=== PATIENT | male | born 1950 | race Caucasian/White ===

== ENCOUNTER 2019-07-28 13:31 | Outpatient (CLI) | payer MEDICARE, SELFPAY ==
--- NOTE | 2019-07-28 13:41 | ECHO_ITS ---
Patient Info Name: Damir Jimenez Age: 68 years : 1950 Gender: Male Ht: 69 in Wt: 180 lbs BSA: 2.01 m2 HR: 93 bpm BP: 135 / 79 mmHg Technical Quality: Good Exam Date: 07/28/2019 1:50 PM Exam Location: [facility] Patient Status: Outpatient Admit Date: 07/28/2019 Staff Ordering Physician: Dustin Castillo DO Automotive Service Director: Mathew Urias RDCS, RT Attending Provider: Dustin Castillo DO Referring Physician: Jonathan OBANDO; Exam Type: CA echo doppler color flow Study Info Indications R06.02 - Shortness of breath Complete two-dimensional, color flow and Doppler transthoracic echocardiogram is performed. Summary 1. Left ventricular chamber dimension is normal. 2. Left ventricular systolic function is normal, estimated at 60-65%. 3. There is mildly increased left ventricular wall thickness. 4. The left ventricular diastolic function is grade I diastolic dysfunction. 5. E/e' 9 is minimally elevated. 6. Global longitudinal strain is abnormal at -15.4%. 7. Dilated inferior vena cava with >50% collapse upon inspiration consistent with elevated right atrial pressure, 10 mmHg. Left Ventricle E/e' 9 is minimally elevated. Global longitudinal strain is abnormal at -15.4%. Left ventricular chamber dimension is normal. Left ventricular systolic function is normal, estimated at 60-65%. There is mildly increased left ventricular wall thickness. The left ventricular diastolic function is grade I diastolic dysfunction. Right Ventricle Right ventricular chamber dimension is not well visualized. Right ventricular systolic function is normal. Left Atria Left atrial chamber dimension is normal. Right Atria Right atrial chamber dimension is normal. Aortic Valve The aortic valve is trileaflet. There is no aortic valve stenosis. There is no aortic valve regurgitation. Pulmonic Valve There is no pulmonic regurgitation. Mitral Valve There is no mitral valve stenosis. There is no mitral valve regurgitation. Tricuspid Valve There is no tricuspid valve regurgitation. Pericardium/Pleural There is no pericardial effusion. Inferior Vena Cava Dilated inferior vena cava with >50% collapse upon inspiration consistent with elevated right atrial pressure, 10 mmHg. Aorta The aortic root size at the sinus of Valsalva is normal. Left Ventricular Outflow Tract Name Value Normal LVOT 2D LVOT Diameter 2.0 cm LVOT Doppler LVOT Peak Velocity 98 cm/s LVOT Peak Gradient 4 mmHg LVOT Mean Gradient 2 mmHg LVOT VTI 17 cm LVOT VTI/AV VTI Ratio 0.8 LVOT Stroke Volume 52 ml Pulmonic Valve Name Value Normal PV Doppler PV Peak Velocity 138 cm/s PV Peak Gradient
== END 2019-07-28 13:32 | disposition home or self-care (01) ==
LOC: CHSIMG 13:33
PROVIDERS: PCP Internal Medicine; Visit Provider Internal Medicine Cardiovascular Disease
DX: R06.09 Other forms of dyspnea (principal)
CPT/HCPCS: 93306

== ENCOUNTER 2019-07-31 10:10 | Outpatient (CLI) | payer MEDICARE, SELFPAY ==
[2019-07-31 11:11] LABS: Anion Gap 15.1 mmol/L (7-16); Blood Urea Nitrogen 31 mg/dL (7-18); Calcium 8.9 mg/dL (8.5-10.1); Carbon Dioxide 28 mmol/L (21-32); Chloride 104 mmol/L (98-108); Estimated Glomerular Filt Rate 33; Glucose 119 mg/dL (70-99); Magnesium 1.4 mg/dL (1.8-2.4); Osmolality Calculated 303 mOsm/kg (285-295); Potassium 4.1 mmol/L (3.5-5.1); Sodium 143 mmol/L (136-145)
== END 2019-07-31 10:11 | disposition home or self-care (01) ==
LOC: CHSLAB 10:13
PROVIDERS: PCP Internal Medicine; Visit Provider Internal Medicine Cardiovascular Disease
DX: R60.9 Edema, unspecified (principal)
CPT/HCPCS: 36415; 80048; 83735

== ENCOUNTER 2020-03-18 10:11 | Outpatient (CLI) | payer MEDICARE, SELFPAY ==
[2020-03-18 10:38] LABS: Basophils Absolute Auto 0.05 K/mm3 (0.00-0.10); Basophils Percent Auto 0.7 % (0.0-1.0); Eosinophils Absolute Auto 0.56 K/mm3 (0.02-0.50); Eosinophils Percent Auto 7.7 % (1.0-6.0); Hematocrit 34.1 % (37.0-46.0); Hemoglobin 11.2 g/dL (12.4-15.3); Immature Granulocyte Absolute 0.02 K/mm3 (0.00-0.00); Immature Granulocyte Percent A 0.3 % (0.0-0.0); Lymphocytes Absolute Auto 1.92 K/mm3 (1.10-4.50); Lymphocytes Percent Auto 26.5 % (18.0-42.0); Mean Corpuscular HGB Conc 32.8 g/dL (32.0-36.0); Mean Corpuscular Hemoglobin 32.2 pg (27.0-31.0); Mean Platelet Volume 11.3 fl (8.7-11.0); Monocytes Absolute Auto 0.69 K/mm3 (0.10-0.90); Monocytes Percent Auto 9.5 % (2.0-11.0); Neutrophils Percent Auto 55.3 % (50.0-70.0); Platelet Count Result 149 K/mm3 (150-420); Red Blood Count 3.48 M/mm3 (4.70-6.10); Red Cell Distribution Width 12.2 % (11.6-14.4); White Blood Count 7.3 K/mm3 (4.8-10.8)
[2020-03-18 11:21] LABS: Alanine Aminotransferase 23 U/L (16-63); Albumin Level 3.8 g/dL (3.4-5.0); Alkaline Phosphatase 59 U/L (46-116); Anion Gap 10 mmol/L (8-16); Aspartate Amino Transferase 18 U/L (15-37); Bilirubin,Total 0.4 mg/dL (0.00-1.00); Blood Urea Nitrogen 30 mg/dL (7-18); Calcium 8.7 mg/dL (8.5-10.1); Carbon Dioxide 24 mmol/L (21-32); Chloride 103 mmol/L (98-108); Estimated Glomerular Filt Rate 25; GGT 26 U/L (15-85); Glucose 110 mg/dL (70-99); Osmolality Calculated 291 mOsm/kg (285-295); Potassium 5.5 mmol/L (3.5-5.1); Sodium 137 mmol/L (136-145); Total Protein 6.6 g/dL (6.4-8.2)
[2020-03-22 07:16] LABS: Tacrolimus Prograf 4.4 mcg/L
== END 2020-03-18 10:12 | disposition home or self-care (01) ==
PROVIDERS: PCP Internal Medicine; Visit Provider Internal Medicine Gastroenterology
DX: Z94.4 Liver transplant status (principal); Z79.899 Other long term (current) drug therapy
CPT/HCPCS: 36415; 80053; 80197; 82977; 85025

== ENCOUNTER 2020-10-14 11:45 | Outpatient (CLI) | payer MEDICARE, SELFPAY ==
[2020-10-14 12:00] LABS: Basophils Absolute Auto 0.07 K/mm3 (0.00-0.10); Basophils Percent Auto 1.1 % (0.0-1.0); Eosinophils Absolute Auto 0.47 K/mm3 (0.02-0.50); Eosinophils Percent Auto 7.4 % (1.0-6.0); Hematocrit 34.4 % (37.0-46.0); Hemoglobin 11.1 g/dL (12.4-15.3); Immature Granulocyte Absolute 0.02 K/mm3 (0.00-0.00); Immature Granulocyte Percent A 0.3 % (0.0-0.0); Lymphocytes Absolute Auto 1.81 K/mm3 (1.10-4.50); Lymphocytes Percent Auto 28.3 % (18.0-42.0); Mean Corpuscular HGB Conc 32.3 g/dL (32.0-36.0); Mean Corpuscular Hemoglobin 31.1 pg (27.0-31.0); Mean Corpuscular Volume 96.4 fL (78.0-102.0); Mean Platelet Volume 10.9 fl (8.7-11.0); Monocytes Absolute Auto 0.72 K/mm3 (0.10-0.90); Monocytes Percent Auto 11.3 % (2.0-11.0); Neutrophils Absolute Auto 3.3 K/mm3 (1.7-7.2); Neutrophils Percent Auto 51.6 % (50.0-70.0); Platelet Count Result 192 K/mm3 (150-420); Red Blood Count 3.57 M/mm3 (4.70-6.10); Red Cell Distribution Width 12.1 % (11.6-14.4); White Blood Count 6.4 K/mm3 (4.8-10.8)
[2020-10-14 12:40] LABS: Alanine Aminotransferase 21 U/L (16-63); Albumin Level 3.8 g/dL (3.4-5.0); Alkaline Phosphatase 68 U/L (46-116); Anion Gap 8 mmol/L (8-16); Aspartate Amino Transferase 13 U/L (15-37); Bilirubin,Total 0.5 mg/dL (0.00-1.00); Blood Urea Nitrogen 38 mg/dL (7-18); Calcium 8.9 mg/dL (8.5-10.1); Carbon Dioxide 29 mmol/L (21-32); Chloride 102 mmol/L (98-108); Estimated Glomerular Filt Rate 24; GGT 28 U/L (15-85); Glucose 96 mg/dL (70-99); Osmolality Calculated 297 mOsm/kg (285-295); Potassium 4.9 mmol/L (3.5-5.1); Sodium 139 mmol/L (136-145)
[2020-10-17 08:14] LABS: Tacrolimus Prograf 3.8 mcg/L
== END 2020-10-14 11:46 | disposition home or self-care (01) ==
LOC: CHSLAB 11:48
PROVIDERS: PCP Internal Medicine; Visit Provider Internal Medicine Gastroenterology
DX: Z94.4 Liver transplant status (principal); Z79.899 Other long term (current) drug therapy
CPT/HCPCS: 36415; 80053; 80197; 82977; 85025

== ENCOUNTER 2021-08-23 10:16 | Outpatient (CLI) | payer MEDICARE, SELFPAY ==
[2021-08-23 11:09] LABS: Influenza A QL RT-PCR Positive (Negative); Influenza B QL RT-PCR Negative (Negative); SARS-CoV-2 RNA PCR Negative (Negative)
== END 2021-08-23 10:17 | disposition home or self-care (01) ==
LOC: CHSLAB 10:20
PROVIDERS: PCP Internal Medicine; Visit Provider Internal Medicine Pulmonary Disease
DX: Z20.822 Contact with and (suspected) exposure to COVID-19 (principal)
CPT/HCPCS: 87070; 87205; 87502; C9803; U0003; U0005

== ENCOUNTER 2022-01-30 10:32 | Outpatient (RCR) | payer MEDICARE, SELFPAY ==
[2022-01-30 11:27] LABS: Basophils Absolute Auto 0.05 K/mm3 (0.00-0.10); Basophils Percent Auto 0.7 % (0.0-1.0); Eosinophils Absolute Auto 0.34 K/mm3 (0.02-0.50); Hematocrit 33.6 % (37.0-46.0); Hemoglobin 10.8 g/dL (12.4-15.3); Immature Granulocyte Absolute 0.03 K/mm3 (0.00-0.00); Immature Granulocyte Percent A 0.4 % (0.0-0.0); Lymphocytes Absolute Auto 1.64 K/mm3 (1.10-4.50); Lymphocytes Percent Auto 24.3 % (18.0-42.0); Mean Corpuscular HGB Conc 32.1 g/dL (32.0-36.0); Mean Corpuscular Hemoglobin 31.8 pg (27.0-31.0); Mean Corpuscular Volume 98.8 fL (78.0-102.0); Mean Platelet Volume 11.1 fl (8.7-11.0); Monocytes Absolute Auto 0.61 K/mm3 (0.10-0.90); Monocytes Percent Auto 9.1 % (2.0-11.0); Neutrophils Absolute Auto 4.1 K/mm3 (1.7-7.2); Neutrophils Percent Auto 60.5 % (50.0-70.0); Platelet Count Result 164 K/mm3 (150-420); Red Cell Distribution Width 11.9 % (11.6-14.4); White Blood Count 6.7 K/mm3 (4.8-10.8)
[2022-01-30 11:43] LABS: Alanine Aminotransferase 18 U/L (16-63); Albumin Level 3.9 g/dL (3.4-5.0); Alkaline Phosphatase 71 U/L (46-116); Anion Gap 9 mmol/L (8-16); Aspartate Amino Transferase 16 U/L (15-37); Bilirubin,Total 0.3 mg/dL (0.00-1.00); Blood Urea Nitrogen 46 mg/dL (7-18); Calcium 9.3 mg/dL (8.5-10.1); Carbon Dioxide 25 mmol/L (21-32); Chloride 100 mmol/L (98-108); Estimated Glomerular Filt Rate 21; GGT 21 U/L (15-85); Glucose 91 mg/dL (70-99); Osmolality Calculated 289 mOsm/kg (285-295); Sodium 134 mmol/L (136-145); Total Protein 7.5 g/dL (6.4-8.2)
[2022-02-01 23:29] LABS: Tacrolimus Prograf 12.3 mcg/L
== END 2022-04-30 23:59 | disposition home or self-care (01) ==
LOC: CHSLAB 10:32
PROVIDERS: PCP Internal Medicine; Visit Provider Internal Medicine Gastroenterology
DX: Z94.4 Liver transplant status (principal); Z79.899 Other long term (current) drug therapy
CPT/HCPCS: 36415; 80053; 80197; 82977; 85025

== ENCOUNTER 2022-02-27 10:42 | Outpatient (CLI) | payer MEDICARE, SELFPAY ==
[2022-02-27 10:57] LABS: Basophils Absolute Auto 0.07 K/mm3 (0.00-0.10); Basophils Percent Auto 1.1 % (0.0-1.0); Eosinophils Absolute Auto 0.37 K/mm3 (0.02-0.50); Eosinophils Percent Auto 5.8 % (1.0-6.0); Hematocrit 31.4 % (37.0-46.0); Immature Granulocyte Absolute 0.03 K/mm3 (0.00-0.00); Immature Granulocyte Percent A 0.5 % (0.0-0.0); Lymphocytes Absolute Auto 1.56 K/mm3 (1.10-4.50); Lymphocytes Percent Auto 24.6 % (18.0-42.0); Mean Corpuscular HGB Conc 31.8 g/dL (32.0-36.0); Mean Corpuscular Hemoglobin 31.9 pg (27.0-31.0); Mean Corpuscular Volume 100.3 fL (78.0-102.0); Mean Platelet Volume 11.1 fl (8.7-11.0); Monocytes Percent Auto 9.5 % (2.0-11.0); Neutrophils Absolute Auto 3.7 K/mm3 (1.7-7.2); Neutrophils Percent Auto 58.5 % (50.0-70.0); Platelet Count Result 155 K/mm3 (150-420); Red Blood Count 3.13 M/mm3 (4.70-6.10); Red Cell Distribution Width 12.2 % (11.6-14.4); White Blood Count 6.3 K/mm3 (4.8-10.8)
[2022-02-27 11:02] LABS: Add Urine Microscopic? NO; Appearance Urine Clear (Clear); Bilirubin Urine Negative (Negative); Blood Urine Negative (Negative); Color Urine Light Yellow (Yellow); Glucose Urine UA Negative (Negative); Ketones Urine Negative (Negative); Leukocyte Esterase Ur Negative (Negative); Nitrate Urine Negative (Negative); Protein Urine Negative (Negative); Specific Grav Ur <= 1.005 (1.010-1.020); Urobilinogen Urine 0.2 mg/dL (0.2-1.0)
[2022-02-27 11:25] LABS: Alanine Aminotransferase 20 U/L (16-63); Alkaline Phosphatase 64 U/L (46-116); Anion Gap 8 mmol/L (8-16); Aspartate Amino Transferase 18 U/L (15-37); Bilirubin,Total 0.4 mg/dL (0.00-1.00); Blood Urea Nitrogen 52 mg/dL (7-18); Calcium 8.9 mg/dL (8.5-10.1); Carbon Dioxide 25 mmol/L (21-32); Chloride 101 mmol/L (98-108); Estimated Glomerular Filt Rate 22; GGT 27 U/L (15-85); Glucose 105 mg/dL (70-99); Osmolality Calculated 292 mOsm/kg (285-295); Potassium 5.4 mmol/L (3.5-5.1); Sodium 134 mmol/L (136-145); Total Protein 6.9 g/dL (6.4-8.2)
[2022-03-01 19:18] LABS: Tacrolimus Prograf 5.1 mcg/L
== END 2022-02-27 10:43 | disposition home or self-care (01) ==
LOC: CHSLAB 10:44
PROVIDERS: PCP Internal Medicine; Visit Provider Internal Medicine Gastroenterology
DX: Z94.4 Liver transplant status (principal); Z79.899 Other long term (current) drug therapy
CPT/HCPCS: 36415; 80053; 80197; 81003; 82977; 85025

== ENCOUNTER 2022-06-13 14:23 | Outpatient (CLI) | payer MEDICARE, SELFPAY ==
--- NOTE | ~2022-06-13 | US_ITS ---
EXAMINATION: US renal BI DATE: 06/13/2022 15:18 INDICATION: CKD TECHNIQUE: Multiple grayscale and Doppler ultrasound images of the kidneys were obtained. COMPARISON: 07/11/2018 FINDINGS: The right kidney measures 8.9 x 4.8 x 4.6 cm. The left kidney measures 9.6 x 4.0 x 4.5 cm. The kidney s demonstrate increased parenchymal echogenicity. Prominent sinus fat. Mild bilateral cortical thinni ng. 6 mm simple left renal cyst. There is no hydronephrosis. The bladder is normal. 32 mL post void r esidual. IMPRESSION: Medical renal disease. Mild renal atrophy. 32 mm post void residual. Reviewed, dictated and finalized at location K. ROL ROOM OPERATOR
[2022-06-13 14:53] LABS: Collection Time Urine 24 HOURS
[2022-06-13 14:58] LABS: Basophils Absolute Auto 0.05 K/mm3 (0.00-0.10); Basophils Percent Auto 0.7 % (0.0-1.0); Eosinophils Percent Auto 5.5 % (1.0-6.0); Hematocrit 31.1 % (37.0-46.0); Hemoglobin 10.1 g/dL (12.4-15.3); Immature Granulocyte Absolute 0.02 K/mm3 (0.00-0.00); Immature Granulocyte Percent A 0.3 % (0.0-0.0); Lymphocytes Absolute Auto 1.62 K/mm3 (1.10-4.50); Lymphocytes Percent Auto 22.3 % (18.0-42.0); Mean Corpuscular HGB Conc 32.5 g/dL (32.0-36.0); Mean Corpuscular Hemoglobin 32.2 pg (27.0-31.0); Mean Platelet Volume 11.2 fl (8.7-11.0); Monocytes Percent Auto 9.6 % (2.0-11.0); Neutrophils Absolute Auto 4.5 K/mm3 (1.7-7.2); Neutrophils Percent Auto 61.6 % (50.0-70.0); Platelet Count Result 181 K/mm3 (150-420); Red Blood Count 3.14 M/mm3 (4.70-6.10); White Blood Count 7.3 K/mm3 (4.8-10.8)
[2022-06-13 15:30] LABS: Alanine Aminotransferase 14 U/L (16-63); Albumin Level 3.9 g/dL (3.4-5.0); Alkaline Phosphatase 57 U/L (46-116); Anion Gap 6 mmol/L (8-16); Aspartate Amino Transferase 18 U/L (15-37); Bilirubin,Total 0.3 mg/dL (0.00-1.00); Blood Urea Nitrogen 49 mg/dL (7-18); Carbon Dioxide 27 mmol/L (21-32); Chloride 101 mmol/L (98-108); Glucose 139 mg/dL (70-99); Osmolality Calculated 293 mOsm/kg (285-295); Potassium 5.3 mmol/L (3.5-5.1); Sodium 134 mmol/L (136-145); Total Protein 7.5 g/dL (6.4-8.2)
[2022-06-13 15:35] LABS: Estimated Glomerular Filt Rate 19
[2022-06-13 15:36] LABS: Creatinine Urine 44.11 mg/dL (40-278)
[2022-06-13 15:40] LABS: Serum Creat 3.25; Total Volume 24 Hour Urine 2500 ml
[2022-06-13 17:29] LABS: Creatinine Clearance Urine 20.7 ml/min (97-137); Patient Weight 180 Lbs
[2022-06-16 16:03] LABS: Total Protein Urine 24 Hr 363 mg/24hr (0-149); Total Protein Urine Random 14.5 mg/dL (0.0-11.9)
== END 2022-06-13 14:24 | disposition home or self-care (01) ==
LOC: CHSIMG 14:29
PROVIDERS: PCP Internal Medicine; Visit Provider Urology
DX: N18.9 Chronic kidney disease, unspecified (principal)
CPT/HCPCS: 36415; 76775; 80053; 81050; 82575; 84156; 85025

== ENCOUNTER 2022-07-04 12:00 | Outpatient (CLI) | payer MEDICARE, SELFPAY ==
--- NOTE | ~2022-07-04 | XR_ITS ---
Supine and upright views of the abdomen Clinical history: Chronic kidney disease Findings: Bowel gas pattern is nonspecific. No evidence for obstruction or free air. Multiple bilater al renal stones are present, measuring up to 12 mm on the left, and 9 mm on the right.. Osseous struc tures are intact. Impression: Bilateral nephrolithiasis, as detailed above. Reviewed, dictated and finalized at location . OR VALIDATION ENGINEER Impression: Bilateral nephrolithiasis, as detailed above.
== END 2022-07-04 12:01 | disposition home or self-care (01) ==
LOC: CHSIMG 12:03
PROVIDERS: PCP Internal Medicine; Visit Provider Urology
DX: N18.9 Chronic kidney disease, unspecified (principal); N20.0 Calculus of kidney
CPT/HCPCS: 74018

== ENCOUNTER 2022-09-07 12:58 | Outpatient (CLI) | payer MEDICARE, SELFPAY ==
[2022-09-07 13:14] LABS: Basophils Absolute Auto 0.07 K/mm3 (0.00-0.10); Basophils Percent Auto 0.8 % (0.0-1.0); Eosinophils Absolute Auto 0.32 K/mm3 (0.02-0.50); Eosinophils Percent Auto 3.8 % (1.0-6.0); Hematocrit 32.6 % (37.0-46.0); Hemoglobin 10.4 g/dL (12.4-15.3); Immature Granulocyte Absolute 0.03 K/mm3 (0.00-0.00); Immature Granulocyte Percent A 0.4 % (0.0-0.0); Lymphocytes Absolute Auto 1.99 K/mm3 (1.10-4.50); Lymphocytes Percent Auto 23.4 % (18.0-42.0); Mean Corpuscular HGB Conc 31.9 g/dL (32.0-36.0); Mean Corpuscular Hemoglobin 31.2 pg (27.0-31.0); Mean Corpuscular Volume 97.9 fL (78.0-102.0); Mean Platelet Volume 11.5 fl (8.7-11.0); Monocytes Absolute Auto 0.71 K/mm3 (0.10-0.90); Monocytes Percent Auto 8.4 % (2.0-11.0); Neutrophils Absolute Auto 5.4 K/mm3 (1.7-7.2); Neutrophils Percent Auto 63.2 % (50.0-70.0); Platelet Count Result 169 K/mm3 (150-420); Red Blood Count 3.33 M/mm3 (4.70-6.10); White Blood Count 8.5 K/mm3 (4.8-10.8)
[2022-09-07 13:59] LABS: Alanine Aminotransferase 19 U/L (16-63); Alkaline Phosphatase 63 U/L (46-116); Anion Gap 12 mmol/L (8-16); Aspartate Amino Transferase 32 U/L (15-37); Bilirubin,Total 0.5 mg/dL (0.00-1.00); Blood Urea Nitrogen 47 mg/dL (7-18); Calcium 8.9 mg/dL (8.5-10.1); Carbon Dioxide 23 mmol/L (21-32); Chloride 101 mmol/L (98-108); Estimated Glomerular Filt Rate 23; Glucose 91 mg/dL (70-99); Osmolality Calculated 294 mOsm/kg (285-295); Sodium 136 mmol/L (136-145); Total Protein 7.4 g/dL (6.4-8.2)
[2022-09-07 14:03] LABS: Potassium 6.1 mmol/L (3.5-5.1)
[2022-09-10 15:16] LABS: Tacrolimus Prograf 7.4 mcg/L
== END 2022-09-07 12:59 | disposition home or self-care (01) ==
LOC: CHSLAB 13:00
PROVIDERS: PCP Internal Medicine; Visit Provider Internal Medicine Gastroenterology
DX: Z94.9 Transplanted organ and tissue status, unspecified (principal)
CPT/HCPCS: 36415; 80053; 80197; 85025

== ENCOUNTER 2022-09-25 11:28 | Outpatient (RCR) | payer MEDICARE, SELFPAY ==
[2022-09-25 12:05] LABS: Basophils Absolute Auto 0.07 K/mm3 (0.00-0.10); Basophils Percent Auto 0.9 % (0.0-1.0); Eosinophils Absolute Auto 0.32 K/mm3 (0.02-0.50); Eosinophils Percent Auto 3.9 % (1.0-6.0); Hematocrit 34.3 % (37.0-46.0); Hemoglobin 11.2 g/dL (12.4-15.3); Immature Granulocyte Absolute 0.02 K/mm3 (0.00-0.00); Immature Granulocyte Percent A 0.2 % (0.0-0.0); Lymphocytes Absolute Auto 1.43 K/mm3 (1.10-4.50); Lymphocytes Percent Auto 17.4 % (18.0-42.0); Mean Corpuscular HGB Conc 32.7 g/dL (32.0-36.0); Mean Corpuscular Hemoglobin 31.9 pg (27.0-31.0); Mean Corpuscular Volume 97.7 fL (78.0-102.0); Mean Platelet Volume 11.5 fl (8.7-11.0); Monocytes Absolute Auto 0.63 K/mm3 (0.10-0.90); Monocytes Percent Auto 7.7 % (2.0-11.0); Neutrophils Absolute Auto 5.7 K/mm3 (1.7-7.2); Neutrophils Percent Auto 69.9 % (50.0-70.0); Platelet Count Result 178 K/mm3 (150-420); Red Blood Count 3.51 M/mm3 (4.70-6.10); Red Cell Distribution Width 12.3 % (11.6-14.4); White Blood Count 8.2 K/mm3 (4.8-10.8)
[2022-09-25 12:52] LABS: Alanine Aminotransferase 18 U/L (16-63); Albumin Level 4.2 g/dL (3.4-5.0); Alkaline Phosphatase 63 U/L (46-116); Anion Gap 13 mmol/L (8-16); Aspartate Amino Transferase 17 U/L (15-37); Bilirubin,Total 0.4 mg/dL (0.00-1.00); Blood Urea Nitrogen 49 mg/dL (7-18); Calcium 9.3 mg/dL (8.5-10.1); Carbon Dioxide 25 mmol/L (21-32); Chloride 102 mmol/L (98-108); Estimated Glomerular Filt Rate 20; GGT 27 U/L (15-85); Glucose 100 mg/dL (70-99); Osmolality Calculated 303 mOsm/kg (285-295); Sodium 140 mmol/L (136-145); Total Protein 7.5 g/dL (6.4-8.2)
[2022-09-27 20:08] LABS: Vitamin D 25 Hydroxy 25 ng/mL (30-100)
[2022-09-28 08:28] LABS: Tacrolimus Prograf 3.3 mcg/L
== END 2022-12-24 23:59 | disposition home or self-care (01) ==
LOC: CHSLAB 11:28
PROVIDERS: PCP Internal Medicine; Visit Provider Internal Medicine Gastroenterology
DX: Z51.81 Encounter for therapeutic drug level monitoring (principal); Z94.4 Liver transplant status; Z79.899 Other long term (current) drug therapy
CPT/HCPCS: 36415; 80053; 80197; 82306; 82977; 85025

== ENCOUNTER 2023-04-21 21:31 | Emergency (ER) | payer MEDICARE, SELFPAY ==
[2023-04-21] VITALS (17 sets, daily range): BP systolic 142–218; BP diastolic 78–94; PULSE 100–142; RESP 13–39; TEMP 37.2; O2SAT 92–100
--- NOTE | ~2023-04-21 | XR_ITS ---
EXAMINATION: XR chest 1V portable Exam Date/Time: 04/21/2023 21:45 STEWARD/STEWARDESS BANQUET HISTORY: SHORTNESS OF BREATH. Comparison: 05/30/2019. RESULT: Lines, tubes, and devices: None. Lungs and pleura: Bilateral mid and lower lung scarring, worse on the right. Cardiomediastinal silhouette: Stable. Other: No acute osseous or upper abdominal finding. Old healed left posterolateral sixth and seventh rib fractures. IMPRESSION: No acute cardiopulmonary process. Reviewed, dictated and finalized at location K. ARD/STEWARDESS BANQUET
--- NOTE | 2023-04-21 21:34 | ECG_ITS ---
Measurements Intervals [place] Rate: 135 P: 60 MN: 148 QRS: -24 QRSD: 114 T: 100 QT: 308 QTc: 463 Interpretive Statements ATRIAL FLUTTER/TACHYCARDIA WITH RAPID VENTRICULAR RESPONSE INCOMPLETE LEFT BUNDLE BRANCH BLOCK BORDERLINE ST-T WAVE ABNORMALITY- HIGH LATERAL LEADS BASELINE ARTIFACT- I, II, III, AVR, AVL, AVF, V1-V6 ABNORMAL ECG NO PREVIOUS ECG AVAILABLE FOR COMPARISON Electronically Signed On 04-22-2023 6:31:40 SENIOR GEOLOGIST by Dustin Castillo D.O.
[2023-04-21] MEDS: IPRATROPIUM 0.5 MG/ALBUTEROL SULFATE 2.5 MG AMPUL.NEB 3 ML INHALATION (21:45)
[2023-04-21] MEDS: methylPREDNISolone SOD SUCC 125 MG VIAL IV PUSH (22:02)
[2023-04-21 22:03] LABS: Basophils Absolute Auto 0.02 K/mm3 (0.00-0.10); Basophils Percent Auto 0.2 % (0.0-1.0); Eosinophils Absolute Auto 0.01 K/mm3 (0.02-0.50); Eosinophils Percent Auto 0.1 % (1.0-6.0); Hematocrit 31.2 % (37.0-46.0); Hemoglobin 9.7 g/dL (12.4-15.3); Immature Granulocyte Absolute 0.06 K/mm3 (0.00-0.00); Immature Granulocyte Percent A 0.6 % (0.0-0.0); Lymphocytes Absolute Auto 2.03 K/mm3 (1.10-4.50); Lymphocytes Percent Auto 19.4 % (18.0-42.0); Mean Corpuscular HGB Conc 31.1 g/dL (32.0-36.0); Mean Corpuscular Hemoglobin 31.4 pg (27.0-31.0); Mean Platelet Volume 11.4 fl (8.7-11.0); Monocytes Absolute Auto 0.85 K/mm3 (0.10-0.90); Monocytes Percent Auto 8.1 % (2.0-11.0); Neutrophils Absolute Auto 7.5 K/mm3 (1.7-7.2); Neutrophils Percent Auto 71.6 % (50.0-70.0); Platelet Count Result 161 K/mm3 (150-420); Red Blood Count 3.09 M/mm3 (4.70-6.10); Red Cell Distribution Width 12.6 % (11.6-14.4); White Blood Count 10.5 K/mm3 (4.8-10.8)
[2023-04-21] MEDS: MAGNESIUM SULF 2 GM/WATER 50ML 2 GM/50 ML BAG IVPB (22:03)
[2023-04-21 22:08] LABS: Base Excess ABG -4.6 mmol/L (0-2); HCO3 ABG 21.5 mmol/L (23-29); Oxygen Content ABG 15.8 %vol (16.0-22.0); Oxygen Saturation ABG 98.8 % (95-97); PCO2 ABG 43.9 mmHg (35-45); PO2 ABG 299.6 mmHg (75-85); Site Drawn RIGHT RADIAL; Total Hemoglobin 10.9 g/dL (12.0-18.0); pH ABG 7.31 (7.35-7.45)
[2023-04-21 22:09] LABS: Device BIPAP; Expiratory Pressure 5 cmH2O; Inspiratory Pressure 10 cmH2O; Modified Allen's Test Pass
[2023-04-21 22:19] LABS: INR 0.9; Prothrombin Time 9.7 Seconds (9.50-12.10)
[2023-04-21 22:21] LABS: D Dimer 0.56 mg/L (0.19-0.50)
[2023-04-21 22:26] LABS: Alanine Aminotransferase 41 U/L (16-63); Albumin Level 3.2 g/dL (3.4-5.0); Alkaline Phosphatase 76 U/L (46-116); Anion Gap 9 mmol/L (8-16); Aspartate Amino Transferase 31 U/L (15-37); Bilirubin,Total 0.3 mg/dL (0.00-1.00); Blood Urea Nitrogen 64 mg/dL (7-18); Calcium 8.6 mg/dL (8.5-10.1); Carbon Dioxide 27 mmol/L (21-32); Chloride 105 mmol/L (98-108); Estimated Glomerular Filt Rate 16; Glucose 234 mg/dL (70-99); Magnesium 1.9 mg/dL (1.8-2.4); NT Pro B Type Natriuretic Pept 1070 pg/mL (0-125); Osmolality Calculated 318 mOsm/kg (285-295); Potassium 5.6 mmol/L (3.5-5.1); Sodium 141 mmol/L (136-145); Total Protein 6.9 g/dL (6.4-8.2)
[2023-04-21 22:45] LABS: Influenza A QL RT-PCR Negative (Negative); Influenza B QL RT-PCR Negative (Negative); SARS-CoV-2 RNA PCR Negative (Negative)
[2023-04-21 22:46] LABS: RSV RNA, RT-PCR Negative (Negative)
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
[2023-04-21] MEDS: IPRATROPIUM 0.5 MG/ALBUTEROL SULFATE 2.5 MG AMPUL.NEB 3 ML (22:47)
[2023-04-21] MEDS: CALCIUM GLUC 1,000 MG/NS 50 ML 1,000 MG/50 ML BAG 100 MG IVPB (23:25)
--- NOTE | 2023-04-21 23:43 | PC.NURSE ---
patient breathing much better, seems to be at baseline. Bipap currently on stand by, on 3L O2, which is baseline home dose for patient. Patient and are agreeable to transfer to [facility].
[2023-04-22] VITALS: PULSE 106; RESP 11; O2SAT 96
[2023-04-22 00:01] VITALS: BP 156/88; PULSE 105; RESP 13; O2SAT 97
[2023-04-22 00:15] VITALS: PULSE 109
[2023-04-22 00:50] VITALS: BP 156/88; PULSE 104; RESP 22; TEMP 37.1; O2SAT 100
[2023-04-22 01:01] LABS: Reflex Lactic Acid Yes or No Add Lactic
--- NOTE | 2023-04-28 12:13 | PC.NURSE ---
final blood culture noted, no growth after 5 days
== END 2023-04-22 00:50 | disposition short-term general hospital (02) ==
PROVIDERS: Emergency Provider Emergency Medicine; PCP Internal Medicine
DX: J44.1 Chronic obstructive pulmonary disease with (acute) exacerbation (principal); I12.9 Hypertensive chronic kidney disease with stage 1 through stage 4 chronic kidney disease, or unspecified chronic kidney disease; N18.4 Chronic kidney disease, stage 4 (severe); Z79.82 Long term (current) use of aspirin; Z79.899 Other long term (current) drug therapy; Z87.891 Personal history of nicotine dependence; Z20.822 Contact with and (suspected) exposure to COVID-19
CPT/HCPCS: 36415; 36600; 71045; 80053; 82805; 83605; 83735; 83880; 84484; 85025; 85380; 85610; 85730; 87040; 87637; 93005; 94640; 96365; 96367; 96375; 99285; J0612; J2930; J3475

== ENCOUNTER 2023-04-22 01:02 | Inpatient (IN) | payer MEDICARE, SELFPAY ==
[2023-04-22] VITALS (22 sets, daily range): BP systolic 111–162; BP diastolic 62–116; PULSE 75–124; RESP 18–30; TEMP 36.2–36.8; O2SAT 90–100; BMI 28.2
--- NOTE | 2023-04-22 01:22 | ECG_ITS ---
Measurements Intervals [place] Rate: 100 P: 69 MA: 159 QRS: -14 QRSD: 102 T: 88 QT: 351 QTc: 454 Interpretive Statements SINUS TACHYCARDIA ST ELEVATION IN ANTEROLATERAL LEADS- CONSIDER ACUTE INJURY, PERICARDITIS OR EARLY REPOLARIZATION ABNORMALITY BORDERLINE T WAVE ABNORMALITY- HIGH LATERAL LEADS ABNORMAL ECG COMPARED TO ECG 04/21/2023 21:41:02 [address] NOW PRESENT [address] ELEVATION NOW PRESENT Electronically Signed On 04-22-2023 12:04:32 OPERATIONS LEAD by Dustin Castillo D.O.
--- NOTE | 2023-04-22 02:01 | ADMGEN ---
This patient, Damir Jimenez, was admitted to IMU Room 213-01 at 0123. Patient/family oriented to hospital policies and general routines including ID bracelet, bed and alarms, visiting hours, pain management, procedures, bathroom and other care routines, personal items, smoking policy, room service/diet, and visiting hours. Information on how to activate the Rapid Response Team has been discussed. Patient/Family are encouraged to report perceived risks to care and to ask questions if they do not understand what they are told or what they should do.
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
[2023-04-22] MEDS: SODIUM CHLORIDE 0.9% IV 1,000 ML 100 ML IV CONT ×3 (03:09→23:11)
[2023-04-22] MEDS: IPRATROPIUM BR 0.02% INH SOLN 0.5 MG/2.5 ML VIAL INHALATION ×4 (03:23→20:16)
[2023-04-22] MEDS: ALBUTEROL SULFATE NEB 2.5 MG/3 ML INH 5 MG INHALATION (03:23)
[2023-04-22 04:30] LABS: Basophils Percent Auto 0.1 % (0.2-1.2); Hematocrit 26.5 % (42.0-52.0); Hemoglobin 7.9 g/dL (14.0-18.0); Immature Granulocyte Absolute 0.13 K/mm3 (0.00-0.031); Immature Granulocyte Percent A 0.9 % (0-0.5); Immature Platelet Fraction Pct 8.3 % (0.9-11.2); Lymphocytes Absolute Auto 0.47 K/mm3 (0.9-3.2); Lymphocytes Percent Auto 3.3 % (18.3-44.2); Mean Corpuscular HGB Conc 29.8 g/dl (32-36); Mean Corpuscular Hemoglobin 31.3 pg (26-34); Mean Corpuscular Volume 105.2 fl (80-100); Mean Platelet Volume 11.8 fl (7.4-10.4); Monocytes Absolute Auto 0.5 K/mm3 (0.1-0.6); Monocytes Percent Auto 3.4 % (2.6-8.5); Neutrophils Percent Auto 92.3 % (45.5-73.1); Platelet Count Result 112 k/mm3 (150-375); Red Blood Count 2.52 M/mm3 (4.6-6.20); Red Cell Distribution Width 12.7 % (11.5-14.5); White Blood Count 14.1 K/mm3 (4.5-10.0)
[2023-04-22 04:43] LABS: Hemoglobin A1C 5.4 % (<5.7)
[2023-04-22 04:54] LABS: Anisocytosis 1+ (NORMAL); Burr Cells 1+ (NORMAL); Large Platelets Present; Microcytosis 1+ (NORMAL); Platelet Clumps Present; Platelet Estimate Decreased (Adequate); Schistocytes None Seen (NORMAL)
[2023-04-22] MEDS: methylPREDNISolone SOD SUCC 125 MG VIAL 60 MG IV PUSH (06:15)
--- NOTE | 2023-04-22 06:47 | PC.NURSE ---
BMP, Mg+, and Troponin have not resulted. I called the lab and was told the speciman hemolyzed. The patient is extremely upset and does not want to be drawn again. I educated him on the importance of the labs to guide further care. He is agreeable for one more lab draw. Dr. Koenig and lab notified.
[2023-04-22] MEDS: LEVALBUTEROL NEB 1.25 MG/3 ML (08:13)
--- NOTE | 2023-04-22 08:33 | PM.IMPN ---
Progress Note: A&P Assessment and Plan (1) Acute exacerbation of chronic obstructive pulmonary disease: Code(s): J44.1 - Chronic obstructive pulmonary disease with (acute) exacerbation Status: Acute Assessment and Plan: Pulmonary consult, case discussed in detail. Will continue with steroids and nebulizer treatment and oxygen. Monitor closely. (2) Hypertension: Code(s): I10 - Essential (primary) hypertension Status: Acute Assessment and Plan: Stable current medications, will continue current tube. (3) Elevated d-dimer: Code(s): R79.89 - Other specified abnormal findings of blood chemistry Status: Acute Assessment and Plan: Pulmonary consult, workup in progress, continue current. (4) Acute kidney injury superimposed on chronic kidney disease: Code(s): N17.9 - Acute kidney failure, unspecified; N18.9 - Chronic kidney disease, unspecified Status: Acute Assessment and Plan: Monitor closely. Encourage p.o. fluid intake. (5) Abnormal EKG: Code(s): R94.31 - Abnormal electrocardiogram [ECG] [EKG] Status: Acute Assessment and Plan: Possible cardiac enzymes of note to be secondary to failure. In light of abnormal EKG will get Cardiology evaluation. (6) Anemia: Code(s): D64.9 - Anemia, unspecified Status: Acute Assessment and Plan: On Protonix. Monitor closely. No acute bleeding. Subjective Date/time seen: 04/22/23 08:33 Interval history: Patient was seen during the morning rounds today. Patient has mild shortness of breath. No chest pain. Complained for weakness. No abdominal pain, nausea, no vomiting. Mood stable. Review of Systems Review of Systems: All systems reviewed & are unremarkable except as noted in HPI and below (the history and physical exam) Exam Narrative: Weight 86.8 kg BMI 28.3 Narrative:?? Weight 86.8 kg BM I 28.3 ? Const:?? Other: No acute d istress, well-deve loped well-nourish ed, appears stated age ? HENMT:?? Other: Head is no rmocephalic atraum atic, mucous membr anes are tacky, cr owded posterior or opharynx, fair den tition ? Eyes:?? Other: Pupils are equal and reactiv e, evidence of jhoana or right cataract extraction with ar tificial lens in p lace, no scleral i cterus ? Neck:?? Other: No JVD, whaley pple ? Resp:?? Other: Expiratory wheezing bilatera l greater in poste rior garrett, no in creased work of br eathing ? Cardio:?? Other: Sinus tach ycardia, 2+ bilate ral radial pulses, 2+ left posterior tibial pulse ? GI:?? Other: Distended, soft, nontender, normoactive bowel sounds ? Back/Spine/Pelvis: ?? Other: Mild thora cic kyphosis ? Skin:?? Other: Normal tem perature is touch, mild pallor, non jaundice ? Neuro:?? Other: Alert orie nted, speech is cl ear, no facial asy mmetry, my old hea ring loss, no loca lizing neurologic deficits noted dur ing the course of conversa
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
[2023-04-22 08:55] LABS: Anion Gap 17 mmol/L (8-16); Blood Urea Nitrogen 56 mg/dL (9-20); Calcium 9.2 mg/dL (8.4-10.2); Carbon Dioxide 17 mmol/L (22-30); Chloride 103 mmol/L (98-107); Estimated CRCL calculation 22 ml/min; Estimated Glomerular Filt Rate 22; Glucose 184 mg/dL (65-110); Magnesium 2.2 mg/dL (1.6-2.3); Potassium 5.2 mmol/L (3.4-5.0); Sodium 137 mmol/L (137-145)
[2023-04-22] MEDS: PANTOPRAZOLE SODIUM IV 40 MG VIAL IV PUSH (08:55)
[2023-04-22] MEDS: TACROLIMUS 0.5 MG CAPSULE 1 MG PO ×2 (08:55→16:25)
[2023-04-22] MEDS: LOSARTAN POTASSIUM 50 MG TABLET BY MOUTH (08:55)
[2023-04-22] MEDS: hydroCHLOROthiazide 25 MG TABLET PO (08:55)
[2023-04-22] MEDS: MAGNESIUM OXIDE 400 MG TABLET BY MOUTH ×2 (08:55→16:25)
[2023-04-22] MEDS: ENOXAPARIN 30 MG/0.3 ML SYRINGE SUB-Q (08:56)
[2023-04-22] MEDS: hydrALAZINE HCL 25 MG TABLET BY MOUTH ×2 (08:56→16:25)
[2023-04-22] MEDS: calcitrioL 0.25 MCG CAPSULE PO (08:56)
[2023-04-22] MEDS: POLYSACCHARIDE IRON COMPLEX 150 MG CAPSULE PO (08:56)
[2023-04-22] MEDS: ASPIRIN 81 MG ENTERIC TABLET PO (08:56)
--- NOTE | 2023-04-22 09:10 | ECG_ITS ---
Measurements Intervals [place] Rate: 99 P: 66 OR: 156 QRS: 0 QRSD: 93 T: 98 QT: 330 QTc: 423 Interpretive Statements SINUS RHYTHM ST ELEVATION IN ANTEROSEPTAL LEADS- CONSIDER ACUTE INJURY, PERICARDITIS OR EARLY REPOLARIZATION ABNORMALITY BORDERLINE ST-T WAVE ABNORMALITY- HIGH LATERAL LEADS ABNORMAL ECG COMPARED TO ECG 04/22/2023 02:31:06 SINUS RHYTHM NOW PRESENT Electronically Signed On 04-22-2023 12:12:33 BENCH SHEAR OPERATOR by Dustin Castillo D.O.
[2023-04-22] MEDS: predniSONE 20 MG TABLET 40 MG PO (10:44)
--- NOTE | 2023-04-22 11:02 | PHAR ---
The patient has his home Methadone 150mg bottles here. Med is a liquid so unable to verify med. Each med bottle labeled as 150mg methadone in a locked box from home.
--- NOTE | 2023-04-22 11:03 | PHAR ---
Methadone dispensed by [place]:[facility], [address] [facility], [facility] [phone].
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
[2023-04-22] MEDS: LEVALBUTEROL NEB 1.25 MG/3 ML INHALATION ×2 (14:38→20:16)
--- NOTE | 2023-04-22 14:57 | PC.NURSE ---
Using patient's home medicine supply of methadone. Pharmacy verified. medication placed in the pyxis in Miscellaneous Narcotic drawer. patient is to take empty container and place them into his lock box in the room to take back to clinic. rn telephone triage and advanced manager aware.
[2023-04-23] VITALS (22 sets, daily range): BP systolic 115–166; BP diastolic 64–83; PULSE 58–110; RESP 18–24; TEMP 36.2–36.8; O2SAT 94–100
--- NOTE | 2023-04-23 | ECHO_ITS ---
Patient Info Name: Damir Jimenez Age: 72 years : 1950 Gender: Male Ht: 69 in Wt: 191 lbs BSA: 2.07 m2 HR: 96 bpm BP: 134 / 83 mmHg Heart Rhythm: Sinus Rhythm Technical Quality: Poor Exam Date: 04/23/2023 7:55 AM Exam Location: Echo Lab Patient Status: Outpatient Admit Date: 04/22/2023 Staff Ordering Physician: Kamari Castro MD Canned Food Reconditioning Inspector: Charlene Patel RDCS Attending Provider: Sherrell Koenig DO Referring Physician: Matthew ALDANA; Exam Type: CA echo dop color flow w con Study Info Indications - Elevated Troponin Complete two-dimensional, color flow and Doppler transthoracic echocardiogram is performed with contrast to opacify the left ventricle and to improve the deliniation of the left ventricle endocardial borders. Contrast/Agitated Saline Contrast/Ag. Saline: Definity Amount: 2.00 ml Administered By: Charlene Patel RDCS Existing IV Access: Yes IV Access Condition: patent with no signs of infiltration Summary 1. Left ventricular chamber dimension is moderately enlarged. 2. Definity contrast administered improved wall motion interpretation. 3. Left ventricular systolic function is moderately reduced, estimated at 35-40%. 4. The left ventricular diastolic function is grade I diastolic dysfunction. 5. Entire apex is akinetic. Mid to apical segments circumferentially are hypokinetic. Basal segments have normal contractility. This can also be seen in Takotsubo cardiomyopathy. 6. E/e' 10 is mildly elevated. 7. There is mild aortic valve sclerosis. 8. There is trace mitral valve regurgitation. 9. No pulmonary hypertension, estimated pulmonary arterial systolic pressure is 24 mmHg. Left Ventricle E/e' 10 is mildly elevated. Definity contrast administered improved wall motion interpretation. Entire apex is akinetic. Mid to apical segments circumferentially are hypokinetic. Basal segments have normal contractility. This can also be seen in Takotsubo cardiomyopathy. Left ventricular chamber dimension is moderately enlarged. Left ventricular systolic function is moderately reduced, estimated at 35-40%. The left ventricular diastolic function is grade I diastolic dysfunction. Right Ventricle Right ventricular systolic function is normal and with normal TAPSE 2.0 cm. Right ventricular chamber dimension is normal. Left Atria Left atrial chamber dimension is normal. Right Atria Right atrial chamber dimension is normal. Aortic Valve The aortic valve is probable trileaflet. There is mild aortic valve sclerosis. There is no aortic valve stenosis. There is no aortic valve regurgitation. Pulmonic Valve There is no pulmonic regurgitation. Mitral Valve There is no mitral valve stenosis. There is trace mitral valve regurgitation. Tricuspid Valve There is no tricuspid valve regurgitation. No pulmonary hypertension, estimated pulmonary arterial systolic pressure is 24 mmHg. Pericardium/Pleural There is no pericardial effusion. Inferior Vena Cava Normal inferior vena cava with >50% collapse upon inspiration consistent with normal right atrial pressure, 5 mmHg. Aorta The aortic root size at the sinus of Valsalva is normal. Left Ventricular Outflow Tract Name Value Normal LVOT 2D LVOT Diameter 1.96 cm
[2023-04-23] MEDS: IPRATROPIUM BR 0.02% INH SOLN 0.5 MG/2.5 ML VIAL INHALATION ×4 (03:15→20:18)
[2023-04-23] MEDS: LEVALBUTEROL NEB 1.25 MG/3 ML INHALATION ×4 (03:15→20:18)
[2023-04-23 05:26] LABS: Basophils Percent Auto 0.1 % (0.2-1.2); Eosinophils Percent Auto 0.1 % (0-4.4); Hematocrit 32.7 % (42.0-52.0); Hemoglobin 9.9 g/dL (14.0-18.0); Immature Granulocyte Absolute 0.16 K/mm3 (0.00-0.031); Immature Platelet Fraction Pct 11.4 % (0.9-11.2); Lymphocytes Absolute Auto 1.54 K/mm3 (0.9-3.2); Lymphocytes Percent Auto 9.6 % (18.3-44.2); Mean Corpuscular HGB Conc 30.3 g/dl (32-36); Mean Corpuscular Hemoglobin 31.8 pg (26-34); Mean Corpuscular Volume 105.1 fl (80-100); Mean Platelet Volume 12.2 fl (7.4-10.4); Monocytes Percent Auto 12.3 % (2.6-8.5); Neutrophils Absolute Auto 12.4 K/mm3 (1.3-6.7); Neutrophils Percent Auto 76.9 % (45.5-73.1); Platelet Count Result 129 k/mm3 (150-375); Red Blood Count 3.11 M/mm3 (4.6-6.20); White Blood Count 16.1 K/mm3 (4.5-10.0)
[2023-04-23 05:43] LABS: Alanine Aminotransferase 43 U/L (6-50); Albumin Level 4.1 g/dL (3.5-5.1); Alkaline Phosphatase 48 U/L (38-126); Anion Gap 13 mmol/L (8-16); Aspartate Amino Transferase 57 U/L (17-59); Bilirubin,Total 0.7 mg/dL (0.2-1.3); Blood Urea Nitrogen 55 mg/dL (9-20); Calcium 8.5 mg/dL (8.4-10.2); Carbon Dioxide 19 mmol/L (22-30); Chloride 106 mmol/L (98-107); Estimated CRCL calculation 22 ml/min; Estimated Glomerular Filt Rate 22; Glucose 82 mg/dL (65-110); Potassium 4.6 mmol/L (3.4-5.0); Sodium 138 mmol/L (137-145)
[2023-04-23 05:57] LABS: Platelet Estimate Decreased (Adequate)
[2023-04-23 06:00] LABS: Anisocytosis 1+ (NORMAL); Large Platelets Present; Schistocytes None Seen (NORMAL)
--- NOTE | 2023-04-23 06:14 | ECG_ITS ---
Measurements Intervals [place] Rate: 98 P: 27 FL: 110 QRS: -62 QRSD: 88 T: 122 QT: 365 QTc: 466 Interpretive Statements SINUS RHYTHM VENTRICULAR BIGEMINY LOW QRS VOLTAGE IN PRECORDIAL LEADS CANNOT RULE OUT SEPTAL INFARCT, AGE INDETERMINATE ST ELEVATION IN ANTEROLATERAL LEADS- CONSIDER ACUTE INJURY, PERICARDITIS OR EARLY REPOLARIZATION ABNORMALITY ST-T WAVE ABNORMALITY IN HIGH LATERAL LEADS- CONSIDER ISCHEMIA BASELINE ARTIFACT- I, II, AVR, V4-V6 ABNORMAL ECG COMPARED TO ECG 04/22/2023 09:19:24 VENTRICULAR BIGEMINY NOW PRESENT Electronically Signed On 04-23-2023 11:41:01 GAS DISTRIBUTION PLANT OPERATOR by Dustin Castillo D.O.
[2023-04-23 07:03] LABS: Cholesterol 207 mg/dL (0-200); HDL Direct 57 mg/dL; Triglycerides 117 mg/dL (<150)
[2023-04-23 07:13] LABS: LDL Cholesterol Direct 91 mg/dL
--- NOTE | 2023-04-23 07:20 | PM.PNCARD ---
Progress Note: A&P Assessment and Plan (1) COPD exacerbation: Code(s): J44.1 - Chronic obstructive pulmonary disease with (acute) exacerbation Status: Acute Assessment and Plan: Possibly contributed by aspiration. Seen by pulmonology. (2) Anemia: Code(s): D64.9 - Anemia, unspecified Status: Acute Assessment and Plan: Stable. Fluctuates. (3) Acute kidney injury superimposed on chronic kidney disease: Code(s): N17.9 - Acute kidney failure, unspecified; N18.9 - Chronic kidney disease, unspecified Status: Acute Assessment and Plan: Stable now back to baseline. (4) Elevated troponin: Code(s): R79.89 - Other specified abnormal findings of blood chemistry Status: Acute Assessment and Plan: Trending up 3.2 now. Could be demand ischemia related to hypoxia, anemia, CKD, vs CAD. Continue to follow to peak. Obtain Lipid panel. Echo ordered and will be done today. Discuss with patient if has wall motion abnormalities which were not there previously, then consider [facility] tomorrow. (5) Hypertension: Code(s): I10 - Essential (primary) hypertension Status: Acute Assessment and Plan: Stable. Subjective Date/time seen: 04/23/23 07:20 Interval history: States still unable to take good deep breath. No chest pains. Exam Const: General: cooperative, healthy appearing and comfortable Orientation/consciousness: oriented to person, oriented to place and oriented to time Resp: Auscultation: clear to auscultation bilaterally, no crackles, no rales, no rhonchi and no wheezes Cardio: Rate: tachycardic Rhythm: regular rhythm Heart sounds: no murmurs Peripheral pulses: dorsalis pedis present Neuro: General: oriented to person, oriented to place and oriented to time Extrem: Left lower extremity: edema (trace edema) Other: right leg prosthesis Objective Data Vital Signs Vital Signs: Vital Signs - 24 hr 04/22/23 07:50 04/22/23 08:16 04/22/23 12:00 Temperature 97.4 F L 97.1 F L Pulse Rate 124 H 106 H 93 Respiratory Rate 30 H 20 22 H Blood Pressure 160/116 H 126/73 Pulse Oximetry 98 98 Oxygen Delivery Oxygen Flow Rate 04/22/23 08:00 04/22/23 10:00 04/22/23 12:00 Temperature Pulse Rate 115 H 98 94 Respiratory Rate Blood Pressure Pulse Oximetry Oxygen Delivery Oxygen Flow Rate 04/22/23 08:00 04/22/23 12:00 04/22/23 14:00 Temperature Pulse Rate 86 Respiratory Rate Blood Pressure Pulse Oximetry 90 97 Oxygen Delivery Nasal Cannula Nasal Cannula Oxygen Flow Rate 5 3 04/22/23 14:35 04/22/23 14:47 04/22/23 14:47 Temperature Pulse Rate 94 97 Respiratory Rate 20 20 Blood Pressure Pulse Oximetry 96 Oxygen Delivery Nasal Cannula Oxygen Flow Rate 3 04/22/23 16:00 04/22/23 16:00 04/22/23 16:00 Temperature 97.7 F Pulse Rate 87 75 Respiratory Rate 24 H Blood Pressure 111/62 Pulse Oximetry 98 98 Oxygen Delivery Nasal Cannula Oxygen Flow Rate 3 04/22/23 19:34 04/22/23 20:18 04/22/23 20:19 Temperature 97.8 F Pulse Rate 99 95 Respiratory Rate 18 20 Blood Pressure 135/81 Pulse Oximetry 99 96 Oxygen Delivery Nasal Cannula Oxygen Flow Rate 3 04/22/23 23:44 04/22/23 20:00 04/22/23 22:00 Temperature 98.2 F Pulse Rate 84 85 95 Respiratory Rate 20 Blood Pressure 129/75 Pulse Oximetry 100 Oxygen Delivery Oxygen Flow Rate 04/23/23 00:00 04/22/23 20:00 04/23/23 00:00 Temperature Pulse Rate 76 Respiratory Rate Blood Pressure Pulse Oximetry 99 100 Oxygen Delivery Nasal Cannula Nasal Cannula Oxygen Flow Rate 3 3 04/23/23 02:00 04/23/23 03:15 04/22/23 21:05 Temperature Pulse Rate 78 98 97 Respiratory Rate 22 H 22 H Blood Pressure Pulse Oximetry Oxygen Delivery Oxygen Flow Rate 04/23/23 04:00 04/23/23 04:00 04/23/23 04:00 Temperature 97.6 F Pulse Rate 100 96
[2023-04-23] MEDS: PERFLUTREN LIPID MICROSPHERES 1.5 ML VIAL DILUTED TO 10 ML TOTAL VOLUME IV PUSH (08:20)
--- NOTE | 2023-04-23 09:17 | PM.PNPUL ---
Progress Note: A&P Assessment and Plan (1) COPD exacerbation: Code(s): J44.1 - Chronic obstructive pulmonary disease with (acute) exacerbation Status: Acute Assessment and Plan: Patient carries a history of COPD with hypoxic remit respiratory failure on 3 L at rest, 4-5 with activity and 3 L with sleep. He is followed by a heat and frost insulator helper at [facility] (per patient Dr. Vega). I have no PFTs. Patient tells me 3 weeks ago he started with an exacerbation and took prednisone and doxycycline for approximately 10 days and improved. Patient tells me that he was in his usual state of health yesterday morning when he ate a big meal and then laid down and woke up with cough, congestion, expectoration of clear phlegm from his mouth and nose. It sounds like the patient may have aspirated. He has GERD and he sleeps in a semi upright position and he concurs that he may have aspirated. Other reports are that he was in the yd raking leaves when all of this started. His D-dimer was positive. 04/22/23: He has been treated with for COPD exacerbation with Solu-Medrol, bronchodilators and has improved and is 80% back to his baseline. Plan: I suspect the patient had an episode of aspiration which precipitated his shortness of breath. He has no fever, chills, rigors and his chest x-ray was clear. He has improved without antibiotics and at this time I do not see a need for antibiotics. I discussed with the patient his D-dimer and I recommended additional studies and he declined further workup at this time. I have decreased the patient's oxygen to 3 L nasal cannula and he is stable on this which appears to be is home dose of oxygen. I will change the patient to prednisone 40 mg p.o. q.day. I will place the patient on ipratropium 0.5 mg nebulizers Q 6 hours and levalbuterol 1.25 mg nebs q.6 hours (tachycardic this morning). 04/23 the patient states he is a little bit better than yesterday. He states he is 85% back to his normal. He still has dyspnea on exertion. At rest he is breathing normally. He denies wheezing, cough or phlegm production. White blood cell count is 16.1, creatinine is 2.8, he is afebrile. When I entered the room he was on 4 L nasal cannula saturation 96%. I decreased him to 3 L nasal cannula and his saturations were 95%. Last night he was placed on CPAP 7 and he said that this did help him take deeper breaths. The patient tells me he has obstructive sleep apnea and was prescribed CPAP in the past but was intolerant to the mask. Plan: Patient states he continues to improve. I will continue prednisone 40 mg p.o. q.day, day 2 of steroids. Will continue levalbuterol and ipratropium nebulizers Q 6 hours. I have decreased his oxygen to his baseline of 3 L at rest. Patient with positive troponins and being followed by Cardiology and to have echocardiogram today. I will perform home O2 assessment. The patient states that he is doing better and may be able to be discharged later this afternoon. From a pulmonary perspective patient can be discharged on these pulmonary medications: Prednisone 40 mg p.o. q.day x3 days Anoro Ellipta 62.5-25 at 1 puff q.day. Rescue albuterol inhaler and nebulizer q.4 hours p.r.n. shortness of breath or wheezing Oxygen per formal home O2 assessment which I have ordered. Oxygen 3 L at night, if he remains in the hospital tonight will perform overnight oximetry on 3 L nasal cannula. Follow-up with his heat and frost insulator helper Dr. Vega, and the patient tells me he has an appointment on 05/22/[address] Nam, will follow with you. Subjective Date/time seen: 04/23/23 09:17 Interval history: 04/22/2023: This is a new pulmonary consult for COPD exacerbation.? 72-year-old with a history of COPD with chronic hypoxemic respiratory failure requiring 3 L at rest, 4-5 with activity and 3 L with sleep, hepatitis-C status post liver transplant approximately 10 years ago, chronic theresa
[2023-04-23] MEDS: hydrALAZINE HCL 25 MG TABLET BY MOUTH ×2 (09:41→18:16)
[2023-04-23] MEDS: POLYSACCHARIDE IRON COMPLEX 150 MG CAPSULE PO (09:41)
[2023-04-23] MEDS: hydroCHLOROthiazide 25 MG TABLET PO (09:42)
[2023-04-23] MEDS: ENOXAPARIN 30 MG/0.3 ML SYRINGE SUB-Q (09:42)
[2023-04-23] MEDS: PANTOPRAZOLE SODIUM IV 40 MG VIAL IV PUSH (09:42)
[2023-04-23] MEDS: TACROLIMUS 0.5 MG CAPSULE 1 MG PO ×2 (09:42→18:17)
[2023-04-23] MEDS: ASPIRIN 81 MG ENTERIC TABLET PO (09:42)
[2023-04-23] MEDS: predniSONE 20 MG TABLET 40 MG PO (09:42)
[2023-04-23] MEDS: calcitrioL 0.25 MCG CAPSULE PO (09:42)
[2023-04-23] MEDS: LOSARTAN POTASSIUM 50 MG TABLET BY MOUTH (09:42)
[2023-04-23] MEDS: MAGNESIUM OXIDE 400 MG TABLET BY MOUTH ×2 (09:42→18:16)
--- NOTE | 2023-04-23 09:50 | PM.IMPN ---
Progress Note: A&P Assessment and Plan (1) Elevated troponin: Code(s): R79.89 - Other specified abnormal findings of blood chemistry Status: Acute (2) COPD exacerbation: Code(s): J44.1 - Chronic obstructive pulmonary disease with (acute) exacerbation Status: Acute (3) Anemia: Code(s): D64.9 - Anemia, unspecified Status: Acute (4) Abnormal EKG: Code(s): R94.31 - Abnormal electrocardiogram [ECG] [EKG] Status: Acute (5) Acute kidney injury superimposed on chronic kidney disease: Code(s): N17.9 - Acute kidney failure, unspecified; N18.9 - Chronic kidney disease, unspecified Status: Acute (6) Hyperkalemia: Code(s): E87.5 - Hyperkalemia Status: Acute (7) Elevated d-dimer: Code(s): R79.89 - Other specified abnormal findings of blood chemistry Status: Acute (8) Hyperglycemia: Code(s): R73.9 - Hyperglycemia, unspecified Status: Acute (9) Chronic hypoxic respiratory failure, on home oxygen therapy: Code(s): J96.11 - Chronic respiratory failure with hypoxia; Z99.81 - Dependence on supplemental oxygen Status: Acute (10) Edema of left lower extremity: Code(s): R60.0 - Localized edema Status: Acute (11) Hypertension: Code(s): I10 - Essential (primary) hypertension Status: Acute (12) LYNN (dyspnea on exertion): Code(s): R06.09 - Other forms of dyspnea Status: Acute Plan 1. COPD exacerbation. Appreciate pulmonology consultation ct prednisone 40 mg/day, duoneb, on o2 3L right now which is his baseline see pulmonology note for home copd med recommendations Start IS q2 hr for atelectasis vs air trapping guaifenesin started by pulmonology for thinning secretions 2. 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 Elevated troponin demand ischemia most likely from copd exacerbation f/u echo only on aspirin, trop keeps rising, now 3.2 recommend anticoagulation but he is being followed by cardiology. defer to them. 4. JAMES on CKD cr is 2.8 which is his new baseline stop NS at 100 ml/hr 5. Elevated WBC likely from steroids monitor did not have an infiltrate on admitting CXR 6. HTN ct home meds stop IVF stop hctz, can contribute to JAMES 7. Hx of liver transplant on tacrolimus-ct 8. Chronic opioid user ct methadone, says this was not recently increased 9. Aspiration event triggered, denies issues swallowing no infiltrate on CXR monitor, will not consult ST Time Spent With Patient Time: 35 min Subjective Date/time seen: 04/23/23 09:50 Interval history: still complaining of chest tightness. also complaining of dyspnea. denies chest pain. Exam Narrative: Const:?? General: cooperati ve, healthy appear ing and comfortabl e? Orientation/con sciousness: orient ed to person, orie nted to place and oriented to time HENMT:?? Head: normal to in spection? Ears: he aring grossly norm al bilaterally Eyes:?? General: appearanc e normal, both eye s and all related structures Neck:?? Neck: normal visua l inspection Chest:?? Chest palpation & inspection: normal inspection of the chest Resp:?? Effort & Inspectio n: normal respirat ory effort and abl e to speak in comp lete sentences? Au scultation: no aircraft skin burnisher ckles, no rales, n o rhonchi, no whee zes and diminished
[2023-04-23 11:58] LABS: INR 0.9; Prothrombin Time 12.8 Seconds (11.1-14.7)
[2023-04-23 11:59] LABS: Partial Thromboplastin Time 24.1 SECONDS (22.3-36.8)
[2023-04-23] MEDS: guaiFENesin 12 HR 600 MG TABCR 1200 MG PO ×2 (13:34→20:05)
[2023-04-23] MEDS: HEPARIN SOD/D5W 100 UNITS/ML 25,000 UNITS/250 ML BAG 9 UNITS IV CONT (13:35)
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
[2023-04-23] MEDS: METOPROLOL TARTRATE 25 MG TABLET PO (20:06)
--- NOTE | 2023-04-23 22:33 | PC.NURSE ---
Dr. Castillo contacted at the patient's request regarding heparin gtt. Two different phlebotomists attempted unsuccessfully to draw blood and patient was wondering if the gtt could be stopped so we could discontinue PTT monitoring. Dr. Castillo ordered 1mg/kg lovenox to start in the a.m. and to discontinue the heparin order. Patient educated about the the need for anticoagulation due to ACS.
[2023-04-24] VITALS (26 sets, daily range): BP systolic 102–141; BP diastolic 50–76; PULSE 57–110; RESP 12–21; TEMP 36.2–36.9; O2SAT 94–100
--- NOTE | 2023-04-24 02:43 | PCRCNOTE ---
pt was not given his 0200 respiratory tx due to him participating in an overnight sleep study. RTs do not wake patient because of this
[2023-04-24 03:22] LABS: Tacrolimus Prograf <1.0 mcg/L
--- NOTE | 2023-04-24 03:22 | PC.NURSE ---
The patient's home med was administered from the bottle labeled for 04/26, as this one was grabbed by mistake. This RN witnessed him locking the empty in his private lockbox.
[2023-04-24 05:41] LABS: Basophils Percent Auto 0.1 % (0.2-1.2); Eosinophils Absolute Auto 0.1 K/mm3 (0-0.3); Eosinophils Percent Auto 0.5 % (0-4.4); Hematocrit 30.4 % (42.0-52.0); Hemoglobin 9.3 g/dL (14.0-18.0); Immature Granulocyte Absolute 0.08 K/mm3 (0.00-0.031); Immature Granulocyte Percent A 0.6 % (0-0.5); Lymphocytes Absolute Auto 2.14 K/mm3 (0.9-3.2); Lymphocytes Percent Auto 16.1 % (18.3-44.2); Mean Corpuscular HGB Conc 30.6 g/dl (32-36); Mean Corpuscular Hemoglobin 31.5 pg (26-34); Mean Corpuscular Volume 103.1 fl (80-100); Mean Platelet Volume 12.2 fl (7.4-10.4); Monocytes Absolute Auto 1.5 K/mm3 (0.1-0.6); Monocytes Percent Auto 11.5 % (2.6-8.5); Neutrophils Absolute Auto 9.5 K/mm3 (1.3-6.7); Neutrophils Percent Auto 71.2 % (45.5-73.1); Platelet Count Result 152 k/mm3 (150-375); Red Blood Count 2.95 M/mm3 (4.6-6.20); White Blood Count 13.3 K/mm3 (4.5-10.0)
[2023-04-24 05:52] LABS: INR 0.9; Partial Thromboplastin Time 23.3 SECONDS (22.3-36.8); Prothrombin Time 12.8 Seconds (11.1-14.7)
--- NOTE | 2023-04-24 06:15 | ECG_ITS ---
Measurements Intervals [place] Rate: 75 P: 75 [place]: 163 QRS: -9 QRSD: 118 T: 124 QT: 375 QTc: 420 Interpretive Statements SINUS RHYTHM VENTRICULAR PREMATURE COMPLEXES INCOMPLETE LEFT BUNDLE BRANCH BLOCK POOR R WAVE PROGRESSION, CONSIDER RECENT ANTERIOR INFARCT ST-T WAVE ABNORMALITY IN HIGH LATERAL LEADS- CONSIDER ISCHEMIA BASELINE ARTIFACT- I, II, III, AVR, AVL, AVF, V4-V6 ABNORMAL ECG COMPARED TO ECG 04/23/2023 11:23:17 NO SIGNIFICANT CHANGES Electronically Signed On 04-24-2023 9:41:26 BEAM MACHINE OPERATOR by Dustin Castillo D.O.
--- NOTE | 2023-04-24 07:47 | PM.PNCARD ---
Progress Note: A&P Assessment and Plan (1) COPD exacerbation: Code(s): J44.1 - Chronic obstructive pulmonary disease with (acute) exacerbation Status: Acute Assessment and Plan: Possibly contributed by aspiration. Seen by pulmonology. (2) Anemia: Code(s): D64.9 - Anemia, unspecified Status: Acute Assessment and Plan: Stable. Fluctuates. (3) Acute kidney injury superimposed on chronic kidney disease: Code(s): N17.9 - Acute kidney failure, unspecified; N18.9 - Chronic kidney disease, unspecified Status: Acute Assessment and Plan: Stable now back to baseline. (4) Elevated troponin: Code(s): R79.89 - Other specified abnormal findings of blood chemistry Status: Acute Assessment and Plan: Troponin peaked at 3.2 Could be demand ischemia related to hypoxia, anemia, CKD, vs CAD. 04/23/23 Echo: EF 35-40%, entire apex is akinetic, mid to apical segments are hypokinetic, basal segments with normal contractility. This can be seen in Takotsubo cardiomyopathy. Grade I diastolic dysfunction (E/e' 10), trace MR. Consulted [facility] and was seen by Dr. Burks, and appreciate his evaluation. It was decided by patient and Dr. Burks to go with medical therapy given high risk of contrast nephropathy. Stop Heparin drip as troponin peaked. On aspirin, losartan, started Metoprolol Tartate 25 mg BID. Will start Lasix as needed for volume overload. (5) Hypertension: Code(s): I10 - Essential (primary) hypertension Status: Acute Assessment and Plan: Stable. Subjective Date/time seen: 04/24/23 07:47 Interval history: States still unable to take good deep breath. No chest pains. He feels bloated . Exam Const: General: cooperative, healthy appearing and comfortable Orientation/consciousness: oriented to person, oriented to place and oriented to time Resp: Auscultation: no crackles, no rales, no rhonchi, no wheezes and diminished lung sounds Cardio: Rate: tachycardic Rhythm: regular rhythm Heart sounds: no murmurs Peripheral pulses: dorsalis pedis present Neuro: General: oriented to person, oriented to place and oriented to time Extrem: Left lower extremity: edema (trace edema) Other: right leg prosthesis Objective Data Vital Signs Vital Signs: Vital Signs - 24 hr 04/23/23 07:48 04/23/23 07:57 04/23/23 11:42 Temperature 97.2 F L 97.3 F L Pulse Rate 95 96 95 Respiratory Rate 18 20 20 Blood Pressure 152/82 H 139/79 Pulse Oximetry 98 95 Oxygen Delivery Oxygen Flow Rate 04/23/23 14:22 04/23/23 14:37 04/23/23 16:00 Temperature 97.8 F Pulse Rate 107 H 97 103 H Respiratory Rate 24 H 24 H 20 Blood Pressure 142/73 H Pulse Oximetry 95 Oxygen Delivery Oxygen Flow Rate 04/23/23 08:00 04/23/23 12:00 04/23/23 20:00 Temperature 97.7 F Pulse Rate 108 H Respiratory Rate 18 Blood Pressure 166/83 H Pulse Oximetry 98 95 97 Oxygen Delivery Nasal Cannula Nasal Cannula Oxygen Flow Rate 3 3 04/23/23 20:20 04/23/23 20:20 04/23/23 08:00 Temperature Pulse Rate 110 H 101 H Respiratory Rate 20 Blood Pressure Pulse Oximetry 94 Oxygen Delivery Nasal Cannula Oxygen Flow Rate 3 04/23/23 10:00 04/23/23 12:00 04/23/23 14:00 Temperature Pulse Rate 96 102 H 102 H Respiratory Rate Blood Pressure Pulse Oximetry Oxygen Delivery Oxygen Flow Rate 04/23/23 16:00 04/23/23 18:00 04/23/23 16:00 Temperature Pulse Rate 91 89 Respiratory Rate Blood Pressure Pulse Oximetry 95 Oxygen Delivery Nasal Cannula Oxygen Flow Rate 3 04/23/23 20:00 04/23/23 22:00 04/23/23 23:57 Temperature 98.3 F Pulse Rate 92 58 L 70 Respiratory Rate 18 Blood Pressure 115/64 Pulse Oximetry 98 Oxygen Delivery Oxygen Flow Rate 04/24/23 00:00 04/24/23 02:00 04/24/23 04:00 Temperature 98.2 F Pulse Rate 67 57 L 82 Respiratory Rate 18 Blood Pre
[2023-04-24] MEDS: LEVALBUTEROL NEB 1.25 MG/3 ML INHALATION ×3 (09:04→20:07)
[2023-04-24] MEDS: IPRATROPIUM BR 0.02% INH SOLN 0.5 MG/2.5 ML VIAL INHALATION ×3 (09:04→20:07)
[2023-04-24] MEDS: guaiFENesin 12 HR 600 MG TABCR 1200 MG PO ×2 (09:09→20:28)
[2023-04-24] MEDS: hydrALAZINE HCL 25 MG TABLET BY MOUTH ×2 (09:09→17:12)
[2023-04-24] MEDS: calcitrioL 0.25 MCG CAPSULE PO (09:09)
[2023-04-24] MEDS: predniSONE 20 MG TABLET 40 MG PO (09:09)
[2023-04-24] MEDS: ASPIRIN 81 MG ENTERIC TABLET PO (09:09)
[2023-04-24] MEDS: POLYSACCHARIDE IRON COMPLEX 150 MG CAPSULE PO (09:09)
[2023-04-24] MEDS: TACROLIMUS 0.5 MG CAPSULE 1 MG PO ×2 (09:09→17:12)
[2023-04-24] MEDS: LOSARTAN POTASSIUM 50 MG TABLET BY MOUTH (09:09)
[2023-04-24] MEDS: METOPROLOL TARTRATE 25 MG TABLET PO ×2 (09:10→20:28)
[2023-04-24] MEDS: ENOXAPARIN 30 MG/0.3 ML SYRINGE SUB-Q (09:10)
[2023-04-24] MEDS: PANTOPRAZOLE SODIUM IV 40 MG VIAL IV PUSH (09:10)
[2023-04-24] MEDS: MAGNESIUM OXIDE 400 MG TABLET BY MOUTH ×2 (09:10→17:12)
--- NOTE | 2023-04-24 10:52 | PM.PNPUL ---
Progress Note: A&P Assessment and Plan (1) COPD exacerbation: Code(s): J44.1 - Chronic obstructive pulmonary disease with (acute) exacerbation Status: Acute Assessment and Plan: Patient carries a history of COPD with hypoxic remit respiratory failure on 3 L at rest, 4-5 with activity and 3 L with sleep. He is followed by a air hose coupler at [facility] [place] (per patient Dr. Vega). I have no PFTs. Patient tells me 3 weeks ago he started with an exacerbation and took prednisone and doxycycline for approximately 10 days and improved. Patient tells me that he was in his usual state of health yesterday morning when he ate a big meal and then laid down and woke up with cough, congestion, expectoration of clear phlegm from his mouth and nose. It sounds like the patient may have aspirated. He has GERD and he sleeps in a semi upright position and he concurs that he may have aspirated. Other reports are that he was in the yd raking leaves when all of this started. His D-dimer was positive. 04/22/23: He has been treated with for COPD exacerbation with Solu-Medrol, bronchodilators and has improved and is 80% back to his baseline. Plan: I suspect the patient had an episode of aspiration which precipitated his shortness of breath. He has no fever, chills, rigors and his chest x-ray was clear. He has improved without antibiotics and at this time I do not see a need for antibiotics. I discussed with the patient his D-dimer and I recommended additional studies and he declined further workup at this time. I have decreased the patient's oxygen to 3 L nasal cannula and he is stable on this which appears to be is home dose of oxygen. I will change the patient to prednisone 40 mg p.o. q.day. I will place the patient on ipratropium 0.5 mg nebulizers Q 6 hours and levalbuterol 1.25 mg nebs q.6 hours (tachycardic this morning). 04/23 the patient states he is a little bit better than yesterday. He states he is 85% back to his normal. He still has dyspnea on exertion. At rest he is breathing normally. He denies wheezing, cough or phlegm production. White blood cell count is 16.1, creatinine is 2.8, he is afebrile. When I entered the room he was on 4 L nasal cannula saturation 96%. I decreased him to 3 L nasal cannula and his saturations were 95%. Last night he was placed on CPAP 7 and he said that this did help him take deeper breaths. The patient tells me he has obstructive sleep apnea and was prescribed CPAP in the past but was intolerant to the mask. Plan: Patient states he continues to improve. I will continue prednisone 40 mg p.o. q.day, day 2 of steroids. Will continue levalbuterol and ipratropium nebulizers Q 6 hours. I have decreased his oxygen to his baseline of 3 L at rest. Patient with positive troponins and being followed by Cardiology and to have echocardiogram today. I will perform home O2 assessment. The patient states that he is doing better and may be able to be discharged later this afternoon. Echocardiogram later in the day demonstrated an LVEF of 35-40 with a taco supra O's cardiomyopathy appearance, grade 1 diastolic dysfunction, normal RV size and function, normal right atrial size with a PASP of 24. Cardiac catheterization was deferred as patient has chronic renal insufficiency. 04/24: Patient slept a little bit last night and continues to slowly improve. He still has dyspnea on exertion but no shortness of breath at rest. He says he has no cough. Currently saturations on 3 L nasal cannula 100%. Patient had an overnight oximetry on 3 L nasal cannula with recording duration of 4 hours and 8 minutes. Average saturation 97%, low saturation 88%. Time with saturation less than or equal to 88% was 0 minutes, oxygen desaturation index was 2.5. From a pulmonary perspective patient can be discharged on these pulmonary medications: Prednisone 40 mg p.o. q.day x2 days Anoro Ellipta 62.5-25 at 1 puff q.day. Rescu
[2023-04-24] MEDS: SALINE 0.65% NAS SOLN 44 ML BTL 1 SPRAY NASAL (11:31)
--- NOTE | 2023-04-24 11:53 | IVDEFINITY ---
Prior to administration of IV Definity the patient was educated on the risks and benefits of the imaging enhancing agent including potential adverse side effects. The patient verbalized understanding. Allergies were verified. No exclusion criteria were identified and at least one of the following inclusion criteria were met: 1) physician request, 2) patient technically difficult to image (per the [place] [employer] guidelines of two or more segments not discernable within the apical view), or 3) questionable left ventricular function. ?
--- NOTE | 2023-04-24 12:04 | HOMEO2EVAL ---
Evaluation was performed at [facility] Home Oxygen Evaluation RC: Home Oxygen (O2) Evaluation Start: 04/23/23 09:16 Freq: ONCE Status: Active Protocol: RPE Activity Type Activity Date Activity User E-sign Co-sign Detail Recorded Client Recorded Date Recorded By Document 04/24/23 11:45 IDALIA [id number] 04/24/23 12:04 IDALIA Document 04/24/23 11:48 IDALIA [email or web address] 04/24/23 12:04 IDALIA Document 04/24/23 11:55 IDALIA [email or web address] 04/24/23 12:04 IDALIA 04/24/23 04/24/23 04/24/23 11:45 11:48 11:55 Home O2 Evaluation [Oxygen] -Test Phase Resting Exercise Resting -Oxygen Delivery Nasal Cannula Nasal Cannula Nasal Cannula -Oxygen Flow Rate (L/min) 3 3 3 [Pulse Oximetry] -Pulse Oximetry (90-100 %) 95 94 96 [Pulse Rate] -Pulse Rate (60-100 beats/min) 98 109 H 88 [Comments] -Home Oxygen Evaluation Comments UP TO SIDE OF BED, STAND, ARM EXERCISES. PT DIDNT WANT TO WALK [Charges] -Treatment Charges O2 Evaluation - Inpatient
--- NOTE | 2023-04-24 12:05 | PCRCNOTE ---
HOME O2 EVAL ATTEMPTED. PT DIDNT WANT TO WALK, EXERTION INCLUDED UP TO SIDE OF BED, STAND, ARM MOVEMENT. NO CHANGES FROM CURRENT HOME O2 SETTING OF 3 L REST AND 4 L ACTIVITY. CHARGE NURSE NOTIFIED. PT HAD IV RESP CARE AND ALL REQUIRED HOME O2 EQUIPMENT.
--- NOTE | 2023-04-24 16:16 | PM.IMPN ---
Progress Note: A&P Assessment and Plan (1) Elevated troponin: Code(s): R79.89 - Other specified abnormal findings of blood chemistry Status: Acute (2) COPD exacerbation: Code(s): J44.1 - Chronic obstructive pulmonary disease with (acute) exacerbation Status: Acute Plan trend wbc cont w/ pulmonology recs pt will decide final decision for home or cath tomorrow, likely home tomorrow. trops have downtrended. started atorvastatin in addition to aspirin and beta andrew Subjective Date/time seen: 04/24/23 16:16 Interval history: NAOE. pt complains of anxiety. he feels his breathing is better although Review of Systems Review of Systems: All systems reviewed & are unremarkable except as noted in HPI and below Exam Const: General: comfortable and no acute distress Eyes: Pupils: Equal, round and reactive pupils present Resp: Effort & Inspection: normal respiratory effort Auscultation: diminished lung sounds Cardio: Rate: regular rate Rhythm: regular rhythm Heart sounds: no gallops, no murmurs and no rubs GI: GI Palp: Yes Soft to palpation Extrem: General: no edema Objective Data Vital Signs Vital Signs: Vital Signs - 24 hr 04/23/23 20:00 04/23/23 20:20 04/23/23 20:20 Temperature 97.7 F Pulse Rate 108 H 110 H Respiratory Rate 18 20 Blood Pressure 166/83 H Pulse Oximetry 97 94 Oxygen Delivery Nasal Cannula Oxygen Flow Rate 3 04/23/23 18:00 04/23/23 20:00 04/23/23 22:00 Temperature Pulse Rate 89 92 58 L Respiratory Rate Blood Pressure Pulse Oximetry Oxygen Delivery Oxygen Flow Rate 04/23/23 23:57 04/24/23 00:00 04/24/23 02:00 Temperature 98.3 F Pulse Rate 70 67 57 L Respiratory Rate 18 Blood Pressure 115/64 Pulse Oximetry 98 Oxygen Delivery Oxygen Flow Rate 04/24/23 04:00 04/24/23 04:00 04/24/23 06:00 Temperature 98.2 F Pulse Rate 82 75 68 Respiratory Rate 18 Blood Pressure 103/75 Pulse Oximetry 96 Oxygen Delivery Oxygen Flow Rate 04/24/23 08:00 04/24/23 09:06 04/24/23 09:00 Temperature 97.4 F L Pulse Rate 76 109 H Respiratory Rate 16 20 Blood Pressure 102/50 L Pulse Oximetry 97 95 Oxygen Delivery Nasal Cannula Oxygen Flow Rate 3 04/24/23 09:14 04/24/23 09:10 04/24/23 08:00 Temperature Pulse Rate 110 H 88 Respiratory Rate 20 Blood Pressure Pulse Oximetry 95 Oxygen Delivery Nasal Cannula Oxygen Flow Rate 4 04/24/23 11:45 04/24/23 11:48 04/24/23 11:55 Temperature Pulse Rate 98 109 H 88 Respiratory Rate Blood Pressure Pulse Oximetry 95 94 96 Oxygen Delivery Nasal Cannula Nasal Cannula Nasal Cannula Oxygen Flow Rate 3 3 3 04/24/23 12:00 04/24/23 14:45 04/24/23 14:56 Temperature 97.4 F L Pulse Rate 76 88 90 Respiratory Rate 20 20 20 Blood Pressure 121/60 Pulse Oximetry 96 Oxygen Delivery Oxygen Flow Rate 04/24/23 15:58 Temperature 98.0 F Pulse Rate 65 Respiratory Rate 12 Blood Pressure 105/55 L Pulse Oximetry 100 Oxygen Delivery Oxygen Flow Rate Intake/Output Intake/Output: Intake & Output 04/21/23 04/22/23 04/23/23 04/24/23 23:59 23:59 23:59 23:59 Intake Total 3700 2970 Output Total 1550 1550 600 Balance 2150 1420 -600 Meds/Results Medications: Active Medications Generic Name Dose Route Start Last Admin Trade Name Luis PRN Reason Stop Dose Admin Acetaminophen 650 mg 04/22/23 01:02 Acetaminophen 325 Mg Tablet PO Q4H PRN Mild Pain (1-3) or Fever Al Hydrox/Mg Hydrox/Simethicone 30 ml 04/22/23 01:02 Mag Hydrox/Al Hydrox/Simeth 30 Ml Udc PO QID PRN Dyspepsia Aspirin 81 mg 04/22/23 09:00 04/24/23 09:09 Aspirin 81 Mg Enteric Tablet PO 81 mg DAILY JESSICA Administration Atorvastatin Calcium 40 mg 04/25/23 09:00 Atorvastatin 40 Mg Tablet PO DAILY JESSICA Calcitriol 0.25 mcg 04/22/23 09:00 04/24/23 09:09 Calcitriol 0.25 Mcg Capsule P
[2023-04-25] VITALS (12 sets, daily range): BP systolic 100–146; BP diastolic 74–87; PULSE 55–77; RESP 22–99; TEMP 36–36.6; O2SAT 96–99
[2023-04-25] MEDS: LEVALBUTEROL NEB 1.25 MG/3 ML INHALATION ×2 (02:28→08:55)
[2023-04-25] MEDS: IPRATROPIUM BR 0.02% INH SOLN 0.5 MG/2.5 ML VIAL INHALATION ×2 (02:29→08:54)
[2023-04-25 05:33] LABS: Basophils Percent Auto 0.1 % (0.2-1.2); Eosinophils Absolute Auto 0.2 K/mm3 (0-0.3); Eosinophils Percent Auto 1.3 % (0-4.4); Hematocrit 30.2 % (42.0-52.0); Hemoglobin 9.1 g/dL (14.0-18.0); Immature Granulocyte Absolute 0.06 K/mm3 (0.00-0.031); Immature Granulocyte Percent A 0.5 % (0-0.5); Lymphocytes Absolute Auto 2.08 K/mm3 (0.9-3.2); Lymphocytes Percent Auto 17.3 % (18.3-44.2); Mean Corpuscular HGB Conc 30.1 g/dl (32-36); Mean Corpuscular Hemoglobin 31.4 pg (26-34); Mean Corpuscular Volume 104.1 fl (80-100); Mean Platelet Volume 12.2 fl (7.4-10.4); Monocytes Absolute Auto 1.3 K/mm3 (0.1-0.6); Monocytes Percent Auto 10.6 % (2.6-8.5); Neutrophils Absolute Auto 8.4 K/mm3 (1.3-6.7); Neutrophils Percent Auto 70.2 % (45.5-73.1); Platelet Count Result 136 k/mm3 (150-375); Red Cell Distribution Width 12.9 % (11.5-14.5)
[2023-04-25 05:45] LABS: Anion Gap 10 mmol/L (8-16); Blood Urea Nitrogen 71 mg/dL (9-20); Calcium 8.5 mg/dL (8.4-10.2); Carbon Dioxide 23 mmol/L (22-30); Chloride 106 mmol/L (98-107); Estimated CRCL calculation 19 ml/min; Estimated Glomerular Filt Rate 19; Glucose 92 mg/dL (65-110); Magnesium 2.6 mg/dL (1.6-2.3); Potassium 4.7 mmol/L (3.4-5.0); Sodium 139 mmol/L (137-145)
[2023-04-25 06:09] LABS: Procalcitonin 0.2 ng/mL
--- NOTE | 2023-04-25 07:38 | PM.PNCARD ---
Progress Note: A&P Assessment and Plan (1) COPD exacerbation: Code(s): J44.1 - Chronic obstructive pulmonary disease with (acute) exacerbation Status: Acute Assessment and Plan: Possibly contributed by aspiration. Seen by pulmonology. (2) Anemia: Code(s): D64.9 - Anemia, unspecified Status: Acute Assessment and Plan: Stable. Fluctuates. (3) Acute kidney injury superimposed on chronic kidney disease: Code(s): N17.9 - Acute kidney failure, unspecified; N18.9 - Chronic kidney disease, unspecified Status: Acute Assessment and Plan: Stable but fluctuates. (4) Elevated troponin: Code(s): R79.89 - Other specified abnormal findings of blood chemistry Status: Acute Assessment and Plan: Troponin peaked at 3.2 Could be demand ischemia related to hypoxia, anemia, CKD, vs CAD. 04/23/23 Echo: EF 35-40%, entire apex is akinetic, mid to apical segments are hypokinetic, basal segments with normal contractility. This can be seen in Takotsubo cardiomyopathy. Grade I diastolic dysfunction (E/e' 10), trace MR. Consulted [facility] and was seen by Dr. Burks, and appreciate his evaluation. It was decided by patient and Dr. Burks to go with medical therapy given high risk of contrast nephropathy. Stopped Heparin drip as troponin peaked. On aspirin, losartan, Metoprolol Tartate 25 mg BID, Atorvastatin. Start Clopidogrel 75 mg daily. Will start Lasix as needed for volume overload. (5) Hypertension: Code(s): I10 - Essential (primary) hypertension Status: Acute Assessment and Plan: Stable. Subjective Date/time seen: 04/25/23 07:38 Interval history: States still unable to take good deep breath. No chest pains. Exam Const: General: cooperative, healthy appearing and comfortable Orientation/consciousness: oriented to person, oriented to place and oriented to time Resp: Auscultation: no crackles, no rales, no rhonchi, no wheezes and diminished lung sounds Cardio: Rate: tachycardic Rhythm: regular rhythm Heart sounds: no murmurs Peripheral pulses: dorsalis pedis present Neuro: General: oriented to person, oriented to place and oriented to time Extrem: Left lower extremity: edema (trace edema) Other: right leg prosthesis Objective Data Vital Signs Vital Signs: Vital Signs - 24 hr 04/24/23 08:00 04/24/23 09:06 04/24/23 09:00 Temperature 97.4 F L Pulse Rate 76 109 H Respiratory Rate 16 20 Blood Pressure 102/50 L Pulse Oximetry 97 95 Oxygen Delivery Nasal Cannula Oxygen Flow Rate 3 Fraction of Inspired Oxygen 04/24/23 09:14 04/24/23 09:10 04/24/23 08:00 Temperature Pulse Rate 110 H 88 Respiratory Rate 20 Blood Pressure Pulse Oximetry 95 Oxygen Delivery Nasal Cannula Oxygen Flow Rate 4 Fraction of Inspired Oxygen 04/24/23 11:45 04/24/23 11:48 04/24/23 11:55 Temperature Pulse Rate 98 109 H 88 Respiratory Rate Blood Pressure Pulse Oximetry 95 94 96 Oxygen Delivery Nasal Cannula Nasal Cannula Nasal Cannula Oxygen Flow Rate 3 3 3 Fraction of Inspired Oxygen 04/24/23 12:00 04/24/23 14:45 04/24/23 14:56 Temperature 97.4 F L Pulse Rate 76 88 90 Respiratory Rate 20 20 20 Blood Pressure 121/60 Pulse Oximetry 96 Oxygen Delivery Oxygen Flow Rate Fraction of Inspired Oxygen 04/24/23 15:58 04/24/23 12:00 04/24/23 16:00 Temperature 98.0 F Pulse Rate 65 Respiratory Rate 12 Blood Pressure 105/55 L Pulse Oximetry 100 96 100 Oxygen Delivery Nasal Cannula Nasal Cannula Oxygen Flow Rate 4 4 Fraction of Inspired Oxygen 04/24/23 08:00 04/24/23 10:00 04/24/23 12:00 Temperature Pulse Rate 75 67 82 Respiratory Rate Blood Pressure Pulse Oximetry Oxygen Delivery Oxygen Flow Rate Fraction of Inspired Oxygen 04/24/23 14:00 04/24/23 16:00 04/24/23 18:00 Temperature Pulse Rate 69 84 85 Respiratory Rate Blo
--- NOTE | 2023-04-25 08:25 | PM.DS ---
DS: Admitting Diagnosis Discharge Date 04/25/23 Admitting Diagnosis respiratory distress DS: Discharge Diagnosis Discharge Diagnosis (1) Elevated troponin: Code(s): R79.89 - Other specified abnormal findings of blood chemistry Status: Acute (2) COPD exacerbation: Code(s): J44.1 - Chronic obstructive pulmonary disease with (acute) exacerbation Status: Acute (3) CKD (chronic kidney disease) stage 4, GFR 15-29 ml/min: Code(s): N18.4 - Chronic kidney disease, stage 4 (severe) Status: Acute (4) Acute and chronic respiratory failure with hypoxia: Code(s): J96.21 - Acute and chronic respiratory failure with hypoxia Status: Acute DS: Summary Hospital Course Hospital Course: 72-year-old male with a past medical history of COPD with chronic hypoxic respiratory failure, chronic kidney disease stage 4, hepatitis C and cirrhosis status post liver transplant and essential hypertension who presented to the ER at [place] via EMS with respiratory distress.??Pt then transferred to [place] for acute hypoxic and hypercarbic respiratory failure. He had some environmental dust exposure after mulching, and also ate a large meal and then laid down, precipitating some acid reflux and he also complained of chest and nasal congestion. It is possible he aspirated, however throughout his stay he was not treated with abx and his condition improved. pulmonology was consulted, he was given supportive treatment along with duonebs and prednisone. he returned to his baseline of 3L NC CKD was stable he had an elevated troponin, cardiology and interventional cardiology were consulted, trops downtrended, no acute changes on EKG. after discussions pt elected to forgo PCI in order to save his kidney from further decline. an echo revealed EF 35-40%, entire apex is akinetic, mid to apical segments are hypokinetic, basal segments with normal contractility. This can be seen in Takotsubo cardiomyopathy. Grade I diastolic dysfunction (E/e' 10), trace MR. he did not otherwise exhibit clinical signs of heart failure although this should be monitored. He is being discharged in stable condition as he is back to his baseline. He is to follow up closely with PCP for multiple comorbidities and the acute hospital stay. He understands all of this and all questions were answered. he is discharged with prednisone for 2 more days, and any ongoing use afterwards should be managed by PCP/transplant team. cont tacrolimus. new medications include metoprolol, plavix, atorvastatin, guaifinesin, fluticasone nasal spray, protonix. he will continue aspirin as well. More than 30 minutes spent on discharge planning and documentation. Time Spent with Patient Time attestation: Total time spent providing and/or coordinating discharge services: Exam Const: General: comfortable and no acute distress Eyes: Pupils: Equal, round and reactive pupils present Neck: Neck: supple Resp: Effort & Inspection: normal respiratory effort Auscultation: no crackles and diminished lung sounds Cardio: Rate: regular rate Rhythm: regular rhythm Heart sounds: no gallops, no murmurs and no rubs GI: GI Palp: Yes Soft to palpation Extrem: General: no edema DS: Data Data Completed and Pending Labs on day of discharge: Labs from last 24 hours 04/25/23 05:06 WBC 12.0 H RBC 2.90 L Hgb 9.1 L Hct 30.2 L MCV 104.1 H MCH 31.4 MCHC 30.1 L RDW 12.9 Plt Count 136 L MPV 12.2 H Immature Gran % (Auto) 0.5 Neut % (Auto) 70.2 Lymph % (Auto) 17.3 L Lamb % (Auto) 10.6 H Eos % (Auto) 1.3 Baso % (Auto) 0.1 L Lymph # (Auto) 2.08 Lamb # (Auto) 1.3 H Eos # (Auto) 0.2 Baso # (Auto) 0.0 Abs Immat Gran (auto) 0.06 H Absolute Neuts (auto) 8.4 H Absolute Nucleated RBC 0.0 Nucleated RBC % 0.0 Sodium 139 Potassium 4.7 Chloride 106 Carbon Dioxide 23 Anion Gap 10 BUN 71 H D Creatinine 3.30 H Estim Creat Clear Calc 19 Estimated G
[2023-04-25] MEDS: predniSONE 20 MG TABLET 40 MG PO (08:32)
[2023-04-25] MEDS: ENOXAPARIN 30 MG/0.3 ML SYRINGE SUB-Q (08:32)
[2023-04-25] MEDS: ASPIRIN 81 MG ENTERIC TABLET PO (08:32)
[2023-04-25] MEDS: calcitrioL 0.25 MCG CAPSULE PO (08:32)
[2023-04-25] MEDS: POLYSACCHARIDE IRON COMPLEX 150 MG CAPSULE PO (08:32)
[2023-04-25] MEDS: CLOPIDOGREL BISULFATE 75 MG TABLET PO (08:32)
[2023-04-25] MEDS: METOPROLOL TARTRATE 25 MG TABLET PO (08:32)
[2023-04-25] MEDS: guaiFENesin 12 HR 600 MG TABCR 1200 MG PO (08:32)
[2023-04-25] MEDS: hydrALAZINE HCL 25 MG TABLET BY MOUTH (08:32)
[2023-04-25] MEDS: ATORVASTATIN 40 MG TABLET PO (08:32)
[2023-04-25] MEDS: MAGNESIUM OXIDE 400 MG TABLET BY MOUTH (08:32)
[2023-04-25] MEDS: TACROLIMUS 0.5 MG CAPSULE 1 MG PO (08:32)
[2023-04-25] MEDS: LOSARTAN POTASSIUM 50 MG TABLET BY MOUTH (08:33)
[2023-04-25] MEDS: PANTOPRAZOLE SODIUM IV 40 MG VIAL IV PUSH (08:33)
== END 2023-04-25 11:53 | disposition home health service (06) | DRG 190 ==
PROVIDERS: Internal Medicine; Internal Medicine Cardiovascular Disease; Admitting Provider Internal Medicine; PCP Internal Medicine; Visit Provider General Practice
DX: J44.1 Chronic obstructive pulmonary disease with (acute) exacerbation (principal); J96.02 Acute respiratory failure with hypercapnia; J96.21 Acute and chronic respiratory failure with hypoxia; N17.9 Acute kidney failure, unspecified; N18.4 Chronic kidney disease, stage 4 (severe); Z94.4 Liver transplant status; D63.1 Anemia in chronic kidney disease; E78.5 Hyperlipidemia, unspecified; E55.9 Vitamin D deficiency, unspecified; E87.5 Hyperkalemia; G47.33 Obstructive sleep apnea (adult) (pediatric); I12.9 Hypertensive chronic kidney disease with stage 1 through stage 4 chronic kidney disease, or unspecified chronic kidney disease; K21.9 Gastro-esophageal reflux disease without esophagitis; M19.90 Unspecified osteoarthritis, unspecified site; R73.9 Hyperglycemia, unspecified; Z99.81 Dependence on supplemental oxygen; Z77.090 Contact with and (suspected) exposure to asbestos; Z86.19 Personal history of other infectious and parasitic diseases; Z98.41 Cataract extraction status, right eye; Z98.42 Cataract extraction status, left eye; Z96.1 Presence of intraocular lens; Z89.611 Acquired absence of right leg above knee; Z87.891 Personal history of nicotine dependence; Z99.89 Dependence on other enabling machines and devices; Z91.199 Patient's noncompliance with other medical treatment and regimen due to unspecified reason
CPT/HCPCS: 36415; 80048; 80053; 80061; 80197; 83036; 83735; 84145; 84484; 85025; 85055; 85610; 85730; 93005; 94002; 94003; 94618; 94640; 94660; 94762; 96365; 96366; 96375; 96376; A9270; C8929; C9113; G0378; J1644; J1650; J2930; J7030; J7512; Q9957

== ENCOUNTER 2023-05-16 14:01 | Outpatient (NON) | payer MEDICARE, SELFPAY ==
[2023-05-16 14:24] LABS: Anion Gap 5 mmol/L (8-16); Blood Urea Nitrogen 41 mg/dL (7-18); Calcium 9.2 mg/dL (8.5-10.1); Carbon Dioxide 29 mmol/L (21-32); Chloride 96 mmol/L (98-108); Estimated Glomerular Filt Rate 16; Glucose 84 mg/dL (70-99); Magnesium 1.9 mg/dL (1.8-2.4); Osmolality Calculated 279 mOsm/kg (285-295); Sodium 130 mmol/L (136-145)
== END 2023-05-16 14:02 | disposition home or self-care (01) ==
LOC: CHSHH 14:03
PROVIDERS: Internal Medicine Cardiovascular Disease; Visit Provider Internal Medicine
DX: R60.0 Localized edema (principal); J44.1 Chronic obstructive pulmonary disease with (acute) exacerbation; J96.11 Chronic respiratory failure with hypoxia; I12.9 Hypertensive chronic kidney disease with stage 1 through stage 4 chronic kidney disease, or unspecified chronic kidney disease; N18.4 Chronic kidney disease, stage 4 (severe)
CPT/HCPCS: 80048; 83735

== ENCOUNTER 2023-05-26 09:41 | Emergency (ER) | payer MEDICARE, SELFPAY ==
[2023-05-26] VITALS (38 sets, daily range): BP systolic 114–154; BP diastolic 59–140; PULSE 92–129; RESP 12–36; TEMP 36.2–36.8; O2SAT 81–100
--- NOTE | ~2023-05-26 | XR_ITS ---
XR chest 1V portable 05/26/2023 10:12 Indication: Shortness of breath Procedure: AP portable chest Comparison: 04/21/2023 Findings: Moderate right pneumothorax with underlying compressive atelectasis of the right lung. No m ediastinal shift. Left lung clear. No significant effusion. No acute osseous abnormality. Impression: 1: Moderate right pneumothorax with compressive atelectasis of the right lung. Reviewed, dictated and finalized at location A. L ADVISER Impression: 1: Moderate right pneumothorax with compressive atelectasis of the right lung.
--- NOTE | ~2023-05-26 | XR_ITS ---
XR chest-chest tube insert/pos 05/26/2023 12:08 Indication: Chest tube placement. Right pneumothorax. Procedure: AP portable chest Comparison: 05/26/2023 Findings: There has been resolution of the right pneumothorax post chest tube placement. There is res idual compressive atelectasis of the right midlung. Right chest tube projects over the upper thorax. Central line tip in the SVC. No mediastinal shift. Left lung clear. Impression: 1: Interval resolution of right pneumothorax post chest tube placement. 2: Consolidation right mid thorax, likely atelectasis. Reviewed, dictated and finalized at location A. RER PETROLEUM REFINERY Impression: 1: Interval resolution of right pneumothorax post chest tube placement. 2: Consolidation right mid thorax, likely atelectasis.
--- NOTE | 2023-05-26 09:43 | ECG_ITS ---
Measurements Intervals [place] Rate: 115 P: 93 [place]: 156 QRS: 74 QRSD: 92 T: 115 QT: 330 QTc: 458 Interpretive Statements BASELINE ARTIFACT RESULTING IN POOR QUALITY ECG SINUS TACHYCARDIA POOR R-WAVE PROGRESSION, CONSIDER PREVIOUS ANTERIOR ND NONSPECIFIC ST ABNORMALITY COMPARED TO ECG 04/24/2023 06:38:21 INCOMPLETE LEFT BUNDLE BRANCH BLOCK IS NOT SEEN Electronically Signed On 05-27-2023 9:11:50 DRY WALL FINISHER by Wallace Burks M.D.
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
[2023-05-26] MEDS: methylPREDNISolone SOD SUCC 125 MG VIAL IM (09:50)
[2023-05-26 09:59] LABS: Hematocrit 30.9 % (37.0-46.0); Hemoglobin 9.5 g/dL (12.4-15.3); Mean Corpuscular HGB Conc 30.7 g/dL (32.0-36.0); Mean Corpuscular Hemoglobin 30.6 pg (27.0-31.0); Mean Corpuscular Volume 99.7 fL (78.0-102.0); Mean Platelet Volume 10.2 fl (8.7-11.0); Platelet Count Result 411 K/mm3 (150-420); Red Cell Distribution Width 13.2 % (11.6-14.4)
[2023-05-26 09:59] LABS: HCO3 ABG 23.3 mmol/L (23-29); Oxygen Content ABG 13.1 %vol (16.0-22.0); Oxygen Saturation ABG 87.8 % (95-97); Oxyhemoglobin 87.7 % (94-100); PCO2 ABG 52.9 mmHg (35-45); PO2 ABG 63.6 mmHg (75-85); Total Hemoglobin 10.6 g/dL (12.0-18.0); pH ABG 7.26 (7.35-7.45)
[2023-05-26 10:02] LABS: Device NASAL CANNULA; Modified Allen's Test Pass; Site Drawn RIGHT RADIAL
[2023-05-26 10:11] LABS: Partial Thromboplastin Time 24.7 SEC (23.90-30.70); Prothrombin Time 11.3 Seconds (9.50-12.10)
[2023-05-26] MEDS: FUROSEMIDE INJ 20 MG/2 ML VIAL 40 MG IM (10:13)
[2023-05-26 10:16] LABS: Band Neutrophils Percent 0 % (0-6); Basophils Absolute Manual 0.18 K/mm3 (0-0.1); Basophils Percent Manual 1 % (0-1); Eosinophils Absolute Manual 0.54 K/mm3 (0.02-0.5); Eosinophils Percent Manual 3 % (1-6); Lymphocytes Absolute Manual 5.76 K/mm3 (1.1-4.5); Lymphocytes Percent Manual 32 % (18-44); Monocytes Absolute Manual 0.36 K/mm3 (0.1-0.90); Monocytes Percent Manual 2 % (3-9); Neutrophils Absolute Manual 10.98 K/mm3 (1.3-6.7); Neutrophils Percent Manual 61 % (46-73); Total Cells Counted 100
[2023-05-26 10:17] LABS: Metamyelocytes Percent 1 %; Platelet Estimate Adequate (Adequate)
[2023-05-26 10:19] LABS: Alanine Aminotransferase 25 U/L (16-63); Albumin Level 3.3 g/dL (3.4-5.0); Alkaline Phosphatase 70 U/L (46-116); Anion Gap 6 mmol/L (8-16); Aspartate Amino Transferase 22 U/L (15-37); Bilirubin,Total 0.3 mg/dL (0.00-1.00); Blood Urea Nitrogen 51 mg/dL (7-18); Calcium 9.9 mg/dL (8.5-10.1); Carbon Dioxide 30 mmol/L (21-32); Chloride 99 mmol/L (98-108); Estimated CRCL calculation 14 ml/min; Estimated Glomerular Filt Rate 13; Glucose 221 mg/dL (70-99); Lipase 28 U/L (16-77); NT Pro B Type Natriuretic Pept 4380 pg/mL (0-125); Osmolality Calculated 300 mOsm/kg (285-295); Potassium 4.7 mmol/L (3.5-5.1); Sodium 135 mmol/L (136-145); Total Protein 8.5 g/dL (6.4-8.2); Troponin I 45.5 ng/L (0.00-60.4)
[2023-05-26 10:35] LABS: Influenza A QL RT-PCR Negative (Negative); Influenza B QL RT-PCR Negative (Negative); RSV RNA, RT-PCR Negative (Negative); SARS-CoV-2 RNA PCR Negative (Negative)
[2023-05-26] MEDS: HYDROmorphone HCL INJ (*CRX) 2 MG/ML VIAL 0.5 MG IM (11:13)
[2023-05-26] MEDS: ONDANSETRON HCL ODT 4 MG TABLET PO (11:14)
[2023-05-26] MEDS: LIDOCAINE HCL 1% LOCAL INJ 10 ML VIAL (11:39)
--- NOTE | 2023-05-26 12:24 | PC.NURSE ---
Assisted Dr. garzon/ central line & chest tube entry
[2023-05-26] MEDS: HYDROmorphone HCL INJ (*CRX) 2 MG/ML VIAL 0.5 MG IV PUSH (12:29)
[2023-05-26] MEDS: MORPHINE SULFATE (*CRX) 2 MG/ML INJ IV PUSH ×2 (13:46→15:13)
[2023-05-26] MEDS: METOPROLOL TARTRATE 25 MG TABLET PO (15:13)
== END 2023-05-26 15:18 | disposition short-term general hospital (02) ==
PROVIDERS: Emergency Provider Internal Medicine Critical Care Medicine; PCP Internal Medicine
DX: J96.02 Acute respiratory failure with hypercapnia (principal); J93.12 Secondary spontaneous pneumothorax; I13.0 Hypertensive heart and chronic kidney disease with heart failure and stage 1 through stage 4 chronic kidney disease, or unspecified chronic kidney disease; N18.4 Chronic kidney disease, stage 4 (severe); I50.9 Heart failure, unspecified; Z99.81 Dependence on supplemental oxygen; Z79.82 Long term (current) use of aspirin; Z79.899 Other long term (current) drug therapy; Z87.891 Personal history of nicotine dependence; Z20.822 Contact with and (suspected) exposure to COVID-19
CPT/HCPCS: 32551; 36415; 36600; 71045; 80053; 82805; 83605; 83690; 83880; 84484; 85025; 85610; 85730; 87637; 93005; 96372; 96374; 96375; 96376; 99284; A9270; C1751; J1170; J1940; J2270; J2930

== ENCOUNTER 2023-06-25 13:48 | Outpatient (CLI) | payer MEDICARE, SELFPAY ==
--- NOTE | 2023-06-25 13:53 | ECHO_ITS ---
Patient Info Name: Damir Jimenez Age: 72 years : 1950 Gender: Male Ht: 69 in Wt: 173 lbs BSA: 1.96 m2 HR: 75 bpm BP: 204 / 101 mmHg Heart Rhythm: Sinus Rhythm Technical Quality: Good Exam Date: 06/25/2023 2:49 PM Exam Location: Echo Lab Patient Status: Outpatient Admit Date: 06/25/2023 Staff Ordering Physician: Dustin Castillo DO Sandblasting Supervisor: Berenice Marinelli RDCS Attending Provider: Dustin Castillo DO Referring Physician: Jonathan OBANDO; Exam Type: CA echo doppler color flow Study Info Indications - heart disease unspcified Complete two-dimensional, color flow and Doppler transthoracic echocardiogram is performed. Summary 1. Complete two-dimensional, color flow and Doppler transthoracic echocardiogram is performed. 2. Left ventricular chamber dimension is normal. 3. Basal to apical posterior wall is akinetic. Basal inferior wall is akinetic. 4. Left ventricular systolic function is normal, estimated at 60-65%. 5. There is mild concentric increased left ventricular wall thickness. 6. The left ventricular diastolic function is grade I diastolic dysfunction. 7. E/e' 11 is mildly elevated. 8. There is trace tricuspid valve regurgitation. 9. No pulmonary hypertension, estimated pulmonary arterial systolic pressure is 13 mmHg. Left Ventricle Basal to apical posterior wall is akinetic. Basal inferior wall is akinetic. E/e' 11 is mildly elevated. Left ventricular chamber dimension is normal. Left ventricular systolic function is normal, estimated at 60-65%. There is mild concentric increased left ventricular wall thickness. The left ventricular diastolic function is grade I diastolic dysfunction. Right Ventricle Right ventricular systolic function is normal and with normal TAPSE 2.2 cm. Right ventricular chamber dimension is normal. Left Atria Left atrial chamber dimension is normal. Right Atria Right atrial chamber dimension is normal. Aortic Valve The aortic valve is trileaflet. There is no aortic valve stenosis. There is no aortic valve regurgitation. Pulmonic Valve There is no pulmonic regurgitation. Mitral Valve There is no mitral valve stenosis. There is no mitral valve regurgitation. Tricuspid Valve There is trace tricuspid valve regurgitation. No pulmonary hypertension, estimated pulmonary arterial systolic pressure is 13 mmHg. Pericardium/Pleural There is no pericardial effusion. Inferior Vena Cava Normal inferior vena cava with >50% collapse upon inspiration consistent with normal right atrial pressure, 5 mmHg. Aorta The aortic root size at the sinus of Valsalva is normal. Left Ventricular Outflow Tract Name Value Normal LVOT 2D LVOT Diameter 1.9 cm LVOT Doppler LVOT Peak Velocity 107 cm/s LVOT Peak Gradient 3 mmHg LVOT Mean Gradient 1 mmHg LVOT VTI 22 cm LVOT VTI/AV VTI Ratio 1.0 LVOT Stroke Volume 63 ml Pulmonic Valve Name Value Normal
[2023-06-25 15:17] LABS: Albumin Level 4.1 g/dL (3.4-5.0); Anion Gap 10 mmol/L (8-16); Blood Urea Nitrogen 40 mg/dL (7-18); Calcium 11.4 mg/dL (8.5-10.1); Carbon Dioxide 32 mmol/L (21-32); Chloride 95 mmol/L (98-108); Estimated Glomerular Filt Rate 15; Glucose 105 mg/dL (70-99); Osmolality Calculated 293 mOsm/kg (285-295); Phosphorus 3.2 mg/dL (2.6-4.7); Potassium 3.5 mmol/L (3.5-5.1); Sodium 137 mmol/L (136-145)
[2023-06-25 16:04] LABS: Basophils Absolute Auto 0.05 K/mm3 (0.00-0.10); Basophils Percent Auto 0.8 % (0.0-1.0); Eosinophils Absolute Auto 0.24 K/mm3 (0.02-0.50); Hematocrit 32.4 % (37.0-46.0); Hemoglobin 10.3 g/dL (12.4-15.3); Immature Granulocyte Absolute 0.03 K/mm3 (0.00-0.00); Immature Granulocyte Percent A 0.5 % (0.0-0.0); Lymphocytes Absolute Auto 1.81 K/mm3 (1.10-4.50); Mean Corpuscular HGB Conc 31.8 g/dL (32.0-36.0); Mean Corpuscular Hemoglobin 30.3 pg (27.0-31.0); Mean Corpuscular Volume 95.3 fL (78.0-102.0); Mean Platelet Volume 12.2 fl (8.7-11.0); Monocytes Absolute Auto 0.53 K/mm3 (0.10-0.90); Monocytes Percent Auto 8.8 % (2.0-11.0); Neutrophils Absolute Auto 3.4 K/mm3 (1.7-7.2); Neutrophils Percent Auto 55.9 % (50.0-70.0); Platelet Count Result 170 K/mm3 (150-420); Red Cell Distribution Width 13.6 % (11.6-14.4)
== END 2023-06-25 13:49 | disposition home or self-care (01) ==
LOC: CHSIMG 13:50
PROVIDERS: Internal Medicine Nephrology; PCP Internal Medicine; Visit Provider Internal Medicine Cardiovascular Disease
DX: N18.4 Chronic kidney disease, stage 4 (severe) (principal); E87.5 Hyperkalemia; I51.9 Heart disease, unspecified; R93.1 Abnormal findings on diagnostic imaging of heart and coronary circulation
CPT/HCPCS: 36415; 80069; 85025; 93306

== ENCOUNTER 2023-07-26 11:40 | Outpatient (CLI) | payer MEDICARE, SELFPAY ==
[2023-07-26 12:20] LABS: Creatinine Urine 23.39 mg/dL (40-278); Total Protein Urine Random 17.3 mg/dL (0.0-11.9); Ur Ttl Prot Creatinine Ratio 0.74 mg/mg (0-0.20)
[2023-07-26 12:37] LABS: Albumin Level 3.7 g/dL (3.4-5.0); Anion Gap 12 mmol/L (8-16); Blood Urea Nitrogen 50 mg/dL (7-18); Calcium 9.9 mg/dL (8.5-10.1); Carbon Dioxide 26 mmol/L (21-32); Chloride 96 mmol/L (98-108); Estimated Glomerular Filt Rate 15; Glucose 98 mg/dL (70-99); Osmolality Calculated 291 mOsm/kg (285-295); Phosphorus 6.3 mg/dL (2.6-4.7); Potassium 4.9 mmol/L (3.5-5.1); Sodium 134 mmol/L (136-145)
[2023-07-29 22:32] LABS: Parathyroid Intact 7 pg/mL (14-64)
[2023-07-31 12:12] LABS: Vitamin D 25 Hydroxy 67 ng/mL (30-100)
== END 2023-07-26 11:41 | disposition home or self-care (01) ==
LOC: CHSLAB 11:43
PROVIDERS: PCP Internal Medicine; Visit Provider Internal Medicine Nephrology
DX: E55.9 Vitamin D deficiency, unspecified (principal); E87.5 Hyperkalemia; N25.81 Secondary hyperparathyroidism of renal origin; N18.4 Chronic kidney disease, stage 4 (severe)
CPT/HCPCS: 36415; 80069; 82306; 82570; 83970; 84156

== ENCOUNTER 2023-08-20 13:13 | Outpatient (CLI) | payer MEDICARE, SELFPAY ==
[2023-08-20 14:33] LABS: Albumin Level 3.8 g/dL (3.4-5.0); Anion Gap 11 mmol/L (8-16); Blood Urea Nitrogen 55 mg/dL (7-18); Calcium 9.2 mg/dL (8.5-10.1); Carbon Dioxide 28 mmol/L (21-32); Chloride 101 mmol/L (98-108); Estimated Glomerular Filt Rate 14; Glucose 72 mg/dL (70-99); Osmolality Calculated 304 mOsm/kg (285-295); Phosphorus 6.2 mg/dL (2.6-4.7); Potassium 4.7 mmol/L (3.5-5.1); Sodium 140 mmol/L (136-145)
== END 2023-08-20 13:14 | disposition home or self-care (01) ==
LOC: CHSLAB 13:14
PROVIDERS: PCP Internal Medicine; Visit Provider Internal Medicine Nephrology
DX: N18.4 Chronic kidney disease, stage 4 (severe) (principal)
CPT/HCPCS: 36415; 80069

== ENCOUNTER 2023-11-13 10:54 | Outpatient (CLI) | payer MEDICARE, SELFPAY ==
[2023-11-13 11:35] LABS: Albumin Level 3.9 g/dL (3.4-5.0); Anion Gap 9 mmol/L (4-12); Blood Urea Nitrogen 57 mg/dL (7-18); Calcium 8.9 mg/dL (8.5-10.1); Carbon Dioxide 31 mmol/L (21-32); Chloride 101 mmol/L (98-108); Estimated Glomerular Filt Rate 15; Glucose 84 mg/dL (70-99); Osmolality Calculated 306 mOsm/kg (285-295); Phosphorus 5.2 mg/dL (2.6-4.7); Potassium 4.7 mmol/L (3.5-5.1); Sodium 141 mmol/L (136-145)
[2023-11-13 11:48] LABS: Basophils Absolute Auto 0.04 K/mm3 (0.00-0.10); Basophils Percent Auto 0.6 % (0.0-1.0); Eosinophils Absolute Auto 0.39 K/mm3 (0.02-0.50); Eosinophils Percent Auto 6.1 % (1.0-6.0); Hematocrit 26.9 % (37.0-46.0); Hemoglobin 8.5 g/dL (12.4-15.3); Immature Granulocyte Absolute 0.03 K/mm3 (0.00-0.00); Immature Granulocyte Percent A 0.5 % (0.0-0.0); Lymphocytes Absolute Auto 1.69 K/mm3 (1.10-4.50); Lymphocytes Percent Auto 26.2 % (18.0-42.0); Mean Corpuscular HGB Conc 31.6 g/dL (32-36); Mean Corpuscular Hemoglobin 31.7 pg (27.0-31.0); Mean Corpuscular Volume 100.4 fL (78.0-102.0); Mean Platelet Volume 11.2 fl (8.7-11.0); Monocytes Percent Auto 10.9 % (2.0-11.0); Neutrophils Absolute Auto 3.59 K/mm3 (1.70-7.20); Neutrophils Percent Auto 55.7 % (50.0-70.0); Platelet Count Result 176 K/mm3 (150-420); Red Blood Count 2.68 M/mm3 (4.70-6.10); Red Cell Distribution Width 12.3 % (11.6-14.4); White Blood Count 6.4 K/mm3 (4.8-10.8)
[2023-11-13 11:56] LABS: Alanine Aminotransferase 24 U/L (16-63); Alkaline Phosphatase 53 U/L (46-116); Aspartate Amino Transferase 20 U/L (15-37); Bilirubin,Total 0.5 mg/dL (0.00-1.00); GGT 24 U/L (15-85)
== END 2023-11-13 10:55 | disposition home or self-care (01) ==
PROVIDERS: PCP Internal Medicine; Visit Provider Internal Medicine Nephrology
DX: Z79.899 Other long term (current) drug therapy (principal); Z94.4 Liver transplant status
CPT/HCPCS: 36415; 80053; 80197; 82977; 84100; 85025

== ENCOUNTER 2023-12-24 10:05 | Outpatient (CLI) | payer MEDICARE, SELFPAY ==
[2023-12-24 10:30] LABS: Basophils Absolute Auto 0.07 K/mm3 (0.00-0.10); Eosinophils Absolute Auto 0.67 K/mm3 (0.02-0.50); Eosinophils Percent Auto 9.4 % (1.0-6.0); Hematocrit 28.1 % (37.0-46.0); Hemoglobin 9.1 g/dL (12.4-15.3); Immature Granulocyte Absolute 0.02 K/mm3 (0.00-0.00); Immature Granulocyte Percent A 0.3 % (0.0-0.0); Lymphocytes Absolute Auto 2.15 K/mm3 (1.10-4.50); Lymphocytes Percent Auto 30.2 % (18.0-42.0); Mean Corpuscular HGB Conc 32.4 g/dL (32-36); Mean Corpuscular Hemoglobin 32.4 pg (27.0-31.0); Mean Platelet Volume 10.9 fl (8.7-11.0); Monocytes Absolute Auto 0.72 K/mm3 (0.10-0.90); Monocytes Percent Auto 10.1 % (2.0-11.0); Neutrophils Absolute Auto 3.48 K/mm3 (1.70-7.20); Platelet Count Result 162 K/mm3 (150-420); Red Blood Count 2.81 M/mm3 (4.70-6.10); Red Cell Distribution Width 11.9 % (11.6-14.4); White Blood Count 7.1 K/mm3 (4.8-10.8)
[2023-12-24 11:16] LABS: Alanine Aminotransferase 20 U/L (16-63); Albumin Level 3.8 g/dL (3.4-5.0); Alkaline Phosphatase 61 U/L (46-116); Anion Gap 12 mmol/L (4-12); Aspartate Amino Transferase 16 U/L (15-37); Bilirubin,Total 0.4 mg/dL (0.00-1.00); Blood Urea Nitrogen 58 mg/dL (7-18); Calcium 8.4 mg/dL (8.5-10.1); Carbon Dioxide 25 mmol/L (21-32); Chloride 100 mmol/L (98-108); Estimated Glomerular Filt Rate 15; GGT 23 U/L (15-85); Glucose 92 mg/dL (70-99); Osmolality Calculated 300 mOsm/kg (285-295); Potassium 4.3 mmol/L (3.5-5.1); Sodium 137 mmol/L (136-145); Total Protein 6.8 g/dL (6.4-8.2)
[2023-12-26 10:09] LABS: Tacrolimus Prograf 1.2 mcg/L
== END 2023-12-24 10:06 | disposition home or self-care (01) ==
LOC: CHSLAB 10:07
PROVIDERS: PCP Internal Medicine; Visit Provider Internal Medicine Gastroenterology
DX: Z94.4 Liver transplant status (principal); Z79.899 Other long term (current) drug therapy
CPT/HCPCS: 36415; 80053; 80197; 82977; 85025

== ENCOUNTER 2024-02-07 11:56 | Outpatient (CLI) | payer MEDICARE, SELFPAY ==
[2024-02-07 12:20] LABS: Basophils Absolute Auto 0.02 K/mm3 (0.00-0.10); Basophils Percent Auto 0.2 % (0.0-1.0); Eosinophils Absolute Auto 0.05 K/mm3 (0.02-0.50); Eosinophils Percent Auto 0.6 % (1.0-6.0); Hematocrit 27.3 % (37.0-46.0); Hemoglobin 8.7 g/dL (12.4-15.3); Immature Granulocyte Absolute 0.05 K/mm3 (0.00-0.00); Immature Granulocyte Percent A 0.6 % (0.0-0.0); Lymphocytes Absolute Auto 0.87 K/mm3 (1.10-4.50); Lymphocytes Percent Auto 9.9 % (18.0-42.0); Mean Corpuscular HGB Conc 31.9 g/dL (32-36); Mean Corpuscular Hemoglobin 32.2 pg (27.0-31.0); Mean Corpuscular Volume 101.1 fL (78.0-102.0); Mean Platelet Volume 11.2 fl (8.7-11.0); Monocytes Absolute Auto 0.48 K/mm3 (0.10-0.90); Monocytes Percent Auto 5.4 % (2.0-11.0); Neutrophils Absolute Auto 7.35 K/mm3 (1.70-7.20); Neutrophils Percent Auto 83.3 % (50.0-70.0); Platelet Count Result 186 K/mm3 (150-420); White Blood Count 8.8 K/mm3 (4.8-10.8)
[2024-02-07 12:53] LABS: Creatinine Urine 67.03 mg/dL (40-278); Total Protein Urine Random 39.8 mg/dL (0.0-11.9); Ur Ttl Prot Creatinine Ratio 0.59 mg/mg (0-0.20)
[2024-02-07 13:14] LABS: Alanine Aminotransferase 18 U/L (16-63); Albumin Level 4.1 g/dL (3.4-5.0); Alkaline Phosphatase 68 U/L (46-116); Anion Gap 15 mmol/L (4-12); Aspartate Amino Transferase 26 U/L (15-37); Bilirubin,Total 0.6 mg/dL (0.00-1.00); Blood Urea Nitrogen 68 mg/dL (7-18); Calcium 8.9 mg/dL (8.5-10.1); Carbon Dioxide 26 mmol/L (21-32); Chloride 99 mmol/L (98-108); Estimated Glomerular Filt Rate 13; GGT 21 U/L (15-85); Glucose 80 mg/dL (70-99); Osmolality Calculated 308 mOsm/kg (285-295); Phosphorus 6.6 mg/dL (2.6-4.7); Potassium 4.4 mmol/L (3.5-5.1); Sodium 140 mmol/L (136-145)
[2024-02-08 17:53] LABS: Parathyroid Intact 95 pg/mL (16-77)
[2024-02-09 11:22] LABS: Vitamin D 25 Hydroxy 54 ng/mL (30-100)
[2024-02-12 15:24] LABS: Tacrolimus Prograf 1.3 mcg/L
== END 2024-02-07 11:57 | disposition home or self-care (01) ==
LOC: CHSLAB 11:58
PROVIDERS: PCP Internal Medicine; Visit Provider Internal Medicine Nephrology
DX: N18.5 Chronic kidney disease, stage 5 (principal); Z94.4 Liver transplant status; Z79.899 Other long term (current) drug therapy
CPT/HCPCS: 36415; 80053; 80197; 82306; 82570; 82977; 83970; 84100; 84156; 85025

== ENCOUNTER 2024-03-08 12:54 | Emergency (ER) | payer MEDICARE, SELFPAY ==
--- NOTE | ~2024-03-08 | XR_ITS ---
EXAMINATION: XR chest 2V 03/08/2024 13:34 INDICATION: Shortness of breath. PROCEDURE: 2 view chest COMPARISON: Comparison to multiple prior studies sequentially, with oldest reviewed study dated 05/11. FINDINGS: There is right basilar atelectasis/scarring. No pneumothorax identified. Heart size normal. No pleural effusion. No acute osseous abnormality. There are multiple healed left rib fractures. The cardiomediastinal silhouette is within normal limits. There are no pleural effusions. There is no pneumothorax suspected. IMPRESSION: 1: Chronic right basilar atelectasis/scarring. Reviewed, dictated and finalized at location B.
--- NOTE | 2024-03-08 12:56 | ECG_ITS ---
Test Date: 2024-03-08 13:02:14 Measurements Intervals [place] Rate: 70 P: 73 RI: 172 QRS: 39 QRSD: 91 T: 84 QT: 349 QTc: 378 Interpretive Statements SINUS RHYTHM NONSPECIFIC ST-T WAVE ABNORMALITY- HIGH LATERAL LEADS BASELINE ARTIFACT- I, II, III, AVR, AVL, AVF, V1-V6 BORDERLINE ECG No previous ECG available for comparison Electronically Signed On 03-08-2024 17:07:24 CDT by Dustin Castillo D.O.
[2024-03-08 13:08] VITALS: BP 156/78; PULSE 72; RESP 20; TEMP 36.8; O2SAT 96
[2024-03-08] MEDS: ONDANSETRON HCL ODT 4 MG TABLET PO (13:35)
[2024-03-08 13:39] VITALS: O2SAT 95
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
[2024-03-08 14:07] VITALS: BP 131/87; PULSE 68; RESP 20; TEMP 36.6; O2SAT 98
== END 2024-03-08 14:00 | disposition home or self-care (01) ==
PROVIDERS: Emergency Provider Emergency Medicine; PCP Internal Medicine
DX: S20.212A Contusion of left front wall of thorax, initial encounter (principal); J44.9 Chronic obstructive pulmonary disease, unspecified; I12.9 Hypertensive chronic kidney disease with stage 1 through stage 4 chronic kidney disease, or unspecified chronic kidney disease; N18.4 Chronic kidney disease, stage 4 (severe); J96.11 Chronic respiratory failure with hypoxia; Z79.82 Long term (current) use of aspirin; Z87.891 Personal history of nicotine dependence; Z79.899 Other long term (current) drug therapy; Z99.81 Dependence on supplemental oxygen; X58.XXXA Exposure to other specified factors, initial encounter
CPT/HCPCS: 71046; 93005; 99283; A9270

== ENCOUNTER 2024-03-26 11:38 | Inpatient (IN) | payer MEDICARE, SELFPAY ==
[2024-03-26] VITALS (36 sets, daily range): BP systolic 110–160; BP diastolic 55–102; PULSE 60–88; RESP 16–20; TEMP 36.4–37.1; O2SAT 82–100; BMI 22.0
--- NOTE | ~2024-03-26 | XR_ITS ---
Portable chest x-ray Comparison: 03/29/2024 Clinical History: Chest pain, shortness of breath Findings: Probable COPD and stable right basilar scarring. No definite acute reality. Cardiomediast inal silhouette is stable. Stable fracture deformities of the left sixth and seventh rib. Impression: No definite acute abnormality. COPD and probable right basilar scarring. Stable fracture deformities of the left sixth and seventh ribs. Reviewed, dictated and finalized at [facility]. Impression: No definite acute abnormality. COPD and probable right basilar scarring. Stable fracture deformities of the left sixth and seventh ribs.
--- NOTE | ~2024-03-26 | US_ITS ---
EXAMINATION: US renal BI DATE: 03/28/2024 10:20 INDICATION: Acute on chronic kidney disease TECHNIQUE: Multiple ultrasound grayscale images of the kidneys were obtained. COMPARISON: 06/13/[address] dated 03/26/2024 FINDINGS: The right kidney measures 10.4 x 5.4 x 5.0 cm. The left kidney measures 9.5 x 4.7 x 4.3 cm. The kidne ys demonstrate normal echogenicity. There are echogenic and shadowing stones at the lower poles of francisco th kidneys corresponding to the staghorn calculi described on prior CT. There is no hydronephrosis in either kidney. The bladder is decompressed around a Casiano catheter which limits evaluation. IMPRESSION: 1. Bilateral nonobstructing nephrolithiasis. No hydronephrosis Reviewed, dictated and finalized at location A.
--- NOTE | ~2024-03-26 | XR_ITS ---
EXAMINATION: XR chest 1V portable 03/28/2024 13:55 INDICATION: Shortness of breath PROCEDURE: AP portable chest COMPARISON: Comparison to multiple prior studies sequentially, with oldest reviewed study dated 04/11. FINDINGS: There is chronic right basilar atelectasis/scarring. No acute focal pneumonia, edema, pleur al effusion or pneumothorax. The cardiomediastinal silhouette is within normal limits. There are no pleural effusions. There is no pneumothorax suspected. IMPRESSION: 1: Chronic right basilar atelectasis/scarring.. Reviewed, dictated and finalized at location B.
--- NOTE | ~2024-03-26 | CT_ITS ---
EXAMINATION: CT chst ab pel thor lum wo DATE: 03/26/2024 13:15 INDICATION: Left flank pain TECHNIQUE: Computed tomography (CT) of the chest, abdomen, pelvis as well as of the thoracic and lumb ar spine was performed without intravenous contrast. Automated exposure control and iterative reconst ruction technique were employed. The dose-length product was 570.44 mGy-cm. COMPARISON: CT abdomen pelvis dated 07/11/2018 FINDINGS: CHEST CT: Severe emphysema. Linear and bandlike discoid atelectasis most prominent in the right middle and lowe r lobes and to lesser degree in the lingula and left lower lobe. Calcified left lower lobe nodule con sistent with old granulomatous disease. No pneumonia, pulmonary edema or pleural effusion. Heart size is normal. Atherosclerotic coronary artery calcifications. No pericardial effusion. Thoracic aorta i s normal in caliber with no dissection. No pathologically enlarged thoracic lymphadenopathy. ABDOMEN/PELVIS CT: Gallbladder is not visualized and likely surgically absent. There are multiple surgical clips at the periphery of the inferior vena cava centered at the level of the liver. Liver, pancreas and left adre nal gland are normal. Unchanged small dystrophic calcification at the right adrenal gland which could represent sequela prior infection or infarction. Splenic calcification consistent with old granuloma tous disease. Bilateral nephrolithiasis with 4 mm stone at the left renal pelvis and additional small er stones clustered in the lower pole calyces of both kidneys measuring up to 6 mm on the right and 5 mm on the left. No ureteral stones or hydronephrosis. Bladder is normal. Prostatic calcifications. S mall right and moderate-sized left fat-containing inguinal hernias. Bowels including the appendix are normal. No free intraperitoneal gas or fluid. No pathologically enlarged abdominal or pelvic lymphad enopathy. . THORACIC SPINE CT: Chronic T7 compression fracture with one third anterior vertebral body height loss. No acute osseous abnormality. Minimal thoracic spondylosis. No central canal stenosis. There is multilevel bilateral m ild thoracic facet osteoarthritis contributing to minimal to mild neural foraminal stenosis at multip le levels. LUMBAR SPINE CT: Alignment is normal. Mild superior endplate compression fracture with superimposed small Schmorl's no de at the superior endplate of L2. Minimal likely physiologic anterior wedging at L1. Moderate to sev ere disc height loss with vacuum phenomena at L5-S1. Mild disc height loss at L1-L2, L3-L4 and L4-L5. Disc bulges resulting in mild central canal stenosis at L4-L5 and L5-S1. Moderate facet osteoarthrit is on the left at L5-S1 and on the right at L4-L5 with otherwise mild multilevel lumbar facet osteoar thritis. There is moderate neural foraminal stenosis bilaterally at L4-L5 and L5-S1 and mild neural f rom stenosis in the more cephalad lumbar levels on the left and right. IMPRESSION: 1. Bilateral nonobstructing nephrolithiasis. No acute intra-abdominal/pelvic process. 2. Severe emphysema there are scattered discoid atelectasis/scarring in the lower lungs. 3. Small right and moderate-sized left fat-containing bilateral inguinal hernias. 4. Chronic T7 compression fracture with one third anterior vertebral body height loss and chronic mil d superior endplate compression fracture at L2. No acute osseous abnormality. 5. Moderate to severe spondylosis at the lumbosacral junction with mild spondylosis and more cephalad lumbar and lower thoracic spine. Reviewed, dictated and finalized at location A. IMPRESSION: 1. Bilateral nonobstructing nephrolithiasis. No acute intra-abdominal/pelvic pr ocess. 2. Severe emphysema there are scattered discoid atelectasis/scarring in the low er lungs. 3. Small right an
--- NOTE | ~2024-03-26 | XR_ITS ---
3 VIEWS THORACIC SPINE Ordering provider: Zachary Thakur MD History: . fall . Comparison: May 30, 2019 FINDINGS: VERTEBRAL BODIES: Altered compression fracture of T7 unchanged from previous examination. Otherwise, Normal height and alignment. No visible fracture or subluxation. DISK SPACES: Narrowing of the disc spaces in the lower thoracic area. SOFT TISSUES: Normal. IMPRESSION: No acute osseous abnormality of the thoracic spine. Old compression fracture of T7. Reviewed, dictated and finalized at location A.
--- NOTE | ~2024-03-26 | XR_ITS ---
XR chest 1V portable Ordering provider: Theresa Rhodes APRN History: 73 years Male with . chest pain sob . Comparison: March 28, 2024 FINDINGS: MEDIASTINUM: The cardiac silhouette is slightly enlarged. LUNGS: No effusions or pneumothorax. Bilateral interstitial changes more on the left side opacificati on the right lung base is noted. OTHER: No free air under the diaphragm. Fracture of the left sixth and seventh ribs is noted. IMPRESSION: Bilateral interstitial changes which may indicate pneumonitis. Underlying pulmonary edema is not excl uded. Fracture left sixth and seventh rib. Reviewed, dictated and finalized at location A. IMPRESSION: Bilateral interstitial changes which may indicate pneumonitis. Underlying pulmo nary edema is not excluded. Fracture left sixth and seventh rib.
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
[2024-03-26] MEDS: IPRATROPIUM 0.5 MG/ALBUTEROL SULFATE 2.5 MG AMPUL.NEB 3 ML INHALATION ×4 (13:37→21:30)
[2024-03-26 14:29] LABS: Basophils Absolute Auto 0.1 K/mm3 (0.0-0.1); Basophils Percent Auto 0.7 % (0.2-1.2); Eosinophils Absolute Auto 0.4 K/mm3 (0-0.3); Hemoglobin 7.1 g/dL (14.0-18.0); Immature Granulocyte Absolute 0.04 K/mm3 (0.00-0.031); Immature Granulocyte Percent A 0.5 % (0-0.5); Lymphocytes Absolute Auto 1.42 K/mm3 (0.9-3.2); Lymphocytes Percent Auto 17.7 % (18.3-44.2); Mean Corpuscular HGB Conc 30.9 g/dl (32-36); Mean Corpuscular Hemoglobin 31.4 pg (26-34); Mean Corpuscular Volume 101.8 fl (80-100); Mean Platelet Volume 11.3 fl (7.4-10.4); Monocytes Absolute Auto 0.8 K/mm3 (0.1-0.6); Neutrophils Absolute Auto 5.3 K/mm3 (1.3-6.7); Neutrophils Percent Auto 66.1 % (45.5-73.1); Platelet Count Result 171 k/mm3 (150-375); Red Blood Count 2.26 M/mm3 (4.6-6.20); Red Cell Distribution Width 12.2 % (11.5-14.5)
[2024-03-26 14:35] LABS: Add Urine Microscopic? YES; Appearance Urine Clear (Clear); Bacteria Urine None Seen /hpf; Bilirubin Urine Negative (Negative); Blood Urine Negative (Negative); Color Urine Yellow (Yellow); Glucose Urine UA Negative (Negative); Ketones Urine Negative (Negative); Leukocyte Esterase Ur Negative LEU/UL (Negative); Nitrate Urine Negative (Negative); Non Pathogenic Casts 0-2; Protein Urine 1+ mg/dL (Negative); RBC Urine 0-2 /hpf (0-2); Squamous Epithelial Cell Urine None Seen /hpf (Few); Urobilinogen Urine 0.2 mg/dL (<2.0); WBC Urine 0-5 /hpf (0-3)
[2024-03-26] MEDS: SODIUM CHLORIDE 0.9% IV 1,000 ML 999 ML IV CONT ×2 (14:38→16:05)
[2024-03-26 14:40] LABS: Partial Thromboplastin Time 24.9 Seconds (22.3-36.8); Prothrombin Time 13.5 Seconds (11.1-14.7)
[2024-03-26 14:49] LABS: Alanine Aminotransferase 13 U/L (6-50); Albumin Level 4.6 g/dL (3.5-5.1); Alkaline Phosphatase 58 U/L (38-126); Anion Gap 19 mmol/L (4-12); Aspartate Amino Transferase 28 U/L (17-59); Bilirubin,Total 0.6 mg/dL (0.2-1.3); Blood Urea Nitrogen 95 mg/dL (9-20); Calcium 8.2 mg/dL (8.4-10.2); Carbon Dioxide 22 mmol/L (22-30); Chloride 100 mmol/L (98-107); Estimated CRCL calculation 7 ml/min; Estimated Glomerular Filt Rate 7; Glucose 83 mg/dL (65-110); Lipase 76 U/L (23-300); Potassium 4.1 mmol/L (3.4-5.0); Sodium 141 mmol/L (137-145)
[2024-03-26 16:12] LABS: Immature Reticulocyte Fraction 8.5 % (3.0-15.9); Reticulocyte Hemoglobin Conten 35.1 pg (28.2-36.6); Reticulocyte Percent 1.17 % (0.7-4.3); Reticulocytes Absolute 0.02 10^6/uL (0.02-0.10)
[2024-03-26 16:29] LABS: Transferrin 159 mg/dL (206-381)
--- NOTE | 2024-03-26 17:00 | PC.NURSE ---
This patient, Damir Jimenez, was admitted to [facility] Surg Room 315-02. Patient/family oriented to hospital policies and general routines including ID bracelet, bed and alarms, visiting hours, pain management, procedures, bathroom and other care routines, personal items, smoking policy, room service/diet, and visiting hours. Information on how to activate the Rapid Response Team has been discussed. Patient/Family are encouraged to report perceived risks to care and to ask questions if they do not understand what they are told or what they should do.
[2024-03-26 17:29] LABS: Folic Acid 10.4 ng/mL (2.76->20)
[2024-03-26] MEDS: oxyCODONE HCL (*CRX) 20 MG TAB SR 12HR 40 MG PO (19:54)
[2024-03-26 21:06] LABS: Iron 63 ug/dL (49-181)
[2024-03-26 21:18] LABS: Percent Iron Saturation 28 % (20-50)
[2024-03-26 21:39] LABS: Thyroid Stimulating Hormone Reflex 0.953 uIU/mL (0.465-4.68)
[2024-03-27] VITALS (18 sets, daily range): BP systolic 133–182; BP diastolic 40–71; PULSE 65–86; RESP 12–20; TEMP 35.9–37.1; O2SAT 96–100; BMI 21.9
--- NOTE | 2024-03-27 00:20 | PM.IMHP ---
H&P: HPI History of Present Illness Date/Time: 03/26/24 23:30 Chief Complaint: Left flank pain Narrative: 73-year-old male with past medical history COPD with chronic hypoxic respiratory failure, chronic kidney disease stage 4, hepatitis C and cirrhosis status post liver transplant 2027, essential hypertension, distant history of opiate addiction on methadone, diastolic heart failure and obstructive sleep apnea who presented to the ER via EMS due to severe left flank pain. Patient reported that he tripped and fell 1 weeks ago landing on his left anterior chest. He reports that he fell because he has been getting weaker. His weakness was followed onset of difficulty passing urine in dribbling urine. Since that time he has been having flank pain and left sided rib pain with position changes and deep breath. Pain is improved with rest. He reports the pain is so severe that he has been unable to sleep. He also reports that for the last 2 weeks that he has been feeling bloated. He has only been able to dribble urine in is been feeling constipated over the last week. He had feeling that he was constipated cee kept going back to the bathroom but was unable to bear down to have a bowel movement due to the pain in his flank. He denies any med keys ER or melena. Does have a history of chronic anemia. He has noticed that he has been paler than usual. He is on Prograf as an anti rejection medication. He stated that 3 months ago they decreased his Prograf dose to 1 mg twice daily. He has where that his kidney function has been declining and he has been with Dr. Hilliard with what sounds like plans in the near future for or placement of a vein graft/fistula. He reports that his breathing for feet at baseline. He has not been having any significant cough or congestion. He denies any fevers or chills. He does have severe nausea each morning for which he usually takes Zofran. Then he is able to tolerate his liquid methadone. He reports that for the last month or so his nausea has become more persistent. He states that over the last year he has lost about 50 lb. It is confirmed with review of his weight from prior hospital stays the patient has dropped about 28 lb since June. He reports that since he prosthesis does not fit right he does have a small ulcer on his lateral knee from slippage of his prostatic. He reports that he feels humiliated in useless since he has become so deconditioned he reports that his last bowel movement was 2 days ago and was normally formed. Again he has been having difficulty urinating. Labs demonstrated severe increase in patient's baseline creatinine with marked uremia, hemoglobin decrease mildly below baseline with Hemoccult-negative stool. CT of the chest abdomen pelvis demonstrated bilateral nonobstructing nephrolithiasis, no acute intra-abdominal pelvic process. Severe emphysema with scattered discoid atelectasis and scarring in lower lungs, small right in moderate-size left fact a bilateral inguinal hernias, chronic T7 compression fracture with 1/3 anterior vertebral body height loss in chronic mild superior endplate compression fracture L2 L acute osseous abnormalities moderate to severe spondylosis of the lumbosacral junction mild spondylosis and more cephalad lumbar and lower thoracic spine. The patient was admitted for treatment and evaluation of symptomatic anemia and acute on chronic kidney disease with intractable left flank pain. On arrival to the medical floor patient was unable to urinate. Bladder scan demonstrated greater than 400 mL. Casiano catheter was placed after Casiano catheter was placed patient had sudden urge to have a bowel movement which was diarrheal in nature. Is in the process of transitioning from the bed to the bedside commode without assistance when he caused a skin tear to his posterior right lower extremity stump. Hemostasis of obtained with 4 x 4. Prior to my evaluation the patient was calling and r
[2024-03-27] MEDS: LIDOCAINE 5% PATCH 1 PATCH TRANSDERM ×2 (00:51→08:23)
[2024-03-27 01:37] LABS: IFOB Positive Control Positive; Immunochemical Fecal Occult Bl Negative (N)
[2024-03-27] MEDS: SODIUM CHLORIDE 0.9% IV 1,000 ML 125 ML IV CONT ×3 (01:48→23:06)
--- NOTE | 2024-03-27 03:01 | PHAR ---
Methadone 10mg/mL oral solution TAKE 130MG BY MOUTH ONCE DAILY individually bottled complete (130mg) doses. #4 of them verified upstairs on 3med/surg and returned to the patient narcotic matrix grocery clerk stocking the [facility]. The patient will need to be switched to Hospital supply 10mg tablets on Sunday (03/31) marietta cherry last home supplied dose will run out after the dose on 03/30.
[2024-03-27] MEDS: IPRATROPIUM 0.5 MG/ALBUTEROL SULFATE 2.5 MG AMPUL.NEB 3 ML INHALATION ×3 (03:10→19:44)
[2024-03-27] MEDS: hydrALAZINE HCL 25 MG TABLET PO ×3 (05:56→16:19)
[2024-03-27 06:47] LABS: Basophils Absolute Auto 0.1 K/mm3 (0.0-0.1); Basophils Percent Auto 0.9 % (0.2-1.2); Eosinophils Absolute Auto 0.3 K/mm3 (0-0.3); Eosinophils Percent Auto 4.5 % (0-4.4); Hematocrit 24.7 % (42.0-52.0); Hemoglobin 7.7 g/dL (14.0-18.0); Immature Granulocyte Absolute 0.03 K/mm3 (0.00-0.031); Immature Granulocyte Percent A 0.5 % (0-0.5); Lymphocytes Absolute Auto 1.25 K/mm3 (0.9-3.2); Lymphocytes Percent Auto 19.3 % (18.3-44.2); Mean Corpuscular HGB Conc 31.2 g/dl (32-36); Mean Corpuscular Hemoglobin 30.9 pg (26-34); Mean Corpuscular Volume 99.2 fl (80-100); Mean Platelet Volume 11.4 fl (7.4-10.4); Monocytes Absolute Auto 0.7 K/mm3 (0.1-0.6); Monocytes Percent Auto 10.5 % (2.6-8.5); Neutrophils Absolute Auto 4.2 K/mm3 (1.3-6.7); Neutrophils Percent Auto 64.3 % (45.5-73.1); Platelet Count Result 143 k/mm3 (150-375); Red Blood Count 2.49 M/mm3 (4.6-6.20); Red Cell Distribution Width 13.6 % (11.5-14.5); White Blood Count 6.5 K/mm3 (4.5-10.0)
[2024-03-27 06:52] LABS: Creatine Kinase 200 U/L (55-170)
[2024-03-27 06:55] LABS: Albumin Level 4.1 g/dL (3.5-5.1); Anion Gap 15 mmol/L (4-12); Blood Urea Nitrogen 84 mg/dL (9-20); Carbon Dioxide 20 mmol/L (22-30); Chloride 109 mmol/L (98-107); Estimated CRCL calculation 7 ml/min; Estimated Glomerular Filt Rate 7; Glucose 94 mg/dL (65-110); Phosphorus 7.8 mg/dL (2.5-4.5); Sodium 144 mmol/L (137-145)
--- NOTE | 2024-03-27 07:54 | PM.IMPN ---
Progress Note: A&P Assessment and Plan (1) Acute kidney injury superimposed on stage 5 chronic kidney disease, not on chronic dialysis: Code(s): N17.9 - Acute kidney failure, unspecified; N18.5 - Chronic kidney disease, stage 5 Status: Acute Assessment and Plan: Patient has acute kidney injury on chronic kidney disease. Patient's worsening renal function could be in part due to urinary retention but also sounds as if patient has had significant decrease in oral intake recently with intractable nausea for the last month so there is likely some prerenal factors as well. His creatinine seems to run around 3.8 - 4.5mg/dl in the last several months (taken from nephrology note). Will hold home hydrochlorothiazide. Casiano catheter has been placed. Strict I&O, daily weights. renal dialysis diet received 2 L of NS in the ED. Currently on NS 125 ml per hour. Close monitoring of fluid status Sodium Bicarb 650 mg BID Urine studies pending Continue Zofran for nausea Nephrology consulted, recs are appreciated (2) Acute on chronic anemia: Code(s): D64.9 - Anemia, unspecified Status: Acute Assessment and Plan: Patient does have acute on chronic anemia likely due to worsening renal function. Patient's Hemoccult stool was negative. Hgb 7.1 g/dl on admission. Received 1 unit pRBC Repeat Hgb is 7.7 g/dl Occult stool negative. Last colonoscopy is greater than [address] chest/abdomen/pelvis shows bilateral inguinal hernias but otherwise bowels are normal. Iron 63, TIBC 222, Saturation 20%, folate 10.4, vitamin B12 274 May need Epogen given his CKD. Will let nephrology decide this. (3) Rib pain on left side: Code(s): R07.81 - Pleurodynia Status: Acute Assessment and Plan: Patient is having intractable left posterior rib pain due to recent fall. He does have some overlying bruising in the area. He states that someone told him that there multiple fractures. There are no rib fractures mentioned on CT chest/abdomen/pelvis/spine. There is a chronic T7 compression fracture and compression fracture at L2. Will provide lidocaine pain patch Home methadone has also been resumed Will provide scheduled Tylenol and incentive spirometer Can trial Flexeril and aqua K pad to see if this helps (4) Status post liver transplant: Onset Date: 2007 Code(s): Z94.4 - Liver transplant status Status: Acute Assessment and Plan: Current dosing of tacrolimus is 1 mg BID. Given changes to renal function a tacro trough has been ordered. (5) Chronic hypoxic respiratory failure, on home oxygen therapy: Code(s): J96.11 - Chronic respiratory failure with hypoxia; Z99.81 - Dependence on supplemental oxygen Status: Acute Assessment and Plan: Patient has chronic hypoxic respiratory failure on 1 L oxygen at baseline. He is stable from a respiratory perspective at this time (6) Diarrhea: Code(s): R19.7 - Diarrhea, unspecified Status: Acute Assessment and Plan: Patient reports intermittently having diarrhea this last week. No recent antibiotics but he is immunosuppressed. C-diff pending Subjective Date/time seen: 03/27/24 07:54 Interval history: Patient is seen at bedside and appears uncomfortable. He complains of left flank pain after a fall recently. He is also complaining of sinus congestion. He reports a weight loss of approximately 20-30 lbs over the last few months. He attributes this to his poor intake from chronic nausea. He eats and immediately vomits. He denies any obvious blood in his emesis or stool. His last colonoscopy was over 10 years ago but he is not interested in repeating a colonoscopy now. His respiratory status is at his baseline and he is not having increased swelling. Review of Systems Review of Systems: All systems reviewed & are unremarkable except as noted in HPI and below Exam Narrative: General
[2024-03-27] MEDS: METHADONE 10 MG/ML BY MOUTH (08:22)
[2024-03-27] MEDS: [UNRECOGNIZED DRUG - OTHER] BY MOUTH (08:22)
[2024-03-27] MEDS: PANTOPRAZOLE 40 MG TABLET PO (08:23)
[2024-03-27] MEDS: ASPIRIN 81 MG ENTERIC TABLET PO (08:23)
[2024-03-27] MEDS: METOPROLOL TARTRATE 12.5 MG TABLET PO ×2 (08:23→20:58)
[2024-03-27] MEDS: CLOPIDOGREL BISULFATE 75 MG TABLET PO (08:23)
[2024-03-27] MEDS: TACROLIMUS 0.5 MG CAPSULE 1 MG BY MOUTH ×2 (08:24→16:18)
--- NOTE | 2024-03-27 13:07 | PM.CNNEP ---
Assessment and Plan Assessment and plan (1) JAMES (acute kidney injury): Code(s): N17.9 - Acute kidney failure, unspecified Status: Acute Assessment and Plan: noted by outpatient and admission labs creatinine 7.5mg/dl on 03/20 labs by PCP up to 8.1mg/dl on admission suspect multifactorial etiology: prerenal factors (decreased oral intake + nausea) urinary retention worsening anemia CKD progression (?) better UOP noted following anna catheter placement check urine studies and renal ultrasound trial of IVF hydration follow trend of repeat labs and UOP (2) Chronic kidney disease (CKD), stage V: Code(s): N18.5 - Chronic kidney disease, stage 5 Status: Chronic Assessment and Plan: baseline creatinine runs ~ 3.8 - 4.5mg/dl in the last year or so due to a combination of 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), hypertension, vascular disease, ALEXSANDRA, nephrolithiasis, and age-related change (3) Acute urinary retention: Code(s): R33.8 - Other retention of urine Status: Acute Assessment and Plan: as noted by bladder scan on admission s/p anna catheter placement follow trend of repeat labs consider Urology consultation (4) Acute on chronic anemia: Code(s): D64.9 - Anemia, unspecified Status: Acute Assessment and Plan: partly related to his James and known advanced CKD improvement in H/H s/p PRBC transfusion hemoccult negative in the ER start Retacrit while hospitalized follow trend of H/H (5) Rib pain on left side: Code(s): R07.81 - Pleurodynia Status: Acute Assessment and Plan: due to recent fall(?) pain control as tolerated consider further imaging (6) Chronic hypoxic respiratory failure, on home oxygen therapy: Code(s): J96.11 - Chronic respiratory failure with hypoxia; Z99.81 - Dependence on supplemental oxygen Status: Chronic Assessment and Plan: presumably due to his known hx of COPD continue supplemental oxygen Long extensive discussion (greater than 20 minutes) with the patient as well as at bedside regarding his advanced chronic kidney disease and the concern that he may require renal replacement therapy/dialysis sooner than later if his renal function fails to improve with conservative therapy that has already been instituted. The patient is well aware of this fact as I have discussed this with him on his last outpatient office visit with the tentative plan for referral to vascular surgery for placement of an AV access as he is not a candidate for peritoneal dialysis given his extensive history of abdominal surgeries. I will continue to follow the patient with you while he remains hospitalized and make further recommendations as deemed necessary. Thank you for allowing me to participate in the care of this patient. History of Present Illness Reason for Consult Consult date: 03/27/24 Reason for consult: acute renal failure (on chronic kidney disease versus progression of CKD) Chief Complaint Chief complaint: Anemia, JAMES History of Present Illness Narrative: The patient is a 73-year-old male with extensive past medical history as outlined below who presented to [facility] Emergency Room for further evaluation of severe left flank pain. The patient states that he had a recent fall about a week ago renal landed on his left anterior chest. Since that fall, he reports getting weaker and weaker in association with significant left flank pain as well. The flank pain seems to be somewhat positional as it is improved with rest but any time he times to move around including during when he sleeping he has significant discomfort. Interestingly, around the same time he has noticed difficulty urinating as well. Around the same time his is noted that he seems to be somewhat ?paler? than usual. He also reports some on and off na
--- NOTE | 2024-03-27 13:07 | P.CONNP_ITS ---
Assessment and Plan Assessment and plan (1) JAMES (acute kidney injury): Code(s): N17.9 - Acute kidney failure, unspecified Status: Acute Assessment and Plan: * noted by outpatient and admission labs * creatinine 7.5mg/dl on 03/20 labs by PCP * up to 8.1mg/dl on admission * suspect multifactorial etiology: * prerenal factors (decreased oral intake + nausea) * urinary retention * worsening anemia * CKD progression (?) * better UOP noted following anna catheter placement * check urine studies and renal ultrasound * trial of IVF hydration * follow trend of repeat labs and UOP (2) Chronic kidney disease (CKD), stage V: Code(s): N18.5 - Chronic kidney disease, stage 5 Status: Chronic Assessment and Plan: * baseline creatinine runs ~ 3.8 - 4.5mg/dl in the last year or so * due to a combination of 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), hypertension, vascular disease, ALEXSANDRA, nephrolithiasis, and age-related change (3) Acute urinary retention: Code(s): R33.8 - Other retention of urine Status: Acute Assessment and Plan: * as noted by bladder scan on admission * s/p anna catheter placement * follow trend of repeat labs * consider Urology consultation (4) Acute on chronic anemia: Code(s): D64.9 - Anemia, unspecified Status: Acute Assessment and Plan: * partly related to his James and known advanced CKD * improvement in H/H s/p PRBC transfusion * hemoccult negative in the ER * start Retacrit while hospitalized * follow trend of H/H (5) Rib pain on left side: Code(s): R07.81 - Pleurodynia Status: Acute Assessment and Plan: * due to recent fall(?) * pain control as tolerated * consider further imaging (6) Chronic hypoxic respiratory failure, on home oxygen therapy: Code(s): J96.11 - Chronic respiratory failure with hypoxia; Z99.81 - Dependence on supplemental oxygen Status: Chronic Assessment and Plan: * presumably due to his known hx of COPD * continue supplemental oxygen Long extensive discussion (greater than 20 minutes) with the patient as well as at bedside regarding his advanced chronic kidney disease and the concern that he may require renal replacement therapy/dialysis sooner than later if his renal function fails to improve with conservative therapy that has already been instituted. The patient is well aware of this fact as I have discussed this with him on his last outpatient office visit with the tentative plan for referral to vascular surgery for placement of an AV access as he is not a candidate for peritoneal dialysis given his extensive history of abdominal surgeries. I will continue to follow the patient with you while he remains hospitalized and make further recommendations as deemed necessary. Thank you for allowing me to participate in the care of this patient. History of Present Illness Reason for Consult Consult date: 03/27/24 Reason for consult: acute renal failure (on chronic kidney disease versus progression of CKD) Chief Complaint Chief complaint: Anemia, JAMES History of Present Illness Narrative: The patient is a 73-year-old male with extensive past medical history as outlined below who presented to [facility] Emergency Room for further evaluation of severe left flank pain. The patient states that he had a recent fall about a week ago renal landed on his left anterior chest. Since that fall, he reports getting weaker and weaker in ass
[2024-03-27] MEDS: SODIUM BICARBONATE TAB 650 MG TABLET PO (16:19)
[2024-03-27] MEDS: FLUTICASONE PROPIONATE 0.05% NA SPR 16 GM BTL (*BKC) 1 SPRAY NASAL (20:58)
[2024-03-27] MEDS: guaiFENesin 12 HR 600 MG TABCR PO (20:58)
[2024-03-28] VITALS (17 sets, daily range): BP systolic 132–149; BP diastolic 48–81; PULSE 68–105; RESP 18–22; TEMP 36.7–37.1; O2SAT 92–100
[2024-03-28] MEDS: IPRATROPIUM 0.5 MG/ALBUTEROL SULFATE 2.5 MG AMPUL.NEB 3 ML INHALATION ×4 (01:25→19:53)
[2024-03-28] MEDS: METHADONE 10 MG/ML BY MOUTH (03:40)
[2024-03-28] MEDS: [UNRECOGNIZED DRUG - OTHER] BY MOUTH (03:40)
[2024-03-28 04:10] LABS: Creatinine Urine 47.4 mg/dL; Total Protein Urine Random 62 mg/dL; Urea Random Urine 361 MG/DL
[2024-03-28 04:12] LABS: Sodium Urine Random 119 meq/L
[2024-03-28 04:15] LABS: Eosinophil Urine None Seen % (None Seen); Total Protein Urine Random 60 mg/dL; Ur Ttl Prot Creatinine Ratio 1.28 mg/mg (0-0.20); Urine Eos QC 2nd Tech Confirmed
[2024-03-28 05:56] LABS: Basophils Absolute Auto 0.1 K/mm3 (0.0-0.1); Basophils Percent Auto 0.7 % (0.2-1.2); Eosinophils Absolute Auto 0.4 K/mm3 (0-0.3); Eosinophils Percent Auto 4.9 % (0-4.4); Hematocrit 24.9 % (42.0-52.0); Hemoglobin 7.9 g/dL (14.0-18.0); Immature Granulocyte Absolute 0.07 K/mm3 (0.00-0.031); Immature Granulocyte Percent A 0.8 % (0-0.5); Lymphocytes Absolute Auto 0.87 K/mm3 (0.9-3.2); Lymphocytes Percent Auto 9.6 % (18.3-44.2); Mean Corpuscular HGB Conc 31.7 g/dl (32-36); Mean Corpuscular Hemoglobin 31.7 pg (26-34); Mean Platelet Volume 11.9 fl (7.4-10.4); Monocytes Absolute Auto 0.9 K/mm3 (0.1-0.6); Monocytes Percent Auto 9.8 % (2.6-8.5); Neutrophils Absolute Auto 6.7 K/mm3 (1.3-6.7); Neutrophils Percent Auto 74.2 % (45.5-73.1); Platelet Count Result 143 k/mm3 (150-375); Red Blood Count 2.49 M/mm3 (4.6-6.20); Red Cell Distribution Width 13.8 % (11.5-14.5); White Blood Count 9.1 K/mm3 (4.5-10.0)
[2024-03-28 06:09] LABS: Alanine Aminotransferase 14 U/L (6-50); Albumin Level 4.3 g/dL (3.5-5.1); Alkaline Phosphatase 54 U/L (38-126); Anion Gap 15 mmol/L (4-12); Aspartate Amino Transferase 25 U/L (17-59); Bilirubin,Total 0.7 mg/dL (0.2-1.3); Blood Urea Nitrogen 70 mg/dL (9-20); Carbon Dioxide 19 mmol/L (22-30); Chloride 109 mmol/L (98-107); Estimated CRCL calculation 9 ml/min; Estimated Glomerular Filt Rate 8; Glucose 94 mg/dL (65-110); Magnesium 1.1 mg/dL (1.6-2.3); Phosphorus 5.2 mg/dL (2.5-4.5); Potassium 3.9 mmol/L (3.4-5.0); Sodium 143 mmol/L (137-145)
[2024-03-28] MEDS: SODIUM CHLORIDE 0.9% IV 1,000 ML 125 ML IV CONT (09:13)
[2024-03-28] MEDS: MAGNESIUM SULF 1 GM/D5W 100 ML 1 GM/100 ML BAG IVPB (09:14)
[2024-03-28] MEDS: FLUTICASONE PROPIONATE 0.05% NA SPR 16 GM BTL (*BKC) 1 SPRAY NASAL ×2 (09:14→20:38)
[2024-03-28] MEDS: ASPIRIN 81 MG ENTERIC TABLET PO (09:14)
[2024-03-28] MEDS: EPOETIN ALFA-EPBX 20,000 UNITS/ML VIAL 20000 UNITS SUB-Q (09:14)
[2024-03-28] MEDS: CLOPIDOGREL BISULFATE 75 MG TABLET PO (09:14)
[2024-03-28] MEDS: guaiFENesin 12 HR 600 MG TABCR PO ×2 (09:15→20:38)
[2024-03-28] MEDS: SODIUM BICARBONATE TAB 650 MG TABLET PO ×2 (09:15→16:26)
[2024-03-28] MEDS: hydrALAZINE HCL 25 MG TABLET PO ×3 (09:15→16:26)
[2024-03-28] MEDS: PANTOPRAZOLE 40 MG TABLET PO (09:15)
[2024-03-28] MEDS: METOPROLOL TARTRATE 12.5 MG TABLET PO ×2 (09:15→20:38)
[2024-03-28] MEDS: TACROLIMUS 0.5 MG CAPSULE 1 MG BY MOUTH ×2 (09:15→16:26)
[2024-03-28] MEDS: LIDOCAINE 5% PATCH 1 PATCH TRANSDERM (09:16)
[2024-03-28 10:09] LABS: Creatine Kinase 220 U/L (55-170)
--- NOTE | 2024-03-28 11:11 | PM.PNNEP ---
Progress Note: A&P Assessment and Plan (1) JAMES (acute kidney injury): Code(s): N17.9 - Acute kidney failure, unspecified Status: Acute Assessment and Plan: improvement noted since admission was noted by outpatient and admission labs creatinine 7.5mg/dl on 03/20 labs by PCP up to 8.1mg/dl on admission suspect multifactorial etiology: prerenal factors (decreased oral intake + nausea) urinary retention worsening anemia CKD progression (?) better UOP noted following anna catheter placement evaluation to date noted: renal ultrasound without obstruction urine eosinophils negative moderate proteinuria CPK mildy elevate but no enough to affect kidney function urine electrolytes non-prerenal on trial of IVF hydration follow trend of repeat labs and UOP (2) Chronic kidney disease (CKD), stage V: Code(s): N18.5 - Chronic kidney disease, stage 5 Status: Chronic Assessment and Plan: baseline creatinine runs ~ 3.8 - 4.5mg/dl in the last year or so due to a combination of 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), hypertension, vascular disease, ALEXSANDRA, nephrolithiasis, and age-related change (3) Acute urinary retention: Code(s): R33.8 - Other retention of urine Status: Acute Assessment and Plan: as noted by bladder scan on admission s/p anna catheter placement follow trend of repeat labs Urology consultation (4) Acute on chronic anemia: Code(s): D64.9 - Anemia, unspecified Status: Acute Assessment and Plan: partly related to his James and known advanced CKD improvement in H/H s/p PRBC transfusion hemoccult negative in the ER on Retacrit while hospitalized follow trend of H/H (5) Rib pain on left side: Code(s): R07.81 - Pleurodynia Status: Acute Assessment and Plan: due to recent fall(?) pain control as tolerated consider further imaging (6) Chronic hypoxic respiratory failure, on home oxygen therapy: Code(s): J96.11 - Chronic respiratory failure with hypoxia; Z99.81 - Dependence on supplemental oxygen Status: Chronic Assessment and Plan: presumably due to his known hx of COPD continue supplemental oxygen Will continue to follow. Subjective Date/time seen: 03/28/24 11:11 Interval history: Follow-up for acute kidney injury/acute renal failure on chronic kidney disease. No apparent distress voiced at the time of my visit; improvement in renal function/creatinine noted by AM labs in association with excellent urine output; H/H relatively stable following PRBC transfusion; still has issues with pain but appear tolerable. Exam Narrative: General: chronically ill-appearing male in NAD Heart: normal S1 and S2; no rub Lungs: coarse breath sounds Abdomen: soft, nontender, nondistended, positive bowel sounds Extremities: no cyanosis or clubbing; trace edema; s/ right BKA Skin: warm and dry Objective Data Vital Signs Vital Signs: Vital Signs Temp Pulse Resp BP Pulse Ox O2 Del Method O2 Flow Rate 03/28/24 09:15 97 Nasal Cannula 2 03/28/24 09:15 84 03/28/24 08:49 92 20 03/28/24 08:39 84 20 03/28/24 08:39 96 Nasal Cannula 2 03/28/24 01:40 74 18 03/27/24 19:56 85 18 03/28/24 01:30 71 18 03/28/24 05:20 98.5 F 74 18 141/81 H 96 03/27/24 20:55 70 20 98 Nasal Cannula 2 03/27/24 20:58 70 03/27/24 20:35 97.9 F 84 20 153/71 H 98 03/27/24 19:46 83 20 03/27/24 19:46 98 Nasal Cannula 2 03/27/24 14:00 96.6 F L 69 12 133/54 L 98 Intake/Output Intake/Output: Intake & Output 03/25/24 03/26/24 03/27/24 03/28/24 23:59 23:59 23:59 23:59 Intake Total 1000 2794 2530.4 Output Total 2100 850 Balance 9261 216 8213.4 Meds/Results Medications: Active Medications Generic Name Dose Route St
--- NOTE | 2024-03-28 11:11 | P.PNNP_ITS ---
Progress Note: A&P Assessment and Plan (1) JAMES (acute kidney injury): Code(s): N17.9 - Acute kidney failure, unspecified Status: Acute Assessment and Plan: * improvement noted since admission * was noted by outpatient and admission labs * creatinine 7.5mg/dl on 03/20 labs by PCP * up to 8.1mg/dl on admission * suspect multifactorial etiology: * prerenal factors (decreased oral intake + nausea) * urinary retention * worsening anemia * CKD progression (?) * better UOP noted following anna catheter placement * evaluation to date noted: * renal ultrasound without obstruction * urine eosinophils negative * moderate proteinuria * CPK mildy elevate but no enough to affect kidney function * urine electrolytes non-prerenal * on trial of IVF hydration * follow trend of repeat labs and UOP (2) Chronic kidney disease (CKD), stage V: Code(s): N18.5 - Chronic kidney disease, stage 5 Status: Chronic Assessment and Plan: * baseline creatinine runs ~ 3.8 - 4.5mg/dl in the last year or so * due to a combination of 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), hypertension, vascular disease, ALEXSANDRA, nephrolithiasis, and age-related change (3) Acute urinary retention: Code(s): R33.8 - Other retention of urine Status: Acute Assessment and Plan: * as noted by bladder scan on admission * s/p anna catheter placement * follow trend of repeat labs * Urology consultation (4) Acute on chronic anemia: Code(s): D64.9 - Anemia, unspecified Status: Acute Assessment and Plan: * partly related to his James and known advanced CKD * improvement in H/H s/p PRBC transfusion * hemoccult negative in the ER * on Retacrit while hospitalized * follow trend of H/H (5) Rib pain on left side: Code(s): R07.81 - Pleurodynia Status: Acute Assessment and Plan: * due to recent fall(?) * pain control as tolerated * consider further imaging (6) Chronic hypoxic respiratory failure, on home oxygen therapy: Code(s): J96.11 - Chronic respiratory failure with hypoxia; Z99.81 - Dependence on supplemental oxygen Status: Chronic Assessment and Plan: * presumably due to his known hx of COPD * continue supplemental oxygen Will continue to follow. Subjective Date/time seen: 03/28/24 11:11 Interval history: Follow-up for acute kidney injury/acute renal failure on chronic kidney disease. No apparent distress voiced at the time of my visit; improvement in renal function/creatinine noted by AM labs in association with excellent urine output; H/H relatively stable following PRBC transfusion; still has issues with pain but appear tolerable. Exam Narrative: General: chronically ill-appearing male in NAD Heart: normal S1 and S2; no rub Lungs: coarse breath sounds Abdomen: soft, nontender, nondistended, positive bowel sounds Extremities: no cyanosis or clubbing; trace edema; s/ right BKA Skin: warm and dry Objective Data Vital Signs Vital Signs: Vital Signs Temp Pulse Resp BP Pulse Ox O2 Del Method O2 Flow Rate 03/28/24 09:15 97 Nasal Cannula 2 03/28/24 09:15 84 03/28/24 08:49 92 20 03/28/24 08:39 84 20 03/28/24 08:39 96 Nasal Cannula 2 03/28/24 01
--- NOTE | 2024-03-28 13:27 | ECG_ITS ---
Test Date: 2024-03-28 13:36:07 Measurements Intervals [place] Rate: 98 P: 78 IN: 164 QRS: 32 QRSD: 86 T: 82 QT: 300 QTc: 383 Interpretive Statements SINUS RHYTHM WITH SINUS ARRHYTHMIA NONSPECIFIC ST & T-WAVE ABNORMALITY Compared to ECG 03/08/2024 13:02:14 NO SIGNIFICANT CHANGES Electronically Signed On 03-28-2024 13:46:45 CDT by Fer yRan M.D.
--- NOTE | 2024-03-28 13:52 | PC.NURSE ---
At approximately 1300 pt called out for help, upon entering room he was in distress and stated he could not breath and had bloody nose. Set of vitals obtained: HR & BP elevated,O2 sats low, oxygen titrated up to 5L and rapid response called. Respiratory gave breathing treatment. Hospitalist, Larisa Ramírez APRN, ordered stat EKG, chest Xray, magnesium infusion, labs, hold fluids and notify Dr. Hilliard. Dr. Hilliard notified of situation and said he would look for chest Xray results.
[2024-03-28] MEDS: MAGNESIUM SULFATE 3GM/D5W100ML 3 GM/100 ML BAG IVPB (14:06)
--- NOTE | 2024-03-28 16:21 | P.PNIM_ITS ---
Progress Note: A&P Assessment and Plan (1) Acute kidney injury superimposed on stage 5 chronic kidney disease, not on chronic dialysis: Code(s): N17.9 - Acute kidney failure, unspecified; N18.5 - Chronic kidney disease, stage 5 Status: Acute Assessment and Plan: Patient has acute kidney injury on chronic kidney disease. Patient's worsening renal function could be in part due to urinary retention but also sounds as if patient has had significant decrease in oral intake recently with intractable nausea for the last month so there is likely some prerenal factors as well. His creatinine seems to run around 3.8 - 4.5mg/dl in the last several months (taken from nephrology note). * Will hold home hydrochlorothiazide. * Casiano catheter has been placed. Strict I&O, daily weights. * renal dialysis diet * received 2 L of NS in the ED. Currently on NS 125 ml per hour. Close monitoring of fluid status * Sodium Bicarb 650 mg BID * Urine studies pending * Continue Zofran for nausea * Nephrology consulted, recs are appreciated 03/28/24: * Continue Casiano catheter * Continue to hold hydrochlorothiazide * Nephrology following * Creatinine 6.70 today * Continue sodium bicarb * Ultrasound of kidneys showed bilateral nonobstructing nephrolithiasis, no hydronephrosis (2) Acute on chronic anemia: Code(s): D64.9 - Anemia, unspecified Status: Acute Assessment and Plan: Patient does have acute on chronic anemia likely due to worsening renal function. Patient's Hemoccult stool was negative. * Hgb 7.1 g/dl on admission. Received 1 unit pRBC * Repeat Hgb is 7.7 g/dl * Occult stool negative. Last colonoscopy is greater than [address] chest/abdomen/pelvis shows bilateral inguinal hernias but otherwise bowels are normal. * Iron 63, TIBC 222, Saturation 20%, folate 10.4, vitamin B12 274 * May need Epogen given his CKD. Will let nephrology decide this. 03/28/24: * likely anemia due to chronic disease/ chronic renal failure * Nephrology following (3) Rib pain on left side: Code(s): R07.81 - Pleurodynia Status: Acute Assessment and Plan: Patient is having intractable left posterior rib pain due to recent fall. He does have some overlying bruising in the area. He states that someone told him that there multiple fractures. There are no rib fractures mentioned on CT chest/abdomen/pelvis/spine. There is a chronic T7 compression fracture and compression fracture at L2. * Will provide lidocaine pain patch * Home methadone has also been resumed * Will provide scheduled Tylenol and incentive spirometer * Can trial Flexeril and aqua K pad to see if this helps 03/28/24: * No change to current treatment plan (4) Status post liver transplant: Onset Date: 2007 Code(s): Z94.4 - Liver transplant status Status: Acute Assessment and Plan: Current dosing of tacrolimus is 1 mg BID. Given changes to renal function a tacro trough has been ordered. 03/28/24: * No change (5) Chronic hypoxic respiratory failure, on home oxygen therapy: Code(s): J96.11 - Chronic respiratory failure with hypoxia; Z99.81 - Dependence on supplemental oxygen Status: Acute Assessment and Plan: Patient has chronic hypoxic respiratory failure on 1 L oxygen at baseline. * He is stable from a respiratory perspective at this time 03/28/24: * Duonebs q6hr (6) Diarrhea: Code(s): R19.7 - Diarrhea, unspecified Status: Acute Assessment and Plan: Patient reports intermittently having diarrhea thi
--- NOTE | 2024-03-28 16:21 | PM.IMPN ---
Progress Note: A&P Assessment and Plan (1) Acute kidney injury superimposed on stage 5 chronic kidney disease, not on chronic dialysis: Code(s): N17.9 - Acute kidney failure, unspecified; N18.5 - Chronic kidney disease, stage 5 Status: Acute Assessment and Plan: Patient has acute kidney injury on chronic kidney disease. Patient's worsening renal function could be in part due to urinary retention but also sounds as if patient has had significant decrease in oral intake recently with intractable nausea for the last month so there is likely some prerenal factors as well. His creatinine seems to run around 3.8 - 4.5mg/dl in the last several months (taken from nephrology note). Will hold home hydrochlorothiazide. Casiano catheter has been placed. Strict I&O, daily weights. renal dialysis diet received 2 L of NS in the ED. Currently on NS 125 ml per hour. Close monitoring of fluid status Sodium Bicarb 650 mg BID Urine studies pending Continue Zofran for nausea Nephrology consulted, recs are appreciated 03/28/24: Continue Casiano catheter Continue to hold hydrochlorothiazide Nephrology following Creatinine 6.70 today Continue sodium bicarb Ultrasound of kidneys showed bilateral nonobstructing nephrolithiasis, no hydronephrosis (2) Acute on chronic anemia: Code(s): D64.9 - Anemia, unspecified Status: Acute Assessment and Plan: Patient does have acute on chronic anemia likely due to worsening renal function. Patient's Hemoccult stool was negative. Hgb 7.1 g/dl on admission. Received 1 unit pRBC Repeat Hgb is 7.7 g/dl Occult stool negative. Last colonoscopy is greater than [address] chest/abdomen/pelvis shows bilateral inguinal hernias but otherwise bowels are normal. Iron 63, TIBC 222, Saturation 20%, folate 10.4, vitamin B12 274 May need Epogen given his CKD. Will let nephrology decide this. 03/28/24: likely anemia due to chronic disease/ chronic renal failure Nephrology following (3) Rib pain on left side: Code(s): R07.81 - Pleurodynia Status: Acute Assessment and Plan: Patient is having intractable left posterior rib pain due to recent fall. He does have some overlying bruising in the area. He states that someone told him that there multiple fractures. There are no rib fractures mentioned on CT chest/abdomen/pelvis/spine. There is a chronic T7 compression fracture and compression fracture at L2. Will provide lidocaine pain patch Home methadone has also been resumed Will provide scheduled Tylenol and incentive spirometer Can trial Flexeril and aqua K pad to see if this helps 03/28/24: No change to current treatment plan (4) Status post liver transplant: Onset Date: 2007 Code(s): Z94.4 - Liver transplant status Status: Acute Assessment and Plan: Current dosing of tacrolimus is 1 mg BID. Given changes to renal function a tacro trough has been ordered. 03/28/24: No change (5) Chronic hypoxic respiratory failure, on home oxygen therapy: Code(s): J96.11 - Chronic respiratory failure with hypoxia; Z99.81 - Dependence on supplemental oxygen Status: Acute Assessment and Plan: Patient has chronic hypoxic respiratory failure on 1 L oxygen at baseline. He is stable from a respiratory perspective at this time 03/28/24: Duonebs q6hr (6) Diarrhea: Code(s): R19.7 - Diarrhea, unspecified Status: Acute Assessment and Plan: Patient reports intermittently having diarrhea this last week. No recent antibiotics but he is immunosuppressed. C-diff pending 03/28/24: C diff is still pending Time Spent With Patient Time with patient: Greater than 35 minutes Subjective Date/time seen: 03/28/24 16:21 Interval history: Patient denies any fever, chills, nausea, vomiting, abdominal pain, chest pain. He did have an episode of shortness of breath where a rapid response was
[2024-03-28 16:29] LABS: Tacrolimus Prograf 1.1 mcg/L
[2024-03-28] MEDS: SODIUM CHLORIDE 0.9% IV 1,000 ML 75 ML IV CONT (16:32)
[2024-03-28] MEDS: ONDANSETRON INJ 4 MG/2 ML VIAL IV PUSH (17:24)
[2024-03-28 20:04] LABS: Basophils Percent Auto 0.3 % (0.2-1.2); Eosinophils Percent Auto 0.3 % (0-4.4); Hematocrit 22.9 % (42.0-52.0); Hemoglobin 7.2 g/dL (14.0-18.0); Immature Granulocyte Absolute 0.09 K/mm3 (0.00-0.031); Immature Granulocyte Percent A 1.1 % (0-0.5); Immature Platelet Fraction Pct 5.5 % (0.9-11.2); Lymphocytes Absolute Auto 0.55 K/mm3 (0.9-3.2); Mean Corpuscular HGB Conc 31.4 g/dl (32-36); Mean Corpuscular Volume 101.8 fl (80-100); Mean Platelet Volume 11.7 fl (7.4-10.4); Neutrophils Absolute Auto 6.1 K/mm3 (1.3-6.7); Neutrophils Percent Auto 78.3 % (45.5-73.1); Platelet Count Result 106 k/mm3 (150-375); Red Blood Count 2.25 M/mm3 (4.6-6.20); Red Cell Distribution Width 13.7 % (11.5-14.5); White Blood Count 7.8 K/mm3 (4.5-10.0)
[2024-03-28 20:15] LABS: Alanine Aminotransferase 12 U/L (6-50); Albumin Level 3.9 g/dL (3.5-5.1); Alkaline Phosphatase 47 U/L (38-126); Anion Gap 14 mmol/L (4-12); Aspartate Amino Transferase 24 U/L (17-59); Bilirubin,Total 0.6 mg/dL (0.2-1.3); Blood Urea Nitrogen 70 mg/dL (9-20); Carbon Dioxide 16 mmol/L (22-30); Chloride 109 mmol/L (98-107); Estimated CRCL calculation 10 ml/min; Estimated Glomerular Filt Rate 10; Glucose 91 mg/dL (65-110); Sodium 139 mmol/L (137-145)
[2024-03-29] VITALS (27 sets, daily range): BP systolic 131–165; BP diastolic 54–91; PULSE 74–145; RESP 16–26; TEMP 36.6–38; O2SAT 96–99
[2024-03-29] MEDS: IPRATROPIUM 0.5 MG/ALBUTEROL SULFATE 2.5 MG AMPUL.NEB 3 ML INHALATION ×3 (01:58→13:14)
[2024-03-29] MEDS: [UNRECOGNIZED DRUG - OTHER] BY MOUTH (03:10)
[2024-03-29] MEDS: METHADONE 10 MG/ML BY MOUTH (03:10)
[2024-03-29] MEDS: ONDANSETRON HCL ODT 4 MG TABLET PO (03:57)
[2024-03-29 06:46] LABS: Basophils Percent Auto 0.4 % (0.2-1.2); Eosinophils Absolute Auto 0.2 K/mm3 (0-0.3); Eosinophils Percent Auto 1.8 % (0-4.4); Hematocrit 21.9 % (42.0-52.0); Immature Granulocyte Absolute 0.08 K/mm3 (0.00-0.031); Immature Granulocyte Percent A 0.8 % (0-0.5); Immature Platelet Fraction Pct 7.5 % (0.9-11.2); Lymphocytes Absolute Auto 0.97 K/mm3 (0.9-3.2); Lymphocytes Percent Auto 9.4 % (18.3-44.2); Mean Corpuscular HGB Conc 31.1 g/dl (32-36); Mean Corpuscular Hemoglobin 31.3 pg (26-34); Mean Corpuscular Volume 100.9 fl (80-100); Mean Platelet Volume 12.2 fl (7.4-10.4); Monocytes Absolute Auto 1.5 K/mm3 (0.1-0.6); Monocytes Percent Auto 14.1 % (2.6-8.5); Neutrophils Absolute Auto 7.6 K/mm3 (1.3-6.7); Neutrophils Percent Auto 73.5 % (45.5-73.1); Platelet Count Result 103 k/mm3 (150-375); Red Blood Count 2.17 M/mm3 (4.6-6.20); Red Cell Distribution Width 13.5 % (11.5-14.5); White Blood Count 10.3 K/mm3 (4.5-10.0)
[2024-03-29 06:55] LABS: Hemoglobin 6.8 g/dL (14.0-18.0)
--- NOTE | 2024-03-29 07:07 | PM.IMPN ---
Progress Note: A&P Assessment and Plan (1) Acute kidney injury superimposed on stage 5 chronic kidney disease, not on chronic dialysis: Code(s): N17.9 - Acute kidney failure, unspecified; N18.5 - Chronic kidney disease, stage 5 Status: Acute Assessment and Plan: Patient has acute kidney injury on chronic kidney disease. Patient's worsening renal function could be in part due to urinary retention but also sounds as if patient has had significant decrease in oral intake recently with intractable nausea for the last month so there is likely some prerenal factors as well. His creatinine seems to run around 3.8 - 4.5mg/dl in the last several months (taken from nephrology note). Will hold home hydrochlorothiazide. Casiano catheter has been placed. Strict I&O, daily weights. renal dialysis diet received 2 L of NS in the ED. was receiving as at 75 mL an hour. He is going to receive 2 units of PRBCs today. Stopping fluids for now. Sodium Bicarb increased to 1300 mg b.i.d. by Nephrology Urine studies Continue Zofran for nausea Nephrology consulted, recs are appreciated (2) Acute on chronic anemia: Code(s): D64.9 - Anemia, unspecified Status: Acute Assessment and Plan: Patient does have acute on chronic anemia likely due to worsening renal function. Patient's Hemoccult stool was negative. Hgb 7.1 g/dl on admission. Received 1 unit pRBC Repeat Hgb is 7.7 g/dl Occult stool negative. Last colonoscopy is greater than [address] chest/abdomen/pelvis shows bilateral inguinal hernias but otherwise bowels are normal. Iron 63, TIBC 222, Saturation 20%, folate 10.4, vitamin B12 274 Received Epogen 20,000 units x 1 and started epogen 10,000 TuThSat Hgb 6.8 g/dl today. Will transfuse 2 units of pRBC (3) Rib pain on left side: Code(s): R07.81 - Pleurodynia Status: Acute Assessment and Plan: Patient is having intractable left posterior rib pain due to recent fall. He does have some overlying bruising in the area. He states that someone told him that there multiple fractures. There are no rib fractures mentioned on CT chest/abdomen/pelvis/spine. There is a chronic T7 compression fracture and compression fracture at L2. Will provide lidocaine pain patch Home methadone has also been resumed Will provide scheduled Tylenol and incentive spirometer Can trial Flexeril and aqua K pad to see if this helps (4) Status post liver transplant: Onset Date: 2007 Code(s): Z94.4 - Liver transplant status Status: Acute Assessment and Plan: Current dosing of tacrolimus is 1 mg BID. Trough was 1.1 (low) (5) Chronic hypoxic respiratory failure, on home oxygen therapy: Code(s): J96.11 - Chronic respiratory failure with hypoxia; Z99.81 - Dependence on supplemental oxygen Status: Acute Assessment and Plan: Patient has chronic hypoxic respiratory failure on 1 L oxygen at baseline. He was stable from a respiratory perspective. He complained of sinus congestion. Mucinex, Flonase, and Claritin added. Yesterday a rapid response was called for shortness of breath. Chest x-ray without pulmonary edema. Patient has anxiety and has episodes like this. Slight increase to WBC of 10.3, afebrile. VSS. Add quad viral screen. (6) Diarrhea: Code(s): R19.7 - Diarrhea, unspecified Status: Acute Assessment and Plan: Patient reports intermittently having diarrhea this last week. No recent antibiotics but he is immunosuppressed. C-diff was cancelled for unknown reason Quad viral screen was added to rule out covid enteritis Subjective Date/time seen: 03/29/24 07:07 Interval history: No acute events overnight. His is at the bedside. He reports that yesterday he was having increased congestion and could not breathe through his nose. He was having increased shortness of breath. After using nasal saline he was able to clear his nasal
[2024-03-29 07:09] LABS: Alanine Aminotransferase 12 U/L (6-50); Albumin Level 3.7 g/dL (3.5-5.1); Alkaline Phosphatase 55 U/L (38-126); Anion Gap 14 mmol/L (4-12); Aspartate Amino Transferase 27 U/L (17-59); Bilirubin,Total 0.6 mg/dL (0.2-1.3); Blood Urea Nitrogen 64 mg/dL (9-20); Calcium 7.9 mg/dL (8.4-10.2); Carbon Dioxide 17 mmol/L (22-30); Chloride 106 mmol/L (98-107); Estimated CRCL calculation 11 ml/min; Estimated Glomerular Filt Rate 10; Glucose 90 mg/dL (65-110); Phosphorus 4.3 mg/dL (2.5-4.5); Potassium 3.7 mmol/L (3.4-5.0); Sodium 137 mmol/L (137-145)
--- NOTE | 2024-03-29 08:22 | PCPTNOTE ---
Chart review shows pt Hgb at 6.8. Will hold physical therapy until pt more appropriate to get OOB.
[2024-03-29] MEDS: ASPIRIN 81 MG ENTERIC TABLET PO (08:44)
[2024-03-29] MEDS: CLOPIDOGREL BISULFATE 75 MG TABLET PO (08:44)
[2024-03-29] MEDS: SODIUM CHLORIDE 0.9% IV 250 ML 30 ML IV CONT (08:45)
[2024-03-29] MEDS: FLUTICASONE PROPIONATE 0.05% NA SPR 16 GM BTL (*BKC) 1 SPRAY NASAL ×2 (08:45→19:50)
[2024-03-29] MEDS: guaiFENesin 12 HR 600 MG TABCR PO ×2 (08:46→20:03)
[2024-03-29] MEDS: METOPROLOL TARTRATE 12.5 MG TABLET PO ×2 (08:46→20:03)
[2024-03-29] MEDS: EPOETIN ALFA-EPBX 10,000 UNITS/ML VIAL 10000 UNITS SUB-Q (08:46)
[2024-03-29] MEDS: hydrALAZINE HCL 25 MG TABLET PO ×3 (08:46→17:41)
[2024-03-29] MEDS: LIDOCAINE 5% PATCH 1 PATCH TRANSDERM (08:46)
[2024-03-29] MEDS: SODIUM BICARBONATE TAB 650 MG TABLET PO (08:47)
[2024-03-29] MEDS: PANTOPRAZOLE 40 MG TABLET PO (08:47)
[2024-03-29] MEDS: TACROLIMUS 0.5 MG CAPSULE 1 MG BY MOUTH ×2 (08:47→17:41)
--- NOTE | 2024-03-29 09:37 | PCOTNOTE ---
attempted to see pt. for occupational therapy evaluation. Pt. currently receiving blood, will see when safe top mobilize
[2024-03-29] MEDS: ONDANSETRON INJ 4 MG/2 ML VIAL IV PUSH (12:11)
--- NOTE | 2024-03-29 13:24 | PM.PNNEP ---
Progress Note: A&P Assessment and Plan (1) JAMES (acute kidney injury): Code(s): N17.9 - Acute kidney failure, unspecified Status: Acute Assessment and Plan: improvement noted since admission was noted by outpatient and admission labs creatinine 7.5mg/dl on 03/20 labs by PCP up to 8.1mg/dl on admission suspect multifactorial etiology: prerenal factors (decreased oral intake + nausea) urinary retention worsening anemia CKD progression (?) better UOP noted following anna catheter placement evaluation to date noted: renal ultrasound without obstruction urine eosinophils negative moderate proteinuria CPK mildy elevate but no enough to affect kidney function urine electrolytes non-prerenal on trial of IVF hydration follow trend of repeat labs and UOP (2) Chronic kidney disease (CKD), stage V: Code(s): N18.5 - Chronic kidney disease, stage 5 Status: Chronic Assessment and Plan: baseline creatinine runs ~ 3.8 - 4.5mg/dl in the last year or so due to a combination of 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), hypertension, vascular disease, ALEXSANDRA, nephrolithiasis, and age-related change (3) Acute urinary retention: Code(s): R33.8 - Other retention of urine Status: Acute Assessment and Plan: as noted by bladder scan on admission s/p anna catheter placement follow trend of repeat labs Urology consultation (4) Acute on chronic anemia: Code(s): D64.9 - Anemia, unspecified Status: Acute Assessment and Plan: partly related to his James and known advanced CKD improvement in H/H s/p PRBC transfusion hemoccult negative in the ER on Retacrit while hospitalized follow trend of H/H (5) Rib pain on left side: Code(s): R07.81 - Pleurodynia Status: Acute Assessment and Plan: due to recent fall(?) pain control as tolerated consider further imaging if needed (6) Chronic hypoxic respiratory failure, on home oxygen therapy: Code(s): J96.11 - Chronic respiratory failure with hypoxia; Z99.81 - Dependence on supplemental oxygen Status: Chronic Assessment and Plan: presumably due to his known hx of COPD continue supplemental oxygen Will continue to follow. Subjective Date/time seen: 03/29/24 13:24 Interval history: Follow-up for acute kidney injury/acute renal failure on chronic kidney disease. Renal function/creatinine doing a bit better with good urine output noted; rapid response yesterday afternoon due to shortness of breath although recoververed with supportive therapy and CXR was without pulmonary edema; low H/H noted by AM labs so getting PRBC transfusion today; no other acute issues/events overnight or earlier this morning. Exam Narrative: General: chronically ill-appearing male in NAD Heart: normal S1 and S2; no rub Lungs: coarse breath sounds Abdomen: soft, nontender, nondistended, positive bowel sounds Extremities: no cyanosis or clubbing; trace edema; s/ right BKA Skin: warm and intact Objective Data Vital Signs Vital Signs: Vital Signs Temp Pulse Resp BP Pulse Ox O2 Del Method O2 Flow Rate 03/29/24 13:17 98.6 F 94 20 161/79 H 98 03/29/24 12:17 98.9 F 74 18 165/57 H 98 03/29/24 12:02 98.2 F 82 18 158/54 H 97 03/29/24 11:29 98.4 F 85 18 149/55 H 99 03/29/24 10:29 98.4 F 82 20 158/57 H 96 03/29/24 09:29 98.8 F 92 16 152/63 H 99 03/29/24 10:29 98.4 F 82 20 158/57 H 96 03/29/24 09:14 98.7 F 92 16 146/71 H 96 03/29/24 08:46 101 H 03/29/24 07:19 74 20 03/29/24 07:10 95 20 03/29/24 07:10 98 Nasal Cannula 2 03/29/24 06:00 97.8 F 81 20 158/68 H 98 03/29/24 04:00 82 03/29/24 00:00 79 03/28/24 20:00 101 H 03/29/24 02:09 96 18 03/29/24 01:59 90 18 03/28/24 20:00
--- NOTE | 2024-03-29 13:24 | P.PNNP_ITS ---
Progress Note: A&P Assessment and Plan (1) JAMES (acute kidney injury): Code(s): N17.9 - Acute kidney failure, unspecified Status: Acute Assessment and Plan: * improvement noted since admission * was noted by outpatient and admission labs * creatinine 7.5mg/dl on 03/20 labs by PCP * up to 8.1mg/dl on admission * suspect multifactorial etiology: * prerenal factors (decreased oral intake + nausea) * urinary retention * worsening anemia * CKD progression (?) * better UOP noted following anna catheter placement * evaluation to date noted: * renal ultrasound without obstruction * urine eosinophils negative * moderate proteinuria * CPK mildy elevate but no enough to affect kidney function * urine electrolytes non-prerenal * on trial of IVF hydration * follow trend of repeat labs and UOP (2) Chronic kidney disease (CKD), stage V: Code(s): N18.5 - Chronic kidney disease, stage 5 Status: Chronic Assessment and Plan: * baseline creatinine runs ~ 3.8 - 4.5mg/dl in the last year or so * due to a combination of 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), hypertension, vascular disease, ALEXSANDRA, nephrolithiasis, and age-related change (3) Acute urinary retention: Code(s): R33.8 - Other retention of urine Status: Acute Assessment and Plan: * as noted by bladder scan on admission * s/p anna catheter placement * follow trend of repeat labs * Urology consultation (4) Acute on chronic anemia: Code(s): D64.9 - Anemia, unspecified Status: Acute Assessment and Plan: * partly related to his James and known advanced CKD * improvement in H/H s/p PRBC transfusion * hemoccult negative in the ER * on Retacrit while hospitalized * follow trend of H/H (5) Rib pain on left side: Code(s): R07.81 - Pleurodynia Status: Acute Assessment and Plan: * due to recent fall(?) * pain control as tolerated * consider further imaging if needed (6) Chronic hypoxic respiratory failure, on home oxygen therapy: Code(s): J96.11 - Chronic respiratory failure with hypoxia; Z99.81 - Dependence on supplemental oxygen Status: Chronic Assessment and Plan: * presumably due to his known hx of COPD * continue supplemental oxygen Will continue to follow. Subjective Date/time seen: 03/29/24 13:24 Interval history: Follow-up for acute kidney injury/acute renal failure on chronic kidney disease. Renal function/creatinine doing a bit better with good urine output noted; rapid response yesterday afternoon due to shortness of breath although recoververed with supportive therapy and CXR was without pulmonary edema; low H/H noted by AM labs so getting PRBC transfusion today; no other acute issues/events overnight or earlier this morning. Exam Narrative: General: chronically ill-appearing male in NAD Heart: normal S1 and S2; no rub Lungs: coarse breath sounds Abdomen: soft, nontender, nondistended, positive bowel sounds Extremities: no cyanosis or clubbing; trace edema; s/ right BKA Skin: warm and intact Objective Data Vital Signs Vital Signs: Vital Signs Temp Pulse Resp BP Pulse Ox O2 Del Method O2 Flow Rate 03/29/24 13:17 98.6 F 94 20 161/79 H 98 03/29/24 12:17 98.9 F 74 18 165/57 H 98 03/29/24 12:
--- NOTE | 2024-03-29 13:46 | PCPTNOTE ---
Pt receiving second unit of PRBCs. Will follow and evaluate as able.
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
[2024-03-29] MEDS: SODIUM BICARBONATE TAB 650 MG TABLET 1300 MG PO (17:41)
[2024-03-29 18:28] LABS: Influenza A QL RT-PCR Negative (Negative); Influenza B QL RT-PCR Negative (Negative); RSV RNA, RT-PCR Negative (Negative); SARS-CoV-2 RNA PCR Negative (Negative)
--- NOTE | 2024-03-29 20:44 | ECG_ITS ---
Test Date: 2024-03-29 20:57:05 Measurements Intervals [place] Rate: 107 P: 0 DC: 0 QRS: -20 QRSD: 124 T: 90 QT: 358 QTc: 480 Interpretive Statements SINUS TACHYCARDIA WITH PACS INCOMPLETE LEFT BUNDLE BRANCH BLOCK ABNORMAL ECG Compared to ECG 03/28/2024 13:36:07 PATIENT IS MORE TACHYCARDIC AND APPEARS TO HAVE A RATE RELATED INCOMPLETE LEFT BUNDLE BRANCH BLOCK Electronically Signed On 03-30-2024 08:59:54 CDT by Wallace Burks M.D.
--- NOTE | 2024-03-29 21:46 | PM.EVENT ---
Event Note Event Note Event Note: I was called to patient's room after patient complained of chest pain. Upon arrival to patient's room his sitting by the edge of the bed he denies any discomfort attributed to anxiety. EKG showed atrial flutter. Subjective: On feeling much better it is just my anxiety objective: Patient is sitting by the edge of the bed in no acute distress looks comfortable general: Chronically ill looking sitting by the edge of the bed HEENT: Atraumatic normocephalic PERRLA EOM intact supple no JVD no lymphadenopathies respiratory: Clear to auscultation bilaterally no wheezes rhonchi or crackles cardiovascular: Tachycardic abdomen: Soft nontender nondistended hepatosplenomegaly extremities: Left BKA, 1+ edema skin: Intact central nervous system: Awake alert oriented cranial nerves ii-xii grossly intact moves all extremities assessment and plan: 1. A flutter/AFib / chest pain: Transferred to IMU troponins x3, EKG reviewed, morphine oxygen nitro as needed
[2024-03-29] MEDS: MORPHINE SULFATE (*CRX) 2 MG/ML INJ 1 MG IV PUSH (22:19)
--- NOTE | 2024-03-29 23:19 | PC.NURSE ---
Addendum entered by Tash Loredo RN 03/29/24 23:20: Report received per EDUIN Johnson. Original Note: This patient, Damir Jimenez, was received from room 315-02 on 03/29/24 at 2310. Patient/family oriented to unit policies and routines.
[2024-03-29 23:38] LABS: Troponin I 0.197 ng/mL (0.000-0.034)
[2024-03-30] VITALS (26 sets, daily range): BP systolic 116–147; BP diastolic 51–77; PULSE 77–110; RESP 16–24; TEMP 36.4–37.3; O2SAT 95–100
[2024-03-30] MEDS: IPRATROPIUM 0.5 MG/ALBUTEROL SULFATE 2.5 MG AMPUL.NEB 3 ML INHALATION ×4 (01:03→19:59)
[2024-03-30] MEDS: METHADONE 10 MG/ML BY MOUTH (01:04)
[2024-03-30] MEDS: [UNRECOGNIZED DRUG - OTHER] BY MOUTH (01:04)
[2024-03-30] MEDS: MORPHINE SULFATE (*CRX) 2 MG/ML INJ IV PUSH (01:08)
[2024-03-30 02:46] LABS: Troponin I 0.524 ng/mL (0.000-0.034)
[2024-03-30 05:04] LABS: Basophils Percent Auto 0.2 % (0.2-1.2); Eosinophils Percent Auto 0.4 % (0-4.4); Hematocrit 26.1 % (42.0-52.0); Hemoglobin 8.6 g/dL (14.0-18.0); Immature Granulocyte Absolute 0.03 K/mm3 (0.00-0.031); Immature Granulocyte Percent A 0.5 % (0-0.5); Immature Platelet Fraction Pct 7.8 % (0.9-11.2); Lymphocytes Absolute Auto 0.38 K/mm3 (0.9-3.2); Lymphocytes Percent Auto 6.8 % (18.3-44.2); Mean Corpuscular Hemoglobin 30.9 pg (26-34); Mean Corpuscular Volume 93.9 fl (80-100); Mean Platelet Volume 11.8 fl (7.4-10.4); Monocytes Absolute Auto 0.7 K/mm3 (0.1-0.6); Neutrophils Absolute Auto 4.4 K/mm3 (1.3-6.7); Neutrophils Percent Auto 79.1 % (45.5-73.1); Platelet Count Result 90 k/mm3 (150-375); Red Blood Count 2.78 M/mm3 (4.6-6.20); Red Cell Distribution Width 15.7 % (11.5-14.5); White Blood Count 5.6 K/mm3 (4.5-10.0)
[2024-03-30 05:14] LABS: Alanine Aminotransferase 18 U/L (6-50); Albumin Level 3.2 g/dL (3.5-5.1); Alkaline Phosphatase 51 U/L (38-126); Anion Gap 13 mmol/L (4-12); Aspartate Amino Transferase 39 U/L (17-59); Bilirubin,Total 0.4 mg/dL (0.2-1.3); Blood Urea Nitrogen 68 mg/dL (9-20); Calcium 7.9 mg/dL (8.4-10.2); Carbon Dioxide 19 mmol/L (22-30); Chloride 104 mmol/L (98-107); Estimated CRCL calculation 13 ml/min; Estimated Glomerular Filt Rate 12; Glucose 103 mg/dL (65-110); Magnesium 1.9 mg/dL (1.6-2.3); Phosphorus 4.5 mg/dL (2.5-4.5); Potassium 3.7 mmol/L (3.4-5.0); Sodium 136 mmol/L (137-145)
--- NOTE | 2024-03-30 07:18 | PC.NURSE ---
Last night patient complained needing to go to the bathroom, helped patient go to the commode. Patient stated during that he was short of breath and had issues breathing on the commode. Checked patient's vitals and blood pressure and they were elevated. Instructed patient to take deep breath and called charge nurse Kristine Sanchez. Soon gave his scheduled breathing treatment of Mucinex and metoprolol. Patient stated afterwards that was having chest pain. Called the N.P. boom conveyor operator and she ordered an EKG, troponins, and orthostatic blood pressures (patient could not tolerate them). After seeing results of EKG called n.p. and gave morphine she then came to see the patient and was transfered to the IMU.
--- NOTE | 2024-03-30 08:40 | PM.IMPN ---
Progress Note: A&P Assessment and Plan (1) Acute kidney injury superimposed on stage 5 chronic kidney disease, not on chronic dialysis: Code(s): N17.9 - Acute kidney failure, unspecified; N18.5 - Chronic kidney disease, stage 5 Status: Acute Assessment and Plan: Patient has acute kidney injury on chronic kidney disease. Patient's worsening renal function could be in part due to urinary retention but also sounds as if patient has had significant decrease in oral intake recently with intractable nausea for the last month so there is likely some prerenal factors as well. His creatinine seems to run around 3.8 - 4.5mg/dl in the last several months (taken from nephrology note). Will hold home hydrochlorothiazide. Casiano catheter has been placed. Strict I&O, daily weights. Casiano to remain in place for 1 week with urology follow up for void trial. renal dialysis diet received 2 L of NS in the ED. was receiving as at 75 mL an hour. He is going to receive 2 units of PRBCs today. Stopping fluids for now. Sodium Bicarb increased to 1300 mg b.i.d. by Nephrology Urine studies Continue Zofran for nausea. Nausea has resolved nearly. Nephrology consulted, recs are appreciated (2) Acute on chronic anemia: Code(s): D64.9 - Anemia, unspecified Status: Acute Assessment and Plan: Patient does have acute on chronic anemia likely due to worsening renal function. Patient's Hemoccult stool was negative. Hgb 7.1 g/dl on admission. Received 1 unit pRBC on admission Occult stool negative. Last colonoscopy is greater than [address] chest/abdomen/pelvis shows bilateral inguinal hernias but otherwise bowels are normal. Iron 63, TIBC 222, Saturation 20%, folate 10.4, vitamin B12 274 Received Epogen 20,000 units x 1 and started epogen 10,000 TuThSat Hgb 8.6 g/dl today after 2 units of pRBC on 03/29 (3) Rib pain on left side: Code(s): R07.81 - Pleurodynia Status: Acute Assessment and Plan: Patient is having intractable left posterior rib pain due to recent fall. He does have some overlying bruising in the area. He states that someone told him that there multiple fractures. There are no rib fractures mentioned on CT chest/abdomen/pelvis/spine. There is a chronic T7 compression fracture and compression fracture at L2. Will provide lidocaine pain patch Home methadone has also been resumed Will provide scheduled Tylenol and incentive spirometer Can trial Flexeril and aqua K pad to see if this helps Chest x-ray from 03/30 shows left 6th and 7th rib fractures. (4) Status post liver transplant: Onset Date: 2007 Code(s): Z94.4 - Liver transplant status Status: Acute Assessment and Plan: Current dosing of tacrolimus is 1 mg BID. Trough was 1.1 (low) (5) Chronic hypoxic respiratory failure, on home oxygen therapy: Code(s): J96.11 - Chronic respiratory failure with hypoxia; Z99.81 - Dependence on supplemental oxygen Status: Acute Assessment and Plan: Patient has chronic hypoxic respiratory failure on 1 L oxygen at baseline. He was stable from a respiratory perspective. He complained of sinus congestion. Mucinex, Flonase, and Claritin added. Yesterday a rapid response was called for shortness of breath. Chest x-ray without pulmonary edema. Patient has anxiety and has episodes like this. (6) Diarrhea: Code(s): R19.7 - Diarrhea, unspecified Status: Acute Assessment and Plan: Patient reports intermittently having diarrhea this last week. No recent antibiotics but he is immunosuppressed. C-diff was cancelled for unknown reason Quad viral screen was negative Plan Planning for discharge tomorrow Subjective Date/time seen: 03/30/24 08:40 Interval history: Patient was transferred to the IMU early this morning for what he says was unnecessary. He says he was straining to have a bowel movement and his heart rate was e
[2024-03-30] MEDS: ASPIRIN 81 MG ENTERIC TABLET PO (08:55)
[2024-03-30] MEDS: METOPROLOL TARTRATE 12.5 MG TABLET PO ×2 (08:55→21:37)
[2024-03-30] MEDS: hydrALAZINE HCL 25 MG TABLET PO ×3 (08:55→16:04)
[2024-03-30] MEDS: CLOPIDOGREL BISULFATE 75 MG TABLET PO (08:55)
[2024-03-30] MEDS: guaiFENesin 12 HR 600 MG TABCR PO ×2 (08:55→21:36)
[2024-03-30] MEDS: PANTOPRAZOLE 40 MG TABLET PO (08:55)
[2024-03-30] MEDS: LIDOCAINE 5% PATCH 1 PATCH TRANSDERM (08:56)
[2024-03-30] MEDS: TACROLIMUS 0.5 MG CAPSULE 1 MG BY MOUTH ×2 (08:56→16:04)
[2024-03-30] MEDS: SODIUM BICARBONATE TAB 650 MG TABLET 1300 MG PO ×2 (08:56→16:04)
--- NOTE | 2024-03-30 10:02 | WPDUROPN2 ---
Progress Note: A&P Assessment and Plan (1) BPH associated with nocturia: Code(s): N40.1 - Benign prostatic hyperplasia with lower urinary tract symptoms; R35.1 - Nocturia Status: Acute Assessment and Plan: has anna -bladder est, maintain anna x 1 week. void trial as outpt. continue flomax (2) Acute urinary retention: Code(s): R33.8 - Other retention of urine Status: Acute Subjective Subjective Date/Time Seen: 03/30/24 10:02 Interval history: transferred to IMU for CP. denies GH, or catheter related issues. Review of Systems Constitutional: Constitutional: Reports no additional constitutional complaints Eyes: Eyes: Reports no additional eye complaints Respiratory: Respiratory: Reports no additional respiratory complaints Gastrointestinal: Gastrointestinal: Reports no additional gastrointestinal complaints Psychiatric: Psychiatric: Reports no additional psychiatric complaints Exam Const: General: cooperative and awake HENMT: Head: normal to inspection Eyes: General: appearance normal, both eyes and all related structures Resp: Effort & Inspection: normal respiratory effort and able to speak in complete sentences GI: Inspection: normal to inspection Urinary Catheter: Urinary Catheter: patent and draining and urine clear Extrem: General: normal to inspection Psych: Appearance: grossly normal Objective Data Vital Signs Vital Signs: Vital Signs - 24 hr 03/29/24 10:29 03/29/24 10:29 03/29/24 11:29 Temperature 36.9 C 36.9 C 36.9 C Pulse Rate 82 82 85 Respiratory Rate 20 20 18 Blood Pressure 158/57 H 158/57 H 149/55 H Pulse Oximetry 96 96 99 Oxygen Delivery Oxygen Flow Rate 03/29/24 12:02 03/29/24 12:17 03/29/24 13:18 Temperature 36.8 C 37.2 C Pulse Rate 82 74 77 Respiratory Rate 18 18 20 Blood Pressure 158/54 H 165/57 H Pulse Oximetry 97 98 Oxygen Delivery Oxygen Flow Rate 03/29/24 13:17 03/29/24 13:30 03/29/24 14:02 Temperature 37.0 C 36.9 C Pulse Rate 94 87 93 Respiratory Rate 20 20 16 Blood Pressure 161/79 H 144/55 H Pulse Oximetry 98 97 Oxygen Delivery Oxygen Flow Rate 03/29/24 17:09 03/29/24 14:02 03/29/24 13:17 Temperature 36.9 C 36.9 C 37.0 C Pulse Rate 93 93 94 Respiratory Rate 16 16 20 Blood Pressure 144/55 H 144/55 H 161/79 H Pulse Oximetry 97 97 98 Oxygen Delivery Oxygen Flow Rate 03/29/24 19:45 03/29/24 20:00 03/29/24 20:03 Temperature Pulse Rate 121 H 112 H 122 H Respiratory Rate 26 H 24 H Blood Pressure Pulse Oximetry Oxygen Delivery Oxygen Flow Rate 03/29/24 20:39 03/29/24 20:40 03/29/24 20:00 Temperature 38.0 C H 37.5 C Pulse Rate 95 116 H Respiratory Rate 20 26 H Blood Pressure 165/80 H 145/91 H Pulse Oximetry 98 96 96 Oxygen Delivery Nasal Cannula Oxygen Flow Rate 3 03/29/24 20:00 03/29/24 23:47 03/30/24 01:03 Temperature 37.2 C Pulse Rate 145 H 95 108 H Respiratory Rate 20 24 H Blood Pressure 131/73 Pulse Oximetry 98 Oxygen Delivery Oxygen Flow Rate 03/30/24 01:16 03/29/24 23:20 03/29/24 23:12 Temperature Pulse Rate 110 H 95 100 Respiratory Rate 24 H 20 Blood Pressure Pulse Oximetry 98 Oxygen Delivery Nasal Cannula Oxygen Flow Rate 3 03/30/24 00:00 03/30/24 02:00 03/30/24 04:00 Temperature 37.3 C Pulse Rate 98 95 96 Respiratory Rate 20 Blood Pressure 138/76 Pulse Oximetry 98 Oxygen Delivery Oxygen Flow Rate 03/30/24 04:00 03/30/24 04:00 03/30/24 06:00 Temperature Pulse Rate 96 88 84 Respiratory Rate 20 Blood Pressure Pulse Oximetry 98 Oxygen Delivery Nasal Cannula Oxygen Flow Rate 3 03/30/24 06:55 03/30/24 06:55 03/30/24 07:03 Temperature Pulse Rate 95 95 90 Respiratory Rate 20 20 20 Blood Pressure Pulse Oximetry 98 Oxygen Delivery Nasal Cannula Oxygen Flow Rate 3 03/30/24 07:39 03/30/24 08:55 Temperature 36.5 C Pulse Rat
--- NOTE | 2024-03-30 10:06 | PM.PNNEP ---
Progress Note: A&P Assessment and Plan (1) JAMES (acute kidney injury): Code(s): N17.9 - Acute kidney failure, unspecified Status: Acute Assessment and Plan: improvement noted since admission was noted by outpatient and admission labs creatinine 7.5mg/dl on 03/20 labs by PCP up to 8.1mg/dl on admission suspect multifactorial etiology: prerenal factors (decreased oral intake + nausea) urinary retention worsening anemia CKD progression (?) better UOP noted following anna catheter placement evaluation to date noted: renal ultrasound without obstruction urine eosinophils negative moderate proteinuria CPK mildy elevate but no enough to affect kidney function urine electrolytes non-prerenal on trial of IVF hydration follow trend of repeat labs and UOP (2) Chronic kidney disease (CKD), stage V: Code(s): N18.5 - Chronic kidney disease, stage 5 Status: Chronic Assessment and Plan: baseline creatinine runs ~ 3.8 - 4.5mg/dl in the last year or so due to a combination of 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), hypertension, vascular disease, ALEXSANDRA, nephrolithiasis, and age-related change (3) Acute urinary retention: Code(s): R33.8 - Other retention of urine Status: Acute Assessment and Plan: as noted by bladder scan on admission s/p anna catheter placement follow trend of repeat labs Urology recommendations noted (4) Acute on chronic anemia: Code(s): D64.9 - Anemia, unspecified Status: Acute Assessment and Plan: partly related to his James and known advanced CKD improvement in H/H s/p PRBC transfusion hemoccult negative in the ER on Retacrit while hospitalized follow trend of H/H (5) Rib pain on left side: Code(s): R07.81 - Pleurodynia Status: Acute Assessment and Plan: due to recent fall(?) pain control as tolerated recent CXR with left 7th and 8th rib fracture (likely etiology of pain) (6) Chronic hypoxic respiratory failure, on home oxygen therapy: Code(s): J96.11 - Chronic respiratory failure with hypoxia; Z99.81 - Dependence on supplemental oxygen Status: Chronic Assessment and Plan: presumably due to his known hx of COPD continue supplemental oxygen Will continue to follow. Subjective Date/time seen: 03/30/24 10:06 Interval history: Follow-up for acute kidney injury/acute renal failure on chronic kidney disease. Transferred to IMU due to complaints of chest pain and mildly elevated troponins although patient seems to think it more of his anxiety acting up; no further chest discomfort noted at this time; renal function/creatinine continues to slowly improve with current therapy/interventions; still having ongoing issues with back and flank pain as well. Exam Narrative: General: chronically ill-appearing male in NAD Heart: normal S1 and S2; no rub Lungs: coarse breath sounds Abdomen: soft, nontender, nondistended, positive bowel sounds Extremities: no cyanosis or clubbing; trace edema; s/ right BKA Skin: no rash Objective Data Vital Signs Vital Signs: Vital Signs Temp Pulse Resp BP Pulse Ox O2 Del Method O2 Flow Rate 03/30/24 09:02 Nasal Cannula 4 03/30/24 08:55 88 03/30/24 07:39 97.7 F 91 18 116/51 L 100 03/30/24 07:03 90 20 03/30/24 06:55 95 20 03/30/24 06:55 95 20 98 Nasal Cannula 3 03/30/24 06:00 84 03/30/24 04:00 88 03/30/24 04:00 96 20 98 Nasal Cannula 3 03/30/24 04:00 99.2 F 96 20 138/76 98 03/30/24 02:00 95 03/30/24 00:00 98 03/29/24 23:12 100 03/29/24 23:20 95 20 98 Nasal Cannula 3 03/30/24 01:16 110 H 24 H 03/30/24 01:03 108 H 24 H 03/29/24 23:47 99 F 95 20 131/73 98 03/29/24 20:00 145 H 03/29/24 20:00 96 Nasal Cannula 3 10
--- NOTE | 2024-03-30 10:06 | P.PNNP_ITS ---
Progress Note: A&P Assessment and Plan (1) JAMES (acute kidney injury): Code(s): N17.9 - Acute kidney failure, unspecified Status: Acute Assessment and Plan: * improvement noted since admission * was noted by outpatient and admission labs * creatinine 7.5mg/dl on 03/20 labs by PCP * up to 8.1mg/dl on admission * suspect multifactorial etiology: * prerenal factors (decreased oral intake + nausea) * urinary retention * worsening anemia * CKD progression (?) * better UOP noted following anna catheter placement * evaluation to date noted: * renal ultrasound without obstruction * urine eosinophils negative * moderate proteinuria * CPK mildy elevate but no enough to affect kidney function * urine electrolytes non-prerenal * on trial of IVF hydration * follow trend of repeat labs and UOP (2) Chronic kidney disease (CKD), stage V: Code(s): N18.5 - Chronic kidney disease, stage 5 Status: Chronic Assessment and Plan: * baseline creatinine runs ~ 3.8 - 4.5mg/dl in the last year or so * due to a combination of 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), hypertension, vascular disease, ALEXSANDRA, nephrolithiasis, and age-related change (3) Acute urinary retention: Code(s): R33.8 - Other retention of urine Status: Acute Assessment and Plan: * as noted by bladder scan on admission * s/p anna catheter placement * follow trend of repeat labs * Urology recommendations noted (4) Acute on chronic anemia: Code(s): D64.9 - Anemia, unspecified Status: Acute Assessment and Plan: * partly related to his James and known advanced CKD * improvement in H/H s/p PRBC transfusion * hemoccult negative in the ER * on Retacrit while hospitalized * follow trend of H/H (5) Rib pain on left side: Code(s): R07.81 - Pleurodynia Status: Acute Assessment and Plan: * due to recent fall(?) * pain control as tolerated * recent CXR with left 7th and 8th rib fracture (likely etiology of pain) (6) Chronic hypoxic respiratory failure, on home oxygen therapy: Code(s): J96.11 - Chronic respiratory failure with hypoxia; Z99.81 - Dependence on supplemental oxygen Status: Chronic Assessment and Plan: * presumably due to his known hx of COPD * continue supplemental oxygen Will continue to follow. Subjective Date/time seen: 03/30/24 10:06 Interval history: Follow-up for acute kidney injury/acute renal failure on chronic kidney disease. Transferred to IMU due to complaints of chest pain and mildly elevated troponins although patient seems to think it more of his anxiety acting up; no further chest discomfort noted at this time; renal function/creatinine continues to slowly improve with current therapy/interventions; still having ongoing issues with back and flank pain as well. Exam Narrative: General: chronically ill-appearing male in NAD Heart: normal S1 and S2; no rub Lungs: coarse breath sounds Abdomen: soft, nontender, nondistended, positive bowel sounds Extremities: no cyanosis or clubbing; trace edema; s/ right BKA Skin: no rash Objective Data Vital Signs Vital Signs: Vital Signs Temp Pulse Resp BP Pulse Ox O2 Del Method O2 Flow Rate 03/30/24 09:02 Nasal Cannula 4 03/30/24 08:55 88 1
[2024-03-30] MEDS: SALINE 0.65% NAS SOLN 44 ML BTL 1 SPRAY NASAL (11:27)
[2024-03-30] MEDS: polyethylene glycoL 3350 17 GM POWD.PACK PO (15:25)
[2024-03-31] VITALS (19 sets, daily range): BP systolic 117–164; BP diastolic 58–85; PULSE 81–118; RESP 16–22; TEMP 36.5–37.2; O2SAT 95–99
[2024-03-31] MEDS: FLUTICASONE PROPIONATE 0.05% NA SPR 16 GM BTL (*BKC) 1 SPRAY NASAL ×2 (00:22→09:35)
[2024-03-31] MEDS: METHADONE 10 MG/ML BY MOUTH (02:17)
[2024-03-31] MEDS: [UNRECOGNIZED DRUG - OTHER] BY MOUTH (02:17)
--- NOTE | 2024-03-31 02:22 | PC.NURSE ---
03/31/24 at 0155-Pt called out to desk asking for assistance to get off of the chair and onto the bedside commode. 0156-Tamar CCT. went to the Pt's room and called out to the supervisor bottle house cleaners, Beatriz, who was at the [facility] nurses station asking for her assistance in the room per patient's request. This RN, supervisor bottle house cleaners, Beatriz, and marine fire fighterSherrell Rodríguez went to Pt's bedside. JABARI Boyle. states, the patient is not very happy and wants to talk to the supervisor carton and can supply. CCT reports that the patient is irate, being belligerent to her, and throwing things. Pt noted to be very angry at staff, cursing at staff, and severely anxious. Pt stating that this RN, won't give me what I want and no one has any common sense around here. Patient offered to have another RN take over his care if he wishes. Pt states, I'm just irritated because I'm hurting so bad and no one will listen to me. 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 Patient reminded that he was previously informed that he had the oxycodone IR available if he wanted it and that he was told that he would be given his home RX'd methadone 130mg a little early around 214, which is in another 15-20 minutes. Pt states, It's always 15 minutes around here with you people. Pt educated that we are only allowed to give him what the MD orders and give the medications how they ordered. Pt instructed that we are not able to prescribe medications to patients which would be out of our scope of practice. Pt states, I don't know why not. I used to be able to when I was a clinical staff rn. I gave all kinds of medications to people. 021-Pt given his RX's home dose of methadone. See MAR. filter press operatorSherrell DENNY offered to call Dr. Abreu to try to get him an order for vistaril to help him relax, decrease his anxiety, and update her on his continued pain. Pt agreeable. 0230-filter press operatorSherrell DENNY called Dr. Abreu for the patient update and the order requests. MD updated on the Pt's behavior, increased anxiety, and patient's C/O continued pain. Per Dr. Abreu, no order received at this time for vistaril due to the patient's home methadone orders. Provider ordered a x1 dose for morphine 4mg IVP. 0245-Pt educated on the MD orders. Pt states I am feeling calmer already. I think I will wait until the methadone fully kicks in to see if I still need it. It usually helps me. Pt instructed to call us in one hour if his pain has not improved and he feels like he still needs the morphine dose. Pt verbalized understanding. This RN and supervisor bottle house cleaners assisted the patient from the chair back to the bed. RT called and notified that the patient is requesting a breathing treatment. 0305-Pt appears to be much calmer and more relaxed at this time. Pt assisted to lay back in the bed with the HOB raised as elevated as allowed. Pt is very apologetic to all the staff for his behavior and for taking his frustrations out on staff. Pt states, sometime I just need to let out some steam. Bed alarm activated and the patient instructed that the alarm is set and he needs to call us if he needs to get up for his safety. Pt is agreeable.
--- NOTE | 2024-03-31 02:34 | PC.NURSE ---
Dr Abreu called about patient anxiety and complaints about pain management due to fractured ribs. Aware patient refused roxycodone PO earlier and that morphine was discontinued due to fpc methadone use. Patient can not take tylenol due to liver transplant and also refuses xanax. Vistaril requested for anxiety, Dr Abreu orders 4mg morphine x1 IVP. She states he had a similar episode last night and it worked well for him.
[2024-03-31] MEDS: IPRATROPIUM 0.5 MG/ALBUTEROL SULFATE 2.5 MG AMPUL.NEB 3 ML INHALATION ×3 (02:52→13:31)
[2024-03-31 04:42] LABS: Basophils Percent Auto 0.4 % (0.2-1.2); Eosinophils Absolute Auto 0.4 K/mm3 (0-0.3); Eosinophils Percent Auto 4.3 % (0-4.4); Hematocrit 28.6 % (42.0-52.0); Hemoglobin 9.2 g/dL (14.0-18.0); Immature Granulocyte Absolute 0.04 K/mm3 (0.00-0.031); Immature Granulocyte Percent A 0.5 % (0-0.5); Lymphocytes Absolute Auto 0.89 K/mm3 (0.9-3.2); Lymphocytes Percent Auto 10.9 % (18.3-44.2); Mean Corpuscular HGB Conc 32.2 g/dl (32-36); Mean Corpuscular Hemoglobin 30.6 pg (26-34); Mean Platelet Volume 12.3 fl (7.4-10.4); Monocytes Absolute Auto 1.2 K/mm3 (0.1-0.6); Monocytes Percent Auto 14.8 % (2.6-8.5); Neutrophils Absolute Auto 5.7 K/mm3 (1.3-6.7); Neutrophils Percent Auto 69.1 % (45.5-73.1); Platelet Count Result 108 k/mm3 (150-375); Red Blood Count 3.01 M/mm3 (4.6-6.20); Red Cell Distribution Width 15.3 % (11.5-14.5); White Blood Count 8.2 K/mm3 (4.5-10.0)
[2024-03-31 05:03] LABS: Alanine Aminotransferase 21 U/L (6-50); Albumin Level 3.4 g/dL (3.5-5.1); Alkaline Phosphatase 59 U/L (38-126); Anion Gap 13 mmol/L (4-12); Aspartate Amino Transferase 40 U/L (17-59); Bilirubin,Total 0.6 mg/dL (0.2-1.3); Blood Urea Nitrogen 72 mg/dL (9-20); Calcium 8.3 mg/dL (8.4-10.2); Carbon Dioxide 18 mmol/L (22-30); Chloride 105 mmol/L (98-107); Estimated CRCL calculation 12 ml/min; Estimated Glomerular Filt Rate 11; Glucose 95 mg/dL (65-110); Magnesium 1.8 mg/dL (1.6-2.3); Phosphorus 4.9 mg/dL (2.5-4.5); Sodium 136 mmol/L (137-145)
--- NOTE | 2024-03-31 05:10 | PC.NURSE ---
03/30/24-Pt's day RN, Joann and this RN educated patient of the order changes from the day provider and of the new orders available to him for pain management. Per the day provider orders-Morphine IV DC'd on 03/30/24 due to the patient taking RX's methadone 130mg PO daily. The day provider changed the orders to oxycodone IR 5mg PO Q 6 HR for pain scale of 7-10 and reordered tylenol 650mg PO Q 6 HR prn pain scale of 1-3 or fevers. The patient states, I can't take the tylenol due to the h/o a liver transplant in 2007. Pt informed that this RN is aware of that and that the previously scheduled tylenol order had previously been DC'd per Dr. Abreu on 03/31/24 early AM per this RN's request due to that reason. 2129-Pt did complain of left flank, lower back, right flank, and generalized discomfort, rating the pain anywhere from a 8 out of 10 with movement and activity to a 3-4 out of 10 at rest at the beginning of the shift. Pt aware of RX'd oxycodone IR 5mg available and offered this medication as RX'd. Pt agreeable. 2136-After the oxycodone medication package was opened, the patient decided that he no longer wanted the oxycodone IR stating, this medication doesn't do shit for me. I told them that before. The only thing that works for me is the oxycontin 30-40's. Pt noted to have increased agitation and an increase in anxiety after this interaction. This RN offered to call the MD for additional orders. Pt states, I'm always in pain. I'll just wait for my AM dose of methadone then. hiv counselor, Sherrell Ramírez updated with Pt's C/O pain and refusal of the oxycodone IR.
[2024-03-31] MEDS: PANTOPRAZOLE 40 MG TABLET PO (09:32)
[2024-03-31] MEDS: hydrALAZINE HCL 25 MG TABLET PO ×2 (09:32→14:46)
[2024-03-31] MEDS: METOPROLOL TARTRATE 12.5 MG TABLET PO (09:33)
[2024-03-31] MEDS: SODIUM BICARBONATE TAB 650 MG TABLET 1300 MG PO (09:33)
[2024-03-31] MEDS: CLOPIDOGREL BISULFATE 75 MG TABLET PO (09:34)
[2024-03-31] MEDS: TACROLIMUS 0.5 MG CAPSULE 1 MG BY MOUTH (09:34)
[2024-03-31] MEDS: guaiFENesin 12 HR 600 MG TABCR PO (09:34)
[2024-03-31] MEDS: ASPIRIN 81 MG ENTERIC TABLET PO (09:35)
[2024-03-31] MEDS: polyethylene glycoL 3350 17 GM POWD.PACK PO (09:35)
[2024-03-31] MEDS: LIDOCAINE 5% PATCH 1 PATCH TRANSDERM (09:36)
--- NOTE | 2024-03-31 09:40 | WPDUROPN2 ---
Progress Note: A&P Assessment and Plan (1) Acute urinary retention: Code(s): R33.8 - Other retention of urine Status: Acute Assessment and Plan: 1600 cc urinary retention. Continue Casiano catheter. Will maintain Casiano for 1 week for bladder rest. Will arrange outpatient void trial. Started on tamsulosin (2) BPH associated with nocturia: Code(s): N40.1 - Benign prostatic hyperplasia with lower urinary tract symptoms; R35.1 - Nocturia Status: Acute Assessment and Plan: Continue tamsulosin. Continue Casiano as above Subjective Subjective Date/Time Seen: 03/31/24 09:40 Interval history: Doing well today. Reports no concerns. No issues with Casiano catheter. Review of Systems Review of Systems: All systems reviewed & are unremarkable except as noted in HPI and below Exam Narrative: General: Awake, alert, comfortable, no acute distress HEENT: Normocephalic, atraumatic, sclerae anicteric Respiratory: Normal respiratory effort, no accessory muscle use Abdomen: Nondistended, soft, nontender : Casiano catheter draining clear yellow urine Skin: Normal coloration, warm and dry Neurologic: No focal neuro deficits noted Psychiatric: Appropriate mood and affect, judgment and insight intact Objective Data Vital Signs Vital Signs: Vital Signs - 24 hr 03/30/24 10:00 03/30/24 10:58 03/30/24 11:45 Temperature 97.7 F Pulse Rate 80 78 Respiratory Rate 20 Blood Pressure 134/75 Pulse Oximetry 99 Oxygen Delivery Nasal Cannula Oxygen Flow Rate 4 Fraction of Inspired Oxygen 03/30/24 12:00 03/30/24 12:00 03/30/24 12:50 Temperature Pulse Rate 77 86 Respiratory Rate 20 Blood Pressure Pulse Oximetry 99 Oxygen Delivery Nasal Cannula Oxygen Flow Rate 4 Fraction of Inspired Oxygen 03/30/24 12:58 03/30/24 16:00 03/30/24 14:00 Temperature 97.9 F Pulse Rate 89 85 79 Respiratory Rate 20 16 Blood Pressure 143/73 H Pulse Oximetry 99 Oxygen Delivery Oxygen Flow Rate Fraction of Inspired Oxygen 03/30/24 16:00 03/30/24 16:00 03/30/24 18:00 Temperature Pulse Rate 82 92 Respiratory Rate Blood Pressure Pulse Oximetry 99 Oxygen Delivery Nasal Cannula Oxygen Flow Rate 4 Fraction of Inspired Oxygen 03/30/24 19:10 03/30/24 20:00 03/30/24 20:00 Temperature 97.6 F Pulse Rate 93 94 94 Respiratory Rate 20 20 Blood Pressure 147/77 H Pulse Oximetry 95 98 Oxygen Delivery Nasal Cannula Oxygen Flow Rate 4 Fraction of Inspired Oxygen 03/30/24 20:07 03/30/24 21:37 03/30/24 21:10 Temperature Pulse Rate 92 95 93 Respiratory Rate 20 20 Blood Pressure Pulse Oximetry 95 Oxygen Delivery Nasal Cannula Oxygen Flow Rate 2 Fraction of Inspired Oxygen 03/30/24 20:00 03/30/24 22:00 03/30/24 23:40 Temperature 98.3 F Pulse Rate 95 90 81 Respiratory Rate 20 Blood Pressure 126/65 Pulse Oximetry 98 Oxygen Delivery Oxygen Flow Rate Fraction of Inspired Oxygen 03/31/24 00:00 03/31/24 00:00 03/31/24 00:00 Temperature 97.8 F Pulse Rate 81 81 85 Respiratory Rate 20 20 Blood Pressure 149/72 H Pulse Oximetry 96 96 Oxygen Delivery Nasal Cannula Oxygen Flow Rate 2 Fraction of Inspired Oxygen 03/31/24 01:43 03/31/24 02:53 03/31/24 03:06 Temperature Pulse Rate 84 118 H 115 H Respiratory Rate 20 20 Blood Pressure Pulse Oximetry Oxygen Delivery Oxygen Flow Rate Fraction of Inspired Oxygen 03/31/24 03:47 03/31/24 04:00 03/31/24 03:00 Temperature 97.7 F Pulse Rate 101 H 99 101 H Respiratory Rate 18 18 Blood Pressure 164/85 H Pulse Oximetry 95 95 Oxygen Delivery Nasal Cannula Oxygen Flow Rate 4 Fraction of Inspired Oxygen 03/31/24 04:00 03/31/24 06:00 03/31/24 08:00 Temperature 98.8 F Pulse Rate 99 100 100 Respiratory Rate 16 22 H Blood Pressure 132/69 Pulse Oximetry 98 98 Oxygen Delive
[2024-03-31] MEDS: TAMSULOSIN HCL 0.4 MG CAPSULE PO (09:54)
--- NOTE | 2024-03-31 10:24 | PM.PNNEP ---
Progress Note: A&P Assessment and Plan (1) JAMES (acute kidney injury): Code(s): N17.9 - Acute kidney failure, unspecified Status: Acute Assessment and Plan: improvement noted since admission was noted by outpatient and admission labs creatinine 7.5mg/dl on 03/20 labs by PCP up to 8.1mg/dl on admission suspect multifactorial etiology: prerenal factors (decreased oral intake + nausea) urinary retention worsening anemia CKD progression (?) better UOP noted following anna catheter placement evaluation to date noted: renal ultrasound without obstruction urine eosinophils negative moderate proteinuria CPK mildy elevate but no enough to affect kidney function urine electrolytes non-prerenal on trial of IVF hydration follow trend of repeat labs and UOP (2) Chronic kidney disease (CKD), stage V: Code(s): N18.5 - Chronic kidney disease, stage 5 Status: Chronic Assessment and Plan: baseline creatinine runs ~ 3.8 - 4.5mg/dl in the last year or so due to a combination of 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), hypertension, vascular disease, ALEXSANDRA, nephrolithiasis, and age-related change (3) Acute urinary retention: Code(s): R33.8 - Other retention of urine Status: Acute Assessment and Plan: as noted by bladder scan on admission s/p anna catheter placement follow trend of repeat labs Urology recommendations noted (4) Acute on chronic anemia: Code(s): D64.9 - Anemia, unspecified Status: Acute Assessment and Plan: partly related to his James and known advanced CKD improvement in H/H s/p PRBC transfusion hemoccult negative in the ER on Retacrit while hospitalized - will likely need to arrange as an outpatient (i.e. Hem/Onc referral) follow trend of H/H (5) Rib pain on left side: Code(s): R07.81 - Pleurodynia Status: Acute Assessment and Plan: due to recent fall(?) pain control as tolerated recent CXR with left 7th and 8th rib fracture (likely etiology of pain) (6) Chronic hypoxic respiratory failure, on home oxygen therapy: Code(s): J96.11 - Chronic respiratory failure with hypoxia; Z99.81 - Dependence on supplemental oxygen Status: Chronic Assessment and Plan: presumably due to his known hx of COPD continue supplemental oxygen Will continue to follow. Subjective Date/time seen: 03/31/24 10:24 Interval history: Follow-up for acute kidney injury/acute renal failure on chronic kidney disease. No apparent distress voiced at the time of my visit; renal function/creatinine fluctuating as noted by trend of AM labs but no critical electrolytes and continues to make good urine output since placement of anna catheter; major complaint is pain related to extensive arthritis/rib fractures as noted by recent imaging; no issues/events overnight or earlier this morning. Exam Narrative: General: chronically ill-appearing male in NAD Heart: normal S1 and S2; no rub Lungs: coarse breath sounds Abdomen: soft, nontender, nondistended, positive bowel sounds Extremities: no cyanosis or clubbing; trace edema; s/ right BKA Skin: no nodules Objective Data Vital Signs Vital Signs: Vital Signs Temp Pulse Resp BP Pulse Ox O2 Del Method O2 Flow Rate 03/31/24 08:45 92 03/31/24 09:33 101 H 03/31/24 08:39 94 20 03/31/24 08:32 99 20 03/31/24 08:32 98 Nasal Cannula 2 03/31/24 08:00 98.8 F 100 22 H 132/69 98 03/31/24 06:00 100 03/31/24 04:00 99 16 98 Nasal Cannula 2 03/31/24 03:00 101 H 18 95 Nasal Cannula 4 03/31/24 04:00 99 03/31/24 03:47 97.7 F 101 H 18 164/85 H 95 03/31/24 03:06 115 H 20 03/31/24 02:53 118 H 20 03/31/24 01:43 84 03/31/24 00:00 85 03/31/24 00:00 81 20 96 Nasal Cannula 2 03/31/24 00
--- NOTE | 2024-03-31 10:24 | P.PNNP_ITS ---
Progress Note: A&P Assessment and Plan (1) JAMES (acute kidney injury): Code(s): N17.9 - Acute kidney failure, unspecified Status: Acute Assessment and Plan: * improvement noted since admission * was noted by outpatient and admission labs * creatinine 7.5mg/dl on 03/20 labs by PCP * up to 8.1mg/dl on admission * suspect multifactorial etiology: * prerenal factors (decreased oral intake + nausea) * urinary retention * worsening anemia * CKD progression (?) * better UOP noted following anna catheter placement * evaluation to date noted: * renal ultrasound without obstruction * urine eosinophils negative * moderate proteinuria * CPK mildy elevate but no enough to affect kidney function * urine electrolytes non-prerenal * on trial of IVF hydration * follow trend of repeat labs and UOP (2) Chronic kidney disease (CKD), stage V: Code(s): N18.5 - Chronic kidney disease, stage 5 Status: Chronic Assessment and Plan: * baseline creatinine runs ~ 3.8 - 4.5mg/dl in the last year or so * due to a combination of 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), hypertension, vascular disease, ALEXSANDRA, nephrolithiasis, and age-related change (3) Acute urinary retention: Code(s): R33.8 - Other retention of urine Status: Acute Assessment and Plan: * as noted by bladder scan on admission * s/p anna catheter placement * follow trend of repeat labs * Urology recommendations noted (4) Acute on chronic anemia: Code(s): D64.9 - Anemia, unspecified Status: Acute Assessment and Plan: * partly related to his James and known advanced CKD * improvement in H/H s/p PRBC transfusion * hemoccult negative in the ER * on Retacrit while hospitalized - will likely need to arrange as an outpatient (i.e. Hem/Onc referral) * follow trend of H/H (5) Rib pain on left side: Code(s): R07.81 - Pleurodynia Status: Acute Assessment and Plan: * due to recent fall(?) * pain control as tolerated * recent CXR with left 7th and 8th rib fracture (likely etiology of pain) (6) Chronic hypoxic respiratory failure, on home oxygen therapy: Code(s): J96.11 - Chronic respiratory failure with hypoxia; Z99.81 - Dependence on supplemental oxygen Status: Chronic Assessment and Plan: * presumably due to his known hx of COPD * continue supplemental oxygen Will continue to follow. Subjective Date/time seen: 03/31/24 10:24 Interval history: Follow-up for acute kidney injury/acute renal failure on chronic kidney disease. No apparent distress voiced at the time of my visit; renal function/creatinine fluctuating as noted by trend of AM labs but no critical electrolytes and continues to make good urine output since placement of anna catheter; major complaint is pain related to extensive arthritis/rib fractures as noted by recent imaging; no issues/events overnight or earlier this morning. Exam Narrative: General: chronically ill-appearing male in NAD Heart: normal S1 and S2; no rub Lungs: coarse breath sounds Abdomen: soft, nontender, nondistended, positive bowel sounds Extremities: no cyanosis or clubbing; trace edema; s/ right BKA Skin: no nodules Objective Data Vital Signs Vital Signs: Vital Signs Temp Pulse Resp BP Pulse Ox O2 Del Method O2 Flow Ra
--- NOTE | 2024-03-31 13:45 | PCPTNOTE ---
Patient declined PT stating he will be discharged home today and has no PT needs at this time. Patient states he is more concerned with his kidney function at this time. Patient states his prosthesis is on today and he hopes to gets his new prosthesis soon.
--- NOTE | 2024-03-31 16:04 | PC.NURSE ---
home medication methadone returned to - pt to be discharge today
--- NOTE | 2024-03-31 16:30 | PM.DS ---
DS: Admitting Diagnosis Discharge Date 03/31/24 Admitting Diagnosis Left-sided flank pain DS: Discharge Diagnosis Discharge Diagnosis (1) Acute kidney injury superimposed on stage 5 chronic kidney disease, not on chronic dialysis: Code(s): N17.9 - Acute kidney failure, unspecified; N18.5 - Chronic kidney disease, stage 5 Status: Acute Assessment and Plan: Patient has acute kidney injury on chronic kidney disease. Patient's worsening renal function could be in part due to urinary retention but also sounds as if patient has had significant decrease in oral intake recently with intractable nausea for the last month so there is likely some prerenal factors as well. His creatinine seems to run around 3.8 - 4.5mg/dl in the last several months (taken from nephrology note). Will hold home hydrochlorothiazide. Casiano catheter has been placed. Strict I&O, daily weights. Casiano to remain in place for 1 week with urology follow up for void trial. renal dialysis diet received 2 L of NS in the ED. was receiving as at 75 mL an hour. He is going to receive 2 units of PRBCs today. Stopping fluids for now. Sodium Bicarb increased to 1300 mg b.i.d. by Nephrology Urine studies Continue Zofran for nausea. Nausea has resolved nearly. Nephrology consulted, recs are appreciated (2) Acute on chronic anemia: Code(s): D64.9 - Anemia, unspecified Status: Acute Assessment and Plan: Patient does have acute on chronic anemia likely due to worsening renal function. Patient's Hemoccult stool was negative. Hgb 7.1 g/dl on admission. Received 1 unit pRBC on admission Occult stool negative. Last colonoscopy is greater than [address] chest/abdomen/pelvis shows bilateral inguinal hernias but otherwise bowels are normal. Iron 63, TIBC 222, Saturation 20%, folate 10.4, vitamin B12 274 Received Epogen 20,000 units x 1 and started epogen 10,000 TuThSat Hgb 8.6 g/dl today after 2 units of pRBC on 03/29 (3) Rib pain on left side: Code(s): R07.81 - Pleurodynia Status: Acute Assessment and Plan: Patient is having intractable left posterior rib pain due to recent fall. He does have some overlying bruising in the area. He states that someone told him that there multiple fractures. There are no rib fractures mentioned on CT chest/abdomen/pelvis/spine. There is a chronic T7 compression fracture and compression fracture at L2. Will provide lidocaine pain patch Home methadone has also been resumed Will provide scheduled Tylenol and incentive spirometer Can trial Flexeril and aqua K pad to see if this helps Chest x-ray from 03/30 shows left 6th and 7th rib fractures. (4) Status post liver transplant: Onset Date: 2007 Code(s): Z94.4 - Liver transplant status Status: Acute Assessment and Plan: Current dosing of tacrolimus is 1 mg BID. Trough was 1.1 (low) (5) Chronic hypoxic respiratory failure, on home oxygen therapy: Code(s): J96.11 - Chronic respiratory failure with hypoxia; Z99.81 - Dependence on supplemental oxygen Status: Chronic Assessment and Plan: Patient has chronic hypoxic respiratory failure on 1 L oxygen at baseline. He was stable from a respiratory perspective. He complained of sinus congestion. Mucinex, Flonase, and Claritin added. Yesterday a rapid response was called for shortness of breath. Chest x-ray without pulmonary edema. Patient has anxiety and has episodes like this. (6) Diarrhea: Code(s): R19.7 - Diarrhea, unspecified Status: Acute Assessment and Plan: Patient reports intermittently having diarrhea this last week. No recent antibiotics but he is immunosuppressed. C-diff was cancelled for unknown reason Quad viral screen was negative Plan Planning for discharge tomorrow DS: Summary Hospital Course Reason for hospitalization: JAMES on CKD, anemia, urinary retention Hospital Course: 73-year-o
--- NOTE | 2024-03-31 16:46 | PC.NURSE ---
discharged home- prograf home medication given to pt/; instructions discussed - reviewed medication new meds and changes in home medication- pt and voiced understanding
== END 2024-03-31 16:45 | disposition home health service (06) | DRG 682 ==
LOC: ANHED 15:21 → ANH3MEDSUR 16:55 → ANHIMU 03-29 23:19
PROVIDERS: Internal Medicine; Internal Medicine Nephrology; Nurse Practitioner; Nurse Practitioner Acute Care; Physician Assistant; Admitting Provider Family Medicine; Emergency Provider Emergency Medicine; PCP Internal Medicine; Visit Provider Nurse Practitioner Acute Care
DX: N17.9 Acute kidney failure, unspecified (principal); E43 Unspecified severe protein-calorie malnutrition; J96.11 Chronic respiratory failure with hypoxia; Z94.4 Liver transplant status; I13.2 Hypertensive heart and chronic kidney disease with heart failure and with stage 5 chronic kidney disease, or end stage renal disease; I50.32 Chronic diastolic (congestive) heart failure; G47.33 Obstructive sleep apnea (adult) (pediatric); D63.1 Anemia in chronic kidney disease; J43.9 Emphysema, unspecified; N18.5 Chronic kidney disease, stage 5; N20.0 Calculus of kidney; S30.1XXA Contusion of abdominal wall, initial encounter; W19.XXXA Unspecified fall, initial encounter; W22.8XXA Striking against or struck by other objects, initial encounter; S81.011A Laceration without foreign body, right knee, initial encounter; E55.9 Vitamin D deficiency, unspecified; I25.10 Atherosclerotic heart disease of native coronary artery without angina pectoris; M47.817 Spondylosis without myelopathy or radiculopathy, lumbosacral region; N40.1 Benign prostatic hyperplasia with lower urinary tract symptoms; R19.7 Diarrhea, unspecified; R35.1 Nocturia; R00.0 Tachycardia, unspecified; R33.8 Other retention of urine; Z99.81 Dependence on supplemental oxygen; Z79.82 Long term (current) use of aspirin; Z20.822 Contact with and (suspected) exposure to COVID-19; Z98.41 Cataract extraction status, right eye; Z96.1 Presence of intraocular lens; Z87.891 Personal history of nicotine dependence; Z68.22 Body mass index [BMI] 22.0-22.9, adult; Z89.511 Acquired absence of right leg below knee
CPT/HCPCS: 36415; 36430; 71045; 71250; 72072; 72128; 72131; 74176; 76775; 80053; 80069; 80197; 81001; 81050; 82274; 82550; 82570; 82607; 82728; 82746; 83540; 83550; 83690; 83735; 84100; 84156; 84300; 84443; 84466; 84484; 84540; 85025; 85046; 85055; 85610; 85730; 85999; 86850; 86900; 86901; 86923; 87040; 87637; 93005; 94640; 96361; 97161; 97166; 97530; 97535; 99285; A9270; G0378; J2270; J2405; J3475; J7030; J7050; P9016; Q5105

== ENCOUNTER 2024-04-04 13:03 | Outpatient (CLI) | payer MEDICARE, SELFPAY ==
[2024-04-04 14:11] LABS: Creatinine Urine 28.33 mg/dL (40-278); Total Protein Urine Random 66.7 mg/dL (0.0-11.9); Ur Ttl Prot Creatinine Ratio 2.35 mg/mg (0-0.20)
[2024-04-04 14:29] LABS: Alanine Aminotransferase 24 U/L (16-63); Albumin Level 3.1 g/dL (3.4-5.0); Alkaline Phosphatase 60 U/L (46-116); Anion Gap 14 mmol/L (4-12); Aspartate Amino Transferase 19 U/L (15-37); Bilirubin,Total 0.4 mg/dL (0.00-1.00); Blood Urea Nitrogen 53 mg/dL (7-18); Calcium 8.1 mg/dL (8.5-10.1); Carbon Dioxide 23 mmol/L (21-32); Chloride 107 mmol/L (98-108); Estimated Glomerular Filt Rate 12; Glucose 122 mg/dL (70-99); Magnesium 1.8 mg/dL (1.8-2.4); Osmolality Calculated 313 mOsm/kg (285-295); Phosphorus 4.6 mg/dL (2.6-4.7); Potassium 4.1 mmol/L (3.5-5.1); Sodium 144 mmol/L (136-145); Total Protein 6.1 g/dL (6.4-8.2)
== END 2024-04-04 13:04 | disposition home or self-care (01) ==
LOC: CHSLAB 13:04
PROVIDERS: Nurse Practitioner Acute Care; PCP Internal Medicine; Visit Provider Internal Medicine Nephrology
DX: N18.5 Chronic kidney disease, stage 5 (principal); Z94.4 Liver transplant status
CPT/HCPCS: 36415; 80053; 80069; 82570; 83735; 84100; 84156

== ENCOUNTER 2024-05-26 15:38 | Outpatient (CLI) | payer MEDICARE, SELFPAY ==
[2024-05-26 16:17] LABS: Basophils Absolute Auto 0.1 K/mm3 (0.0-0.1); Basophils Percent Auto 0.7 % (0.2-1.2); Eosinophils Absolute Auto 0.5 K/mm3 (0-0.3); Eosinophils Percent Auto 7.4 % (0-4.4); Hematocrit 25.8 % (42.0-52.0); Immature Granulocyte Absolute 0.05 K/mm3 (0.00-0.031); Immature Granulocyte Percent A 0.7 % (0-0.5); Lymphocytes Absolute Auto 1.02 K/mm3 (0.9-3.2); Mean Corpuscular Hemoglobin 31.9 pg (26-34); Mean Corpuscular Volume 102.8 fl (80-100); Monocytes Absolute Auto 0.6 K/mm3 (0.1-0.6); Monocytes Percent Auto 8.5 % (2.6-8.5); Neutrophils Absolute Auto 4.6 K/mm3 (1.3-6.7); Neutrophils Percent Auto 67.7 % (45.5-73.1); Platelet Count Result 147 k/mm3 (150-375); Red Blood Count 2.51 M/mm3 (4.6-6.20); Red Cell Distribution Width 13.1 % (11.5-14.5); White Blood Count 6.8 K/mm3 (4.5-10.0)
[2024-05-26 17:06] LABS: Iron 78 ug/dL (49-181)
[2024-05-26 17:10] LABS: Alanine Aminotransferase 14 U/L (6-50); Albumin Level 4.2 g/dL (3.5-5.1); Alkaline Phosphatase 59 U/L (38-126); Anion Gap 10 mmol/L (4-12); Aspartate Amino Transferase 98 U/L (17-59); Bilirubin,Total 0.7 mg/dL (0.2-1.3); Blood Urea Nitrogen 59 mg/dL (9-20); Calcium 8.3 mg/dL (8.4-10.2); Carbon Dioxide 30 mmol/L (22-30); Chloride 100 mmol/L (98-107); Estimated Glomerular Filt Rate 10; Glucose 161 mg/dL (65-110); Lactate Dehydrogenase 195 U/L (120-246); Potassium 4.7 mmol/L (3.4-5.0); Sodium 140 mmol/L (137-145)
[2024-05-26 17:16] LABS: Percent Iron Saturation 33 % (20-50)
[2024-05-26 18:11] LABS: Folic Acid 10.5 ng/mL (2.76->20)
[2024-05-27 07:53] LABS: Protein, Total 6.2 g/dL (6.1-8.1)
[2024-05-29 12:33] LABS: Erythropoietin (EPO) 7.6 mIU/mL (2.6-18.5)
[2024-05-30 17:14] LABS: Methylmalonic Acid 1392 nmol/L (69-390)
== END 2024-05-26 15:39 | disposition home or self-care (01) ==
PROVIDERS: PCP Internal Medicine; Visit Provider Internal Medicine Hematology & Oncology
DX: D64.9 Anemia, unspecified (principal)
CPT/HCPCS: 36415; 80053; 82607; 82668; 82728; 82746; 83540; 83550; 83615; 83921; 84155; 84165; 84238; 85025

== ENCOUNTER 2024-07-02 13:21 | Outpatient (CLI) | payer MEDICARE, SELFPAY ==
[2024-07-02 13:53] LABS: Basophils Absolute Auto 0.04 K/mm3 (0.00-0.10); Basophils Percent Auto 0.7 % (0.0-1.0); Eosinophils Absolute Auto 0.38 K/mm3 (0.02-0.50); Eosinophils Percent Auto 6.9 % (1.0-6.0); Hematocrit 21.3 % (37.0-46.0); Immature Granulocyte Absolute 0.02 K/mm3 (0.00-0.00); Immature Granulocyte Percent A 0.4 % (0.0-0.0); Lymphocytes Percent Auto 21.9 % (18.0-42.0); Mean Corpuscular HGB Conc 31.5 g/dL (32-36); Mean Corpuscular Hemoglobin 31.9 pg (27.0-31.0); Mean Corpuscular Volume 101.4 fL (78.0-102.0); Mean Platelet Volume 11.3 fl (8.7-11.0); Monocytes Absolute Auto 0.54 K/mm3 (0.10-0.90); Monocytes Percent Auto 9.8 % (2.0-11.0); Neutrophils Absolute Auto 3.31 K/mm3 (1.70-7.20); Neutrophils Percent Auto 60.3 % (50.0-70.0); Platelet Count Result 159 K/mm3 (150-420); Red Cell Distribution Width 12.9 % (11.6-14.4); White Blood Count 5.5 K/mm3 (4.8-10.8)
[2024-07-02 13:59] LABS: Hemoglobin 6.7 g/dL (12.4-15.3)
[2024-07-02 14:10] LABS: Alanine Aminotransferase 17 U/L (16-63); Albumin Level 3.6 g/dL (3.4-5.0); Alkaline Phosphatase 57 U/L (46-116); Anion Gap 12 mmol/L (4-12); Aspartate Amino Transferase 11 U/L (15-37); Bilirubin,Total 0.4 mg/dL (0.00-1.00); Blood Urea Nitrogen 63 mg/dL (7-18); Calcium 8.4 mg/dL (8.5-10.1); Carbon Dioxide 29 mmol/L (21-32); Chloride 103 mmol/L (98-108); Estimated Glomerular Filt Rate 9; GGT < 17 U/L (15-85); Glucose 96 mg/dL (70-99); Osmolality Calculated 316 mOsm/kg (285-295); Phosphorus 6.6 mg/dL (2.6-4.7); Sodium 144 mmol/L (136-145); Total Protein 6.7 g/dL (6.4-8.2)
[2024-07-02 16:17] LABS: Creatinine Urine 75.82 mg/dL (40-278); Ur Ttl Prot Creatinine Ratio 1.04 mg/mg (0-0.20)
[2024-07-03 08:54] LABS: Vitamin D 25 Hydroxy 47 ng/mL (30-100)
[2024-07-03 14:34] LABS: Parathyroid Intact 111 pg/mL (16-77)
[2024-07-04 15:53] LABS: Tacrolimus Prograf <1.0 mcg/L
== END 2024-07-02 13:22 | disposition home or self-care (01) ==
PROVIDERS: PCP Internal Medicine; Visit Provider Internal Medicine Nephrology
DX: Z94.4 Liver transplant status (principal); D64.9 Anemia, unspecified; N18.5 Chronic kidney disease, stage 5; N25.81 Secondary hyperparathyroidism of renal origin; E55.9 Vitamin D deficiency, unspecified; Z79.899 Other long term (current) drug therapy
CPT/HCPCS: 36415; 80053; 80069; 80197; 82306; 82570; 82977; 83970; 84156; 85025

== ENCOUNTER 2024-07-02 15:06 | Outpatient (CLI) | payer MEDICARE, SELFPAY | END 2024-07-02 15:07 | disposition home or self-care (01) | LOC: ANHLAB 15:07 | PROVIDERS: PCP Internal Medicine; Visit Provider Internal Medicine Hematology & Oncology | DX: N18.9 Chronic kidney disease, unspecified (principal); D63.1 Anemia in chronic kidney disease | CPT/HCPCS: 36415 ==

== ENCOUNTER 2024-07-03 07:20 | Outpatient (RCR) | payer MEDICARE, SELFPAY ==
[2024-07-03] VITALS (7 sets, daily range): BP systolic 121–133; BP diastolic 47–66; PULSE 56–64; RESP 16–18; TEMP 36.4–37.1; O2SAT 99–100
[2024-07-03] MEDS: SODIUM CHLORIDE 0.9% IV 250 ML 30 ML IV CONT (08:12)
[2024-07-03] MEDS: ACETAMINOPHEN 325 MG TABLET 650 MG PO (08:13)
[2024-07-03] MEDS: diphenhydrAMINE HCl CAP 25 MG CAPSULE PO (08:13)
[2024-07-03] MEDS: FUROSEMIDE INJ 40 MG/4 ML VIAL 20 MG IV PUSH (11:06)
== END 2024-10-01 23:59 | disposition home or self-care (01) ==
LOC: ANHCPCTRAN 07:20
PROVIDERS: PCP Internal Medicine; Visit Provider Internal Medicine Hematology & Oncology
DX: D64.9 Anemia, unspecified (principal)
CPT/HCPCS: 36415; 36430; 86850; 86900; 86901; 86923; A9270; J1940; J7050; P9016

== ENCOUNTER 2024-07-18 13:30 | Outpatient (RCR) | payer MEDICARE, SELFPAY ==
[2024-07-18 13:51] LABS: Hematocrit 30.7 % (37.0-46.0); Hemoglobin 9.7 g/dL (12.4-15.3); Immature Platelet Fraction Pct 5.5 % (1.0-7.0); Mean Corpuscular HGB Conc 31.6 g/dL (32-36); Mean Corpuscular Volume 98.1 fL (78.0-102.0); Mean Platelet Volume 11.3 fl (8.7-11.0); Platelet Count Result 139 K/mm3 (150-420); Red Blood Count 3.13 M/mm3 (4.70-6.10); Red Cell Distribution Width 13.4 % (11.6-14.4); White Blood Count 5.9 K/mm3 (4.8-10.8)
[2024-07-18 15:19] LABS: Alanine Aminotransferase 21 U/L (16-63); Albumin Level 3.8 g/dL (3.4-5.0); Alkaline Phosphatase 65 U/L (46-116); Anion Gap 12 mmol/L (4-12); Aspartate Amino Transferase 14 U/L (15-37); Bilirubin,Total 0.6 mg/dL (0.00-1.00); Blood Urea Nitrogen 76 mg/dL (7-18); Calcium 8.7 mg/dL (8.5-10.1); Carbon Dioxide 30 mmol/L (21-32); Chloride 100 mmol/L (98-108); Estimated Glomerular Filt Rate 8; GGT 21 U/L (15-85); Glucose 100 mg/dL (70-99); Osmolality Calculated 316 mOsm/kg (285-295); Potassium 5.3 mmol/L (3.5-5.1); Sodium 142 mmol/L (136-145); Total Protein 6.6 g/dL (6.4-8.2)
[2024-07-21 15:08] LABS: Tacrolimus Prograf 3.8 mcg/L
== END 2024-10-16 23:59 | disposition home or self-care (01) ==
LOC: CHSLAB 13:30
PROVIDERS: PCP Internal Medicine
DX: Z94.4 Liver transplant status (principal); Z79.899 Other long term (current) drug therapy
CPT/HCPCS: 36415; 80053; 80197; 82977; 85027; 85055

== ENCOUNTER 2024-08-26 15:07 | Outpatient (CLI) | payer MEDICARE, SELFPAY ==
[2024-08-26 15:32] LABS: Hematocrit 30.9 % (37.0-46.0); Hemoglobin 9.5 g/dL (12.4-15.3); Mean Corpuscular HGB Conc 30.7 g/dL (32-36); Mean Corpuscular Hemoglobin 31.9 pg (27.0-31.0); Mean Corpuscular Volume 103.7 fL (78.0-102.0); Mean Platelet Volume 10.1 fl (8.7-11.0); Platelet Count Result 147 K/mm3 (150-420); Red Blood Count 2.98 M/mm3 (4.70-6.10); Red Cell Distribution Width 14.6 % (11.6-14.4); White Blood Count 6.2 K/mm3 (4.8-10.8)
[2024-08-26 16:49] LABS: Anion Gap 11 mmol/L (4-12); Blood Urea Nitrogen 74 mg/dL (7-18); Calcium 8.2 mg/dL (8.5-10.1); Carbon Dioxide 31 mmol/L (21-32); Chloride 103 mmol/L (98-108); Estimated Glomerular Filt Rate 8; Glucose 132 mg/dL (70-99); Osmolality Calculated 323 mOsm/kg (285-295); Potassium 4.9 mmol/L (3.5-5.1); Sodium 145 mmol/L (136-145); Vitamin B12 1054 pg/mL (193-986)
--- OUTSIDE RECORDS SUMMARY | 2024-08-26 17:05 | XMS_ITS | Encounter Summary ---
Author Organization [facility] Address [address] [place] [address] Care Team Providers Care Hospitality Director Name Role Phone Unavailable Primary Care Provider Unavailabl e Encounter Details Date Type Department Care Team (Late st Contact Info) Description 03/21/2023 Lab Requisition [facility] - DermPath Lab [address] [place] [address] Lanette Torres MD [address] [facility] [address] [place] [address] Social History Tobacco Use Types Packs/Day Years Used Date Smoking Tobacco: Never Assessed Sex and Gender Information Value Date Recorded Sex Assigned at Not on file Gender Identity Not on file Sexual Orientation Not on file documented as of this encounter Plan of Treatment Not on file documented as of this encounter Procedures Procedure Name Priority Date/Time Associated Diagnosis Comments DERMATOPATHOLOGY Routine 03/21/2023 2:43 PM CDT documented in this encounter Results * DERMATOPATHOLOGY (03/21/2023 2:43 PM CDT) Case Report Dermatopathology Report Case: [id number] Authorizing Provider: Lanette Torres MD Collected: 03/21/2023 02:43 PM Ordering Location: [facility] D[facility] Lab Received: 03/22/2023 01:56 PM Pathologist: Margo Blake MD Specimen: Skin, left arm 12:48 PM CDT DERMATOPATHOLOGY LABORATORY Final Diagnosis Specimen A. SKIN, left arm: HYPERPLASTIC (HYPERTROPHIC) ACTINIC KERATOSIS (L57.0) 12:48 PM CDT DERMATOPATHOLOGY LABORATORY Clinical History PSO vs. SCC 10/16/202 3 12:48 PM CDT DERMATOPATHOLOGY LABORATORY Gross Description Specimen A: Received is one formalin filled container labeled with the patient's name and designated left arm. The specimen consists of a shave biopsy measuring 73m38l8 mm. Jar 0. 12:48 PM T DERMATOPATHOLOGY LABORATORY Microscopic Description Specimen A. SKIN, left arm: There is hyperkeratosis alternating with parakeratosis. There is epidermal hyperplasia with disorderly maturation of keratinocytes with nuclear pleomorphism confined to the lower half of the epidermis. 12:48 PM T DERMATOPATHOLOGY LABORATORY Disclaimer An external and internal positive and negative controls are appropriate for the histochemical, immunohistochemical and immunofluorescence stain(s) in this case (if any), except where stated explicitly. The performance characteristics of the stain(s) cited in this report were developed and its performance characteristic determined by the Dermatopathology Laboratory at [facility], directed by Dr. Ligia Delaney. These tests need not be, and therefore are not, approved by the [place] Food and Drug Administration. The tests are used for clinical purposes. Billing Codes Specimen Charges Stain Charges 56962 1 3 12:48 PM CDT DERMATOPATHOLOGY LABORATORY Embedded Images 12:48 PM CDT DERMATOPATHOLOGY LABORATORY Pathology/Cytolo gy TISSUE SPECIMEN FROM SKIN / Unknown 03/21/2023 2:43 PM CDT 03/22/2023 1:56 PM CDT Lanette Torres MD LAB - PATHOLOGY/CYTO LOGY ORDERABLES DERMATOPATHOLOGY LABORATORY [facility] - Department of Dermatology [address] [phone] documented in this encounter Visit Diagnoses Not on filedocumented in this encounter
--- OUTSIDE RECORDS SUMMARY | 2024-08-26 17:05 | XMS_ITS ---
Author Organization [facility] Address [address] [place] [address] Care Team Providers Care Rolling Mill Operator Name Role Phone Sherry Crane RN Unavailable [phone] Bijan Willard MD Primary Care Provider [phone] Transplant Episode Liver Recipient [facility] ([place], [place]) - [facility] Organ Received: Liver Transplanted on 08/23/2007 Marked as Active Follow-up on 08/23/2007 Liver CoordinatorSherry Crane RN Fax: N/A Email: N/A Algaaciq Organ Diagnosis Organ Primary Contributory Liver Cirrhosis: Type C Retransplant Diagnosis Organ Primary Contributory Liver Cirrhosis: Type C Infection History Noted Survival Infection Treatment Organism Resolved 05/27/2023 15 years 9 months Community acquired pneumonia Donor Information Organ ABO Source Meets Risk Criteria HLA Match Mismatches Cross Match Liver Transplanted O DCD No A: B: DR: Liver Donor Serology Results Anti-CMV CMV IgG: Positive EBV IgG EBV VCA IgG: Positive Anti-HBcAb HBC Total: Negative HBsAg HBsAg: Negative HBV DNA No results on file Anti-HCV HCV: Negative Anti-HIV I/II No results on file Anti-HTLV I/II HTLV: Negative RPR/VDRL RPR: Negative EBV IgM EBV VCA IgM: Negative HBsAb No results on file EBNA No results on file Toxoplasma No results on file SARS CoV-2 No results on file Care Team Name Role Phone Fax Email Sherry Crane RN Liver Coordinator [phone] N/A N/A eMg Ardon RN Secondary Coordinator Secondary Liver Coordinator [phone] N/A N/A Sherry Crane RN Medical Coding Auditor [phone] N/A N/A Graciela Keys Reeler Operator [phone] N/A N/A Events Post-Transplant Pre-Transplant Admitted: 08/23/2007 Referred: 04/05/2007 Transplanted: 08/23/2007 Evaluation began: 7 Discharged: 08/29/2007 Center waitlisted: 7
--- OUTSIDE RECORDS SUMMARY | 2024-08-26 17:05 | XMS_ITS | Continuity of Care Document ---
Author Organization [facility] Address [address] [place] [address] Phone Care Team Providers Care Aircraft Technician Name Role Phone Travis Jolly MD Unavailable [...] Diagnoses Date Provider Providers Copied on Encounter [facility], [address], [place], [place], [address] [place] [address] , tel: [phone] [facility] No Information 7 Rik Robles. [address] [place] [address], [facility] [address] , [place], [place], [address] [place] [address] , . tel: [phone] [facility], [address], [place], [place], [address] , tel: [phone] [facility] No Information 6 Rik Robles. [address] [place] [address], [facility] [address] , [place], [address] [place] [address] , . tel: [phone] [facility], [address], [place], [place], [address] , tel: [phone] [facility] No Information 6 Rik Robles. [address] [place] [address], [address], [place], [place], [address] , . tel: [phone] [facility], [address], [place], [place], [address] , tel: [phone] [facility] Pulmonary emphysema, unspecified emphysema typeChronic midline low back pain without sciaticaLiver transplantedS/P unilateral BKA (below knee amputation), right 6 Rik Robles. [address] [place] [address], [address] , [place], [address] [place] [address] , . tel: [phone] Referring Provider: Travis Jolly, [address] [place] [address] [address], [place], [address] . tel:[phone] [facility], [address], [place], [place], [address] , tel: [phone] [facility] Pain of amputation stump of right lower extremityGait disturbanceSkin callus 6 Ismael Briana. [address] [place] [address], [address], [place], [place], [address] . tel: [phone] Referring Provider: Travis Jolly, [address] [place] [address] [address], [place], [address] . tel:[phone] [facility], [address], [place], [place], [address] , tel: [phone] [facility] Chronic bilateral low back pain without sciaticaEssential hypertensionPulmonary emphysema, unspecified emphysema typeScreening for prostate cancer 6 Rik Robles. [address] [place] [address], [address], [place], [place], [address] , . tel: [phone] Referring Provider: Travis Jolly, [address] [place] [address] [address], [place], [address] . tel:[phone] [facility], [address], [place], [place], [address] , tel: [phone] [facility] No Information 6 Rik Robles. [address] [place] [address], [address], [place], [place], [address] , . tel: [phone] [facility], [address], [place], [place], [address] , tel: [phone] [facility] Essential hypertensionChronic low back painUncomplicated opioid dependencePulmonary emphysema, unspecified emphysema typeS/P unilateral below knee amputation, rightLiver transplanted 6 Rik Robles. [address] [place] [address], [address], [place], [place], [address] , . tel: [phone] Referring Provider: Travis Jolly, [address] [place] [address] [address], [place], [address] . tel:[phone] [facility], [address], [place], [place], [address] , tel: [phone] [facility] Chronic low back painEssential hypertensionLiver transplanted 5 Rik Robles. [address] [place] [address], [address], [place], [address] [place] [address] , . tel: [phone] Referring Provider: Travis Jolly, [address] [place] [address] [address], [place], [address] [place] [address] . tel:[phone] [facility], [address], [place], [address] [place] [address] , tel: [phone] [facility] No Information 5 Rik Robles. [address] [place] [address], [address], [place], [address] [place] [address] , . tel: [phone] [facility], [address], [place], [address] [place] [address] , tel: [phone] [facility] No Information 5 Lashon Prescott. [address] [place] [address], [address] , [place], [address] [place] [address] , . tel: [phone] [facility], [address], [place], [address] [place] [address] , tel: [phone] [facility] ROUTINE MEDICAL EXAMChronic airway obstruction, not elsewhere classifiedEsophageal refluxComplications of transplanted liverUnspecified essential hypertensionOsteoarth rosis, unspecified whether generalized or localized, involving unspecified siteOsteoporosis, unspecifiedCalculus of kidneyStatus post amputation below knee 5 Lashon Prescott. [address] [place] [address], [address] , [place], [address] [place] [address] , . tel: [phone] Referring Provider: Travis Jolly, [address] [place] [address] [address] , [place], [address] [place] [address] . tel:[phone] Family History Family Member Type Diagnosis Age [...] 82 Payers Payer name Insurance type Covered constitution party ID Authoriza tion(s) [employer] INACTIVE OUT OF STATE BL [id number] MEDIC[id number] Social History Type Description Quantity Date Captured [...]
--- OUTSIDE RECORDS SUMMARY | 2024-08-26 17:05 | XMS_ITS | Continuity of Care Document ---
Author Organization [facility] Address [address] [place] [address] Phone Care Team Providers Care Experienced Truck Driver Name Role Phone Yuval Jerome MD Unavailable [...] Diagnoses Date Provider Providers Copied on Encounter [facility], [address], [place], [address], [place] tel:[phone] [facility] No Information 5 Queenie Barakat. [address] [place], [place], [id number] . tel: [phone] OFFICE/OUTPA TIENT VISIT EST [facility], [address] [place] [address], [address], [place] tel:[phone] [facility] Pain medication follow up (chief complaint) Other chronic painLumbago Sep-2 1-201 5 Queenie Yuval. [address] [place], [place], [id number] . tel: [phone] [facility], [address] [place] [address], [address], [place] tel:[phone] [facility] Pain medication follow up (chief complaint) Chronic pain Charlie-2 2-201 5 Queenielila Barakat. [address] [place] [address], [id number] . tel: [phone] [facility], [address] [place] [address], [address], [place] tel:[phone] [facility] Pain medication follow up (chief complaint) Chronic painLumbago Mar-2 3-201 5 Queenielila Barakat. [address] [place] [address], [id number] . tel: [phone] [facility], [address] [place] [address], [address], [place] tel:[phone] [facility] Pain medication follow up (chief complaint) Chronic pain Dec-2 2-201 4 Queenielila Barakat. [address] [place], [place], [id number] . tel: [phone] OFFICE/OUTPA TIENT VISIT EST [facility], [address] [place] [address], [address], [place] tel:[phone] [facility] Pain medication follow up (chief complaint) Chronic painLumbago Sep-2 2-201 4 Queenielila Barakat. [address] [place], [place], [id number] . tel: [phone] OFFICE/OUTPA TIENT VISIT [facility], [address], [address], [place] tel:[phone] [facility] Pain medication follow up (chief complaint) Chronic painLumbago 4 Queenie Yuval. [address] [place], [place], [id number] . tel: [phone] Referring Provider: Matheus Christine, [address] [place] [address], [place], [address]. tel:[phone] OFFICE/OUTPA TIENT VISIT [facility], [address] [place] [address], [address], [place] [phone] [facility] pain medication follow up (chief complaint) Chronic painLumbago Aug- 4 Queenie Yuval. [address] [place] [address], [id number] . tel: [phone] Referring Provider: Matheus Christine, [address] [place] [address], [place], [address]. tel:[phone] OFFICE/OUTPA TIENT VISIT [facility], [address] [place] [address], [address], [place] tel:[phone] [facility] pain medication follow up (chief complaint) LumbagoChronic pain 3 Queenie Yuval. [address] [place] [address], [id number] . tel: [phone] Referring Provider: Matheus Christine, [address] [place] [address], [place], [address]. tel:[phone] OFFICE/OUTPA TIENT VISIT [facility], [address] [place] [address], [address], [place] tel:[phone] [facility] pain medication follow up (chief complaint) Chronic painLumbago 3 Queenie Yuval. [address] [place] [address], [id number] . tel: [phone] [facility], [address] [address], [place], [address], [place] tel:[phone] [facility] chronic back pain (chief complaint) Pain, Low BackCHRONIC PAIN NEC 3 Queenie Barakat. [address] [place], [place], [id number] . tel: [phone] [facility], [address], [place], [address], tel:[phone] [facility] No Information 3 Queenie Barakat. [address] [place], [place], [id number] . tel: [phone] Family History Family Member Type Diagnosis Age At Onset No Information Payers Payer name Insurance type Covered republican ID Authoriza tion(s) [employer] Open Acces s Plus [id number] [id number] Social History Type Description Quantity Date Captured [...] Information Instructions Date Instruction Additional Infor vlad Avoid prolonged bed rest. Relate d to Chronic pain Take medication as prescribed. R elated to Chronic pain Activity as tolerated. Related t o Chronic pain Activity as tolerated. Related t o Chronic pain Avoid prolonged bed rest. Relate d to Chronic pain Take medication as prescribed. R elated to Chronic pain Activity as tolerated. Related t o Chronic pain Avoid prolonged bed rest. Relate d to Chronic pain Take medication as prescribed. R elated to Chronic pain Continue medication as prescribe d Activity as tolerated Continue medication as prescribe d Activity as tolerated Activity as tolerated Elevated BP discusse d with the patient today and recommended for patient to follow up with their PCP Assessments Type Assessment Date No Information Patient Care Teams Name Effective Dates (start - stop) Status Members No Information
--- OUTSIDE RECORDS SUMMARY | 2024-08-26 17:05 | XMS_ITS | Encounter Summary ---
Author Organization [facility] Address [address] [place] [address] Care Team Providers Care Electrician Wiring Name Role Phone Unavailable Primary Care Provider Unavailabl e Encounter Details Date Type Department Care Team (Late st Contact Info) Description 11/08/[address] [facility] [address] [facility] [place] [address] Gerardo House Jr., MD [address] [address] [place] [address] Social History Tobacco Use Types Packs/Day Years Used Date Smoking Tobacco: Never Assessed Sex and Gender Information Value Date Recorded Sex Assigned at Not on file Gender Identity Not on file Sexual Orientation Not on file documented as of this encounter Plan of Treatment Not on file documented as of this encounter Procedures Procedure Name Priority Date/Time Associated Diagnosis Comments DERMATOPATHOLOGY Routine 11/04/2021 12:0 0 AM CDT documented in this encounter Results * DERMATOPATHOLOGY (11/04/2021 12:00 AM CDT) Case Report Dermatopathology Report Case: [id number] Authorizing Provider: Gerardo House Jr., MD Collected: 11/04/2021 12:00 AM Ordering Location: [facility] Received: 11/08/2021 09:57 AM Pathologist: Sherri Enamorado MD Specimen: Skin, left posterior shoulder 2 3:50 PM CDT DERMATOPATHOLOGY LABORATORY Final Diagnosis Specimen A. 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 . 2 3:50 PM CDT DERMATOPATHOLOGY LABORATORY Gross Description Specimen A: Received is one formalin filled container labeled with the patient's name and designated left posterior shoulder. The specimen consists of a shave biopsy measuring [id number], bisected. Jar 0. 2 3:50 PM CDT DERMATOPATHOLOGY LABORATORY Microscopic Description Specimen A. SKIN, left posterior shoulder: The epidermis shows parakeratosis, full thickness disorderly maturation of keratinocytes, mitoses at different levels, and dyskeratotic cells. 2 3:50 PM CDT DERMATOPATHOLOGY LABORATORY Disclaimer An external and internal positive and negative controls are appropriate for the histochemical, immunohistochemical and immunofluorescence stain(s) in this case (if any), except where stated explicitly. The performance characteristics of the stain(s) cited in this report were developed and its performance characteristic determined by the Dermatopathology Laboratory at [facility], directed by Dr. Ligia Delaney. These tests need not be, and therefore are not, approved by the [place] Food and Drug Administration. The tests are used for clinical purposes. Billing Codes Specimen Charges Stain Charges 48389 1 2 3:50 PM CDT DERMATOPATHOLOGY LABORATORY Embedded Images 2 3:50 PM CDT DERMATOPATHOLOGY LABORATORY Pathology/Cytolog y TISSUE SPECIMEN FROM SKIN / Unknown 11/04/2021 11/08/2021 9:57 AM CDT Gerardo House Jr., MD LAB - PATHOLOGY /CYTOLOGY ORDERABLES DERMATOPATHOLOGY LABORATORY [facility] - Department of Dermatology [address], [address] [phone] documented in this encounter Visit Diagnoses Not on filedocumented in this encounter
--- OUTSIDE RECORDS SUMMARY | 2024-08-26 17:05 | XMS_ITS | Encounter Summary ---
Author Organization [facility] Address [facility] [place] [address] Care Team Providers Care Data Storage Specialist Name Role Phone Bijan Willard MD Primary Care Provider [phone] August Bedoya MD Unavailable [phone] Encounter Details Date Type Department Care Team (Late st Contact Info) Description 11/16/2018 Abstract [facility] CONVERSION [address] [place] [address] , Generic ConversionMD Social History Tobacco Use Types Packs/Day Years Used Date Smoking Tobacco: Never Assessed Sex and Gender Information Value Date Recorded Sex Assigned at Not on file 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
--- OUTSIDE RECORDS SUMMARY | 2024-08-26 17:05 | XMS_ITS | Clinical Summary ---
Author Organization [facility] Address [address] [place] [address] Care Team Providers Care Turner Off Name Role Phone Bijan Willard MD Primary Care Provider [phone] Medications VENTOLIN HFA 108 (90 Base) MCG/ACT inhaler Inhale 2 puffs into the lungs every 4 (four) hours as needed. 3 Active aspirin 81 MG chewable tablet Chew 1 tablet (81 mg total) by mouth daily. Active betamethasone dipropionate 0.05 % cream Apply 1 Application topically as needed. 3 Active hydrALAZINE (APRESOLINE) 25 MG tablet Take 1 tablet (25 mg total) by mouth 2 (two) times daily. Active hydroCHLOROthiaz remedios (HYDRODIURIL) 25 MG tablet Take 1 tablet (25 mg total) by mouth daily. Active losartan (COZAAR) 50 MG tablet Take 1 tablet (50 mg total) by mouth daily. 3 Active magnesium oxide (MAG-OX) 400 (240 Mg) MG tablet Take 1 tablet (400 mg total) by mouth 2 (two) times daily. 3 Active tacrolimus (PROGRAF) 1 MG capsule Take 1 capsule (1 mg total) by mouth 2 (two) times daily. Active silver sulfADIAZINE (SILVADENE) 1 % cream Apply 1 Application topically 2 (two) times daily. 3 Active ANORO ELLIPTA 62.5-25 MCG/ACT inhaler Inhale 1 puff into the lungs daily. 3 Active Active Problems Problem Noted Date Diagnosed Date History of below-knee amputa tion of right lower extremity (CMS/HCC HHS/HCC) 10/26/2022 Delayed wound healing 10/26/2022 Pressure ulcer of other site, stage 4 10/04/2022 Family History Medical History Relation Comments Emphysema Father Asthma Mother COPD Mother COPD Sister Relation Status Comments Brother Father Mother Sister Social History Tobacco Use Types Packs/Day Years Used Date Smoking Tobacco: Former Cigarettes Q uit: 1979 Smokeless Tobacco: Never Tobacco Cessation:Counseling Given: Not Answered Alcohol Use Standard Drinks/Week Comments Never 0 (1 standard drink = 0.6 oz pur e alcohol) Sex and Gender Information Value Date Recorded Sex Assigned at Not on file 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 Gender Identity Not on file Sexual Orientation Not on file Last Filed Vital Signs Vital Sign Reading Time Taken Comments Blood Pressure - - Pulse - - Temperature - - Respiratory Rate - - Oxygen Saturation - - Inhaled Oxygen Concentration - - Weight 80.7 kg (178 lb) 10/26/2022 1:13 PM CDT Height 175.3 cm (5' 9 ) 10/26/2022 1:13 PM CDT Body Mass Index 26.29 10/26/2022 1:13 PM CDT Plan of Treatment Health Maintenance Due Date Last Done Comments Colorectal Cancer Screening Colonoscopy (10 Years) 1950 Hepatitis C 1968 Zoster Vaccines (1 of 2) 1969 RSV Immunization or 60+ Years (1 - Risk 60-74 years 1-dose series) 2010 DTaP, Tdap and Td Vaccines ( 1 - Tdap) 07/18/2013 07/17/2013 Annual Medicare Wellness Visit 09/17/2015 COVID-19 Vaccine ( - 2023-2 5 season) 2024 06/21/2021, 08/04/2020, 07/14/2020 Influenza Adult (#1) 2024 05/22/2019, 05/17/2018, 07/17/2013 Pneumococcal Vaccine: 65+ Years Completed 05/22/2019, 06/18/2017 Meningococcal B Vaccine Aged Out No l onger eligible based on patient's age to complete this topic Meningococcal Vaccine Aged Out No madan alea eligible based on patient's age to complete this topic RSV Immunizations Under 20 Months Aged Out No longer eligible b ased on patient's age to complete this topic Insurance [facility] MEDICARE Care Teams Turner Off Relationship Specialty Start Date End Date Bijan Willard MD [address] [place] [address] PCP - General INTERNAL MEDICINE 09/26/22
--- OUTSIDE RECORDS SUMMARY | 2024-08-26 17:05 | XMS_ITS | Encounter Summary ---
Author Organization [facility] ROXANA Christine [facility] Address [address] [place] [address] Care Team Providers Care Hose Seamer Name Role Phone Bijan Willard MD Primary Care Provider Encounter Details Date Type Department Care Team ([facility] Contact Info) Description 08/25/2024 Orders Only [facility] - [place] [address] [place] [address] Srinath Tovar MD [address] [facility] [address] [place] [address] Chronic anemia Social History Tobacco Use Types Packs/Day Years Used Date Smoking Tobacco: Never Smokeless Tobacco: Never Alcohol Use Standard Drinks/Week Comments Never 0 (1 standard drink = 0.6 oz pur e alcohol) Sex and Gender Information Value Date Recorded Sex Assigned at Not on file Legal Sex Male 12:50 PM CDT Gender Identity Not on file Sexual Orientation Not on file documented as of this encounter Plan of Treatment Upcoming Encounters Date Type Department Care Team ([facility] Contact Info) Description 08/27/2024 2:30 PM CDT Office Visit [facility] - [place] [address] [place] [address] Srinath Tovar MD [address] [facility] [address] [place] [address] documented as of this encounter Visit Diagnoses Diagnosis Chronic anemia Anemia, unspecified documented in this encounter Care Teams Hose Seamer Relationship Specialty Start Date End Date Bijan Wlilard MD [address] [place] [id number] PCP - General Internal Medicine 06/20/24 documented as of this encounter
--- OUTSIDE RECORDS SUMMARY | 2024-08-26 17:06 | XMS_ITS | Clinical Summary ---
Author Organization [facility] Tiana Marino Address [address] [place] [address] Care Team Providers Care Rolling Attendant Name Role Phone Bijan Willard MD Primary Care Provider [phone] Allergies Active Allergy Reactions Criticality Noted Date Comments Yellow Dye Hives High 05/26/2024 Medications ondansetron (ZOFRAN ODT) 4 mg Tablet, Rapid Dissolve Take 4 mg by mouth every 8 hours as needed for Nausea. 03/08/20 24 Active aspirin (HENOK CHEWABLE) 81 mg Tablet, Chewable Take 81 mg by mouth daily. Active tacrolimus (PROGRAF) 1 mg capsule Take 1 mg by mouth 2 times daily. 12/10/19 24 Active albuterol sulfate HFA 90 mcg/actuation aerosol inhaler 2 Puffs by See Admin Instructions route see administration instructions. Active methadone (DOLOPHINE) 10 mg Tablet Take 5 mg by mouth daily. 05/29/20 23 Active hydroCHLOROthiaz remedios 25 mg tablet Take 25 mg by mouth daily. Active hydrALAZINE (APRESOLINE) 25 mg tablet Take 25 mg by mouth 3 times daily. Active furosemide (LASIX) 20 mg tablet Take 20 mg by mouth daily. 05/29/20 23 Active fluticasone propionate (FLONASE) 50 mcg/spray [place], Suspension nasal inhaler Administer 2 Sprays in each nostril daily. 04/01/20 24 Active clopidogreL (PLAVIX) 75 mg Tablet Take 75 mg by mouth daily. 04/22/20 24 Active cholecalciferol, Vitamin D3, 50 mcg (2,000 unit) Tablet Take 2,000 Units by mouth daily. 09/30/19 23 Active calcitRIOL (ROCALTROL) 0.25 mcg capsule Take 0.25 mcg by mouth daily. Active betamethasone dipropionate (DIPROSONE) 0.05 % Cream by See Admin Instructions route see administration instructions. Active atorvastatin (LIPITOR) 40 mg tablet Take 40 mg by mouth daily. Active metoprolol tartrate (LOPRESSOR) 25 mg tablet Take 12.5 mg by mouth daily. 05/29/20 Active ondansetron (ZOFRAN ODT) 8 mg Tablet, Rapid Dissolve Take 4 mg by mouth every 6 hours as needed for Nausea. 03/19/20 24 Active losartan (COZAAR) 50 mg tablet Take 50 mg by mouth daily. 08/17/19 Active sodium bicarbonate 650 mg tablet Take 1,300 mg by mouth 2 times daily. Active Active Problems No known active problems Encounters Date Type Department Care Team Description 08/25/2024 Orders Only [facility]ology - [place] [address] [place] [address] Srinath Tovar MD Chronic anemia 08/18/2024 External Device Data STL ABSTRACTION Provider, Abstract 08/14/2024 Orders Only [facility] - [place] [address] [place] [address] Srinath Tovar MD 08/12/2024 Orders Only [facility] - [place] [address] [place] [address] Srinath Tovar MD Chronic anemia (Primary Dx) 08/05/2024 External Device Data STL ABSTRACTION Provider, Abstract 07/08/2024 External Device Data STL ABSTRACTION Provider, Abstract 07/07/2024 Orders Only [facility] - [place] [address] [place] [address] Srinath Tovar MD 07/04/2024 Orders Only [facility] - [place] [address] [facility] [place] [address] Srinath Tovar MD 07/03/2024 Orders Only [facility] - [place] [address] [place] [address] Srinath Tovar MD 07/03/2024 Abstract [facility] - [place] [address] [place] [address] Srinath Tovar MD 07/02/2024 2:30 PM BOOKSTORE CLERK Office Visit [facility] - [place] [address] [place] [address] Srinath Tovar MD Chronic anemia (Primary Dx) 07/02/2024 External Device Data STL ABSTRACTION Provider, Abstract 07/02/2024 External Device Data STL ABSTRACTION Provider, Abstract 06/06/2024 Orders Only [facility] - [place] [address] [place] [address] Srinath Tovar MD from Last 3 Months Family History Medical History Relation Name Comments No Known Problems Brother No Known Problems Child Heart Disease Father Lung Cancer Father Emphysema Mother Emphysema Sister 1 No Known Problems Sister 2 No Known Problems Sister 3 Relation Name Status Comments Brother Child Alive Father Mother Sister 1 Sister 2 Alive Sister 3 Alive Social History Tobacco Use Types Packs/Day Years Used Date Smoking Tobacco: Never Smokeless Tobacco: Never Tobacco Cessation:Counseling Given: Not [...] Sign Reading Time Taken Comments Blood Pressure 126/71 07/02/2024 2:19 PM BOOKSTORE CLERK Pulse 70 07/02/2024 2:19 PM BOOKSTORE CLERK Temperature 37 C (98.6 F) 07/02/2024 2:19 PM BOOKSTORE CLERK Respiratory Rate 14 07/02/2024 2:19 PM BOOKSTORE CLERK Oxygen Saturation 96% 07/02/2024 2:19 PM BOOKSTORE CLERK Inhaled Oxygen Concentration - - Weight 64.9 kg (143 lb) 07/02/2024 2:19 PM BOOKSTORE CLERK Height 175.3 cm (5' 9 ) 05/26/2024 3:02 PM BOOKSTORE CLERK Body Mass Index 21.12 05/26/2024 3:02 PM BOOKSTORE CLERK Plan of Treatment Upcoming Encounters Date Type Department Care Team (Late st Contact Info) Description 08/27/2024 2:30 PM CDT Office Visit [facility] - [place] [address] [place] [address] Srinath Tovar MD [address] [facility] [address] [place] [address] Health Maintenance Due Date Last Done Comments PNEUMOCOCCAL VACCINE 50+ YEARS (1 of 2 - PCV) 09/16/18 70 Traditional Medicare (ACO) Annual Wellness Visit 09/16 ZOSTER VACCINE (1 of 2) 1969 COLORECTAL SCREENING 09/17/1995 Colorectal Cancer Screening 09/17/1995 FIT-DNA Q 3 years 09/17/1995 FIT/FOBT Q 1 year 09/17/1995 Flex Sig/CT Colonography Q 5 years 09/17/1995 RSV VACCINE (60+ or ) (1 - Risk 60-74 years 1-dose series) 2010 DTAP/TDAP/TD VACCINES (1 - Tdap) 07/18/2013 07/17/19 14 INFLUENZA VACCINE (#1) 2024 Procedures Procedure Name Priority Date/Time Associated Diagnosis Comments CBC WITH AUTODIFFERENTIAL Routine 2024 1:47 PM BOOKSTORE CLERK TYPE AND SCREEN Routine 07/02/2024 4:10 PM BOOKSTORE CLERK TYPE AND SCREEN Routine 07/02/2024 1:48 PM BOOKSTORE CLERK TYPE AND SCREEN Routine 07/02/2024 10:59 AM BOOKSTORE CLERK from Last 3 Months Results * CBC WITH AUTODIFFERENTIAL (08/13/2024 1:47 PM BOOKSTORE CLERK) Blood us Srinath Tovar MD HEMATOLOGY ORDERABLES Final Res ult * TYPE AND SCREEN (07/02/2024 4:10 PM BOOKSTORE CLERK) Only the most recent of3 resultswithin the time period is included. Blood us Srinath Tovar MD BLOOD BANK ORDERABLES Final Res ult from Last 3 Months Insurance MEDICARE PART A AND B [facility] Care Teams Rolling Attendant Relationship Specialty Start Date End Date Bijan Willard MD [address] [place] [address] PCP - General Internal Medicine 06/20/24
--- OUTSIDE RECORDS SUMMARY | 2024-08-26 17:06 | XMS_ITS | Clinical Summary ---
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 Insurance MEDICARE [facility] MEDICARE SUPPLEMENT MEDICARE [facility] Member Subscriber Plan / Payer (Ef fective for All Dates) Name:Damir Jimenez Relation to Subscriber:Self Name:Damir Jimenez Payer ID:[id number] (NAIC) Group ID:Not on file Type:[facility] Address: [address] Advance Directives For more information, please contact: [phone] * Full Code (Latest Code Status on File) Date Activated Date Inactivated Comments 05/26/2023 5:16 PM 05/28/2023 7:43 PM Care Teams Retail Team Member Relationship Specialty Start Date End Date Bijan Willard MD [address] [facility] [address] [place] [address] PCP - General Internal Medicine 09/06/22 Sherry Crane, RN [address] [facility] [address] [place] [address] Belting And Webbing Inspector 11/06/17
--- OUTSIDE RECORDS SUMMARY | 2024-08-26 17:06 | XMS_ITS | Referral Summary ---
Author Organization [facility] Address [address] [place] [address] Care Team Providers Care Comb Fixer Name Role Phone Sherry Crane RN Unavailable [phone] Bijan Willard MD Primary Care Provider [phone] Encounters Date Type Department Care Team Description 07/22/2024 Telephone [facility] Transplant Liver [address] [place] [address] [place] [id number] Sherry Crane RN Lab Results 07/07/2024 Orders Only [facility] Transplant Liver [address] [place] [address] [place] [phone] Fidelina Keller History of liver transplant (HCC) (Primary Dx); Encounter for long-term (current) use of high-risk medication 07/03/2024 Telephone [facility] Transplant Liver [address] [place] [address] [place] [address] Sherry Crane RN 07/02/2024 Telephone [facility] Transplant Liver [address] [place] [address] [place] [address] Sherry Crane, cap and hat production supervisor Results from Last 3 Months Allergies Active Allergy Reactions Criticality Noted Date [...] Units total) by mouth daily 30 tablet 09/30/19 23 Active sodium zirconium cyclosilicate (LOKELMA) 10 gram packetIndications :hyperkalemia Take 1 packet (10 g total) by mouth daily 30 packet 05/29/20 23 Active furosemide (LASIX) 20 mg tablet Take 1 tablet (20 mg total) by mouth daily 30 tablet 05/29/20 23 Active methadone (DOLOPHINE) 10 mg tabletIndications :severe chronic pain requiring long-term opioid treatment,called out pt clinic ) and confirmed this dose. Take 15 tablets by mouth industrial arts teacher before breakfast Indications: severe chronic pain requiring long-term opioid treatment, called out pt clinic ) and confirmed this dose. 05/29/20 23 Active Additional Information Patient not taking.Reported on 05/07/2024 metoprolol tartrate (LOPRESSOR) 25 mg immediate release tablet Take 0.5 tablets (12.5 mg total) by mouth daily 15 tablet 05/29/20 23 Active tamsulosin (FLOMAX) 0.4 mg extended release [...] be different from the original. Labs at [facility] in [facility] ph [phone]. Meds: Jarod [place] ph [phone] Lab Name:[facility] Timeframe orders are good for: 1 year Last orders sent to lab on: 07/07/24 Test ordered for the standing order and frequency every 2 weeks Problem Noted Date Diagnosed Date Anemia 05/28/2023 Assessment & Plan (05/28/2023 8:29 AM FOAM CUTTING SUPERVISOR): - R/T chronic disease - monitor Chronic pain 05/27/2023 Assessment & Plan (05/28/2023 2:06 PM FOAM CUTTING SUPERVISOR): Per patient he is on methadone 150 mg daily and is following with the clinic - Confirmed dose on 05/28, continue home dose. Assessment & Plan (05/28/2023 8:29 AM FOAM CUTTING SUPERVISOR): Patient has a h/o drug abuse, has been on methadone for ~8-9 years. - continue methadone 50mg daily - Acute pain management with PRN Tylenol, oxycodone, and dilaudid - called methadone clinic x2 this AM and had to leave messages Community acquired pneumonia 05/27/2023 Assessment & Plan (05/28/2023 8:24 AM FOAM CUTTING SUPERVISOR): CXR from 05/26 with evidence of R lung opacities - WBC elevated on admission. - start Levaquin for CAP Pneumothorax 05/26/2023 Assessment & Plan (05/28/2023 2:04 PM FOAM CUTTING SUPERVISOR): In the setting of COPD and HF -COPD on 2L O2 at home presented with 1st time spontaneous Was found to have spontaneous pneumothorax, s/p chest tube S/p tube removed 05/27/23 - Stable, back to baseline and home oxygen use. -D/w Thorax Surgery on 05/28, Assessment & Plan (05/28/2023 8:24 AM FOAM CUTTING SUPERVISOR): Transferred from OSH for PTX. R CT placed on 05/26. - CXR from 05/27 reveals resolution of PTX. - CT removed on 05/27 - post pull CXR stable Assessment & Plan (05/26/2023 8:53 PM FOAM CUTTING SUPERVISOR): - 05/26: R chest tube placed at OSH, chest tube to -20 - O2 therapy Shortness of breath 05/26/2023 Overview (05/26/2023): Pt endorsed he cannot lay flat at home during sleep and he has been seeing a mortgage underwriter though underlying reason unclear. Also, he has been on diuretic and beta-andrew and plavix and eliquis for unknown reason. Assessment & Plan (05/26/2023 6:49 PM FOAM CUTTING SUPERVISOR): - COPD vs cardiogenic - On diuretics and beta-andrew at home - diuretic resumed, follow up BNP Hyperkalemia 05/26/2023 Assessment & Plan (05/28/2023 2:05 PM FOAM CUTTING SUPERVISOR): Likely due to JAMES on CKD4 S/p lokelma 10mg q8h, lasix 40 IV x1 Nephro txp team consulted and following. K stable on 05/28, renal wants to dc/ pt home with diuretics and daily Loklema use with f/u labs locally. Assessment & Plan (05/28/2023 8:24 AM FOAM CUTTING SUPERVISOR): - K elevated on admission - hyperkalemia protocol initiated as per nephro recs. 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 Also Lokelma 10 mg po daily at d/c. - Renal ultrasound, 1. Bilateral renal parenchymal thinning in keeping with chronic kidney disease, with atrophic left kidney. No hydronephrosis. 2. Nonobstructive right mid kidney stone. 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 Other contributing factors include hypertension. Based on Tacrolimus trough level to be drawn soon, I will then make additional adjustments to try and preserve renal function. Low back pain 10/25/2013 Overview (09/15/2016): LUMBAGO History of liver transplant (CMS/HCC) 10/25/2013 Overview (09/15/2016): TRANSPLANT STATUS NOS Assessment [...] glucose) Assessment & Plan (05/27/2023 6:18 AM FOAM CUTTING SUPERVISOR): Advanced to carb consistent diet Assessment & Plan (05/26/2023 6:44 PM FOAM CUTTING SUPERVISOR): - Trend bG and A1C Degeneration of intervertebral disc of lumbar re gion 07/09/2012 Overview (09/13/2016): DDD (degenerative disc disease), lumbar Chronic obstructive pulmonary disease 07/09/2012 Overview (09/15/2016): COPD (chronic obstructive pulmonary disease) Assessment & Plan (05/28/2023 2:07 PM FOAM CUTTING SUPERVISOR): Complicated with spont. Pneumothorax, see above Continue inhalers and home oxygen dependent -Chronic resp failure, due to COPD and home oxygen use Assessment & Plan (05/27/2023 9:39 AM FOAM CUTTING SUPERVISOR): On 2L NC at home, currently at baseline Assessment & Plan (05/26/2023 6:43 PM FOAM CUTTING SUPERVISOR): - on home O2 and nebulizer - duo nebulizer q4h + O2 therapy History of liver transplant 10/08/2010 Assessment & Plan (05/28/2023 2:05 PM FOAM CUTTING SUPERVISOR): Resume tacrolimus and out pt f/u with Liver TXP clinic. Assessment & Plan (05/26/2023 6:41 PM FOAM CUTTING SUPERVISOR): - On prograf 2mg bid - tarco trough Immunizations Immunization Administration Dates Next Due Influenza, Split 07/17/2013 Free Flow Power (J&J) SARS-CoV-2 Vaccination 05/18/2023 TD Preservative Free 07/17/2013 Social History Tobacco Use Types Packs/Day Years [...] on file Legal Sex Male 1:02 AM FOAM CUTTING SUPERVISOR Gender Identity Not on file Sexual Orientation Not on file Last Filed Vital Signs Vital Sign Reading Time Taken Comments Blood Pressure 126/57 05/07/2024 8:51 AM FOAM CUTTING SUPERVISOR Pulse 66 05/07/2024 8:51 AM FOAM CUTTING SUPERVISOR Temperature 37.1 C (98.7 F) 11/21/2023 9:08 AM CDT Respiratory Rate 18 05/28/2023 2:41 PM FOAM CUTTING SUPERVISOR Oxygen Saturation 97% 05/07/2024 8:51 AM FOAM CUTTING SUPERVISOR Inhaled Oxygen Concentration - - Weight 65.3 kg (144 lb) 05/07/2024 8:51 AM FOAM CUTTING SUPERVISOR Height 175.3 cm (5' 9 ) 05/07/2024 8:51 AM FOAM CUTTING SUPERVISOR Body Mass Index 21.27 05/07/2024 8:51 AM FOAM CUTTING SUPERVISOR Plan of Treatment Not on file Procedures Procedure Name Priority Date/Time Associated Diagnosis [...] 20.0 TXP NO LAB FOUND Blood 07/18/2024 us Historical Provider LAB BLOOD ORDERABLES Edit ed Result - Final TXP NO LAB FOUND * (ABNORMAL) CBC without differential (07/18/2024) SCRIBED WBC 5.9 4.8 - 10.8 k/cumm TXP NO LAB FOUND SCRIBED Hemoglobin 9.7(A) 12.4 - 15.3 g/dL TXP NO LAB FOUND SCRIBED Hematocrit 30.7(A) 37 - 46 % TXP NO LAB FOUND SCRIBED Platelets 139(A) 150 - 420 k/cumm TXP NO LAB FOUND Blood 07/18/2024 Historical Provider MD LAB BLOOD ORDERABLES Edit ed Result - Final Performing Organization Address [facility] Co de Phone Number TXP NO LAB FOUND * Gamma GT (07/18/2024) Pathologist [facility] SCRIBED GGT 21 15 - 85 TXP NO L AB FOUND Blood 07/18/2024 Historical Provider MD LAB BLOOD ORDERABLES Edit ed Result - Final Performing Organization Address [facility] Co de Phone Number TXP NO LAB FOUND * (ABNORMAL) Comprehensive metabolic panel (07/18/2024) Pathologist [facility] SCRIBED Sodium 142 136 - 145 mmol/L [...] NO LAB FOUND Blood 07/18/2024 Historical Provider MD LAB BLOOD ORDERABLES Angeline l Result TXP NO LAB FOUND * Tacrolimus level trough (07/02/2024) SCRIBED Tacrolimus, trough <1.0 5.0 - 20.0 TXP NO LAB FOUND Blood 07/02/2024 Historical Provider LAB BLOOD ORDERABLES Edit ed Result - Final TXP NO LAB FOUND * (ABNORMAL) CBC [...] TXP NO LAB FOUND Blood 07/02/2024 Result [facility] Provider LAB BLOOD ORDERABLES Edit ed Result - Final Performing Organization Address [facility] de Phone Number TXP NO LAB FOUND * (ABNORMAL) Protein / creatinine ratio, urine, random (07/02/2024) SCRIBED Protein, Urine 79(A) 0.0 - 11.9 TXP NO LAB FOUND SCRIBED Creatinine, Urine 75.82 40 - 278 TXP NO LAB FOUND SCRIBED Protein/Creat Ratio 1.4(A) 0.0 - 0.2 TXP NO LAB FOUND Urine 07/02/2024 Result [facility] LAB URINE ORDERABLES Edit ed Result - Final Performing Organization Address [facility] Phone Number TXP NO LAB FOUND * Vitamin D 25 hydroxy (07/02/2024) SCRIBED 25-OH Vitamin D 47 30 - 100 ng/mL TXP NO LAB FOUND Blood 07/02/2024 Result [facility] Provider LAB BLOOD ORDERABLES Edit ed Result - Final Performing Organization Address [facility] de Phone Number TXP NO LAB FOUND * (ABNORMAL) Phosphorus (07/02/2024) SCRIBED Phosphorus 6.6(A) 2.5 - 4.7 mg/dl TXP NO LAB FOUND Blood 07/02/2024 Result [facility] Provider LAB BLOOD ORDERABLES Angeline l Result Performing Organization Address [facility] de Phone Number TXP NO LAB FOUND * (ABNORMAL) PTH (07/02/2024) SCRIBED iPTH 111(A) 16 - 77 pg/mL TXP NO LAB FOUND Blood 07/02/2024 Historical Provider MD LAB BLOOD ORDERABLES Edit ed Result - Final Performing Organization Address City/[facility]/ZIP Co de Phone Number TXP NO LAB FOUND * Gamma GT (07/02/2024) SCRIBED GGT <17 15 - 85 TXP NO L AB FOUND Blood 07/02/2024 Historical Provider LAB BLOOD ORDERABLES Edit ed Result - Final Performing Organization Address [email or web address] de Phone Number TXP NO LAB FOUND [...] OF EXAM: Nov 08 2015 9:00PM Acc#: [id number] ECT 0073 - CT Abd/Pel WO DIAGNOSIS: [...] THE ABDOMEN AND PELVIS IS OTHERWISE UNREMARKABLE. NOVELTY TWISTER TENDER: DH9 TRANSCRIBE DATE/TIME: Nov 09 2015 7:53A RADIOLOGIST: ARIELLE CARMEN M.D. READ ON: Nov 08 2015 9:16P ORDERING DR: BRENNA ROMERO M.D. THIS DOCUMENT HAS BEEN ELECTRONICALLY SIGNED BY: ARIELLE CARMEN M.D. ON: Nov 09 2015 4:19P Attending: NICOLE ORTIZ Requesting: BRENNA ROMERO Requesting Attending Attending ID: [id number] Requesting ID: [id number] Report To 1 ID: [id number] Report To 1 Name: NICOLE ORTIZ Report To 1 FAX: [phone] Report To 2 ID: Report To 2 Name: , Report To 2 FAX: -- NextGen Order #: Procedure Note Provider, MD Beatriz - 09/29/2016 DATE OF EXAM: Nov 08 2015 9:00PM Acc#: [id number] ECT 0073 - CT Abd/Pel WO DIAGNOSIS: [...] THE ABDOMEN AND PELVIS IS OTHERWISE UNREMARKABLE. NOVELTY TWISTER TENDER: DH9 TRANSCRIBE DATE/TIME: Nov 09 2015 7:53A RADIOLOGIST: ARIELLE CARMEN M.D. READ ON: Nov 08 2015 9:16P ORDERING DR: BRENNA ROMERO M.D. THIS DOCUMENT HAS BEEN ELECTRONICALLY SIGNED BY: ARIELLE CARMEN M.D. ON: Nov 09 2015 4:19P Attending: NICOLE ROTIZ Requesting: BRENNA ROMERO Requesting Attending Attending ID: [id number] Requesting ID: [id number] Report To 1 ID: [id number] Report To 1 Name: NICOLE ORTIZ Report To 1 FAX: [phone] Report To 2 ID: Report To 2 Name: , Report To 2 FAX: -- NextGen Order #: Historical Provider MD HONG CT PROCEDURES Final R esult from Last 3 Months or Most Recently Relevant to Health Maintenance Insurance MEDICARE [facility] MEDICARE SUPPLEMENT MEDICARE [facility] Advance Directives For more information, please contact: [phone] * Full Code (Latest Code Status on File) Date Activated Date Inactivated Comments 05/26/2023 5:16 PM 05/28/2023 7:43 PM Care Teams Comb Fixer Relationship Specialty Start Date End Date Bijan Willard MD [address] [address] PCP - General Internal Medicine 09/06/22 Sherry Crane RN [address] [address] Cradle Placer 11/06/17
--- OUTSIDE RECORDS SUMMARY | 2024-08-26 17:06 | XMS_ITS | Clinical Summary ---
Author Organization [facility] Address [address] [place] [address] Care Team Providers Care Food And Beverage Order Clerk Name Role Phone Unavailable Primary Care Provider Unavailabl e Source Comments [facility] [employer],non-owned Affiliates and Associated Physician Practices is amultiple site organization consisting of ambulatory clinics and hospital sitesin [place], [place], [place] and [place]. This disclosure is being madepursuant to the Care Everywhere program and may not contain all information available regarding this patient. Last updated 18.[facility] [employer] Social History Tobacco Use Types Packs/Day Years Used Date Smoking Tobacco: Never Assessed Sex and Gender Information Value Date Recorded Sex Assigned at Not on file Gender Identity Not on file Sexual Orientation Not on file Plan of Treatment Health Maintenance Due Date Last Done Comments COLOGUARD (AGES 45-75) - COL ON CA SCREENING 1950 COLON MONITORING 1950 COLONOSCOPY - COLON CA SCREENING 1950 CT COLONOGRAPHY - COLON CA SCREENING 1950 Colorectal Cancer Screening 1950 FIT - COLON CA SCREENING 1950 FLEX SIG - COLON CA SCREENING 1950 LIPID TESTING 1950 MEDICARE AWV 12 MONTHS 1950 HEPATITIS C SCREENING 09/11/1968 DTAP/TDAP/TD VACCINES (1 - Tdap) 1969 PNEUMOCOCCAL VACCINE 50+ (1 of 1 - PCV) 2000 ZOSTER VACCINE (1 of 2) 2000 COVID-19 VACCINE (2 - 2023-2 5 season) 2024 05/18/2023 INFLUENZA VACCINE (#1) 2024 07/17/2013 DEPRESSION SCREENING 06/11/2024 Respiratory Syncytial Virus (RSV) Vaccine Pt: or over 60 yrs (1 - 1-dose 75+ series) 2025 HEPATITIS B VACCINE Aged Out No longe r eligible based on patient's age to complete this topic HIB VACCINE Aged Out No longer eligi ble based on patient's age to complete this topic HPV VACCINE Aged Out No longer eligi ble based on patient's age to complete this topic MENINGOCOCCAL (Group B) VACC INE SHARED DECISION-MAKING Aged Out No longer eligibl e based on patient's age to complete this topic MENINGOCOCCAL GROUPS A/C/Y/W VACCINE Aged Out No longer eligible b ased on patient's age to complete this topic
== END 2024-08-26 15:08 | disposition home or self-care (01) ==
PROVIDERS: PCP Internal Medicine; Visit Provider Internal Medicine Hematology & Oncology
DX: D64.9 Anemia, unspecified (principal)
CPT/HCPCS: 36415; 80048; 82607; 85027

== ENCOUNTER 2024-09-29 11:29 | Outpatient (CLI) | payer MEDICARE, SELFPAY ==
[2024-09-29 12:47] LABS: Creatinine Urine 89.92 mg/dL (40-278); Total Protein Urine Random 68.3 mg/dL (0.0-11.9); Ur Ttl Prot Creatinine Ratio 0.76 mg/mg (0-0.20)
[2024-09-29 12:50] LABS: Albumin Level 3.6 g/dL (3.4-5.0); Anion Gap 11 mmol/L (4-12); Blood Urea Nitrogen 82 mg/dL (7-18); Calcium 8.8 mg/dL (8.5-10.1); Carbon Dioxide 29 mmol/L (21-32); Chloride 101 mmol/L (98-108); Estimated Glomerular Filt Rate 8; Glucose 90 mg/dL (70-99); Osmolality Calculated 316 mOsm/kg (285-295); Potassium 4.9 mmol/L (3.5-5.1); Sodium 141 mmol/L (136-145)
--- OUTSIDE RECORDS SUMMARY | 2024-09-29 13:16 | XMS_ITS | Clinical Summary ---
Author Organization [facility] Address [address] [place] [address] Care Team Providers Care Packaging Sales Consultant Name Role Phone Sherry Crane RN Unavailable [phone] Bijan Willard MD Primary Care Provider [phone] Allergies Active Allergy Reactions Criticality Noted Date [...] requiring long-term opioid treatment,called out pt clinic ( [phone] ) and confirmed this dose. 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 Labs at [facility] in [facility] ph [phone]. Meds: Jarod Cervantes ph [phone] Lab Name:[facility] Timeframe orders are good for: 1 year Last orders sent to lab on: 07/07/24 Test ordered for the standing order and frequency every 2 weeks Problem Noted Date Diagnosed Date Anemia 05/28/2023 Assessment & Plan (05/28/2023 8:29 AM MAGNESIUM MILL OPERATOR): - R/T chronic disease - monitor Chronic pain 05/27/2023 Assessment & Plan (05/28/2023 2:06 PM MAGNESIUM MILL OPERATOR): Per patient he is on methadone 150 mg daily and is following with the clinic - Confirmed dose on 05/28, continue home dose. Assessment & Plan (05/28/2023 8:29 AM MAGNESIUM MILL OPERATOR): Patient has a h/o drug abuse, has been on methadone for ~8-9 years. - continue methadone 50mg daily - Acute pain management with PRN Tylenol, oxycodone, and dilaudid - called methadone clinic x2 this AM and had to leave messages Community acquired pneumonia 05/27/2023 Assessment & Plan (05/28/2023 8:24 AM MAGNESIUM MILL OPERATOR): CXR from 05/26 with evidence of R lung opacities - WBC elevated on admission. - start Levaquin for CAP Pneumothorax 05/26/2023 Assessment & Plan (05/28/2023 2:04 PM MAGNESIUM MILL OPERATOR): In the setting of COPD and HF -COPD on 2L O2 at home presented with 1st time spontaneous Was found to have spontaneous pneumothorax, s/p chest tube S/p tube removed 05/27/23 - Stable, back to baseline and home oxygen use. -D/w Thorax Surgery on 05/28, Assessment & Plan (05/28/2023 8:24 AM MAGNESIUM MILL OPERATOR): Transferred from OSH for PTX. R CT placed on 05/26. - CXR from 05/27 reveals resolution of PTX. - CT removed on 05/27 - post pull CXR stable Assessment & Plan (05/26/2023 8:53 PM MAGNESIUM MILL OPERATOR): - 05/26: R chest tube placed at OSH, chest tube to -20 - O2 therapy Shortness of breath 05/26/2023 Overview (05/26/2023): Pt endorsed he cannot lay flat at home during sleep and he has been seeing a customer experience retail clerk though underlying reason unclear. Also, he has been on diuretic and beta-andrew and plavix and eliquis for unknown reason. Assessment & Plan (05/26/2023 6:49 PM MAGNESIUM MILL OPERATOR): - COPD vs cardiogenic - On diuretics and beta-andrew at home - diuretic resumed, follow up BNP Hyperkalemia 05/26/2023 Assessment & Plan (05/28/2023 2:05 PM MAGNESIUM MILL OPERATOR): Likely due to JAMES on CKD4 S/p lokelma 10mg q8h, lasix 40 IV x1 Nephro txp team consulted and following. K stable on 05/28, renal wants to dc/ pt home with diuretics and daily Loklema use with f/u labs locally. Assessment & Plan (05/28/2023 8:24 AM MAGNESIUM MILL OPERATOR): - K elevated on admission - hyperkalemia protocol initiated as per nephro recs. 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 Also Lokelma 10 mg po daily at d/c. - Renal ultrasound, 1. Bilateral renal parenchymal thinning in keeping with chronic kidney disease, with atrophic left kidney. No hydronephrosis. 2. Nonobstructive right mid kidney stone. 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 Other contributing factors include hypertension. Based on Tacrolimus trough level to be drawn soon, I will then make additional adjustments to try and preserve renal function. Low back pain 10/25/2013 Overview (09/15/2016): LUMBAGO History of liver transplant ([facility]) 10/25/2013 Overview (09/15/2016): TRANSPLANT STATUS NOS Assessment [...] glucose) Assessment & Plan (05/27/2023 6:18 AM MAGNESIUM MILL OPERATOR): Advanced to carb consistent diet Assessment & Plan (05/26/2023 6:44 PM MAGNESIUM MILL OPERATOR): - Trend bG and A1C Degeneration of intervertebral disc of lumbar re gion 07/09/2012 Overview (09/13/2016): DDD (degenerative disc disease), lumbar Chronic obstructive pulmonary disease 07/09/2012 Overview (09/15/2016): COPD (chronic obstructive pulmonary disease) Assessment & Plan (05/28/2023 2:07 PM MAGNESIUM MILL OPERATOR): Complicated with spont. Pneumothorax, see above Continue inhalers and home oxygen dependent -Chronic resp failure, due to COPD and home oxygen use Assessment & Plan (05/27/2023 9:39 AM MAGNESIUM MILL OPERATOR): On 2L NC at home, currently at baseline Assessment & Plan (05/26/2023 6:43 PM MAGNESIUM MILL OPERATOR): - on home O2 and nebulizer - duo nebulizer q4h + O2 therapy History of liver transplant 10/08/2010 Assessment & Plan (05/28/2023 2:05 PM MAGNESIUM MILL OPERATOR): Resume tacrolimus and out pt f/u with Liver TXP clinic. Assessment & Plan (05/26/2023 6:41 PM MAGNESIUM MILL OPERATOR): - On prograf 2mg bid - tarco trough Encounters Date Type Department Care Team Description 07/22/2024 Telephone [facility] Transplant Liver [address] [phone] [place] [address] Sherry Crane snow ranger Results 07/07/2024 Orders Only [facility] Transplant Liver [address] [phone] [place] [address] Fidelina Keller History of liver transplant (HCC) (Primary Dx); Encounter for long-term (current) use of high-risk medication 07/03/2024 Telephone [facility] Transplant Liver [address] [phone] [place] [address] Sherry Crane RN 07/02/2024 Telephone [facility] Transplant Liver [address] [place] [address] [address] [phone] [place] [address] Sherry Crane RN Lab Results from Last 3 Months Immunizations Immunization Administration Dates Next Due Influenza, Split 07/17/2013 [employer]Influence (J&J) SARS-CoV-2 Vaccination 05/18/2023 TD Preservative Free 07/17/2013 Surgical History Surgery Date Site/Laterality Comments OTHER SURGICAL HISTORY Herniated L4 & L5 Disks OTHER SURGICAL HISTORY Multiple lithotripsies w/ hx of calcium oxalate stone OTHER SURGICAL HISTORY 2007 Hepatitis C: orthotopic liver txp OTHER SURGICAL HISTORY punctured lung from liver biopsy: chest tube - Santizo MA LVR ALTRNSPLJ ORTHOTOPIC PRTL/WHL DON ANY AGE [...] Dr Ernie weinberg Hx Other Medical 02 Restaurant Supervisor /Surgeon: Dr Kaiser Hx Other Medical 03 [...] on file Legal Sex Male 1:02 AM MAGNESIUM MILL OPERATOR Gender Identity Not on file Sexual Orientation Not on file Obstetrics History Last Filed Vital Signs Vital Sign Reading Time Taken Comments Blood Pressure 126/57 05/07/2024 8:51 AM MAGNESIUM MILL OPERATOR Pulse 66 05/07/2024 8:51 AM MAGNESIUM MILL OPERATOR Temperature 37.1 C (98.7 F) 11/21/2023 9:08 AM CDT Respiratory Rate 18 05/28/2023 2:41 PM MAGNESIUM MILL OPERATOR Oxygen Saturation 97% 05/07/2024 8:51 AM MAGNESIUM MILL OPERATOR Inhaled Oxygen Concentration - - Weight 65.3 kg (144 lb) 05/07/2024 8:51 AM MAGNESIUM MILL OPERATOR Height 175.3 cm (5' 9 ) 05/07/2024 8:51 AM MAGNESIUM MILL OPERATOR Body Mass Index 21.27 05/07/2024 8:51 AM MAGNESIUM MILL OPERATOR Plan of Treatment Health Maintenance Due Date Last Done Comments Colon Cancer Screening-Colonoscopy 1950 Depression Screening 1950 Hepatitis B Screening 1968 Zoster Vaccine (1 of 2) 1969 DTaP/Tdap/Td Vaccine (1 - Tdap) 07/18/2013 4 Well Visit 65+ 09/17/2015 Covid-19 Vaccine (2023-2 5 season) 2024 05/18/2023, 06/21/2021, 08/04/2020, Additional history exists Fall Risk Assessment 05/28/2024 05/28/2023 Influenza Vaccine (Season Ended) 2025 05/22/2019, 05/17/2018, 07/17/2013 Abdominal Aortic Aneurysm (A AA) Screen Completed [...] 20.0 TXP NO LAB FOUND Blood 07/18/2024 [facility] Provider MD LAB BLOOD ORDERABLES Edit ed Result - Final Performing Organization Address [facility] Phone Number TXP NO LAB FOUND * (ABNORMAL) CBC without differential (07/18/2024) SCRIBED WBC 5.9 4.8 - 10.8 k/cumm TXP NO LAB FOUND SCRIBED Hemoglobin 9.7(A) 12.4 - 15.3 g/dL TXP NO LAB FOUND SCRIBED Hematocrit 30.7(A) 37 - 46 % TXP NO LAB FOUND SCRIBED Platelets 139(A) 150 - 420 k/cumm TXP NO LAB FOUND Blood 07/18/2024 [facility] Provider LAB BLOOD ORDERABLES Edit ed Result - Final Performing Organization Address [facility] Phone Number TXP NO LAB FOUND * Gamma GT (07/18/2024) SCRIBED GGT 21 15 - 85 TXP NO L AB FOUND Blood 07/18/2024 Result [facility] Provider LAB BLOOD ORDERABLES Edit ed Result - Final Performing Organization Address [facility] de Phone Number TXP NO [...] ORDERABLES Angeline l Result Performing Organization Address [facility] de Phone Number TXP NO LAB FOUND * Tacrolimus level trough (07/02/2024) SCRIBED Tacrolimus, trough <1.0 5.0 - 20.0 TXP NO LAB FOUND Blood 07/02/2024 Historical Provider LAB BLOOD ORDERABLES Edit ed Result - Final Performing Organization Address [facility] de Phone Number TXP NO LAB FOUND [...] TXP NO LAB FOUND Blood 07/02/2024 Result [facility] Provider LAB BLOOD ORDERABLES Edit ed Result - Final Performing Organization Address [facility] de Phone Number TXP NO LAB FOUND * (ABNORMAL) Protein / creatinine ratio, urine, random (07/02/2024) SCRIBED Protein, Urine 79(A) 0.0 - 11.9 TXP NO LAB FOUND SCRIBED Creatinine, Urine 75.82 40 - 278 TXP NO LAB FOUND SCRIBED Protein/Creat Ratio 1.4(A) 0.0 - 0.2 TXP NO LAB FOUND Urine 07/02/2024 Result [facility] LAB URINE ORDERABLES Edit ed Result - Final Performing Organization Address [facility] de Phone Number TXP NO LAB FOUND * Vitamin D 25 hydroxy (07/02/2024) SCRIBED 25-OH Vitamin D 47 30 - 100 ng/mL TXP NO LAB FOUND Blood 07/02/2024 Result [facility] Provider LAB BLOOD ORDERABLES Edit ed Result - Final Performing Organization Address [facility] de Phone Number TXP NO LAB FOUND * (ABNORMAL) Phosphorus (07/02/2024) SCRIBED Phosphorus 6.6(A) 2.5 - 4.7 mg/dl TXP NO LAB FOUND Blood 07/02/2024 Historical Provider MD LAB BLOOD ORDERABLES Angeline l Result Performing Organization Address [facility] de Phone Number TXP NO LAB FOUND * (ABNORMAL) PTH (07/02/2024) SCRIBED iPTH 111(A) 16 - 77 pg/mL TXP NO LAB FOUND Blood 07/02/2024 [facility] Provider MD LAB BLOOD ORDERABLES Edit ed Result - Final Performing Organization Address [facility] Phone Number TXP NO LAB FOUND * Gamma GT (07/02/2024) SCRIBED GGT <17 15 - 85 TXP NO L AB FOUND Blood 07/02/2024 Result [facility] Provider MD LAB BLOOD ORDERABLES Edit ed Result - Final Performing Organization Address [facility] Phone Number TXP NO LAB FOUND * [...] OF EXAM: Nov 08 2015 9:00PM Acc#: [id number] ECT 0073 - CT Abd/Pel WO DIAGNOSIS: [...] THE ABDOMEN AND PELVIS IS OTHERWISE UNREMARKABLE. REIMBURSEMENT CONSULTANT: LETICIA TRANSCRIBE DATE/TIME: Nov 09 2015 7:53A RADIOLOGIST: ARIELLE CARMEN M.D. READ ON: Nov 08 2015 9:16P ORDERING DR: BRENNA ROMERO M.D. THIS DOCUMENT HAS BEEN ELECTRONICALLY SIGNED BY: ARIELLE CARMEN M.D. ON: Nov 09 2015 4:19P Attending: NICOLE ORTIZ Requesting: BRENNA ROMERO Requesting Attending Attending ID: [id number] Requesting ID: [id number] Report To 1 ID: [id number] Report To 1 Name: NICOLE ORTIZ Report To 1 FAX: [phone] Report To 2 ID: Report To 2 Name: , Report To 2 FAX: -- NextGen Order #: Procedure Note Provider, MD Beatriz - 09/29/2016 DATE OF EXAM: Nov 08 2015 9:00PM Acc#: [id number] ECT 0073 - CT Abd/Pel WO DIAGNOSIS: [...] THE ABDOMEN AND PELVIS IS OTHERWISE UNREMARKABLE. REIMBURSEMENT CONSULTANT: LETICIA TRANSCRIBE DATE/TIME: Nov 09 2015 7:53A RADIOLOGIST: ARIELLE CARMEN M.D. READ ON: Nov 08 2015 9:16P ORDERING DR: BRENNA ROMERO M.D. THIS DOCUMENT HAS BEEN ELECTRONICALLY SIGNED BY: ARIELLE CARMEN M.D. ON: Nov 09 2015 4:19P Attending: NICOLE ORTIZ Requesting: BRENNA ROMERO Requesting Attending Attending ID: [id number] Requesting ID: [id number] Report To 1 ID: [id number] Report To 1 Name: NICOLE ORTIZ Report To 1 FAX: [phone] Report To 2 ID: Report To 2 Name: , Report To 2 FAX: -- NextGen Order #: Historical Provider MD HONG CT PROCEDURES Final R esult from Last 3 Months or Most Recently Relevant to Health Maintenance Insurance MEDICARE [facility] MEDICARE SUPPLEMENT MEDICARE [facility] Address: [address] Advance Directives For more information, please contact: [phone] * Full Code (Latest Code Status on File) Date Activated Date Inactivated Comments 05/26/2023 5:16 PM 05/28/2023 7:43 PM Care Teams Packaging Sales Consultant Relationship Specialty Start Date End Date Bijan Willard MD [address] [facility] [address] [place] [address] PCP - General Internal Medicine 09/06/22 Sherry Crane, RN [address] [facility] [facility] [address] [place] [address] Patient Intake Coordinator 11/06/17
--- OUTSIDE RECORDS SUMMARY | 2024-09-29 13:16 | XMS_ITS | Clinical Summary ---
Author Organization [facility] Address [address] [place] [address] Care Team Providers Care Assistant Hvac Mechanic Name Role Phone Unavailable Primary Care Provider Unavailabl e Source Comments [facility] [employer],non-owned Affiliates and Associated Physician Practices is amultiple site organization consisting of ambulatory clinics and hospital sitesin [place], [place], [place] and [place]. This disclosure is being madepursuant to the Care Everywhere program and may not contain all information available regarding this patient. 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 MEDICARE ANTHEM
--- OUTSIDE RECORDS SUMMARY | 2024-09-29 13:16 | XMS_ITS | Encounter Summary ---
Author Organization [facility] Address [address] [place] [address] Care Team Providers Care Tire Specialist Name Role Phone Unavailable Primary Care Provider Unavailabl e Encounter Details Date Type Department Care Team (Late st Contact Info) Description 03/21/2023 Lab Requisition [facility] - DermPath Lab [address] [place] [address] Lanette Torres MD [address] [facility] [address] [place] [address] Social History Tobacco Use Types Packs/Day Years Used Date Smoking Tobacco: Never Assessed Sex and Gender Information Value Date Recorded Sex Assigned at Not on file 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 Gender Identity Not on file Sexual Orientation Not on file documented as of this encounter Plan of Treatment Not on file documented as of this encounter Procedures Procedure Name Priority Date/Time Associated Diagnosis Comments DERMATOPATHOLOGY Routine 03/21/2023 2:43 PM CDT documented in this encounter Results * DERMATOPATHOLOGY (03/21/2023 2:43 PM CDT) Case Report Dermatopathology Report Case: [id number] Authorizing Provider: Lanette Torres MD Collected: 03/21/2023 02:43 PM Ordering Location: [facility] Lab Received: 03/22/2023 01:56 PM Pathologist: Margo Blake MD Specimen: Skin, left arm 12:48 PM CDT DERMATOPATHOLOGY LABORATORY Final Diagnosis Specimen A. SKIN, left arm: HYPERPLASTIC (HYPERTROPHIC) ACTINIC KERATOSIS (L57.0) 12:48 PM CDT DERMATOPATHOLOGY LABORATORY Clinical History PSO vs. SCC 12:48 PM CDT DERMATOPATHOLOGY LABORATORY Gross Description Specimen A: Received is one formalin filled container labeled with the patient's name and designated left arm. The specimen consists of a shave biopsy measuring 34f05o5 mm. Jar 0. 12:48 PM CDT DERMATOPATHOLOGY LABORATORY Microscopic Description Specimen A. SKIN, left arm: There is hyperkeratosis alternating with parakeratosis. There is epidermal hyperplasia with disorderly maturation of keratinocytes with nuclear pleomorphism confined to the lower half of the epidermis. 12:48 PM CDT DERMATOPATHOLOGY LABORATORY Disclaimer An external and internal positive and negative controls are appropriate for the histochemical, immunohistochemical and immunofluorescence stain(s) in this case (if any), except where stated explicitly. The performance characteristics of the stain(s) cited in this report were developed and its performance characteristic determined by the Dermatopathology Laboratory at [facility], directed by Dr. Ligia Delaney. These tests need not be, and therefore are not, approved by the [place] Food and Drug Administration. The tests are used for clinical purposes. Billing Codes Specimen Charges Stain Charges 44721 1 12:48 PM CDT DERMATOPATHOLOGY LABORATORY Embedded Images 12:48 PM CDT DERMATOPATHOLOGY LABORATORY Pathology/Cytolo gy TISSUE SPECIMEN FROM SKIN / Unknown 03/21/2023 2:43 PM CDT 03/22/2023 1:56 PM CDT us Lanette Torres MD LAB - PATHOLOGY/CYTOLOGY ORD ERABLES Final Result DERMATOPATHOLOGY LABORATORY [facility] - Department of Dermatology [address] [place] [address], [facility] [phone] documented in this encounter Visit Diagnoses Not on filedocumented in this encounter
--- OUTSIDE RECORDS SUMMARY | 2024-09-29 13:16 | XMS_ITS ---
Author Organization [facility] Address [address] [place] [address] Care Team Providers Care Pe Manager Name Role Phone Sherry Crane RN Unavailable [phone] Bijan Willard MD Primary Care Provider [phone] Transplant Episode Liver Recipient [facility] ([place], [place]) - [facility] Organ Received: Liver Transplanted on 08/23/2007 Marked as Active Follow-up on 08/23/2007 Liver CoordinatorSherry Crane RN Fax: N/A Email: N/A Sycuan Organ Diagnosis Organ Primary Contributory Liver Cirrhosis: [...] Fax Email Sherry Crane RN Liver Coordinator [phone] N/A N/A Meg Ardon RN Secondary Coordinator Secondary Liver Coordinator [phone] N/A N/A Sherry Crane RN Inoculator [phone] N/A N/A Graciela Keys Forestry Hunter [phone] N/A N/A Events Post-Transplant Pre-Transplant Admitted: 08/23/2007 Referred: 04/05/2007 Transplanted: 08/23/2007 Evaluation began: 7 Discharged: 08/29/2007 Center waitlisted: 7
--- OUTSIDE RECORDS SUMMARY | 2024-09-29 13:16 | XMS_ITS | Encounter Summary ---
Author Organization [facility] Address [address] [place] [address] Care Team Providers Care Advisor Consultant Name Role Phone Unavailable Primary Care Provider Unavailabl e Encounter Details Date Type Department Care Team (Late st Contact Info) Description 11/08/2021 Lab Requisition [facility] DermPath Lab [address] [facility] [place] [address] Gerardo House Jr., MD [address] [facility] [address] [place] [address] Social History Tobacco Use Types Packs/Day Years Used Date Smoking Tobacco: Never Assessed Sex and Gender Information Value Date Recorded Sex Assigned at Not on file 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 Gender Identity Not on file Sexual Orientation Not on file documented as of this encounter Plan of Treatment Not on file documented as of this encounter Procedures Procedure Name Priority Date/Time Associated Diagnosis Comments DERMATOPATHOLOGY Routine 11/04/2021 12:0 0 AM CDT documented in this encounter Results * DERMATOPATHOLOGY (11/04/2021 12:00 AM CDT) Case Report Dermatopathology Report Case: [id number] Authorizing Provider: Gerardo House Jr., MD Collected: 11/04/2021 12:00 AM Ordering Location: [facility] Derm[facility] Lab Received: 11/08/2021 09:57 AM Pathologist: [...] specimen consists of a shave biopsy measuring 38z12d2on, bisected. Jar 0. 2 3:50 PM CDT [...] characteristic determined by the Dermatopathology Laboratory at [facility], directed by Dr. Ligia Delaney. These tests need not be, and therefore are not, approved by the [place] Food and Drug Administration. The tests are used for clinical purposes. Billing Codes Specimen Charges Stain Charges 74100 1 2 3:50 PM CDT DERMATOPATHOLOGY LABORATORY Embedded Images 2 3:50 PM CDT DERMATOPATHOLOGY LABORATORY Pathology/Cytolog y TISSUE SPECIMEN FROM SKIN / Unknown 11/04/2021 11/08/2021 9:57 AM CDT Gerardo House Jr., MD LAB - PATHOLOGY/CYTOLOG Y ORDERABLES Final Result DERMATOPATHOLOGY LABORATORY [facility] - Department of Dermatology [address] [phone] documented in this encounter Visit Diagnoses Not on filedocumented in this encounter
--- OUTSIDE RECORDS SUMMARY | 2024-09-29 13:16 | XMS_ITS | Continuity of Care Document ---
Author Organization [facility] Address [address] [place] [address] Phone Care Team Providers Care Breaker Off Name Role Phone Yuval Jerome MD Unavailable [...] Diagnoses Date Provider Providers Copied on Encounter [facility], [address], [place], [address], [place] tel:[phone] [facility] No Information 5 Queenie Barakat. [address] [place], [place], [id number] . tel: [phone] OFFICE/OUTPA TIENT VISIT EST [facility], [address] [place] [address], [address], [place] tel:[phone] [facility] [place] Pain medication follow up (chief complaint) Other chronic painLumbago Sep-2 1-201 5 Queenie Yuval. [address] [place], [place], [id number] . tel: [phone] [facility], [address] [place] [address], [address], [place] tel:[phone] [facility] [place] Pain medication follow up (chief complaint) Chronic pain Charlie-2 2-201 5 Queenielila Barakat. [address] [place] [address], [id number] . tel: [phone] [facility], [address] [place] [address], [address], [place] tel:[phone] [facility] [place] Pain medication follow up (chief complaint) Chronic painLumbago Mar-2 3-201 5 Queenielila Barakat. [address] [place] [address], [id number] . tel: [phone] [facility], [address] [place] [address], [address], [place] tel:[phone] [facility] [place] Pain medication follow up (chief complaint) Chronic pain Dec-2 2-201 4 Queenielila Barakat. [address] [place], [place], [id number] . tel: [phone] OFFICE/OUTPA TIENT VISIT EST [facility], [address] [place] [address], [address], [place] tel:[phone] [facility] [place] Pain medication follow up (chief complaint) Chronic painLumbago Sep-2 2-201 4 Queenielila Barakat. [address] [place], [place], [id number] . tel: [phone] OFFICE/OUTPA TIENT VISIT [facility], [address], [address], [place] tel:[phone] [facility] [place] Pain medication follow up (chief complaint) Chronic painLumbago 4 Queenie Yuval. [address] [place], [place], [address] . tel: [phone] Referring Provider: Matheus Christine, [address] [place] [address], [place], [address]. tel:[phone] OFFICE/OUTPA TIENT VISIT [facility], [address] [place] [address], [address], [place] [phone] [facility] [place] pain medication follow up (chief complaint) Chronic painLumbago Aug- 4 Queenie Yuval. [address] [place] [address], [id number] . tel: [phone] Referring Provider: Matheus Christine, [address] [place] [address], [place], [address]. tel:[phone] OFFICE/OUTPA TIENT VISIT [facility], [address] [place] [address], [address], [place] tel:[phone] [facility] [place] pain medication follow up (chief complaint) LumbagoChronic pain 3 Queenie Yuval. [address] [place] [address], [id number] . tel: [phone] Referring Provider: Matheus Christine, [address] [place] [address], [place], [address]. tel:[phone] OFFICE/OUTPA TIENT VISIT [facility], [address] [place] [address], [address], [place] tel:[phone] [facility] [place] pain medication follow up (chief complaint) Chronic painLumbago 3 Queenie Yuval. [address] [place] [address], [id number] . tel: [phone] [facility], [address] [facility] [address], [place], [address], [place] tel:[phone] [facility] [place] chronic back pain (chief complaint) Pain, Low BackCHRONIC PAIN NEC 3 Queenie Barakat. [address] [place], [place], [id number] . tel: [phone] [facility], [address] [facility] [address], [place], [address], tel:[phone] [facility] [place] No Information 3 Queenie Barakat. [address] [place], [place], [id number] . tel: [phone] Family History Family Member Type Diagnosis Age At Onset No Information Payers Payer name Insurance type Covered green party ID Authoriza tion(s) [employer] Fund Open Acces s Plus E2 OT [id number] Social History Type Description Quantity Date Captured [...] Information Instructions Date Instruction Additional Infor vlad Activity as tolerated. Related t o Chronic [...] as tolerated Continue medication as prescribe d Continue medication as prescribe d Activity as tolerated Elevated BP discusse d with the patient today and recommended for patient to follow up with their PCP Activity as tolerated Assessments Type Assessment Date No Information Patient Care Teams Name Effective Dates (start - stop) Status Members No Information
--- OUTSIDE RECORDS SUMMARY | 2024-09-29 13:16 | XMS_ITS | Clinical Summary ---
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 Gender Identity Not on file [...] Annual Medicare Wellness Visit 09/17/2015 COVID-19 Vaccine (4 - 2023-2 5 season) 2024 06/21/2021, 08/04/2020, 07/14/2020 Pneumococcal Vaccine: 50+ Years Completed 05/22/2019, 06/18/2017 Meningococcal B Vaccine Aged Out No l onger eligible based on patient's age to complete this topic Meningococcal Vaccine Aged Out No madan alea eligible based on patient's age to complete this topic RSV Immunizations Under 20 Months Aged Out No longer eligible b ased on patient's age to complete this topic Insurance [facility] MEDICARE Care Teams Tight Barrel Inspector Relationship Specialty Start Date End Date Bijan Willard MD [address] [place] [address] PCP - General INTERNAL MEDICINE 09/26/22
--- OUTSIDE RECORDS SUMMARY | 2024-09-29 13:16 | XMS_ITS | Continuity of Care Document ---
Author Organization [facility] Address [address] [place] [address] Phone Care Team Providers Care Traffic Signal Repairer Name Role Phone Travis Jolly MD Unavailable [...] Diagnoses Date Provider Providers Copied on Encounter [facility], [address], [place], [place], [address] [place] [address] , tel: [phone] [facility] No Information 7 Rik Robles. [address] [place] [address], [facility] [address] , [place], [place], [address] [place] [address] , . tel: [phone] [facility], [address], [place], [place], [id number] , tel: [phone] [facility] No Information 6 Rik Robles. [address] [place] [address], [facility] [address] , [place], [address] [place] [address] , . tel: [phone] [facility], [address], [place], [place], [id number] , tel: [phone] [facility] No Information 6 Rik Robles. [address] [place] [address], [address], [place], [place], [address] , . tel: [phone] [facility], [address], [place], [place], [address] , tel: [phone] [facility] Pulmonary emphysema, unspecified emphysema typeChronic midline low back pain without sciaticaLiver transplantedS/P unilateral BKA (below knee amputation), right 6 Rik Robles. [address] [place] [address], [address] , [place], [address] [place] [address] , . tel: [phone] Referring Provider: Travis Jolly, [address] [place] [address] [address], [place], [address] . tel:[phone] [facility], [address], [place], [place], [address] , tel: [phone] [facility] Pain of amputation stump of right lower extremityGait disturbanceSkin callus 6 Ismael Briana. [address] [place] [address], [address], [place], [place], [id number] . tel: [phone] Referring Provider: Travis Jolly, [address] [place] [address] [address], [place], [address] . tel:[phone] [facility], [address], [place], [place], [address] , tel: [phone] [facility] Chronic bilateral low back pain without sciaticaEssential hypertensionPulmonary emphysema, unspecified emphysema typeScreening for prostate cancer 6 Rik Robles. [address] [place] [address], [address], [place], [place], [address] , . tel: [phone] Referring Provider: Travis Jolly, [address] [place] [address] [address], [place], [address] . tel:[phone] [facility], [address], [place], [place], [address] , tel: [phone] [facility] No Information 6 Rik Robles. [address] [place] [address], [address], [place], [place], [address] , . tel: [phone] [facility], [address], [place], [place], [address] , tel: [phone] [facility] Essential hypertensionChronic low back painUncomplicated opioid dependencePulmonary emphysema, unspecified emphysema typeS/P unilateral below knee amputation, rightLiver transplanted 6 Rik Robles. [address] [place] [address], [address], [place], [place], [address] , . tel: [phone] Referring Provider: Travis Jolly, [address] [place] [address] [address], [place], [address] . tel:[phone] [facility], [address], [place], [place], [address] , tel: [phone] [facility] Chronic low back painEssential hypertensionLiver transplanted 5 Rik Robles. [address] [place] [address], [address], [place], [address] [place] [address] , . tel: [phone] Referring Provider: Travis Jolly, [address] [place] [address] [address], [place], [address] [place] [address] . tel:[phone] [facility], [address], [place], [address] [place] [address] , tel: [phone] [facility] No Information 5 Rik Robles. [address] [place] [address], [address], [place], [address] [place] [address] , . tel: [phone] [facility], [address], [place], [address] [place] [address] , tel: [phone] [facility] No Information 5 Lashon Prescott. [address] [place] [address], [address] , [place], [address] [place] [address] , . tel: [phone] [facility], [address], [place], [address] [place] [address] , tel: [phone] [facility] ROUTINE MEDICAL EXAMChronic airway obstruction, not elsewhere classifiedEsophageal refluxComplications of transplanted liverUnspecified essential hypertensionOsteoarth rosis, unspecified whether generalized or localized, involving unspecified siteOsteoporosis, unspecifiedCalculus of kidneyStatus post amputation below knee 5 Lashon Prescott. [address] [place] [address], [address] , [place], [address] [place] [address] , . tel: [phone] Referring Provider: Travis Jolly, [address] [place] [address] [address] , [place], [address] [place] [address] . tel:[phone] Family History Family Member Type Diagnosis Age [...] tion(s) BCBS INACTIVE OUT OF STATE [place] [id number] [place]ARE [place] [id number] Social History Type Description Quantity Date Captured [...]
--- OUTSIDE RECORDS SUMMARY | 2024-09-29 13:16 | XMS_ITS | Encounter Summary ---
Author Organization [facility] ROXANA Christine Appature Address [address] [place] [address] Care Team Providers Care Filter Tank Tender Helper Head Name Role Phone Bijan Willard MD Primary Care Provider [phone] Encounter Details Date Type Department Care Team ([facility] Contact Info) Description 09/24/2024 Orders Only [facility] Oncology and Hematology - Carl [address] [place] [address] Srinath Tovar MD [address] [place] [address] Social History Tobacco Use Types Packs/Day Years [...] Upcoming Encounters Date Type Department Care Team ([facility] Contact Info) Description 12/03/2024 2:15 PM CDT Office Visit [facility] Oncology [facility] Hematology - Carl Gabi [address] [place] [address] Srinath Tovar MD [address] [place] [address] documented as of this encounter Procedures Procedure Name Priority Date/Time Associated Diagnosis Comments CBC WITH AUTODIFFERENTIAL Routine 2024 11:43 AM CDT documented in this encounter Results * CBC WITH AUTODIFFERENTIAL (09/24/2024 11:43 AM CDT) Blood us Srinath Tovar MD HEMATOLOGY ORDERABLES Final Res ult documented in this encounter Visit Diagnoses Not on filedocumented in this encounter Care Teams Filter Tank Tender Helper Head Relationship Specialty Start Date End Date Bijan Willard MD [address] [place] [address] PCP - General Internal Medicine 06/20/24 documented as of this encounter
--- OUTSIDE RECORDS SUMMARY | 2024-09-29 13:16 | XMS_ITS | Clinical Summary ---
Author Organization [facility] Tiana Marino Address [address] [place] [address] Care Team Providers Care Bulk Intake Worker Name Role Phone Bijan Willard MD Primary Care Provider [phone] Allergies Active Allergy Reactions Criticality Noted Date [...] by mouth daily. 05/29/20 23 Active hydroCHLOROthiaz remdeios 25 mg tablet Take 25 mg by mouth daily. Active hydrALAZINE (APRESOLINE) 25 mg tablet Take 25 mg by mouth 3 times daily. Active furosemide (LASIX) 20 mg tablet Take 20 mg by mouth daily. 05/29/20 23 Active fluticasone propionate (FLONASE) 50 mcg/spray [place], Suspension nasal inhaler Administer 2 Sprays in [...] Take 12.5 mg by mouth daily. 05/29/20 23 Active ondansetron (ZOFRAN ODT) 8 mg Tablet, Rapid Dissolve Take 4 mg by mouth every 6 hours as needed for Nausea. 03/19/20 24 Active losartan (COZAAR) 50 mg tablet Take 50 mg by mouth daily. 08/17/19 23 Active sodium bicarbonate 650 mg tablet Take 1,300 mg by mouth 2 times daily. Active Active Problems No known active problems Encounters Date Type Department Care Team Description 09/24/2024 Orders Only [facility] Oncology and Hematology - Carl [address] [place] [id number] Srinath Tovar MD 09/23/2024 External Device Data STL ABSTRACTION Provider, Abstract 09/22/2024 Orders Only [facility] Hematology - Carl [address] [place] [address] Srinath Tovar MD Chronic anemia 2024 External Device Data STL ABSTRACTION Provider, Abstract 09/11/2024 Orders Only [facility]cology [facility] Hematology - Carl [address] [place] [id number] Srinath Tovar MD 09/08/2024 Orders Only [facility]cology [facility] Hematology - Carl [address] [place] [address] Srinath Tovar MD Chronic anemia 08/29/2024 Orders Only [facility]cology [facility] Hematology - Carl [address] [place] [address] Srinath Tovar MD 08/28/2024 Orders Only [facility]cology [facility] Hematology - Carl [address] [place] [address] Srinath Tovar MD 08/27/2024 2:30 PM CDT Office Visit [facility] Hematology - Carl [address] [place] [address] Srinath Tovar MD Chronic anemia (Primary Dx) 08/27/2024 External Device Data STL ABSTRACTION Provider, Abstract 08/25/2024 Orders Only [facility]ematology - Carl [address] [place] [address] Srinath Tovar MD Chronic anemia 08/18/2024 External Device Data STL ABSTRACTION Provider, Abstract 08/14/2024 Orders Only [facility]ology - Carl [address] [place] [address] Srinath Tovar MD 08/12/2024 Orders Only [facility]ematology - Carl [address] [place] [address] Srinath Tovar MD Chronic anemia (Primary Dx) 08/05/2024 External Device Data STL ABSTRACTION Provider, Abstract 07/08/2024 External Device Data STL ABSTRACTION Provider, Abstract 07/07/2024 Orders Only [facility]ematology - Carl [address] [place] [address] Srinath Tovar MD 07/04/2024 Orders Only [facility] Hematology - Carl [address] [place] [address] Srinath Tovar MD 07/03/2024 Orders Only [facility]cology [facility] Hematology - Carl [address] [place] [address] Srinath Tovar MD 07/03/2024 Abstract [facility]ematology - Carl [address] [place] [address] Srinath Tovar MD 07/02/2024 2:30 PM PROMOTIONS ASSISTANT Office Visit [facility] Oncology and Hematology - Carl [address] [place] [address] Srinath Tovar MD Chronic anemia (Primary Dx) 07/02/2024 External Device Data STL ABSTRACTION Provider, Abstract 07/02/2024 External Device Data STL ABSTRACTION Provider, Abstract from Last 3 Months Family History Medical [...] Sign Reading Time Taken Comments Blood Pressure 111/61 08/27/2024 2:37 PM CDT Pulse 59 08/27/2024 2:37 PM CDT Temperature 36.2 C (97.1 F) 08/27/2024 2:37 PM CDT Respiratory Rate 15 08/27/2024 2:37 PM CDT Oxygen Saturation 92% 08/27/2024 2:37 PM CDT Inhaled Oxygen Concentration - - Weight 63.5 kg (140 lb) 08/27/2024 2:37 PM CDT Height 175.3 cm (5' 9 ) 05/26/2024 3:02 PM PROMOTIONS ASSISTANT Body Mass Index 20.67 05/26/2024 3:02 PM PROMOTIONS ASSISTANT Plan of Treatment Upcoming Encounters Date Type Department Care Team (Late st Contact Info) Description 12/03/2024 2:15 PM CDT Office Visit [facility] Oncology and Hematology - Carl [address] [facility] [address] [place] [address] Srinath Tovar MD [address] [facility] [address] [place] [address] Health Maintenance Due Date Last [...] WITH AUTODIFFERENTIAL Routine 2024 11:43 AM CDT CBC MIXED CELL DIFFERENTIAL Routine 07/2024 3:35 PM CDT BASIC METABOLIC PANEL Routine 08/27/2024 4:22 PM CDT CBC WITH DIFFERENTIAL Routine 08/27/2024 4:21 PM CDT VITAMIN B12 LEVEL Routine 08/27/2024 11: 30 AM CDT CBC WITH DIFFERENTIAL Routine 08/26/2024 8:28 AM CDT BASIC METABOLIC PANEL Routine 08/26/2024 8:25 AM CDT CBC WITH AUTODIFFERENTIAL Routine 2024 1:47 PM PROMOTIONS ASSISTANT TYPE AND SCREEN Routine 07/02/2024 4:10 PM PROMOTIONS ASSISTANT TYPE AND SCREEN Routine 07/02/2024 1:48 PM PROMOTIONS ASSISTANT TYPE AND SCREEN Routine 07/02/2024 10:59 AM PROMOTIONS ASSISTANT from Last 3 Months Results * CBC WITH AUTODIFFERENTIAL (09/24/2024 11:43 AM CDT) Only the most recent of2 resultswithin the time period is included. Blood us Srinath Tovar MD HEMATOLOGY ORDERABLES Final Res ult * CBC MIXED CELL DIFFERENTIAL (09/10/2024 3:35 PM CDT) Blood us Srinath Tovar MD HEMATOLOGY ORDERABLES Final Res ult * BASIC METABOLIC PANEL (08/27/2024 4:22 PM CDT) Only the most recent of2 resultswithin the time period is included. Blood us Srinath Tovar MD CHEMISTRY ORDERABLES Final Resu lt * CBC WITH DIFFERENTIAL (08/27/2024 4:21 PM CDT) Only the most recent of2 resultswithin the time period is included. Blood us Srinath Tovar MD HEMATOLOGY ORDERABLES Final Res ult * VITAMIN B12 LEVEL (08/27/2024 11:30 AM CDT) Blood us Srinath Tovar MD CHEMISTRY ORDERABLES Final Resu lt * TYPE AND SCREEN (07/02/2024 4:10 PM PROMOTIONS ASSISTANT) Only the most recent of3 resultswithin the time period is included. Blood us Srinath Toavr MD BLOOD BANK ORDERABLES Final Res ult from Last 3 Months Insurance MEDICARE PART A AND B [facility] Care Teams Bulk Intake Worker Relationship Specialty Start Date End Date Bijan Willard MD [address] [place] [id number] PCP - General Internal Medicine 06/20/24
--- OUTSIDE RECORDS SUMMARY | 2024-09-29 13:16 | XMS_ITS | Encounter Summary ---
Author Organization [facility] Address [facility] [place] [address] Care Team Providers Care Elementary Spanish Teacher Name Role Phone Bijan Willard MD Primary Care Provider [phone] August Bedoya MD Unavailable [phone] Encounter Details Date Type Department Care Team (Late st Contact Info) Description 11/16/2018 Abstract [facility] [address] [place] [address] , Generic ConversionMD Social History Tobacco Use Types Packs/Day Years Used Date Smoking Tobacco: Never Assessed Sex and Gender Information Value Date Recorded Sex Assigned at Not on file 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
--- OUTSIDE RECORDS SUMMARY | 2024-09-29 13:16 | XMS_ITS | Referral Summary ---
Author Organization [facility] Address [address] [place] [address] Care Team Providers Care General Laborer Name Role Phone Sherry Crane RN Unavailable [phone] Bijan Willard MD Primary Care Provider [phone] Encounters Date Type Department Care Team Description 07/22/2024 Telephone [facility] Transplant Liver [address] [place] [address] [place] [phone] Sherry Crane RN Lab Results 07/07/2024 Orders Only [facility] Transplant Liver [address] [place] [address] [place] [phone] Fidelina Keller History of liver transplant (HCC) (Primary Dx); Encounter for long-term (current) use of high-risk medication 07/03/2024 Telephone [facility] Transplant Liver [address] [place] [address] [place] [address] Sherry Crane RN 07/02/2024 Telephone [facility] Transplant Liver [address] [place] [address] [place] [address] 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 Take 15 tablets by mouth registered nurse nursery before breakfast Indications: severe chronic pain requiring [...] be different from the original. Labs at [facility] in [facility] ph [phone]. Meds: Jarod Bradley[place]field ph [phone] Lab Name:[facility] Timeframe orders are good for: 1 year Last orders sent to lab on: 07/07/24 Test ordered for the standing order and frequency every 2 weeks Problem Noted Date Diagnosed Date Anemia 05/28/2023 Assessment & Plan (05/28/2023 8:29 AM QUALITY ENGINEERING MANAGER): - R/T chronic disease - monitor Chronic pain 05/27/2023 Assessment & Plan (05/28/2023 2:06 PM QUALITY ENGINEERING MANAGER): Per patient he is on methadone 150 mg daily and is following with the clinic - Confirmed dose on 05/28, continue home dose. Assessment & Plan (05/28/2023 8:29 AM QUALITY ENGINEERING MANAGER): Patient has a h/o drug abuse, has been on methadone for ~8-9 years. - continue methadone 50mg daily - Acute pain management with PRN Tylenol, oxycodone, and dilaudid - called methadone clinic x2 this AM and had to leave messages Community acquired pneumonia 05/27/2023 Assessment & Plan (05/28/2023 8:24 AM QUALITY ENGINEERING MANAGER): CXR from 05/26 with evidence of R lung opacities - WBC elevated on admission. - start Levaquin for CAP Pneumothorax 05/26/2023 Assessment & Plan (05/28/2023 2:04 PM QUALITY ENGINEERING MANAGER): In the setting of COPD and HF -COPD on 2L O2 at home presented with 1st time spontaneous Was found to have spontaneous pneumothorax, s/p chest tube S/p tube removed 05/27/23 - Stable, back to baseline and home oxygen use. -D/w Thorax Surgery on 05/28, Assessment & Plan (05/28/2023 8:24 AM QUALITY ENGINEERING MANAGER): Transferred from OSH for PTX. R CT placed on 05/26. - CXR from 05/27 reveals resolution of PTX. - CT removed on 05/27 - post pull CXR stable Assessment & Plan (05/26/2023 8:53 PM QUALITY ENGINEERING MANAGER): - 05/26: R chest tube placed at OSH, chest tube to -20 - O2 therapy Shortness of breath 05/26/2023 Overview (05/26/2023): Pt endorsed he cannot lay flat at home during sleep and he has been seeing a set staff fitter though underlying reason unclear. Also, he has been on diuretic and beta-andrew and plavix and eliquis for unknown reason. Assessment & Plan (05/26/2023 6:49 PM QUALITY ENGINEERING MANAGER): - COPD vs cardiogenic - On diuretics and beta-andrew at home - diuretic resumed, follow up BNP Hyperkalemia 05/26/2023 Assessment & Plan (05/28/2023 2:05 PM QUALITY ENGINEERING MANAGER): Likely due to JAMES on CKD4 S/p lokelma 10mg q8h, lasix 40 IV x1 Nephro txp team consulted and following. K stable on 05/28, renal wants to dc/ pt home with diuretics and daily Loklema use with f/u labs locally. Assessment & Plan (05/28/2023 8:24 AM QUALITY ENGINEERING MANAGER): - K elevated on admission - hyperkalemia protocol initiated as per nephro recs. Assessment & Plan (05/26/2023 8:54 PM QUALITY ENGINEERING MANAGER): - 05/26:: K 5.6, lokelma and lasix 40, follow up [place] whole blood K - appreciate nephro recs History of below-knee amputation of right lower extremity 10/26/2022 CKD (chronic kidney disease) stage 4, GFR 15-29 ml/min 09/06/2022 Assessment & Plan (05/28/2023 2:03 PM QUALITY ENGINEERING MANAGER): With JAMES on CKD4 CKD attributed to [...] PCP follow-up and keep upcoming appointment with Fiberglass Model Maker. Also Lokelma 10 mg po daily at d/c. - Renal ultrasound, 1. Bilateral renal parenchymal thinning in keeping with chronic kidney disease, with atrophic left kidney. No hydronephrosis. 2. Nonobstructive right mid kidney stone. 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 - suspect worsening of renal function in setting of recent NSTEMI and cardiomyopathy with reduced LVEF - awaiting records from [facility] as pt/family poor historians (faxed RAFAEL) Assessment & Plan (05/26/2023 8:53 PM QUALITY ENGINEERING MANAGER): - Trend BMP - appreciate nephro recs [...] glucose) Assessment & Plan (05/27/2023 6:18 AM QUALITY ENGINEERING MANAGER): Advanced to carb consistent diet Assessment & Plan (05/26/2023 6:44 PM QUALITY ENGINEERING MANAGER): - Trend bG and A1C Degeneration of intervertebral disc of lumbar re gion 07/09/2012 Overview (09/13/2016): DDD (degenerative disc disease), lumbar Chronic obstructive pulmonary disease 07/09/2012 Overview (09/15/2016): COPD (chronic obstructive pulmonary disease) Assessment & Plan (05/28/2023 2:07 PM QUALITY ENGINEERING MANAGER): Complicated with spont. Pneumothorax, see above Continue inhalers and home oxygen dependent -Chronic resp failure, due to COPD and home oxygen use Assessment & Plan (05/27/2023 9:39 AM QUALITY ENGINEERING MANAGER): On 2L NC at home, currently at baseline Assessment & Plan (05/26/2023 6:43 PM QUALITY ENGINEERING MANAGER): - on home O2 and nebulizer - duo nebulizer q4h + O2 therapy History of liver transplant 10/08/2010 Assessment & Plan (05/28/2023 2:05 PM QUALITY ENGINEERING MANAGER): Resume tacrolimus and out pt f/u with Liver TXP clinic. Assessment & Plan (05/26/2023 6:41 PM QUALITY ENGINEERING MANAGER): - On prograf 2mg bid - tarco trough Immunizations Immunization Administration Dates Next Due Influenza, Split 07/17/2013 [employer] (J&J) SARS-CoV-2 Vaccination 05/18/2023 TD Preservative Free [...] on file Legal Sex Male 1:02 AM QUALITY ENGINEERING MANAGER Gender Identity Not on file Sexual Orientation Not on file Last Filed Vital Signs Vital Sign Reading Time Taken Comments Blood Pressure 126/57 05/07/2024 8:51 AM QUALITY ENGINEERING MANAGER Pulse 66 05/07/2024 8:51 AM QUALITY ENGINEERING MANAGER Temperature 37.1 C (98.7 F) 11/21/2023 9:08 AM CDT Respiratory Rate 18 05/28/2023 2:41 PM QUALITY ENGINEERING MANAGER Oxygen Saturation 97% 05/07/2024 8:51 AM QUALITY ENGINEERING MANAGER Inhaled Oxygen Concentration - - Weight 65.3 kg (144 lb) 05/07/2024 8:51 AM QUALITY ENGINEERING MANAGER Height 175.3 cm (5' 9 ) 05/07/2024 8:51 AM QUALITY ENGINEERING MANAGER Body Mass Index 21.27 05/07/2024 8:51 AM QUALITY ENGINEERING MANAGER Plan of Treatment Not on file Procedures [...] ed Result - Final Performing Organization Address [facility] Co de Phone Number TXP NO LAB FOUND * Gamma GT (07/18/2024) Pathologist [facility] SCRIBED GGT 21 15 - 85 TXP NO L AB FOUND Blood 07/18/2024 Historical Provider MD LAB BLOOD ORDERABLES Edit ed Result - Final Performing Organization Address [facility] Co de Phone Number TXP NO LAB FOUND * (ABNORMAL) Comprehensive metabolic panel (07/18/2024) Pathologist [facility] SCRIBED Sodium 142 136 - 145 mmol/L [...] TXP NO LAB FOUND Blood 07/02/2024 Result [facility] Provider LAB BLOOD ORDERABLES Edit ed Result - Final Performing Organization Address [facility] de Phone Number TXP NO LAB FOUND * (ABNORMAL) Protein / creatinine ratio, urine, random (07/02/2024) SCRIBED Protein, Urine 79(A) 0.0 - 11.9 TXP NO LAB FOUND SCRIBED Creatinine, Urine 75.82 40 - 278 TXP NO LAB FOUND SCRIBED Protein/Creat Ratio 1.4(A) 0.0 - 0.2 TXP NO LAB FOUND Urine 07/02/2024 Result [facility] LAB URINE ORDERABLES Edit ed Result - Final Performing Organization Address [facility] Phone Number TXP NO LAB FOUND * Vitamin D 25 hydroxy (07/02/2024) SCRIBED 25-OH Vitamin D 47 30 - 100 ng/mL TXP NO LAB FOUND Blood 07/02/2024 Result [facility] Provider LAB BLOOD ORDERABLES Edit ed Result - Final Performing Organization Address [facility] de Phone Number TXP NO LAB FOUND * (ABNORMAL) Phosphorus (07/02/2024) SCRIBED Phosphorus 6.6(A) 2.5 - 4.7 mg/dl TXP NO LAB FOUND Blood 07/02/2024 Result [facility] Provider LAB BLOOD ORDERABLES Angeline l Result Performing Organization Address [facility] de Phone Number TXP NO LAB FOUND * (ABNORMAL) PTH (07/02/2024) SCRIBED iPTH 111(A) 16 - 77 pg/mL TXP NO LAB FOUND Blood 07/02/2024 Historical Provider MD LAB BLOOD ORDERABLES Edit ed Result - Final Performing Organization Address [facility]/ZIP Co de Phone Number TXP NO LAB FOUND * Gamma GT (07/02/2024) SCRIBED GGT <17 15 - 85 TXP NO L AB FOUND Blood 07/02/2024 Historical Provider LAB BLOOD ORDERABLES Edit ed Result - Final Performing Organization Address [facility] de Phone Number TXP NO LAB [...] OF EXAM: Nov 08 2015 9:00PM Acc#: [id number] ECT 0073 - CT Abd/Pel WO DIAGNOSIS: [...] THE ABDOMEN AND PELVIS IS OTHERWISE UNREMARKABLE. PORTFOLIO ACCOUNTANT: [id number] TRANSCRIBE DATE/TIME: Nov 09 2015 7:53A RADIOLOGIST: ARIELLE CARMEN M.D. READ ON: Nov 08 2015 9:16P ORDERING DR: BRENNA ROMERO M.D. THIS DOCUMENT HAS BEEN ELECTRONICALLY SIGNED BY: ARIELLE CARMEN M.D. ON: Nov 09 2015 4:19P Attending: NICOLE ORTIZ Requesting: BRENNA ROMERO Requesting Attending Attending ID: [id number] Requesting ID: [id number] Report To 1 ID: [id number] Report To 1 Name: NICOLE ORTIZ Report To 1 FAX: [phone] Report To 2 ID: Report To 2 Name: , Report To 2 FAX: -- NextGen Order #: Procedure Note Provider, MD Beatriz - 09/29/2016 DATE OF EXAM: Nov 08 2015 9:00PM Acc#: [id number] ECT 0073 - CT Abd/Pel WO DIAGNOSIS: [...] THE ABDOMEN AND PELVIS IS OTHERWISE UNREMARKABLE. PORTFOLIO ACCOUNTANT: [id number] TRANSCRIBE DATE/TIME: Nov 09 2015 7:53A RADIOLOGIST: ARIELLE CARMEN M.D. READ ON: Nov 08 2015 9:16P ORDERING DR: BRENNA ROMERO M.D. THIS DOCUMENT HAS BEEN ELECTRONICALLY SIGNED BY: ARIELLE CARMEN M.D. ON: Nov 09 2015 4:19P Attending: NICOLE ORTIZ Requesting: BRENNA ROMERO Requesting Attending Attending ID: [id number] Requesting ID: [id number] Report To 1 ID: [id number] Report To 1 Name: NICOLE ORTIZ Report To 1 FAX: [phone] Report To 2 ID: Report To 2 Name: , Report To 2 FAX: -- NextGen Order #: Historical Provider MD HONG CT PROCEDURES Final R esult from Last 3 Months or Most Recently Relevant to Health Maintenance Insurance MEDICARE [facility] MEDICARE SUPPLEMENT MEDICARE [facility] Advance Directives For more information, please contact: [phone] * Full Code (Latest Code Status on File) Date Activated Date Inactivated Comments 05/26/2023 5:16 PM 05/28/2023 7:43 PM Care Teams General Laborer Relationship Specialty Start Date End Date Bijan Willard MD [address] [address] PCP - General Internal Medicine 09/06/22 Sherry Crane RN [address] [address] Metallurgical Engineer 11/06/17
[2024-09-29 13:24] LABS: Phosphorus > 8.0 mg/dL (2.6-4.7)
== END 2024-09-29 11:30 | disposition home or self-care (01) ==
LOC: CHSLAB 11:30
PROVIDERS: PCP Internal Medicine; Visit Provider Internal Medicine Nephrology
DX: N18.5 Chronic kidney disease, stage 5 (principal); Z94.4 Liver transplant status; D64.9 Anemia, unspecified
CPT/HCPCS: 36415; 80069; 82570; 84156

== ENCOUNTER 2024-12-01 12:20 | Outpatient (CLI) | payer MEDICARE, SELFPAY ==
[2024-12-01 13:03] LABS: Hematocrit 28.4 % (37.0-46.0); Hemoglobin 8.7 g/dL (12.4-15.3); Immature Platelet Fraction Pct 5.2 % (1.0-7.0); Mean Corpuscular HGB Conc 30.6 g/dL (32-36); Mean Corpuscular Hemoglobin 32.7 pg (27.0-31.0); Mean Corpuscular Volume 106.8 fL (78.0-102.0); Mean Platelet Volume 11.9 fl (8.7-11.0); Platelet Count Result 125 K/mm3 (150-420); Red Blood Count 2.66 M/mm3 (4.70-6.10); Red Cell Distribution Width 13.6 % (11.6-14.4); White Blood Count 6.5 K/mm3 (4.8-10.8)
[2024-12-01 13:36] LABS: Anion Gap 12 mmol/L (4-12); Blood Urea Nitrogen 72 mg/dL (9-20); Calcium 8.1 mg/dL (8.4-10.2); Carbon Dioxide 24 mmol/L (22-30); Chloride 103 mmol/L (98-107); Estimated Glomerular Filt Rate 10; Glucose 84 mg/dL (65-110); Iron 65 ug/dL (49-181); Osmolality Calculated 308 mOsm/kg (285-295); Sodium 139 mmol/L (137-145)
[2024-12-01 13:45] LABS: Percent Iron Saturation 32 % (20-50)
[2024-12-01 14:42] LABS: Folic Acid 9.4 ng/mL (2.76->20)
== END 2024-12-01 12:21 | disposition home or self-care (01) ==
LOC: CHSLAB 12:22
PROVIDERS: PCP Internal Medicine; Visit Provider Internal Medicine Hematology & Oncology
DX: D64.9 Anemia, unspecified (principal)
CPT/HCPCS: 36415; 80048; 82607; 82728; 82746; 83540; 83550; 85027; 85055

== ENCOUNTER 2025-01-14 10:31 | Outpatient (CLI) | payer MEDICARE, SELFPAY ==
--- OUTSIDE RECORDS SUMMARY | 2025-01-14 11:06 | XMS_ITS | Encounter Summary ---
Author Organization [facility] Address [address] [place] [address] Care Team Providers Care Front Office Java Developer Name Role Phone Unavailable Primary Care Provider Unavailabl e Encounter Details Date Type Department Care Team (Late st Contact Info) Description 03/21/2023 Lab Requisition [facility] - DermPath Lab [address] [facility] [place] [address] Lanette Torres MD [address] [facility] [address] [place] [address] Social History Tobacco Use Types Packs/Day Years Used Date Smoking Tobacco: Never Assessed Sex and Gender Information Value Date Recorded Sex Assigned at Not on file Legal Sex Male 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 Gender Identity Not on file Sexual Orientation Not on file documented as of this encounter Plan of Treatment Not on file documented as of this encounter Procedures Procedure Name Priority Date/Time Associated Diagnosis Comments DERMATOPATHOLOGY Routine 03/21/2023 2:43 PM CDT documented in this encounter Results * DERMATOPATHOLOGY (03/21/2023 2:43 PM CDT) Case Report Dermatopathology Report Case: [id number] Authorizing Provider: Lanette Torres MD Collected: 03/21/2023 02:43 PM Ordering Location: [facility] DermPath Lab Received: 03/22/2023 01:56 PM Pathologist: Margo Blake MD Specimen: Skin, left arm 12:48 PM CDT DERMATOPATHOLOGY LABORATORY Final Diagnosis Specimen A. SKIN, left arm: HYPERPLASTIC (HYPERTROPHIC) ACTINIC KERATOSIS (L57.0) 12:48 PM CDT DERMATOPATHOLOGY LABORATORY at 1248 CDT Clinical History PSO vs. SCC 12:48 PM CDT DERMATOPATHOLOGY LABORATORY Gross Description Specimen A: Received is one formalin filled container labeled with the patient's name and designated left arm. The specimen consists of a shave biopsy measuring 30m39u4 mm. Jar 0. 12:48 PM CDT DERMATOPATHOLOGY [...] characteristic determined by the Dermatopathology Laboratory at [facility], directed by Dr. Ligia Delaney. These tests need not be, and therefore are not, approved by the [place] Food and Drug Administration. The tests are used for clinical purposes. Billing Codes Specimen Charges Stain Charges 89261 1 12:48 PM CDT DERMATOPATHOLOGY LABORATORY Embedded Images 12:48 PM CDT DERMATOPATHOLOGY LABORATORY Pathology/Cytolo gy TISSUE SPECIMEN FROM SKIN / Unknown 03/21/2023 2:43 PM CDT 03/22/2023 1:56 PM CDT us Lanette Torres MD LAB - PATHOLOGY/CYTOLOGY ORD ERABLES Final Result DERMATOPATHOLOGY LABORATORY [facility] - Department of Dermatology [address] [place] [address], [place] [phone] documented in this encounter Visit Diagnoses Not on filedocumented in this encounter
--- OUTSIDE RECORDS SUMMARY | 2025-01-14 11:06 | XMS_ITS | Encounter Summary ---
Author Organization [facility] Address [address] [place] [address] Care Team Providers Care Adobe Layer Name Role Phone Unavailable Primary Care Provider Unavailabl e Encounter Details Date Type Department Care Team (Late st Contact Info) Description 11/08/[address] 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 DermPath Lab Received: 11/08/2021 09:57 AM Pathologist: Sherri Enamorado MD Specimen: Skin, left posterior shoulder 2 3:50 PM CDT DERMATOPATHOLOGY LABORATORY Final Diagnosis Specimen A. 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 . 2 3:50 PM CDT DERMATOPATHOLOGY LABORATORY Gross Description Specimen A: Received is one formalin filled container labeled with the patient's name and designated left posterior shoulder. The specimen consists of a shave biopsy measuring 10m46q0qp, bisected. Jar 0. 2 3:50 PM CDT [...] purposes. Billing Codes Specimen Charges Stain Charges 13508 1 2 3:50 PM CDT DERMATOPATHOLOGY LABORATORY Embedded Images 2 3:50 PM CDT DERMATOPATHOLOGY LABORATORY Pathology/Cytolog y TISSUE SPECIMEN FROM SKIN / Unknown 11/04/2021 11/08/2021 9:57 AM CDT Gerardo House Jr., MD LAB - PATHOLOGY/CYTOLOG Y ORDERABLES Final Result DERMATOPATHOLOGY LABORATORY [facility] - Department of Dermatology [address] [phone] documented in this encounter Visit Diagnoses Not on filedocumented in this encounter
--- OUTSIDE RECORDS SUMMARY | 2025-01-14 11:06 | XMS_ITS | Encounter Summary ---
Author Organization [facility] Address [address] [place] [address] Care Team Providers Care It Applications Manager Name Role Phone Bijan Willard MD Primary Care Provider [phone] Encounter Details Date Type Department Care Team (Late st Contact Info) Description 01/13/2025 External Device Data [facility] ABSTRACTION Provider, Abstract NO ADDRESS ON FILE Social History Tobacco Use Types Packs/Day Years [...] Care Team (Late st Contact Info) Description 03/11/2025 2:00 PM CDT Office Visit [facility] Oncology and Hematology - [place] [address] [facility] [address] [place] [address] Srinath Tovar MD [address] [facility] [address] [place] [address] documented as of this encounter Visit Diagnoses Not on filedocumented in this encounter Care Teams It Applications Manager Relationship Specialty Start Date End Date Bijan Willard MD [address] [place] [address] PCP - General Internal Medicine 06/20/24 documented as of this encounter
--- OUTSIDE RECORDS SUMMARY | 2025-01-14 11:06 | XMS_ITS | Clinical Summary ---
Author Organization [facility] Address [address] [place] [address] Care Team Providers Care Maintenance Service Supervisor Name Role Phone Unavailable Primary Care Provider Unavailabl e Source Comments [facility],non-owned Affiliates and Associated Physician Practices is amultiple site organization consisting of ambulatory clinics and hospital sitesin [place], [place], [place]. This disclosure is being madepursuant to the Care Everywhere program and may not contain all information available regarding this patient. 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
--- OUTSIDE RECORDS SUMMARY | 2025-01-14 11:06 | XMS_ITS | Clinical Summary ---
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 ultrasound and deemed suitably patent for access.This vessel was accessed using real-time ultrasound guidance and an image was placed in the patient's medical record Central line: Laterality: right Site: internal jugular Catheter type: single lumen Catheter length: 20 cm Catheter length at skin: 16 cm Technique: anatomy identified with ultrasound, Seldinger technique, wire threaded easily and wire removed intact Venous verification: manometry Post insertion: all ports aspirated, all ports flushed easily, line sutured in place and occlusive dressing applied Number of attempts: 1 Assessment: Events: patient tolerated procedure well with no complications us Nahum Wang MD ANESTHESIA ORDERABLES Edited Res ult - Final * AK AN PROCEDURE PLACEHOLDER (11/07/2024 9:15 AM CDT) Narrative Shivani Bell - 11/07/2024 9:15 AM CDT Shivani Bell 11/07/2024 9:16 AM Peripheral IV Catheter Patient location: OR End time: 11/07/2024 8:05 AM Staff: Placed by: ROUSTABOUT CREW LEADER: iNcole Berkowitz CRNA Preprocedure prep: Prep solution: chlorhexadine PPE: provider hat/mask and gloves PIV line: Laterality: left Site: forearm Catheter size: 22 g Technique: direct visualization Procedure details: good blood return and occlusive dressing applied Number of attempts: 1 Assessment: Events: patient tolerated procedure well with no complications us Nahum Wang MD ANESTHESIA ORDERABLES Final Resu lt * AK AN PROCEDURE PLACEHOLDER (11/07/2024 9:14 AM CDT) Narrative Shivani Bell - 11/07/2024 9:14 AM CDT Shivani Bell 11/07/2024 9:15 AM Peripheral IV Catheter Patient location: pre-op holding End time: 11/07/2024 7:35 AM Staff: Placed by: Anesthesiologist: Nahum Wang MD Preprocedure prep: Prep solution: chlorhexadine PPE: provider hat/mask and gloves Skin infiltrated with lidocaine 1%: yes PIV line: Laterality: right Site: upper arm Catheter size: 20 g Technique: ultrasound guided Procedure details: good blood return and occlusive dressing applied Number of attempts: 3 Assessment: Events: patient tolerated procedure well with no complications us Nahum Wang MD ANESTHESIA ORDERABLES Final Resu lt * AK AN ELECTIVE ENDOTRACHEAL AIRWAY, AK AN PROCEDURE PLACEHOLDER (11/07/2024 9:12 AM CDT) Narrative Shivani Bell - 11/07/2024 9:12 AM CDT Shivani Bell 11/07/2024 9:13 AM Airway Patient location: OR Urgency: elective Date/time: 11/07/2024 8:17 AM Indications for airway management: anesthesia Difficult airway: no Staff: Placed by: Other staff: Shivani Bell Emergent airway documentation: Risks and benefits discussed: yes Consent obtained: yes Consent given by: patient Airway prep: Preoxygenated: yes Patient position: sniffing Spontaneous ventilation during airway: absent Sedation level during airway: GA Final airway details: Final airway type: endotracheal airway Tube type: ETT ETT size: 8.0 mm Cuffed: yes Technique used for successful ETT placement: video laryngoscopy Devices/Methods used in placement: stylet Insertion site: oral Blade type: Jimmy Video blade type: Rosales Blade size: 4 Cormack-Lehane (direct): grade IIa - partial view of glottis Cormack-Lehane (video): grade I - full view of glottis Initial cuff pressure: 28 cm H2O Cuff inflated with: air ETT to lips: 24 cm Placement verified by: auscultation and CO2 detection Airway secured with: silk tape Number of attempts: 1 us Nahum Wang MD ANESTHESIA ORDERABLES Final Resu lt * (ABNORMAL) POC Blood Gas and Chemistries, Arterial - (11/07/2024 7:35 AM CDT) Na, POC 141 135 - 145 mmol/L K POC 5.2(H) 3.3 - 4.9 mmol/L [facility] Comment: Interpretive Data Not all point of care methods assess for hemolysis. Confirm with instrument and retest K+ if not consistent with clinical signs and symptoms. Current Interpretive Data was last revised on 2023. Glucose, POC 83 70 - 199 mg/dL [facility] Hct, POC 30.0(L) 41.4 - 51.6 % [facility] Total Hb, POC 10.1(L) 13.8 - 17.2 g/dL [facility] Blood 11/07/2024 7:35 AM CDT 11/07/2024 7:35 AM CDT Mohit Lira MD LAB POCT ORDERABLES - DEVICE Final Result [facility] Department [place] [address] * CT Abdomen Pelvis WO Contrast (11/08/2015 9:00 PM CDT) Anatomical Region Laterality Modality Body N/A Computed Tomogra phy 11/08/2015 9:00 PM CDT Narrative 11/09/2015 4:19 PM CDT DATE OF EXAM: Nov 08 2015 9:00PM Acc#: [id number] ECT 0073 - CT Abd/Pel WO DIAGNOSIS: [...] THE ABDOMEN AND PELVIS IS OTHERWISE UNREMARKABLE. PUBLIC AREA ATTENDANT: LETICIA TRANSCRIBE DATE/TIME: Nov 09 2015 7:53A RADIOLOGIST: ARIELLE CARMEN M.D. READ ON: Nov 08 2015 9:16P ORDERING DR: BRENNA ROMERO M.D. THIS DOCUMENT HAS BEEN ELECTRONICALLY SIGNED BY: ARIELLE CARMEN M.D. ON: Nov 09 2015 4:19P Attending: NICOLE ORTIZ Requesting: BRENNA ROMERO Requesting Attending Attending ID: [id number] Requesting ID: [id number] Report To 1 ID: [id number] Report To 1 Name: NICOLE ORTIZ Report To 1 FAX: [phone] Report To 2 ID: Report To 2 Name: , Report To 2 FAX: -- NextGen Order #: Procedure Note Provider, MD Beatriz - 09/29/2016 DATE OF EXAM: Nov 08 2015 9:00PM Acc#: [id number] ECT 0073 - CT Abd/Pel WO DIAGNOSIS: [...] THE ABDOMEN AND PELVIS IS OTHERWISE UNREMARKABLE. PUBLIC AREA ATTENDANT: LETICIA TRANSCRIBE DATE/TIME: May 31 2016 7:53A RADIOLOGIST: ARIELLE CARMEN M.D. READ ON: Nov 08 2015 9:16P ORDERING DR: BRENNA RMOERO M.D. THIS DOCUMENT HAS BEEN ELECTRONICALLY SIGNED BY: ARIELLE CARMEN M.D. ON: Nov 09 2015 4:19P Attending: NICOLE ORTIZ Requesting: BRENNA ROMERO Requesting Attending Attending ID: [id number] Requesting ID: [id number] Report To 1 ID: [id number] Report To 1 Name: NICOLE ORTIZ Report To 1 FAX: [phone] Report To 2 ID: Report To 2 Name: , Report To 2 FAX: -- NextGen Order #: Historical Provider MD HONG CT PROCEDURES Final R esult from Last 3 Months or Most Recently Relevant to Health Maintenance Insurance MEDICARE [facility] MEDICARE SUPPLEMENT MEDICARE [facility] MEDICARE SUPPLEMENT Advance Directives For more information, please contact: [phone] * Full Code (Latest Code Status on File) Date Activated Date Inactivated Comments 05/26/2023 5:16 PM 05/28/2023 7:43 PM Care Teams Hobbing Machine Operator Relationship Specialty Start Date End Date Bijan Willard MD [address] [place] [address] PCP - General Internal Medicine 09/06/22 Sherry Crane, RN [address] [place] [address] Wellness Trainer 11/06/17
--- OUTSIDE RECORDS SUMMARY | 2025-01-14 11:06 | XMS_ITS | Encounter Summary ---
Author Organization [facility] Christine EarDish Address [address] [place] [address] Care Team Providers Care Tread Cutter Name Role Phone Bijan Willard MD Primary Care Provider [phone] Encounter Details Date Type Department Care Team ([facility] Contact Info) Description 01/12/2025 Orders Only [facility] Oncology and Hematology - [address] [place] [address] Srinath Tovar MD [address] [place] [address] Chronic anemia Social History Tobacco Use [...] Upcoming Encounters Date Type Department Care Team ([facility] Contact Info) Description 03/11/2025 2:00 PM CDT Office Visit [facility] Oncology and Hematology - [place] [address] [place] [address] Srinath Tovar MD [address] [place] [address] documented as of this encounter Procedures Procedure Name Priority Date/Time Associated Diagnosis Comments CBC WITH AUTODIFFERENTIAL Routine 2024 10:21 AM CDT documented in this encounter Results * CBC WITH AUTODIFFERENTIAL (01/09/2025 10:21 AM CDT) Blood us Srinath Tovar MD HEMATOLOGY ORDERABLES Final Res ult documented in this encounter Visit Diagnoses Diagnosis Chronic anemia Anemia, unspecified documented in this encounter Care Teams Tread Cutter Relationship Specialty Start Date End Date Bijan Willard MD [address] [place] [address] PCP - General Internal Medicine 06/20/24 documented as of this encounter
--- OUTSIDE RECORDS SUMMARY | 2025-01-14 11:06 | XMS_ITS ---
Author Organization [facility] Address [address] [place] [address] Care Team Providers Care Senior Supplier Quality Engineer Name Role Phone Sherry Crane RN Unavailable [phone] Bijan Willard MD Primary Care Provider [phone] Transplant Episode Liver Recipient [facility] ([place], [place]) - [facility] Organ Received: Liver Transplanted on 08/23/2007 Marked as Active Follow-up on 08/23/2007 Liver CoordinatorSherry Crane RN Fax: N/A Email: N/A Venetie Ira Organ Diagnosis Organ Primary Contributory Liver Cirrhosis: [...] Fax Email Sherry Crane RN Liver Coordinator [phone] N/A N/A Meg Ardon RN Secondary Coordinator Secondary Liver Coordinator [phone] N/A N/A Sherry Crane RN Bean Weigher [phone] N/A N/A Graciela Keys Carpet Yarn Winder Operator [phone] N/A N/A Events Post-Transplant Pre-Transplant Admitted: 08/23/2007 Referred: 04/05/2007 Transplanted: 08/23/2007 Evaluation began: 7 Discharged: 08/29/2007 Center waitlisted: 7
--- OUTSIDE RECORDS SUMMARY | 2025-01-14 11:06 | XMS_ITS | Clinical Summary ---
Author Organization [facility] Tiana Marino Address [address] [place] [address] Care Team Providers Care Biofuels Plant Manager Name Role Phone Bijan Willard MD Primary Care Provider [phone] Allergies Active Allergy Reactions Criticality Noted Date [...] 23 Active fluticasone propionate (FLONASE) 50 mcg/spray [place], Suspension nasal inhaler Administer 2 Sprays in [...] Encounters Date Type Department Care Team Description 01/13/2025 External Device Data STL ABSTRACTION Provider, Abstract 01/12/2025 Orders Only [facility] Oncology and Hematology - [place] [address] [place] [id number] Srinath Tovar MD Chronic anemia 12/29/2024 Orders Only [facility] Oncology and Hematology - [place] [address] [place] [id number] Srinath Tovar MD Chronic anemia 12/15/2024 Orders Only [facility] Oncology and Hematology - [place] [address] [place] [address] Srinath Tovar MD Chronic anemia 12/03/2024 2:15 PM CDT Office Visit [facility] Oncology and Hematology - [place] [address] [place] [address] Srinath Tovar MD Chronic anemia (Primary Dx) 12/01/2024 Orders Only [facility] Oncology and Hematology - [place] [address] [place] [address] Srinath Tovar MD Chronic anemia 11/25/2024 External Device Data STL ABSTRACTION Provider, Abstract 11/19/2024 Orders Only [facility] Oncology and Hematology - [place] [address] [place] [address] Srinath Tovar MD 11/17/2024 Orders Only [facility] Oncology and Hematology - [place] [address] [place] [address] Srinath Tovar MD Chronic anemia 11/05/2024 Orders Only [facility] Oncology and Hematology - [place] [address] [place] [phone] Srinath Tovar MD 11/04/2024 External Device Data STL ABSTRACTION Provider, Abstract 11/03/2024 Orders Only [facility] Oncology and Hematology - [place] [address] [place] [address] Srinath Tovar MD Chronic anemia 10/30/2024 External Device Data STL ABSTRACTION Provider, Abstract 10/29/2024 External Device Data STL ABSTRACTION Provider, Abstract 10/28/2024 External Device Data STL ABSTRACTION Provider, Abstract 10/20/2024 Orders Only [facility] Oncology and Hematology - [place] [address] [place] [address] Srinath Tovar MD Chronic anemia from Last 3 Months Family History Medical [...] Sign Reading Time Taken Comments Blood Pressure 120/73 12/03/2024 2:10 PM CDT Pulse 60 12/03/2024 2:10 PM CDT Temperature 36.5 C (97.7 F) 12/03/2024 2:10 PM CDT Respiratory Rate 15 12/03/2024 2:10 PM CDT Oxygen Saturation 95% 12/03/2024 2:10 PM CDT Inhaled Oxygen Concentration - - Weight 61.9 kg (136 lb 6.4 oz) 12/03/2024 2:10 P M CDT Height 175.3 cm (5' 9) 05/26/2024 3:02 PM MANAGER [place] Body Mass Index 20.14 05/26/2024 3:02 PM MANAGER [place] Plan of Treatment Upcoming Encounters Date Type Department Care Team (Late st Contact Info) Description 03/11/2025 2:00 PM CDT Office Visit [facility] Oncology and Hematology - [place] [address] [facility] [address] [place] [address] Srinath Tovar MD [address] [facility] [address] [place] [address] Health Maintenance Due Date Last Done Comments PNEUMOCOCCAL VACCINE 50+ YEARS (1 of 2 - PCV) 09/16/18 70 ZOSTER VACCINE (1 of 2) 1969 COLORECTAL SCREENING 09/17/1995 Colorectal Cancer Screening 09/17/1995 FIT-DNA Q 3 years 09/17/1995 FIT/FOBT Q 1 year 09/17/1995 Flex Sig/CT Colonography Q 5 years 09/17/1995 RSV VACCINE (60+ or ) (1 - Risk 60-74 years 1-dose series) 2010 DTAP/TDAP/TD VACCINES (1 - Tdap) 07/18/2013 07/17/19 14 INFLUENZA VACCINE (#1) 2025 Procedures Procedure Name Priority Date/Time Associated Diagnosis Comments CBC WITH AUTODIFFERENTIAL Routine 2024 10:21 AM CDT BASIC METABOLIC PANEL Routine 12/01/2024 4:19 PM CDT BASIC METABOLIC PANEL Routine 11/19/2024 4:12 PM CDT CBC WITH DIFFERENTIAL Routine 11/05/2024 4:07 PM CDT from Last 3 Months Results * CBC WITH AUTODIFFERENTIAL (01/09/2025 10:21 AM CDT) Blood us Srinath Tovar MD HEMATOLOGY ORDERABLES Final Res ult * BASIC METABOLIC PANEL (12/01/2024 4:19 PM CDT) Only the most recent of2 resultswithin the time period is included. Blood Srinath Tovar MD CHEMISTRY ORDERABLES Final Resu lt * CBC WITH DIFFERENTIAL (11/05/2024 4:07 PM CDT) Blood Srinath Tovar MD HEMATOLOGY ORDERABLES Final Res ult from Last 3 Months Insurance MEDICARE PART A AND B [facility] Care Teams Biofuels Plant Manager Relationship Specialty Start Date End Date Bijan Willard MD [address] [place] [address] PCP - General Internal Medicine 06/20/24
[2025-01-14 11:15] LABS: Total Protein Urine Random 57 mg/dL; Ur Ttl Prot Creatinine Ratio 1.00 mg/mg (0-0.20)
[2025-01-14 12:05] LABS: Albumin Level 3.8 g/dL (3.5-5.1); Anion Gap 12 mmol/L (4-12); Blood Urea Nitrogen 96 mg/dL (9-20); Calcium 8.1 mg/dL (8.4-10.2); Carbon Dioxide 24 mmol/L (22-30); Chloride 104 mmol/L (98-107); Estimated Glomerular Filt Rate 9; Glucose 63 mg/dL (65-110); Osmolality Calculated 317 mOsm/kg (285-295); Potassium 5.7 mmol/L (3.4-5.0); Sodium 140 mmol/L (137-145)
== END 2025-01-14 10:32 | disposition home or self-care (01) ==
PROVIDERS: PCP Internal Medicine; Visit Provider Internal Medicine Nephrology
DX: Z94.4 Liver transplant status (principal); D64.9 Anemia, unspecified; N18.5 Chronic kidney disease, stage 5; N25.81 Secondary hyperparathyroidism of renal origin; E55.9 Vitamin D deficiency, unspecified
CPT/HCPCS: 36415; 80069; 82306; 82570; 83970; 84156

== ENCOUNTER 2025-01-16 15:22 | Emergency (ER) | payer MEDICARE, SELFPAY ==
[2025-01-16 15:22] VITALS: BP 132/76; PULSE 62; RESP 16; TEMP 36.6; O2SAT 98
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
--- OUTSIDE RECORDS SUMMARY | 2025-01-16 15:24 | XMS_ITS | Clinical Summary ---
Author Organization [facility] Address [address] [place] [address] Care Team Providers Care Expressive Art Therapist Name Role Phone Unavailable Primary Care Provider Unavailabl e Source Comments [facility] [email or web address],non-owned Affiliates and Associated Physician Practices is amultiple site organization consisting of ambulatory clinics and hospital sitesin [place], [place], [place] and [place]. This disclosure is being madepursuant to the Care Everywhere program and may not contain all information available regarding this patient. 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
--- OUTSIDE RECORDS SUMMARY | 2025-01-16 15:24 | XMS_ITS | Continuity of Care Document ---
Author Organization [employer] Address [address] [place] [address] Phone Care Team Providers Care Combustion Engineer Name Role Phone Travis Jolly MD Unavailable [...] Diagnoses Date Provider Providers Copied on Encounter [employer], [address], [place], [address] [place] [address] , tel: [phone] [facility] No Information 7 Rik Robles. [address] [place] [address], [facility] [address] , [place], [address] [place] [address] , . tel: [phone] [employer], [address], [place], [place], [id number] , tel: [phone] [facility] No Information 6 Rik Robles. [address] [place] [address], [facility] [address] , [place], [address] [place] [address] , . tel: [phone] [employer] [facility], [address], [place], [place], [address] , tel: [phone] [facility] No Information 6 Rik Robles. [address] [place] [address], [address], [place], [place], [id number] , . tel: [phone] [employer] [facility], [address], [place], [place], [address] , tel: [phone] [facility] Pulmonary emphysema, unspecified emphysema typeChronic midline low back pain without sciaticaLiver transplantedS/P unilateral BKA (below knee amputation), right 6 Rik Robles. [address] [place] [address], [address] , [place], [address] [place] [address] , . tel: [phone] Referring Provider: Travis Jolly, [address] [place] [address] [address], [place], [address] . tel:[phone] [employer] [facility], [address], [place], [place], [address] , tel: [phone] [facility] Pain of amputation stump of right lower extremityGait disturbanceSkin callus 6 Ismael Briana. [address] [place] [address], [address], [place], [place], [address] . tel: [phone] Referring Provider: Travis Jolly, [address] [place] [address] [address], [place], [address] . tel:[phone] [employer], [address], [place], [place], [address] , tel: [phone] [facility] Chronic bilateral low back pain without sciaticaEssential hypertensionPulmonary emphysema, unspecified emphysema typeScreening for prostate cancer 6 Rik Robles. [address] [place] [address], [address], [place], [place], [address] , . tel: [phone] Referring Provider: Travis Jolly, [address] [place] [address] [address], [place], [address] . tel:[phone] [employer] [facility], [address], [place], [place], [address] , tel: [phone] [facility] No Information 6 Rik Robles. [address] [place] [address], [address], [place], [place], [address] , . tel: [phone] [employer] [facility], [address], [place], [place], [address] , tel: [phone] [facility] Essential hypertensionChronic low back painUncomplicated opioid dependencePulmonary emphysema, unspecified emphysema typeS/P unilateral below knee amputation, rightLiver transplanted 6 Rik Robles. [address] [place] [address], [address], [place], [place], [address] , . tel: [phone] Referring Provider: Travis Jolly, [address] [place] [address] [address], [place], [address] . tel:[phone] [employer] [facility], [address], [place], [place], [address] , tel: [phone] [facility] Chronic low back painEssential hypertensionLiver transplanted 5 Rik Robles. [address] [place] [address], [address], [place], [address] [place] [address] , . tel: [phone] Referring Provider: Travis Jolly, [address] [place] [address] [address], [place], [address] [place] [address] . tel:[phone] [facility], [address], [place], [address] [place] [address] , tel: [phone] [facility] No Information 5 Rik Robles. [address] [place] [address], [address], [place], [address] [place] [address] , . tel: [phone] [employer], [address], [place], [address] [place] [address] , tel: [phone] [facility] No Information 5 Lashon Prescott. [address] [place] [address], [address] , [place], [address] [place] [address] , . tel: [phone] [employer], [address], [place], [address] [place] [address] , tel: [phone] [facility] ROUTINE MEDICAL EXAMChronic airway obstruction, not elsewhere classifiedEsophageal refluxComplications of transplanted liverUnspecified essential hypertensionOsteoarth rosis, unspecified whether generalized or localized, involving unspecified siteOsteoporosis, unspecifiedCalculus of kidneyStatus post amputation below knee 5 Lashon Prescott. [address] [place] [address], [address] , [place], [address] [place] [address] , . tel: [phone] Referring Provider: Travis Jolly, [address] [place] [address] [address] , [place], [address] [place] [address] . tel:[phone] Family History Family Member Type Diagnosis Age [...] 82 Payers Payer name Insurance type Covered libertarian ID Authoriza tion(s) [employer] INACTIVE OUT OF STATE [place] [id number] [place]ARE [place] [id number] Social History Type Description Quantity Date Captured [...]
--- OUTSIDE RECORDS SUMMARY | 2025-01-16 15:24 | XMS_ITS | Encounter Summary ---
Author Organization [facility] Address [address] [facility] [place] [address] Care Team Providers Care Scientific Programmer Analyst Name Role Phone Unavailable Primary Care Provider Unavailabl e Encounter Details Date Type Department Care Team (Late st Contact Info) Description 03/21/2023 Lab Requisition [facility] - DermPath Lab [address] [facility] [place] [address] Lanette Torres MD [address] [facility] [address] [place] [address] Social History Tobacco Use Types Packs/Day Years Used Date Smoking Tobacco: Never Assessed Sex and Gender Information Value Date Recorded Sex Assigned at Not on file 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 Gender Identity Not on file Sexual Orientation Not on file documented as of this encounter Plan of Treatment Not on file documented as of this encounter Procedures Procedure Name Priority Date/Time Associated Diagnosis Comments DERMATOPATHOLOGY Routine 03/21/2023 2:43 PM CDT documented in this encounter Results * DERMATOPATHOLOGY (03/21/2023 2:43 PM CDT) Case Report Dermatopathology Report Case: [id number] Authorizing Provider: Lanette Torres MD Collected: 03/21/2023 02:43 PM Ordering Location: [facility] DermPath Lab Received: 03/22/2023 01:56 PM [...] specimen consists of a shave biopsy measuring [id number] mm. Jar 0. 12:48 PM CDT DERMATOPATHOLOGY [...] characteristic determined by the Dermatopathology Laboratory at [facility], directed by Dr. Ligia Delaney. These tests need not be, and therefore are not, approved by the [place] Food and Drug Administration. The tests are used for clinical purposes. Billing Codes Specimen Charges Stain Charges 95963 1 12:48 PM CDT DERMATOPATHOLOGY LABORATORY Embedded Images 12:48 PM CDT DERMATOPATHOLOGY LABORATORY Pathology/Cytolo gy TISSUE SPECIMEN FROM SKIN / Unknown 03/21/2023 2:43 PM CDT 03/22/2023 1:56 PM CDT us Lanette Torres MD LAB - PATHOLOGY/CYTOLOGY ORD ERABLES Final Result DERMATOPATHOLOGY LABORATORY [facility] - Department of Dermatology [address] [place] [address], [facility] [phone] documented in this encounter Visit Diagnoses Not on filedocumented in this encounter
--- OUTSIDE RECORDS SUMMARY | 2025-01-16 15:24 | XMS_ITS | Continuity of Care Document ---
Author Organization [facility] Address [address] [place] [address] Phone Care Team Providers Care Extrusion Supervisor Name Role Phone Yuval Jerome MD Unavailable [...] Diagnoses Date Provider Providers Copied on Encounter [facility], [address], [place], [address], [place] tel:[phone] [facility] No Information 5 Queenie Barakat. [address] [place], [place], [id number] . tel: [phone] OFFICE/OUTPA TIENT VISIT EST [facility], [address] [place] [address], [address], [place] tel:[phone] [facility] Pain medication follow up (chief complaint) Other chronic painLumbago Sep-2 1-201 5 Queenie Yuval. [address] [place], [place], [id number] . tel: [phone] [facility], [address] [place] [address], [address], [place] tel:[phone] [facility] Pain medication follow up (chief complaint) Chronic pain Charlie-2 2-201 5 Queenielila Barakat. [address] [place] [address], [id number] . tel: [phone] [facility], [address] [place] [address], [address], [place] tel:[phone] [facility] Pain medication follow up (chief complaint) Chronic painLumbago Mar-2 3-201 5 Queenielila Barakat. [address] [place] [address], [id number] . tel: [phone] [facility], [address] [place] [address], [address], [place] tel:[phone] [facility] Pain medication follow up (chief complaint) Chronic pain Dec-2 2-201 4 Queenielila Barakat. [address] [place], [place], [id number] . tel: [phone] OFFICE/OUTPA TIENT VISIT EST [facility], [address] [place] [address], [address], [place] tel:[phone] [facility] Pain medication follow up (chief complaint) Chronic painLumbago Sep-2 2-201 4 Queenielila Barakat. [address] [place], [place], [id number] . tel: [phone] OFFICE/OUTPA TIENT VISIT [facility], [address], [address], [place] tel:[phone] [facility] Pain medication follow up (chief complaint) Chronic painLumbago 4 Queenie Yuval. [address] [place], [place], [id number] . tel: [phone] Referring Provider: Matheus Christine, [address] [place] [address], [place], [address]. tel:[phone] OFFICE/OUTPA TIENT VISIT [facility], [address] [place] [address], [address], [place] [phone] [facility] [place] pain medication follow up (chief complaint) Chronic painLumbago Aug- 4 Queenie Yuval. [address] [place] [address], [id number] . tel: [phone] Referring Provider: Matheus Christine, [address] [place] [address], [place], [address]. tel:[phone] OFFICE/OUTPA TIENT VISIT [facility], [address] [place] [address], [address], [place] tel:[phone] [facility] [place] pain medication follow up (chief complaint) LumbagoChronic pain 3 Queenie Yuval. [address] [place] [address], [id number] . tel: [phone] Referring Provider: Matheus Christine, [address] [place] [address], [place], [address]. tel:[phone] OFFICE/OUTPA TIENT VISIT [facility], [address] [place] [address], [address], [place] tel:[phone] [facility] [place] pain medication follow up (chief complaint) Chronic painLumbago 3 Queenie Yuval. [address] [place] [address], [id number] . tel: [phone] [facility], [address] [facility] [address], [place], [address], [place] tel:[phone] [facility] chronic back pain (chief complaint) Pain, Low BackCHRONIC PAIN NEC 3 Queenie Barakat. [address] [place], [place], [id number] . tel: [phone] [facility], [address] [facility] [address], [place], [address], tel:[phone] [facility] No Information 3 Queenie Barakat. [address] [place], [place], [id number] . tel: [phone] Family History Family Member Type Diagnosis Age At Onset No Information Payers Payer name Insurance type Covered green party ID Authoriza tion(s) [employer] Open Acces s Plus [id number] [id number] Social History Type Description Quantity Date Captured [...] R elated to Chronic pain Activity as tolerated Continue medication [...]
--- OUTSIDE RECORDS SUMMARY | 2025-01-16 15:24 | XMS_ITS | Encounter Summary ---
Author Organization [facility] Address [facility] [place] [address] Care Team Providers Care Market Editor Name Role Phone Bijan Willard MD Primary Care Provider [phone] August Bedoya MD Unavailable [phone] Encounter Details Date Type Department Care Team (Late st Contact Info) Description 11/16/2018 Abstract SFL CONVERSION [address] [place] [address] , Generic ConversionMD Social History Tobacco Use Types Packs/Day Years Used Date Smoking Tobacco: Never Assessed Sex and Gender Information Value Date Recorded Sex Assigned at Not on file 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
--- OUTSIDE RECORDS SUMMARY | 2025-01-16 15:24 | XMS_ITS | Clinical Summary ---
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 Gender Identity Not on file Sexual Orientation Not on file Last Filed Vital Signs Vital Sign Reading Time Taken Comments Blood Pressure - - Pulse - - Temperature - - Respiratory Rate - - Oxygen Saturation - - Inhaled Oxygen Concentration - - Weight 80.7 kg (178 lb) 10/26/2022 1:13 PM CDT Height 175.3 cm (5' 9) 10/26/2022 1:13 PM CDT Body Mass Index [...] patient's age to complete this topic Insurance [facility] MEDICARE Care Teams Site Superintendent Relationship Specialty Start Date End Date Bijan Willard MD [address] [place] [address] PCP - General INTERNAL MEDICINE 09/26/22
--- OUTSIDE RECORDS SUMMARY | 2025-01-16 15:24 | XMS_ITS | Clinical Summary ---
Author Organization [facility] Tiana Marino Address [address] [place] [address] Care Team Providers Care Director Operations Broadcast Name Role Phone Bijan Willard MD Primary Care Provider [phone] Allergies Active Allergy Reactions Criticality Noted Date [...] 23 Active fluticasone propionate (FLONASE) 50 mcg/spray Peculiar, Suspension nasal inhaler Administer 2 Sprays in [...] STL ABSTRACTION Provider, Abstract 01/12/2025 Orders Only [facility] Oncology and Hematology - [place] [address] [place] [address] Srinath Tovar MD Chronic anemia 12/29/2024 Orders Only [facility] Oncology and Hematology - [place] [address] [place] [address] Srinath Tovar MD Chronic anemia 12/15/2024 Orders Only [facility] Oncology and Hematology - [place] [address] [place] [address] Srinath Tovar MD Chronic anemia 12/03/2024 2:15 PM CDT Office Visit [facility] Oncology and Hematology - [place] [address] [place] [address] Srinath Tovar MD Chronic anemia (Primary Dx) 12/01/2024 Orders Only [facility] Oncology and Hematology - [place] [address] [place] [address] Srinath Tovar MD Chronic anemia 11/25/2024 External Device Data STL ABSTRACTION Provider, Abstract 11/19/2024 Orders Only [facility] Oncology and Hematology - [place] [address] [place] [address] Srinath Tovar MD 11/17/2024 Orders Only [facility] Oncology and Hematology - [place] [address] [place] [address] Srinath Tovar MD Chronic anemia 11/05/2024 Orders Only [facility] Oncology and Hematology - [place] [address] [place] [phone] Srinath Tovar MD 11/04/2024 External Device Data STL ABSTRACTION Provider, Abstract 11/03/2024 Orders Only [facility] Oncology and Hematology - [place] [address] [place] [address] Srinath Tovar MD Chronic anemia 10/30/2024 External Device Data STL ABSTRACTION Provider, Abstract 10/29/2024 External Device Data STL ABSTRACTION Provider, Abstract 10/28/2024 External Device Data STL ABSTRACTION Provider, Abstract 10/20/2024 Orders Only [facility] Oncology and Hematology - [place] [address] [place] [address] Srinath Tovar MD Chronic anemia from Last [...] 175.3 cm (5' 9) 05/26/2024 3:02 PM SHEET METAL DUCT INSTALLER Body Mass Index 20.14 05/26/2024 3:02 PM SHEET METAL DUCT INSTALLER Plan of Treatment Upcoming Encounters Date Type Department Care Team (Late st Contact Info) Description 03/11/2025 2:00 PM CDT Office Visit [facility] Oncology and Hematology - [place] [address] [facility] [address] [place] [address] Srinath Tovar MD [address] [facility] [address] [place] [address] Health Maintenance Due Date Last [...] Months Insurance MEDICARE PART A AND B [facility] Care Teams Director Operations Broadcast Relationship Specialty Start Date End Date Bijan Willard MD [address] [place] [address] PCP - General Internal Medicine 06/20/24
--- OUTSIDE RECORDS SUMMARY | 2025-01-16 15:24 | XMS_ITS | Encounter Summary ---
Author Organization [facility]3] ROXANA Christine Heavy Address [address] [place] [address] Care Team Providers Care Cutting Machine Operator Helper Name Role Phone Bijan Willard MD Primary Care Provider [phone] Encounter Details Date Type Department Care Team ([facility] Contact Info) Description 01/12/2025 Orders Only [facility] Oncology and Hematology - [place] [address] [place] [address] Srinath Tovar MD [address] [place] [address] Chronic anemia Social History Tobacco Use [...] Upcoming Encounters Date Type Department Care Team ([facility] Contact Info) Description 03/11/2025 2:00 PM CDT Office Visit [facility] Oncology and Hematology - [place] [address] [place] [address] Srinath Tovar MD [address] [place] [address] documented as of this encounter Procedures Procedure Name Priority Date/Time Associated Diagnosis Comments CBC WITH AUTODIFFERENTIAL Routine 2024 10:21 AM CDT documented in this encounter Results * CBC WITH AUTODIFFERENTIAL (01/09/2025 10:21 AM CDT) Blood us Srinath Tovar MD HEMATOLOGY ORDERABLES Final Res ult documented in this encounter Visit Diagnoses Diagnosis Chronic anemia Anemia, unspecified documented in this encounter Care Teams Cutting Machine Operator Helper Relationship Specialty Start Date End Date Bijan Willard MD [address] [place] [address] PCP - General Internal Medicine 06/20/24 documented as of this encounter
--- OUTSIDE RECORDS SUMMARY | 2025-01-16 15:24 | XMS_ITS ---
Author Organization [facility] Address [address] [place] [address] Care Team Providers Care Last Scourer Name Role Phone Sherry Crane RN Unavailable [phone] Bijan Willard MD Primary Care Provider Transplant Episode Liver Recipient [facility] ([place], [place]) - [facility] Organ Received: Liver Transplanted on 08/23/2007 Marked as Active Follow-up on 08/23/2007 Liver CoordinatorSherry Crane RN Fax: N/A Email: N/A Stebbins Organ Diagnosis Organ Primary Contributory Liver Cirrhosis: [...] Fax Email Sherry Crane RN Liver Coordinator [phone] N/A N/A Meg Ardon RN Secondary Coordinator Secondary Liver Coordinator [phone] N/A N/A Sherry Crane RN Sleeve Fixer [phone] N/A N/A Graciela Keys Health Information Specialist [phone] N/A N/A Events Post-Transplant Pre-Transplant Admitted: 08/23/2007 Referred: 04/05/2007 Transplanted: 08/23/2007 Evaluation began: 7 Discharged: 08/29/2007 Center waitlisted: 7
--- OUTSIDE RECORDS SUMMARY | 2025-01-16 15:24 | XMS_ITS | Encounter Summary ---
Author Organization [facility] Address [address] [facility] [place] [address] Care Team Providers Care Property Supervisor Name Role Phone Unavailable Primary Care Provider Unavailabl e Encounter Details Date Type Department Care Team (Late st Contact Info) Description 11/08/2021 Lab Requisition [facility] DermPath Lab [address] [facility] [place] [address] Gerardo House Jr., MD [address] [address] [place] [address] Social History Tobacco Use Types Packs/Day Years Used Date Smoking Tobacco: Never Assessed Sex and Gender Information Value Date Recorded Sex Assigned at Not on file 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 Gender Identity Not on file Sexual Orientation Not on file documented as of this encounter Plan of Treatment Not on file documented as of this encounter Procedures Procedure Name Priority Date/Time Associated Diagnosis Comments DERMATOPATHOLOGY Routine 11/04/2021 12:0 0 AM CDT documented in this encounter Results * DERMATOPATHOLOGY (11/04/2021 12:00 AM CDT) Case Report Dermatopathology Report Case: [id number] Authorizing Provider: Gerardo House Jr., MD Collected: 11/04/2021 12:00 AM Ordering Location: [facility] DermPath Lab Received: 11/08/2021 09:57 AM [...] specimen consists of a shave biopsy measuring [id number], bisected. Jar 0. 2 3:50 PM CDT [...] characteristic determined by the Dermatopathology Laboratory at [facility], directed by Dr. Ligia Delaney. These tests need not be, and therefore are not, approved by the [place] Food and Drug Administration. The tests are used for clinical purposes. Billing Codes Specimen Charges Stain Charges 81255 1 2 3:50 PM CDT DERMATOPATHOLOGY LABORATORY Embedded Images 2 3:50 PM CDT DERMATOPATHOLOGY LABORATORY Pathology/Cytolog y TISSUE SPECIMEN FROM SKIN / Unknown 11/04/2021 11/08/2021 9:57 AM CDT Gerardo House Jr., MD LAB - PATHOLOGY/CYTOLOG Y ORDERABLES Final Result DERMATOPATHOLOGY LABORATORY [facility] - Department of Dermatology [address] [phone] documented in this encounter Visit Diagnoses Not on filedocumented in this encounter
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
--- OUTSIDE RECORDS SUMMARY | 2025-01-16 15:58 | XMS_ITS | Encounter Summary ---
Author Organization [facility] Christine Kydaemos Address [address] [place] [address] Care Team Providers Care Slip Cover Cutter Name Role Phone Bijan Willard MD Primary Care Provider [phone] Encounter Details Date Type Department Care Team ([facility] Contact Info) Description 01/12/2025 Orders Only [facility] Oncology and Hematology - [place] [address] [place] [address] Srinath Tovar MD [address] [place] [phone] Chronic anemia Social History Tobacco Use [...] Encounters Date Type Department Care Team ([facility] Contact Info) Description 03/11/2025 2:00 PM CDT Office Visit [facility] Oncology and Hematology - [place] [address] [place] [address] Srinath Tovar MD [address] [place] [address] documented as of this encounter Procedures Procedure Name Priority Date/Time Associated Diagnosis Comments CBC WITH AUTODIFFERENTIAL Routine 2024 10:21 AM CDT documented in this encounter Results * CBC WITH AUTODIFFERENTIAL (01/09/2025 10:21 AM CDT) Blood us Srinath Tovar MD HEMATOLOGY ORDERABLES Final Res ult documented in this encounter Visit Diagnoses Diagnosis Chronic anemia Anemia, unspecified documented in this encounter Care Teams Slip Cover Cutter Relationship Specialty Start Date End Date Bijan Willard MD [address] [place] [address] PCP - General Internal Medicine 06/20/24 documented as of this encounter
--- OUTSIDE RECORDS SUMMARY | 2025-01-16 15:58 | XMS_ITS | Clinical Summary ---
Author Organization [facility] Tiana Marino Address [address] [place] [address] Care Team Providers Care Supervisor Dry Paste Name Role Phone Bijan Willard MD Primary Care Provider [phone] Allergies Active Allergy Reactions Criticality Noted Date [...] 23 Active fluticasone propionate (FLONASE) 50 mcg/spray [place], Suspension nasal inhaler Administer 2 Sprays in [...] STL ABSTRACTION Provider, Abstract 01/12/2025 Orders Only [facility] Oncology and Hematology - [place] [address] [place] [phone] Srinath Tovar MD Chronic anemia 12/29/2024 Orders Only [facility] Oncology and Hematology - [place] [address] [place] [phone] Srinath Tovar MD Chronic anemia 12/15/2024 Orders Only [facility] Oncology and Hematology - [place] [address] [place] [address] Srintah Tovar MD Chronic anemia 12/03/2024 2:15 PM CDT Office Visit [facility] Oncology and Hematology - [place] [address] [place] [address] Srinath Tovar MD Chronic anemia (Primary Dx) 12/01/2024 Orders Only [facility] Oncology and Hematology - [place] [address] [place] [address] Srinath Tovar MD Chronic anemia 11/25/2024 External Device Data STL ABSTRACTION Provider, Abstract 11/19/2024 Orders Only [facility] Oncology and Hematology - [place] [address] [place] [address] Srinath Tovar MD 11/17/2024 Orders Only [facility] Oncology and Hematology - [place] [address] [place] [address] Srinath Tovar MD Chronic anemia 11/05/2024 Orders Only [facility] Oncology and Hematology - [place] [address] [place] [phone] Srinath Tovar MD 11/04/2024 External Device Data STL ABSTRACTION Provider, Abstract 11/03/2024 Orders Only [facility] Oncology and Hematology - [place] [address] [place] [address] Srinath Tovar MD Chronic anemia 10/30/2024 External Device Data STL ABSTRACTION Provider, Abstract 10/29/2024 External Device Data STL ABSTRACTION Provider, Abstract 10/28/2024 External Device Data STL ABSTRACTION Provider, Abstract 10/20/2024 Orders Only [facility] Oncology and Hematology - [place] [address] [place] [address] Srinath Tovar MD Chronic anemia from Last [...] 175.3 cm (5' 9) 05/26/2024 3:02 PM PRODUCT SAFETY TESTER Body Mass Index 20.14 05/26/2024 3:02 PM PRODUCT SAFETY TESTER Plan of Treatment Upcoming Encounters Date Type Department Care Team (Late st Contact Info) Description 03/11/2025 2:00 PM CDT Office Visit [facility] Oncology and Hematology - [place] [address] [facility] [address] [place] [address] Srinath Tovar MD [address] [facility] [address] [place] [address] Health Maintenance Due Date Last [...] Months Insurance MEDICARE PART A AND B [facility] Care Teams Supervisor Dry Paste Relationship Specialty Start Date End Date Bijan Willard MD [address] [place] [address] PCP - General Internal Medicine 06/20/24
--- OUTSIDE RECORDS SUMMARY | 2025-01-16 15:58 | XMS_ITS | Clinical Summary ---
Author Organization 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
--- OUTSIDE RECORDS SUMMARY | 2025-01-16 15:58 | XMS_ITS | Encounter Summary ---
Author Organization [facility] Address [address] [place] [address] Care Team Providers Care Sales Consultant Insurance Name Role Phone Unavailable Primary Care Provider Unavailabl e Encounter Details Date Type Department Care Team (Late st Contact Info) Description 11/08/2021 Lab Requisition [facility] [address] [facility] [facility] [place] [address] Gerardo House Jr., MD [address] [place] [address] Social History Tobacco Use Types Packs/Day Years Used Date Smoking Tobacco: Never Assessed Sex and Gender Information Value Date Recorded Sex Assigned at Not on file 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] specimen consists of a shave biopsy measuring [id number], bisected. Jar 0. 2 3:50 PM CDT [...] characteristic determined by the Dermatopathology Laboratory at [facility], directed by Dr. Ligia Delaney. These tests need not be, and therefore are not, approved by the [place] Food and Drug Administration. The tests are used for clinical purposes. Billing Codes Specimen Charges Stain Charges 37284 1 2 3:50 PM CDT DERMATOPATHOLOGY LABORATORY Embedded Images 2 3:50 PM CDT DERMATOPATHOLOGY LABORATORY Pathology/Cytolog y TISSUE SPECIMEN FROM SKIN / Unknown 11/04/2021 11/08/2021 9:57 AM CDT Gerardo House Jr., MD LAB - PATHOLOGY/CYTOLOG Y ORDERABLES Final Result DERMATOPATHOLOGY LABORATORY [facility] - Department of Dermatology [address] [phone] documented in this encounter Visit Diagnoses Not on filedocumented in this encounter
--- OUTSIDE RECORDS SUMMARY | 2025-01-16 15:58 | XMS_ITS ---
Author Organization [facility] Address [address] [place] [address] Care Team Providers Care Supervisor Frame Assembly Name Role Phone Sherry Crane RN Unavailable [phone] Bijan Willard MD Primary Care Provider [phone] Transplant Episode Liver Recipient [facility] ([place], [place]) - [facility] Organ Received: Liver Transplanted on 08/23/2007 Marked as Active Follow-up on 08/23/2007 Liver CoordinatorSherry Crane RN Fax: N/A Email: N/A [place] Organ Diagnosis Organ Primary Contributory Liver Cirrhosis: [...] Fax Email Sherry Crane RN Liver Coordinator [phone] N/A N/A Meg Ardon RN Secondary Coordinator Secondary Liver Coordinator [phone] N/A N/A Sherry Crane RN Transport Corps Officer [phone] N/A N/A Graciela Keys Direct Support Professional Caregiver [phone] N/A N/A Events Post-Transplant Pre-Transplant Admitted: 08/23/2007 Referred: 04/05/2007 Transplanted: 08/23/2007 Evaluation began: 7 Discharged: 08/29/2007 Center waitlisted: 7
--- OUTSIDE RECORDS SUMMARY | 2025-01-16 15:58 | XMS_ITS | Continuity of Care Document ---
Author Organization [facility] Address [address] [place] [address] Phone Care Team Providers Care Pack Worker Name Role Phone Travis Jolly MD Unavailable [...] Diagnoses Date Provider Providers Copied on Encounter [facility], [address], [place], [place], [address] [place] [address] , tel: [phone] [facility] No Information 7 Rik Robles. [address] [place] [address], [facility] [address] , [place], [place], [address] [place] [address] , . tel: [phone] [facility], [address], [place], [place], [address] , tel: [phone] [facility] No Information 6 Rik Robles. [address] [place] [address], [facility] [address] , [place], [address] [place] [address] , . tel: [phone] [facility], [address], [place], [place], [id number] , tel: [phone] [facility] No Information 6 Rik Robles. [address] [place] [address], [address], [place], [place], [address] , . tel: [phone] [facility], [address], [place], [place], [address] , tel: [phone] [facility] Pulmonary emphysema, unspecified emphysema typeChronic midline low back pain without sciaticaLiver transplantedS/P unilateral BKA (below knee amputation), right 6 Rik Robles. [address] [place] [address], [address] , [place], [address] [place] [address] , . tel: [phone] Referring Provider: Travis Jolly, [address] [place] [address] [address], [place], [address] . tel:[phone] [facility], [address], [place], [place], [address] , tel: [phone] [facility] Pain of amputation stump of right lower extremityGait disturbanceSkin callus 6 Ismael Briana. [address] [place] [address], [address], [place], [place], [address] . tel: [phone] Referring Provider: Travis Jolly, [address] [place] [address] [address], [place], [address] . tel:[phone] [facility], [address], [place], [place], [address] , tel: [phone] [facility] Chronic bilateral low back pain without sciaticaEssential hypertensionPulmonary emphysema, unspecified emphysema typeScreening for prostate cancer 6 Rik Robles. [address] [place] [address], [address], [place], [place], [address] , . tel: [phone] Referring Provider: Travis Jolly, [address] [place] [address] [address], [place], [address] . tel:[phone] [facility], [address], [place], [place], [address] , tel: [phone] [facility] No Information 6 Rik Robles. [address] [place] [address], [address], [place], [place], [address] , . tel: [phone] [facility], [address], [place], [place], [address] , tel: [phone] [facility] Essential hypertensionChronic low back painUncomplicated opioid dependencePulmonary emphysema, unspecified emphysema typeS/P unilateral below knee amputation, rightLiver transplanted 6 Rik Robles. [address] [place] [address], [address], [place], [place], [address] , . tel: [phone] Referring Provider: Travis Jolly, [address] [place] [address] [address], [place], [address] . tel:[phone] [facility], [address], [place], [place], [address] , tel: [phone] [facility] Chronic low back painEssential hypertensionLiver transplanted 5 Rik Robles. [address] [place] [address], [address], [place], [address] [place] [address] , . tel: [phone] Referring Provider: Travis Jolly, [address] [place] [address] [address], [place], [address] [place] [address] . tel:[phone] [facility], [address], [place], [address] [place] [address] , tel: [phone] [facility] No Information 5 Rik Robles. [address] [place] [address], [address], [place], [address] [place] [address] , . tel: [phone] [facility], [address], [place], [address] [place] [address] , tel: [phone] [facility] No Information 5 Lashon Prescott. [address] [place] [address], [address] , [place], [address] [place] [address] , . tel: [phone] [facility], [address], [place], [address] [place] [address] , tel: [phone] [facility] ROUTINE MEDICAL EXAMChronic airway obstruction, not elsewhere classifiedEsophageal refluxComplications of transplanted liverUnspecified essential hypertensionOsteoarth rosis, unspecified whether generalized or localized, involving unspecified siteOsteoporosis, unspecifiedCalculus of kidneyStatus post amputation below knee 5 Lashon Prescott. [address] [place] [address], [address] , [place], [address] [place] [address] , . tel: [phone] Referring Provider: Travis Jolly, [address] [place] [address] [address] , [place], [address] [place] [address] . tel:[phone] Family History Family Member Type Diagnosis Age [...] tion(s) [employer] INACTIVE OUT OF STATE BL [id number] MEDICARE [place] [id number] Social History Type Description Quantity Date Captured [...]
--- OUTSIDE RECORDS SUMMARY | 2025-01-16 15:58 | XMS_ITS | Encounter Summary ---
Author Organization [facility] Address [facility] [place] [address] Care Team Providers Care Risk Management Intern Name Role Phone Bijan Willard MD Primary Care Provider [phone] August Bedoya MD Unavailable [phone] Encounter Details Date Type Department Care Team (Late st Contact Info) Description 11/16/2018 Abstract [facility] CONVERSION [address] [place] [address] , Generic ConversionMD Social History Tobacco Use Types Packs/Day Years Used Date Smoking Tobacco: Never Assessed Sex and Gender Information Value Date Recorded Sex Assigned at Not on file 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
--- OUTSIDE RECORDS SUMMARY | 2025-01-16 15:58 | XMS_ITS | Encounter Summary ---
Author Organization [facility] Address [address] [facility] [place] [address] Care Team Providers Care Manager Clinical Pharmacy Name Role Phone Unavailable Primary Care Provider Unavailabl e Encounter Details Date Type Department Care Team (Late st Contact Info) Description 03/21/2023 Lab Requisition [facility] - DermPath Lab [address] [facility] [place] [address] Lanette Torres MD [address] [facility] [address] [place] [address] Social History Tobacco Use Types Packs/Day Years Used Date Smoking Tobacco: Never Assessed Sex and Gender Information Value Date Recorded Sex Assigned at Not on file 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 Gender Identity Not on file Sexual Orientation Not on file documented as of this encounter Plan of Treatment Not on file documented as of this encounter Procedures Procedure Name Priority Date/Time Associated Diagnosis Comments DERMATOPATHOLOGY Routine 03/21/2023 2:43 PM CDT documented in this encounter Results * DERMATOPATHOLOGY (03/21/2023 2:43 PM CDT) Case Report Dermatopathology Report Case: [id number] Authorizing Provider: Lanette Torres MD Collected: 03/21/2023 02:43 PM Ordering Location: [facility] DermPath Lab Received: 03/22/2023 01:56 PM [...] specimen consists of a shave biopsy measuring [id number] mm. Jar 0. 12:48 PM CDT DERMATOPATHOLOGY [...] determined by the Dermatopathology Laboratory at [facility], directed by Dr. Ligia Delaney. These tests need not be, and therefore are not, approved by the [place] Food and Drug Administration. The tests are used for clinical purposes. Billing Codes Specimen Charges Stain Charges 32516 1 12:48 PM CDT DERMATOPATHOLOGY LABORATORY Embedded Images 12:48 PM CDT DERMATOPATHOLOGY LABORATORY Pathology/Cytolo gy TISSUE SPECIMEN FROM SKIN / Unknown 03/21/2023 2:43 PM CDT 03/22/2023 1:56 PM CDT us Lanette Torres MD LAB - PATHOLOGY/CYTOLOGY ORD ERABLES Final Result DERMATOPATHOLOGY LABORATORY [facility] - Department of Dermatology [address] [place] [address], [facility] [phone] documented in this encounter Visit Diagnoses Not on filedocumented in this encounter
--- OUTSIDE RECORDS SUMMARY | 2025-01-16 15:58 | XMS_ITS | Clinical Summary ---
Author Organization [facility] Address [address] [place] [address] Care Team Providers Care Entertainment Manager Name Role Phone Unavailable Primary Care Provider Unavailabl e Source Comments [facility],non-owned Affiliates and Associated Physician Practices is amultiple site organization consisting of ambulatory clinics and hospital sitesin [place], [place], [place] and [place]. This disclosure is being madepursuant to the Care Everywhere program and may not contain all information available regarding this patient. 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
--- OUTSIDE RECORDS SUMMARY | 2025-01-16 15:58 | XMS_ITS | Clinical Summary ---
Author Organization [facility] Address [address] [place] [address] Care Team Providers Care Mobile Application Tester Name Role Phone Sherry Crane RN Unavailable [phone] Bijan Willard MD Primary Care Provider [phone] Allergies No known active allergies Medications albuterol [...] 1 tablet (25 mg total) by mouth md allergy immunology before breakfast 06/27/19 23 Active cholecalciferol (VITAMIN [...] this dose. Take 15 tablets by mouth md allergy immunology before breakfast Indications: severe chronic pain requiring [...] 1 tablet (81 mg total) by mouth md allergy immunology before breakfast 09/18/19 08 Active sodium bicarbonate [...] be different from the original. Labs at [facility] in [facility] ph [phone]. Meds: Jarod Bradleychfield ph [phone] Lab Name:[facility] Timeframe orders are good for: 1 year Last orders sent to lab on: 07/07/24 Test ordered for the standing order and frequency every 2 weeks Problem Noted Date Diagnosed Date Chronic kidney disease (CKD), stage V 10/16/2024 Anemia 05/28/2023 Assessment & Plan (05/28/2023 8:29 AM WOODENWARE ASSEMBLER): - R/T chronic disease - monitor Chronic pain 05/27/2023 Assessment & Plan (05/28/2023 2:06 PM WOODENWARE ASSEMBLER): Per patient he is on methadone 150 mg daily and is following with the clinic - Confirmed dose on 05/28, continue home dose. Assessment & Plan (05/28/2023 8:29 AM WOODENWARE ASSEMBLER): Patient has a h/o drug abuse, has been on methadone for ~8-9 years. - continue methadone 50mg daily - Acute pain management with PRN Tylenol, oxycodone, and dilaudid - called methadone clinic x2 this AM and had to leave messages Community acquired pneumonia 05/27/2023 Assessment & Plan (05/28/2023 8:24 AM WOODENWARE ASSEMBLER): CXR from 05/26 with evidence of R lung opacities - WBC elevated on admission. - start Levaquin for CAP Pneumothorax 05/26/2023 Assessment & Plan (05/28/2023 2:04 PM WOODENWARE ASSEMBLER): In the setting of COPD and HF -COPD on 2L O2 at home presented with 1st time spontaneous Was found to have spontaneous pneumothorax, s/p chest tube S/p tube removed 05/27/23 - Stable, back to baseline and home oxygen use. -D/w Thorax Surgery on 05/28, Assessment & Plan (05/28/2023 8:24 AM WOODENWARE ASSEMBLER): Transferred from OSH for PTX. R CT placed on 05/26. - CXR from 05/27 reveals resolution of PTX. - CT removed on 05/27 - post pull CXR stable Assessment & Plan (05/26/2023 8:53 PM WOODENWARE ASSEMBLER): - 05/26: R chest tube placed at OSH, chest tube to -20 - O2 therapy Shortness of breath 05/26/2023 Overview (05/26/2023): Pt endorsed he cannot lay flat at home during sleep and he has been seeing a para machine operator though underlying reason unclear. Also, he has been on diuretic and beta-andrew and plavix and eliquis for unknown reason. Assessment & Plan (05/26/2023 6:49 PM WOODENWARE ASSEMBLER): - COPD vs cardiogenic - On diuretics and beta-andrew at home - diuretic resumed, follow up BNP Hyperkalemia 05/26/2023 Assessment & Plan (05/28/2023 2:05 PM WOODENWARE ASSEMBLER): Likely due to JAMES on CKD4 S/p lokelma 10mg q8h, lasix 40 IV x1 Nephro txp team consulted and following. K stable on 05/28, renal wants to dc/ pt home with diuretics and daily Loklema use with f/u labs locally. Assessment & Plan (05/28/2023 8:24 AM WOODENWARE ASSEMBLER): - K elevated on admission - hyperkalemia protocol initiated as per nephro recs. Assessment & Plan (05/26/2023 8:54 PM WOODENWARE ASSEMBLER): - 05/26:: K 5.6, lokelma and lasix 40, follow up [place] whole blood K - appreciate nephro recs History of below-knee amputation of right lower extremity 10/26/2022 CKD (chronic kidney disease) stage 4, GFR 15-29 ml/min 09/06/2022 Assessment & Plan (05/28/2023 2:03 PM WOODENWARE ASSEMBLER): With JAMES on CKD4 CKD attributed to [...] PCP follow-up and keep upcoming appointment with Loan Workout Officer. Also Lokelma 10 mg po daily at d/c. - Renal ultrasound, 1. Bilateral renal parenchymal thinning in keeping with chronic kidney disease, with atrophic left kidney. No hydronephrosis. 2. Nonobstructive right mid kidney stone. 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 Other contributing factors include hypertension. Based on Tacrolimus trough level to be drawn soon, I will then make additional adjustments to try and preserve renal function. Low back pain 10/25/2013 Overview (09/15/2016): LUMBAGO History of liver transplant ([facility]) 10/25/2013 Overview (09/15/2016): TRANSPLANT STATUS NOS [...] glucose) Assessment & Plan (05/27/2023 6:18 AM WOODENWARE ASSEMBLER): Advanced to carb consistent diet Assessment & Plan (05/26/2023 6:44 PM WOODENWARE ASSEMBLER): - Trend bG and A1C Degeneration of intervertebral disc of lumbar re gion 07/09/2012 Overview (09/13/2016): DDD (degenerative disc disease), lumbar Chronic obstructive pulmonary disease 07/09/2012 Overview (09/15/2016): COPD (chronic obstructive pulmonary disease) Assessment & Plan (05/28/2023 2:07 PM WOODENWARE ASSEMBLER): Complicated with spont. Pneumothorax, see above Continue inhalers and home oxygen dependent -Chronic resp failure, due to COPD and home oxygen use Assessment & Plan (05/27/2023 9:39 AM WOODENWARE ASSEMBLER): On 2L NC at home, currently at baseline Assessment & Plan (05/26/2023 6:43 PM WOODENWARE ASSEMBLER): - on home O2 and nebulizer - duo nebulizer q4h + O2 therapy History of liver transplant 10/08/2010 Assessment & Plan (05/28/2023 2:05 PM WOODENWARE ASSEMBLER): Resume tacrolimus and out pt f/u with Liver TXP clinic. Assessment & Plan (05/26/2023 6:41 PM WOODENWARE ASSEMBLER): - On prograf 2mg bid - tarco trough Encounters Date Type Department Care Team Description 12/29/2024 Telephone [facility] Transplant Liver [address] [facility] [address] Mailstop [phone] [place] [address] Sherry Crane RN Appointment/Schedules 12/19/2024 Telephone [facility] Vascular Surgery [address] [facility] [address] [place] [phone] Mohit Lira MD 12/10/2024 1:45 PM CDT Ancillary Procedure [facility] Lab at [facility] [address] [place] [address] for Advanced Medicine 8th [place] [address] [place] [address] End stage renal disease (HCC) 12/10/2024 Telephone [facility] Vascular Surgery [address] [facility] Office [address] [place] [address] Mohit Lira MD 12/05/2024 Telephone [facility] Vascular Surgery [address] [facility] Office [address] [place] [address] Mohit Lira MD 12/01/2024 Telephone [facility] Transplant Liver [address] [facility] [address] Mailstop [phone] [place] [address] Sherry Crane RN Appointment/Schedules 11/19/2024 Telephone [facility] Transplant Liver [address] [facility] [address] Mailstop [phone] [place] [address] Sherry Crane RN Appointment/Schedules 11/10/2024 Telephone [facility] Surgery [address] [facility] Floor 1 [place] [address] Mohit Lira MD 11/07/2024 7:47 AM CDT Anesthesia Event [facility] Operating Room 1 [place] [address] Nahum Wang MD Thomas, Karen D., NP 11/07/2024 7:30 AM CDT - 11/07/2024 10:35 AM CDT Surgery [facility] Operating Room 1 [place] [address] Mohit Lira MD ARTERIOVENOUS GRAFT - UPPER EXTREMITY 11/07/2024 6:01 AM CDT - 11/07/2024 1:49 PM CDT Hospital Encounter [facility] Operating Room 1 [place] [address] Mohit Lira MD Chronic kidney disease (CKD), stage V (HCC) (Primary Dx) Discharge Disposition: Discharge to home or self care 11/05/2024 Telephone [facility] Transplant Liver [address] [facility] [address] Mailstop [phone] [place] [address] Sherry Crane RN Appointment/Schedules 11/04/2024 Telephone [facility] Vascular Surgery [facility] Office Building [address] [place] [phone] Mohit Lira MD 10/30/2024 Orders Only [facility] Vascular Surgery [facility] Building 3 [address] [place] [address] Mohit Lira MD End stage renal disease (HCC) (Primary Dx) from Last 3 Months Immunizations Immunization Administration Dates Next Due Influenza, Split 07/17/2013 AutoAlert (J&J) SARS-CoV-2 Vaccination 05/18/2023 TD Preservative Free 07/17/2013 Surgical History Surgery Date Site/Laterality Comments OTHER SURGICAL HISTORY Multiple lithotripsies w/ hx of calcium oxalate stone OTHER SURGICAL HISTORY 06/11/2006 - 06/10/2007 multiple liver biopsies OTHER SURGICAL HISTORY 04/11/2023 - 05/10/2023 x2 chest tube MI LVR ALTRNSPLJ ORTHOTOPIC PRTL/WHL DON ANY AGE 106/11/2007 - 06/10/2008 Liver Transplant - Orthotopic - (Added by TW Conv) BELOW KNEE LEG AMPUTATION 06/11/1968 - 06/10/1969 Right SKIN CANCER EXCISION 2021 & 2022 VASCULAR SURGERY PROCEDURE 11/07/2024 Arm Upper/Left Procedure: ARTERIOVENOUS GRAFT - UPPER EXTREMITY; Surgeon: Mohit Lira MD; Location: [facility] OR POD 3; Service: Vascular; Laterality: Left; [...] Dr Ernie weinberg Hx Other Medical 02 Buncher Machine /Surgeon: Dr Kaiser Hx Other Medical 03 [...] on file Legal Sex Male 1:02 AM WOODENWARE ASSEMBLER Gender Identity Not on file Sexual Orientation [...] 05/22/2019, 01/2018 Medical Devices Implanted Type Area [employer] D[employer] Car Device Identifier Shelf Expiration Date Model / Serial / Lot Wl [employer] Aurora Intering 4-7mm 45cm 38cm Radial Support Stretch Line [id number] - [id number] - [id number] Implanted:Qty: 1 on 11/07/2024 by Mohit Lira MD at [facility] Left: Arm W[employer] [id number] 07/28/2029 [id number] / [id number] / Procedures Procedure Name Priority Date/Time Associated Diagnosis Comments US HEMODIALYSIS ACCESS Schedule Routine, Read Routine (OP Routine) 12/10/2024 3:32 PM CDT End stage renal disease (HCC) XR CHEST 1 VIEW ED Urgent/IP Urgent 11/07/2024 11:45 AM CDT MI AN PROCEDURE PLACEHOLDER Routine 11/07/2024 9:16 AM CDT MI AN CENTRAL LINE SINGLE LUMEN Routine 11/07/2024 9:16 AM CDT MI AN PROCEDURE PLACEHOLDER Routine 11/07/2024 9:15 AM CDT MI AN PROCEDURE PLACEHOLDER Routine 11/07/2024 9:14 AM CDT MI AN PROCEDURE PLACEHOLDER Routine 11/07/2024 9:12 AM CDT MI AN ELECTIVE ENDOTRACHEAL AIRWAY Routine 11/07/2024 9:12 [...] PM CDT Narrative 12/11/2024 2:18 PM CDT [facility] - Department of Vascular Surgery, Vascular Laboratory [address] [place] [address] Dialysis Access Fistula/Graft Duplex Report Patient Name: DAMIR KARIMI : 1950 (74y 2m) Gender: M Study Date: 12/10/2024 01:44:38 PM Dining Services Director: Hillary BLAIR Location: [facility] Order Provider: MOHIT LIRA Quality: Adequate [...] Value Units Velocities Value Units FINDINGS: Performing Dining Services Director: Valencia Blair RVT. [place] Arterial Inflow Normal: No evidence of arterial [...] Procedure Note Jluis Shine MD - 12/11/2024 [facility] - Department of Vascular Surgery,Vascular Laboratory [address] [place] [address] Dialysis Access Fistula/Graft Duplex Report Patient Name: DAMIR KARIMI : 1950 (74y 2m) Gender: M Study Date: 12/10/2024 01:44:38 PM Dining Services Director: Hillary BLAIR Location: [facility] Order Provider: MOHIT LIRA Quality: Adequate [...] Value Units Velocities Value Units FINDINGS: Performing Dining Services Director: Valencia Blair RVT. [place] Arterial Inflow Normal: No evidence of arterial [...] above. Electronically Signed By: Jluis Shine MD [facility] 12/11/2024 1:19:11 PM CDT us Mohit [...] MD IMG XR PROCEDURES Final Result * MI AN CENTRAL LINE SINGLE LUMEN, MI AN PROCEDURE PLACEHOLDER (11/07/2024 9:16 AM CDT) [...] ORDERABLES Edited Res ult - Final * MI AN PROCEDURE PLACEHOLDER (11/07/2024 9:15 AM CDT) Narrative Shivani Bell - 11/07/2024 9:15 AM CDT Shivani Bell 11/07/2024 9:16 AM Peripheral IV Catheter Patient location: OR End time: 11/07/2024 8:05 AM Staff: Placed by: INTERNATIONAL TRADE TEACHER: Nicole Berkowitz CRNA Preprocedure prep: Prep solution: chlorhexadine PPE: provider hat/mask and gloves PIV line: Laterality: left Site: forearm Catheter size: 22 g Technique: direct visualization Procedure details: good blood return and occlusive dressing applied Number of attempts: 1 Assessment: Events: patient tolerated procedure well with no complications Result Elder Wang MD ANESTHESIA ORDERABLES Final Resu lt * MI AN PROCEDURE PLACEHOLDER (11/07/2024 9:14 AM CDT) [...] MD ANESTHESIA ORDERABLES Final Resu lt * MI AN ELECTIVE ENDOTRACHEAL AIRWAY, MI AN PROCEDURE PLACEHOLDER (11/07/2024 9:12 AM CDT) [...] K POC 5.2(H) 3.3 - 4.9 mmol/L [facility] Comment: Interpretive Data Not all point of care methods assess for hemolysis. Confirm with instrument and retest K+ if not consistent with clinical signs and symptoms. Current Interpretive Data was last revised on 2023. Glucose, POC 83 70 - 199 mg/dL [facility] Hct, POC 30.0(L) 41.4 - 51.6 % [facility] Total Hb, POC 10.1(L) 13.8 - 17.2 g/dL [facility] Blood 11/07/2024 7:35 AM CDT 11/07/2024 7:35 AM CDT Mohit Lira MD LAB POCT ORDERABLES - DEVICE Final Result [facility] [place] [address] * CT Abdomen Pelvis WO Contrast (11/08/2015 9:00 PM CDT) Anatomical Region Laterality Modality Body N/A Computed Tomogra phy 11/08/2015 9:00 PM CDT Narrative 11/09/2015 4:19 PM CDT DATE OF EXAM: Nov 08 2015 9:00PM Acc#: [id number] ECT 0073 - CT Abd/Pel WO DIAGNOSIS: [...] THE ABDOMEN AND PELVIS IS OTHERWISE UNREMARKABLE. MANAGER OF HOSPITAL: [id number] TRANSCRIBE DATE/TIME: Nov 09 2015 7:53A RADIOLOGIST: ARIELLE CARMEN M.D. READ ON: Nov 08 2015 9:16P ORDERING DR: BRENNA ROMERO M.D. THIS DOCUMENT HAS BEEN ELECTRONICALLY SIGNED BY: ARIELLE CARMEN M.D. ON: Nov 09 2015 4:19P Attending: NICOLE ORTIZ Requesting: BRENNA ROMERO Requesting Attending Attending ID: [id number] Requesting ID: [id number] Report To 1 ID: [id number] Report To 1 Name: NICOLE ORTIZ Report To 1 FAX: [phone] Report To 2 ID: Report To 2 Name: , Report To 2 FAX: -- NextGen Order #: Procedure Note Provider, MD Beatriz - 09/29/2016 DATE OF EXAM: Nov 08 2015 9:00PM Acc#: [id number] ECT 0073 - CT Abd/Pel WO DIAGNOSIS: [...] THE ABDOMEN AND PELVIS IS OTHERWISE UNREMARKABLE. MANAGER OF HOSPITAL: DH9 TRANSCRIBE DATE/TIME: Nov 09 2015 7:53A RADIOLOGIST: ARIELLE CARMEN M.D. READ ON: Nov 08 2015 9:16P ORDERING DR: BRENNA ROMERO M.D. THIS DOCUMENT HAS BEEN ELECTRONICALLY SIGNED BY: ARIELLE CARMEN M.D. ON: Nov 09 2015 4:19P Attending: NICOLE ORTIZ Requesting: BRENNA ROMERO Requesting Attending Attending ID: [id number] Requesting ID: [id number] Report To 1 ID: [id number] Report To 1 Name: NICOLE ORTIZ Report To 1 FAX: [phone] Report To 2 ID: Report To 2 Name: , Report To 2 FAX: -- NextGen Order #: Historical Provider MD HONG CT PROCEDURES Final R esult from Last 3 Months or Most Recently Relevant to Health Maintenance Insurance MEDICARE [facility] MEDICARE SUPPLEMENT MEDICARE [place] [facility] MEDICARE SUPPLEMENT Advance Directives For more information, please contact: [phone] * Full Code (Latest Code Status on File) Date Activated Date Inactivated Comments 05/26/2023 5:16 PM 05/28/2023 7:43 PM Care Teams Mobile Application Tester Relationship Specialty Start Date End Date Bijan Willard MD [address] [facility] [address] [place] [address] PCP - General Internal Medicine 09/06/22 Sherry Crane RN [address] [facility] [address] [place] [address] Transmission Superintendent 11/06/17
--- OUTSIDE RECORDS SUMMARY | 2025-01-16 15:58 | XMS_ITS | Continuity of Care Document ---
Author Organization [facility] Address [address] [facility] [address] [place] [address] Phone Care Team Providers Care Supervisor Dumping Name Role Phone Yuval Jerome MD Unavailable [...] Diagnoses Date Provider Providers Copied on Encounter [facility], [address], [place], [address], [place] tel:[phone] [facility] No Information 5 Queenie Barakat. [address] [place], [place], [id number] . tel: [phone] OFFICE/OUTPA TIENT VISIT EST [facility], [address] [place] [address], [address], [place] tel:[phone] [facility] [place] Pain medication follow up (chief complaint) Other chronic painLumbago Sep-2 1-201 5 Queenie Yuval. [address] [place], [place], [id number] . tel: [phone] [facility], [address] [place] [address], [address], [place] tel:[phone] [facility] [place] Pain medication follow up (chief complaint) Chronic pain Charlie-2 2-201 5 Queenielila Barakat. [address] [place] [address], [id number] . tel: [phone] [facility], [address] [place] [address], [address], [place] tel:[phone] [facility] [place] Pain medication follow up (chief complaint) Chronic painLumbago Mar-2 3-201 5 Queenielila Barakat. [address] [place] [address], [id number] . tel: [phone] [facility], [address] [place] [address], [address], [place] tel:[phone] [facility] [place] Pain medication follow up (chief complaint) Chronic pain Dec-2 2-201 4 Queenielila Barakat. [address] [place], [place], [id number] . tel: [phone] OFFICE/OUTPA TIENT VISIT EST [facility], [address] [place] [address], [address], [place] tel:[phone] [facility] [place] Pain medication follow up (chief complaint) Chronic painLumbago Sep-2 2-201 4 Queenielila Barakat. [address] [place], [place], [id number] . tel: [phone] OFFICE/OUTPA TIENT VISIT [facility], [address], [address], [place] tel:[phone] [facility] [place] Pain medication follow up (chief complaint) Chronic painLumbago 4 Queenie Yuval. [address] [place], [place], [id number] . tel: [phone] Referring Provider: Matheus Christine, [address] [place] [address], [place], [address]. tel:[phone] OFFICE/OUTPA TIENT VISIT [facility], [address] [place] [address], [address], [place] [phone] [facility] [place] pain medication follow up (chief complaint) Chronic painLumbago Aug- 4 Queenie Yuval. [address] [place] [address], [id number] . tel: [phone] Referring Provider: Matheus Christine, [address] [place] [address], [place], [address]. tel:[phone] OFFICE/OUTPA TIENT VISIT [facility], [address] [place] [address], [address], [place] tel:[phone] [facility] [place] pain medication follow up (chief complaint) LumbagoChronic pain 3 Queenie Yuval. [address] [place] [address], [id number] . tel: [phone] Referring Provider: Matheus Christine, [address] [place] [address], [place], [address]. tel:[phone] OFFICE/OUTPA TIENT VISIT [facility], [address] [place] [address], [address], [place] tel:[phone] [facility] [place] pain medication follow up (chief complaint) Chronic painLumbago 3 Queenie Yuval. [address] [place] [address], [id number] . tel: [phone] [facility], [address] [facility] [address], [place], [address], [place] tel:[phone] [facility] [place] chronic back pain (chief complaint) Pain, Low BackCHRONIC PAIN NEC 3 Queenie Barakat. [address] [place], [place], [id number] . tel: [phone] [facility], [address] [facility] [address], [place], [address], tel:[phone] [facility] [place] No Information 3 Queenie Barakat. [address] [place], [place], [id number] . tel: [phone] Family History Family Member Type Diagnosis Age At Onset No Information Payers Payer name Insurance type Covered democrat ID Authoriza tion(s) [employer] Open Acces s Plus E2 [id number] Social History Type Description Quantity Date Captured [...]
[2025-01-16 16:20] VITALS: BP 141/64; PULSE 60; RESP 16; TEMP 36.6; O2SAT 98
== END 2025-01-16 16:20 | disposition home or self-care (01) ==
PROVIDERS: Emergency Provider Emergency Medicine; PCP Internal Medicine
DX: S01.81XA Laceration without foreign body of other part of head, initial encounter (principal); I12.9 Hypertensive chronic kidney disease with stage 1 through stage 4 chronic kidney disease, or unspecified chronic kidney disease; N18.4 Chronic kidney disease, stage 4 (severe); Z87.891 Personal history of nicotine dependence; Z79.01 Long term (current) use of anticoagulants; W26.8XXA Contact with other sharp object(s), not elsewhere classified, initial encounter
CPT/HCPCS: 99282

== ENCOUNTER 2025-03-09 13:32 | Outpatient (CLI) | payer MEDICARE, SELFPAY ==
--- OUTSIDE RECORDS SUMMARY | 2015-03-08 08:43 | XMS_ITS | Continuity of Care Document ---
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 5 a day. OxyContin 40 mg tablet,crush resistant,extend ed release take 1 tablet by oral route every 8 hours 40 MG - Active 30 day supply LISINOPRIL (unknown strength) Not Available - Active NORVASC (unknown strength) Not Available - Active PROGRAF (unknown strength) Not Available - Active albuterol (bulk) Powder - Active oxycodone 15 mg tablet take 1 - 2 Tablet by oral route every 6 hours 15 MG - No Longer Active 2 week supply. 5 a day. Do Not Fill prior to 03/17/15 Procedures Procedure Date OFFICE/OUTPATIENT VISIT EST OFFICE/OUTPATIENT VISIT EST OFFICE/OUTPATIENT VISIT EST OFFICE/OUTPATIENT VISIT EST OFFICE/OUTPATIENT VISIT EST OFFICE/OUTPATIENT VISIT EST Advance Directives Directive Yes / No Effective Date File Name No Information Encounters Encounter Description Practice Location Reason(s) For Visit Diagnoses Date Provider Providers Copied on Encounter [facility], [address], [place], [address], [place] tel:[phone] [facility] No Information 5 Queenie Barakat. [address] [place], [place], [id number] . tel: [phone] OFFICE/OUTPA TIENT VISIT EST [facility], [address] [place] [address], [address], [place] tel:[phone] [facility] [place] Pain medication follow up (chief complaint) Other chronic painLumbago Sep-2 1-201 5 Queenie Yuval. [address] [place], [place], [id number] . tel: [phone] [facility], [address] [place] [address], [address], [place] tel:[phone] [facility] [place] Pain medication follow up (chief complaint) Chronic pain Charlie-2 2-201 5 Queenielila Barakat. [address] [place] [address], [id number] . tel: [phone] [facility], [address] [place] [address], [address], [place] tel:[phone] [facility] [place] Pain medication follow up (chief complaint) Chronic painLumbago Mar-2 3-201 5 Uqeenielila Barakat. [address] [place] [address], [id number] . tel: [phone] [facility], [address] [place] [address], [address], [place] tel:[phone] [facility] [place] Pain medication follow up (chief complaint) Chronic pain Dec-2 2-201 4 Queenielila Barakat. [address] [place], [place], [id number] . tel: [phone] OFFICE/OUTPA TIENT VISIT EST [facility], [address] [place] [address], [address], [place] tel:[phone] [facility] [place] Pain medication follow up (chief complaint) Chronic painLumbago Sep-2 2-201 4 Queenielila Barakat. [address] [place], [place], [id number] . tel: [phone] OFFICE/OUTPA TIENT VISIT [facility], [address], [address], [place] tel:[phone] [facility] [place] Pain medication follow up (chief complaint) Chronic painLumbago 4 Queenie Yuval. [address] [place], [place], [id number] . tel: [phone] Referring Provider: Matheus Christine, [address] [place] [address], [place], [address]. tel:[phone] OFFICE/OUTPA TIENT VISIT [facility], [address] [place] [address], [address], [place] [phone] [facility] [place] pain medication follow up (chief complaint) Chronic painLumbago Aug- 4 Queenie Yuval. [address] [place] [address], [id number] . tel: [phone] Referring Provider: Matheus Christine, [address] [place] [address], [place], [address]. tel:[phone] OFFICE/OUTPA TIENT VISIT [facility], [address] [place] [address], [address], [place] tel:[phone] [facility] [place] pain medication follow up (chief complaint) LumbagoChronic pain 3 Queenie Yuval. [address] [place] [address], [id number] . tel: [phone] Referring Provider: Matheus Christine, [address] [place] [address], [place], [address]. tel:[phone] OFFICE/OUTPA TIENT VISIT [facility], [address] [place] [address], [address], [place] tel:[phone] [facility] [place] pain medication follow up (chief complaint) Chronic painLumbago 3 Queenie Yuval. [address] [place] [address], [id number] . tel: [phone] [facility], [address] [facility] [address], [place], [address], [place] tel:[phone] [facility] [place] chronic back pain (chief complaint) Pain, Low BackCHRONIC PAIN NEC 3 Queenie Barakat. [address] [place], [place], [id number] . tel: [phone] [facility], [address], [place], [address], tel:[phone] [facility] [place] No Information 3 Queenie Barakat. [address] [place], [place], [id number] . tel: [phone] Family History Family Member Type Diagnosis Age At Onset No Information Payers Payer name Insurance type Covered libertarian ID Authoriza tion(s) [employer] Fund Open Acces s Plus E2 OT [id number] Social History Type Description Quantity Date Captured Comments Alcohol Use Details Unknown Caffeine Use Details Unknown Tobacco Use Status Smoking Status No Information Sex Male Chief Complaint And Reason For Visit No Information Reason For Referral Reason For Referral No Information History Of Present Illness Encounter Date Complaint History Of Prese nt Illness Pain medication follow up He rep orts that his analgesia is fair. Medicines are not causing any ill effects. Activity level is stable. There has been no aberrant behavior. Pain at its worst is 8/10. Pain at its best is 3/10. Bowel function is normal. Sleep is fair. Patient takes 3 a day of oxycontin 60 mg and 6 a day of oxycodone 15 mg.Morphine Equivalent Dose: 405 mgLast dose taken: 03/01/2015 Pain medication follow up He rep orts that his analgesia is good. Medicines are not causing any ill effects. Activity level is stable. There has been no aberrant behavior. Pain at its worst is 7/10. Pain at its best is 4/10. Bowel function is normal. Sleep is good. Patient takes 3 a day of oxycontin 60 and 6-7 a day of oxycodone 15 mg.Morphine Equivalent Dose: 405 mgLast dose taken: 11/30/2014 Pain medication follow up He rep orts that his analgesia is fair. Medicines are not causing any ill effects. Activity level is increased. There has been no aberrant behavior. Pain at its worst is 8/10. Pain at its best is 4/10. Bowel function is normal. Sleep is good. Patient takes 3 a day of Oxycontin 60 mg and 6-7 a day of oxycodone 15 mg.Morphine Equivalent Dose: 405 mgLast dose taken: 08/31/2014 Pain medication follow up He rep orts that his analgesia is good. Medicines are not causing any ill effects. Activity level is increased. There has been no aberrant behavior. Pain at its worst is 8/10. Pain at its best is 3/10. Bowel function is normal. Sleep is good. Patient takes 3 a day Oxycontin 60 mg and 6-7 a day oxycodone 15mg.Morphine Equivalent Dose: 427 mg Pain medication follow up He rep orts that his analgesia is fair. Medicines are not causing any ill effects. Activity level is increased. There has been no aberrant behavior. Pain at its worst is 7/10. Pain at its best is 6/10. Bowel function is normal. Sleep is poor. Increased pain the last few days. Maybe lawn mowing. Pain medication follow up He rep orts that his analgesia is fair. Medicines are not causing any ill effects. Activity level is increased. There has been no aberrant behavior. Pain at its worst is 6/10. Pain at its best is 3/10. Bowel function is normal. Sleep is fair. Functional Status Date Functional Assessmen t No Information Instructions Date Instruction Additional Infor vlad Take medication as prescribed. R elated to Chronic pain Avoid prolonged bed rest. Relate d to Chronic pain Activity as tolerated. Related t o Chronic pain Take medication as prescribed. R elated to Chronic pain Avoid prolonged bed rest. Relate d to Chronic pain Activity as tolerated. Related t o Chronic pain Take medication as prescribed. R elated to Chronic pain Avoid prolonged bed rest. Relate d to Chronic pain Activity as tolerated. Related t o Chronic pain Activity as tolerated Continue medication as prescribe d Activity as tolerated Continue medication as prescribe d Activity as tolerated Elevated BP discusse d with the patient today and recommended for patient to follow up with their PCP Assessments Type Assessment Date No Information Patient Care Teams Name Effective Dates (start - stop) Status Members No Information
--- OUTSIDE RECORDS SUMMARY | 2016-10-04 08:43 | XMS_ITS | Continuity of Care Document ---
Author Organization [facility] Address [address] [place] [address] Phone Care Team Providers Care Rack Cleaner Name Role Phone Travis Jolly MD Unavailable Unavailable Allergies, Adverse Reactions, Alerts Substance Reaction Status Criticality No Known Drug Allergies Active No I nformation Medications Medication Instructions Dosage Effective Dates (start - stop) Status Comments LISINOPRIL 10MG TABLETS TAKE ONE TABLET BY MOUTH DAILY 10 MG - No Longer Active amlodipine 10 mg tablet take 1 tablet by oral route every day 10 MG No Longer Active oxycodone 15 mg tablet take 1 tablet by oral route 5 times every day as needed - No Longer Active M19.90 OxyContin 60 mg tablet,crush resistant,extende d release take 1 tablet by oral route 3 times daily No Longer Active dx:M19.90 prednisone 10 mg tablet take 1 tablet by oral route every day 10 MG No Longer Active Anoro Ellipta 62.5 mcg-25 mcg/actuation powder for inhalation inhale 1 puff by inhalation route every day at the same time each day 1.00 puff No Longer Active lisinopril 10 mg tablet take 1 tablet by oral route every day 10 MG - No Longer Active Prograf 1 mg capsule take 2 capsules by oral route 2 times every day No Longer Active ranitidine 150 mg tablet take 1 tablet by oral route 2 times every day as needed No Longer Active Ventolin HFA 90 mcg/actuation aerosol inhaler inhale 2 puff by inhalation route every 4 hours as needed - No Longer Active Advance Directives Directive Yes / No Effective Date File Name No Information Encounters Encounter Description Practice Location Reason(s) For Visit Diagnoses Date Provider Providers Copied on Encounter [facility], [address], [place], [place], [address] [place] [address] , tel: [phone] [facility] No Information 7 Rik Robles. [address] [place] [address], [facility] [address] , [place], [place], [address] [place] [address] , . tel: [phone] [facility], [address], [place], [place], [id number] , tel: [phone] [facility] No Information 6 Rik Robles. [address] [place] [address], [facility] [address] , [place], [address] [place] [address] , . tel: [phone] [facility], [address], [place], [place], [id number] , tel: [phone] [facility] No Information 6 Rik Robles. [address] [place] [address], [address], [place], [place], [id number] , . tel: [phone] [facility], [address], [place], [place], [address] , tel: [phone] [facility] Pulmonary emphysema, unspecified emphysema typeChronic midline low back pain without sciaticaLiver transplantedS/P unilateral BKA (below knee amputation), right 6 Rik Robles. [address] [place] [address], [address] , [place], [place], [address] [place] [address] , . tel: [phone] Referring Provider: Travis Jolly, [address] [place] [address] [address], [place], [address] . tel:[phone] [facility], [address], [place], [place], [address] , tel: [phone] [facility] Pain of amputation stump of right lower extremityGait disturbanceSkin callus 6 Ismael Briana. [address] [place] [address], [address], [place], [place], [id number] . tel: [phone] Referring Provider: Travis Jolly, [address] [place] [address] [address], [place], [address] . tel:[phone] [facility], [address], [place], [place], [address] , tel: [phone] [facility] Chronic bilateral low back pain without sciaticaEssential hypertensionPulmonary emphysema, unspecified emphysema typeScreening for prostate cancer 6 Rik Robles. [address] [place] [address], [address], [place], [place], [address] , . tel: [phone] Referring Provider: Travis Jolly, [address] [place] [address] [address], [place], [address] . tel:[phone] [facility], [address], [place], [place], [address] , tel: [phone] [facility] No Information 6 Rik Robles. [address] [place] [address], [address], [place], [place], [address] , . tel: [phone] [facility], [address], [place], [place], [address] , tel: [phone] [facility] Essential hypertensionChronic low back painUncomplicated opioid dependencePulmonary emphysema, unspecified emphysema typeS/P unilateral below knee amputation, rightLiver transplanted 6 Rik Robles. [address] [place] [address], [address], [place], [place], [address] , . tel: [phone] Referring Provider: Travis Jolly, [address] [place] [address] [address], [place], [address] . tel:[phone] [facility], [address], [place], [place], [address] , tel: [phone] [facility] Chronic low back painEssential hypertensionLiver transplanted 5 Rik Robles. [address] [place] [address], [address], [place], [address] [place] [address] , . tel: [phone] Referring Provider: Travis Jolly, [address] [place] [address] [address], [place], [address] [place] [address] . tel:[phone] [facility], [address], [place], [address] [place] [address] , tel: [phone] [facility] No Information 5 Rik Robles. [address] [place] [address], [address], [place], [address] [place] [address] , . tel: [phone] [facility], [address], [place], [address] [place] [address] , tel: [phone] [facility] No Information 5 Lashon Prescott. [address] [place] [address], [address] , [place], [address] [place] [address] , . tel: [phone] [facility], [address], [place], [address] [place] [address] , tel: [phone] [facility] ROUTINE MEDICAL EXAMChronic airway obstruction, not elsewhere classifiedEsophageal refluxComplications of transplanted liverUnspecified essential hypertensionOsteoarth rosis, unspecified whether generalized or localized, involving unspecified siteOsteoporosis, unspecifiedCalculus of kidneyStatus post amputation below knee 5 Lashon Prescott. [address] [place] [address], [address] , [place], [address] [place] [address] , . tel: [phone] Referring Provider: Travis Jolly, [address] [place] [address] [address] , [place], [address] [place] [address] . tel:[phone] Family History Family Member Type Diagnosis Age At Onset Father Problem (finding) osteoarthritis 82 Father Problem (finding) coronary arterioscleros is 82 Father Problem (finding) malignant neop lasm of lung (Cause Of ) Father Problem (finding) Obesity 82 Mother Problem (finding) asthma Sister Problem (finding) asthma Mother Problem (finding) malignant neop lasm of lung (Cause Of ) Father Problem (finding) hypertension 82 Payers Payer name Insurance type Covered republican ID Authoriza tion(s) BCBS INACTIVE OUT OF STATE BL [id number] MEDICARE [place] [id number] Social History Type Description Quantity Date Captured Comments Sex Male Smoking Status No Information Chief Complaint And Reason For Visit No Information Reason For Referral Reason For Referral No Information History Of Present Illness Encounter Date Complaint History Of Prese nt Illness No Information Functional Status Date Functional Assessmen t No Information Instructions Date Instruction Additional Infor mation No Information Assessments Type Assessment Date No Information Patient Care Teams Name Effective Dates (start - stop) Status Members No Information
--- OUTSIDE RECORDS SUMMARY | 2025-03-09 14:00 | XMS_ITS ---
Author Organization [facility] Address [address] [place] [address] Care Team Providers Care Credit Portfolio Manager Name Role Phone Sherry Crane RN Unavailable [phone] Bijan Willard MD Primary Care Provider [phone] Transplant Episode Liver Recipient [facility] ([place], [place]) - [facility] Organ Received: Liver Transplanted on 08/23/2007 Marked as Active Follow-up on 08/23/2007 Liver CoordinatorSherry Crane RN Fax: N/A Email: N/A [place] Organ Diagnosis Organ Primary Contributory Liver Cirrhosis: [...] Fax Email Sherry Crane RN Liver Coordinator [phone] N/A N/A [place] Pepe RN Secondary Coordinator Secondary Liver Coordinator N/A N/A N/A Sherry Crane RN Valve Seater Operator [phone] N/A N/A Graciela Keys Sawsmith [phone] N/A N/A Events Post-Transplant Pre-Transplant Admitted: 08/23/2007 Referred: 04/05/2007 Transplanted: 08/23/2007 Evaluation began: 7 Discharged: 08/29/2007 Center waitlisted: 7 Appointments (02/06/2025 - 04/08/2025) When With Visit Type Description 02/18/2025 Transplant - Mark Rizvi Return History of liver transplant (HCC) (Primary Dx)
--- OUTSIDE RECORDS SUMMARY | 2025-03-09 14:00 | XMS_ITS | Encounter Summary ---
Author Organization [facility] Address [address] [place] [address] Care Team Providers Care Facility Service Manager Name Role Phone Unavailable Primary Care Provider Unavailabl e Encounter Details Date Type Department Care Team (Late st Contact Info) Description 03/21/2023 Lab Requisition [facility] - DermPath Lab [address] [place] [address] Lanette Torres MD [address] [place] [address] Social History Tobacco Use Types Packs/Day Years Used Date Smoking Tobacco: Never Assessed Sex and Gender Information Value Date Recorded Sex Assigned at Not on file 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 Gender Identity Not on file Sexual Orientation Not on file documented as of this encounter Plan of Treatment Not on file documented as of this encounter Procedures Procedure Name Priority Date/Time Associated Diagnosis Comments DERMATOPATHOLOGY Routine 03/21/2023 2:43 PM CDT documented in this encounter Results * DERMATOPATHOLOGY (03/21/2023 2:43 PM CDT) Case Report Dermatopathology Report Case: [id number] Authorizing Provider: Lanette Torres MD Collected: 03/21/2023 02:43 PM Ordering Location: [facility] DermPath Lab Received: 03/22/2023 [...] specimen consists of a shave biopsy measuring [id number] mm. Jar 0. 12:48 PM CDT DERMATOPATHOLOGY [...] characteristic determined by the Dermatopathology Laboratory at [facility], directed by Dr. Ligia Delaney. These tests need not be, and therefore are not, approved by the [place] Food and Drug Administration. The tests are used for clinical purposes. Billing Codes Specimen Charges Stain Charges 00163 1 12:48 PM CDT DERMATOPATHOLOGY LABORATORY Embedded Images 12:48 PM CDT DERMATOPATHOLOGY LABORATORY Pathology/Cytolo gy TISSUE SPECIMEN FROM SKIN / Unknown 03/21/2023 2:43 PM CDT 03/22/2023 1:56 PM CDT us Lanette Torres MD LAB - PATHOLOGY/CYTOLOGY ORD ERABLES Final Result DERMATOPATHOLOGY LABORATORY [facility] - Department of Dermatology [address] [place] [address], [facility] [phone] documented in this encounter Visit Diagnoses Not on filedocumented in this encounter
--- OUTSIDE RECORDS SUMMARY | 2025-03-09 14:00 | XMS_ITS | Clinical Summary ---
Author Organization [facility] Address [address] [place] [address] Care Team Providers Care Auction Clerk Name Role Phone Unavailable Primary Care Provider Unavailabl e Source Comments [facility],non-owned Affiliates and Associated Physician Practices is amultiple site organization consisting of ambulatory clinics and hospital sitesin [place], [place], [place] and [place]. This disclosure is being madepursuant to the Care Everywhere program and may not contain all information available regarding this patient. 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
--- OUTSIDE RECORDS SUMMARY | 2025-03-09 14:00 | XMS_ITS | Encounter Summary ---
Author Organization [facility] Address [address] [place] [address] Care Team Providers Care Equipment Monitor Phototypesetting Name Role Phone Unavailable Primary Care Provider Unavailabl e Encounter Details Date Type Department Care Team (Late st Contact Info) Description 11/08/2021 Lab Requisition [facility] DermPath Lab [address] [place] [address] Gerardo House Jr., MD [address] [place] [address] Social History Tobacco Use Types Packs/Day Years Used Date Smoking Tobacco: Never Assessed Sex and Gender Information Value Date Recorded Sex Assigned at Not on file 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 Gender Identity Not on file Sexual Orientation Not on file documented as of this encounter Plan of Treatment Not on file documented as of this encounter Procedures Procedure Name Priority Date/Time Associated Diagnosis Comments DERMATOPATHOLOGY Routine 11/04/2021 12:0 0 AM CDT documented in this encounter Results * DERMATOPATHOLOGY (11/04/2021 12:00 AM CDT) Case Report Dermatopathology Report Case: [id number] Authorizing Provider: Gerardo House Jr., MD Collected: 11/04/2021 12:00 AM Ordering Location: [facility] DermPath Lab Received: 11/08/2021 09:57 AM Pathologist: [...] specimen consists of a shave biopsy measuring [id number], bisected. Jar 0. 2 3:50 PM CDT [...] characteristic determined by the Dermatopathology Laboratory at [facility], directed by Dr. Ligia Delaney. These tests need not be, and therefore are not, approved by the [place] Food and Drug Administration. The tests are used for clinical purposes. Billing Codes Specimen Charges Stain Charges 21942 1 2 3:50 PM CDT DERMATOPATHOLOGY LABORATORY Embedded Images 2 3:50 PM CDT DERMATOPATHOLOGY LABORATORY Pathology/Cytolog y TISSUE SPECIMEN FROM SKIN / Unknown 11/04/2021 11/08/2021 9:57 AM CDT Gerardo House Jr., MD LAB - PATHOLOGY/CYTOLOG Y ORDERABLES Final Result DERMATOPATHOLOGY LABORATORY [facility] - Department of Dermatology [address] [phone] documented in this encounter Visit Diagnoses Not on filedocumented in this encounter
--- OUTSIDE RECORDS SUMMARY | 2025-03-09 14:00 | XMS_ITS | Clinical Summary ---
Author Organization [facility] Tiana Marino Address [address] [place] [address] Care Team Providers Care Airveyor Operator Name Role Phone Bijan Willard MD Primary Care Provider [phone] Allergies Active Allergy Reactions Criticality Noted Date [...] 23 Active fluticasone propionate (FLONASE) 50 mcg/spray [place], Suspension nasal inhaler Administer 2 Sprays in [...] Encounters Date Type Department Care Team Description 03/09/[address] [facility] Oncology and Hematology - [address] [place] [address] Srinath Tovar MD Chronic anemia 02/24/2025 External Device Data [facility] ABSTRACTION Provider, Abstract 02/23/[address] [facility] Oncology and Hematology - [place] [address] [place] [address] Srinath Tovar MD Chronic anemia 02/17/2025 External Device Data [facility] ABSTRACTION Provider, Abstract 02/10/[address] [facility] Oncology and Hematology - [address] [place] [address] Srinath Tovar MD 02/09/[address] [facility] Oncology and Hematology - [place] [address] [place] [address] Srinath Tovar MD Chronic anemia 01/27/2025 External Device Data [facility] ABSTRACTION Provider, Abstract 01/26/[address] [facility] Oncology and Hematology - [place] [address] [place] [address] Srinath Tovar MD Chronic anemia 01/13/2025 External Device Data [facility] ABSTRACTION Provider, Abstract 01/12/2025 Orders [facility] Oncology and Hematology - [place] [address] [place] [address] Srinath Tovar MD Chronic anemia 12/29/[address] [facility] Oncology and Hematology - [address] [place] [address] Srinath Tovar MD Chronic anemia 12/15/[address] [facility] Oncology and Hematology - [place] [address] [place] [address] Srinath Tovar MD Chronic anemia from Last [...] 175.3 cm (5' 9) 05/26/2024 3:02 PM SEBD TEACHER Body Mass Index 20.14 05/26/2024 3:02 PM SEBD TEACHER Plan of Treatment Upcoming Encounters Date Type Department Care Team (Late st Contact Info) Description 03/11/2025 2:00 PM CDT Office Visit [facility] Oncology and Hematology - [address] [place] [address] Srinath Tovar MD [address] [address] Health Maintenance Due Date Last Done [...] Diagnosis Comments CBC WITH AUTODIFFERENTIAL Routine 2024 12:48 PM CDT CBC WITH AUTODIFFERENTIAL Routine 2024 9:01 AM CDT CBC WITH AUTODIFFERENTIAL Routine 2024 12:54 PM CDT CBC WITH AUTODIFFERENTIAL Routine 2024 10:21 AM CDT from Last 3 Months Results * CBC WITH AUTODIFFERENTIAL (02/20/2025 12:48 PM CDT) Only the most recent of4 resultswithin the time period is included. Blood Srinath Tovar MD HEMATOLOGY ORDERABLES Final Res ult from Last 3 Months Insurance MEDICARE PART A AND B [facility] SU[facility] Care Teams Airveyor Operator Relationship Specialty Start Date End Date Bijan Willard MD [address] [place] [address] PCP - General Internal Medicine 06/20/24
--- OUTSIDE RECORDS SUMMARY | 2025-03-09 14:00 | XMS_ITS | Clinical Summary ---
Author Organization [facility] Address [address] [place] [address] Care Team Providers Care Hand Bunch Maker Name Role Phone Sherry Crane RN Unavailable [phone] Bijan Willard MD Primary Care Provider [phone] Allergies No known active allergies Medications albuterol HFA (PROAIR HFA) 90 mcg/actuation inhaler Two puffs four times per day prn 1 5 01/21/20 09 Active Additional Information Patient taking differently:90 mcginhalation Every 6 hours PRN, shortness of breath, wheezing, Indications: Chronic Obstructive Pulmonary Disease, Reported on 02/18/2025 calcitRIOL (ROCALTROL) 0.25 mcg capsuleIndications: Vitamin D Deficiency,hypocalc emia Take 1 capsule (0.25 mcg total) by mouth daily 08/05/19 23 Active hydroCHLOROthiazide (HYDRODIURIL) 25 mg tabletIndications:h ypertension Take 1 tablet (25 mg total) by mouth security checker before breakfast 06/27/19 23 Active cholecalciferol (VITAMIN D-3) 2000 unit tablet Take 1 tablet (2,000 Units total) by mouth daily 30 tablet 11 09/30/19 23 Active Additional Information Patient taking differently:2,000 Units oralDaily (early AM), Indications: Vitamin D Deficiency, Reported on 02/18/2025 furosemide (LASIX) 20 mg tablet Take 1 tablet (20 mg total) by mouth daily 30 tablet 05/29/20 23 Active Additional Information Patient taking differently:20 mg oralDaily (early AM), Indications: Edema, hypertension, Reported on 02/18/2025 methadone (DOLOPHINE) 10 mg tabletIndications:s bianca chronic pain requiring long-term opioid treatment,called out pt clinic ) and confirmed this dose. Take 15 tablets by mouth security checker before breakfast Indications: severe chronic pain requiring long-term opioid treatment, called out pt clinic ( [phone] ) and confirmed this dose. 05/29/20 Active metoprolol tartrate (LOPRESSOR) 25 mg immediate release tablet Take 0.5 tablets (12.5 mg total) by mouth daily 15 tablet 05/29/20 23 Active Additional Information Patient taking differently:12.5 mg oral2 times daily, Indications: Atrial Arrhythmia, hypertension, Reported on 02/18/2025 aspirin 81 mg enteric coated tabletIndications:p revention of thrombosis Take 1 tablet (81 mg total) by mouth security checker before breakfast 09/18/19 08 Active sodium bicarbonate [...] Prevention of Liver Transplant Rejection, Reported on 02/18/2025 albuterol 2.5 mg /3 mL (0.083 %) [...] be different from the original. Labs at [facility] in [facility] ph [phone]. Meds: [place] ph [phone] Lab Name:[facility] Timeframe orders are good for: 1 year Last orders sent to lab on: 07/07/24 Test ordered for the standing order and frequency every 2 weeks Problem Noted Date Diagnosed Date Chronic kidney disease (CKD), stage V 10/16/2024 Anemia 05/28/2023 Assessment & Plan (05/28/2023 8:29 AM MECHANICAL DESIGN ENGINEER FACILITIES): - R/T chronic disease - monitor Chronic pain 05/27/2023 Assessment & Plan (05/28/2023 2:06 PM MECHANICAL DESIGN ENGINEER FACILITIES): Per patient he is on methadone 150 mg daily and is following with the clinic - Confirmed dose on 05/28, continue home dose. Assessment & Plan (05/28/2023 8:29 AM MECHANICAL DESIGN ENGINEER FACILITIES): Patient has a h/o drug abuse, has been on methadone for ~8-9 years. - continue methadone 50mg daily - Acute pain management with PRN Tylenol, oxycodone, and dilaudid - called methadone clinic x2 this AM and had to leave messages Community acquired pneumonia 05/27/2023 Assessment & Plan (05/28/2023 8:24 AM MECHANICAL DESIGN ENGINEER FACILITIES): CXR from 05/26 with evidence of R lung opacities - WBC elevated on admission. - start Levaquin for CAP Pneumothorax 05/26/2023 Assessment & Plan (05/28/2023 2:04 PM MECHANICAL DESIGN ENGINEER FACILITIES): In the setting of COPD and HF -COPD on 2L O2 at home presented with 1st time spontaneous Was found to have spontaneous pneumothorax, s/p chest tube S/p tube removed 05/27/23 - Stable, back to baseline and home oxygen use. -D/w Thorax Surgery on 05/28, Assessment & Plan (05/28/2023 8:24 AM MECHANICAL DESIGN ENGINEER FACILITIES): Transferred from OSH for PTX. R CT placed on 05/26. - CXR from 05/27 reveals resolution of PTX. - CT removed on 05/27 - post pull CXR stable Assessment & Plan (05/26/2023 8:53 PM MECHANICAL DESIGN ENGINEER FACILITIES): - 05/26: R chest tube placed at OSH, chest tube to -20 - O2 therapy Shortness of breath 05/26/2023 Overview (05/26/2023): Pt endorsed he cannot lay flat at home during sleep and he has been seeing a manager advanced though underlying reason unclear. Also, he has been on diuretic and beta-andrew and plavix and eliquis for unknown reason. Assessment & Plan (05/26/2023 6:49 PM MECHANICAL DESIGN ENGINEER FACILITIES): - COPD vs cardiogenic - On diuretics and beta-andrew at home - diuretic resumed, follow up BNP Hyperkalemia 05/26/2023 Assessment & Plan (05/28/2023 2:05 PM MECHANICAL DESIGN ENGINEER FACILITIES): Likely due to JAMES on CKD4 S/p lokelma 10mg q8h, lasix 40 IV x1 Nephro txp team consulted and following. K stable on 05/28, renal wants to dc/ pt home with diuretics and daily Loklema use with f/u labs locally. Assessment & Plan (05/28/2023 8:24 AM MECHANICAL DESIGN ENGINEER FACILITIES): - K elevated on admission - hyperkalemia protocol initiated as per nephro recs. Assessment & Plan (05/26/2023 8:54 PM MECHANICAL DESIGN ENGINEER FACILITIES): - 05/26:: K 5.6, lokelma and lasix 40, follow up MN whole blood K - appreciate nephro recs History of below-knee amputation of right lower extremity 10/26/2022 CKD (chronic kidney disease) stage 4, GFR 15-29 ml/min 09/06/2022 Assessment & Plan (05/28/2023 2:03 PM MECHANICAL DESIGN ENGINEER FACILITIES): With JAMES on CKD4 CKD attributed to [...] PCP follow-up and keep upcoming appointment with Flight Follower. Also Lokelma 10 mg po daily at d/c. - Renal ultrasound, 1. Bilateral renal parenchymal thinning in keeping with chronic kidney disease, with atrophic left kidney. No hydronephrosis. 2. Nonobstructive right mid kidney stone. 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 Other contributing factors include hypertension. Based on Tacrolimus trough level to be drawn soon, I will then make additional adjustments to try and preserve renal function. Low back pain 10/25/2013 Overview (09/15/2016): LUMBAGO History of liver transplant [facility]) 10/25/2013 Overview (09/15/2016): TRANSPLANT STATUS NOS Assessment [...] glucose) Assessment & Plan (05/27/2023 6:18 AM MECHANICAL DESIGN ENGINEER FACILITIES): Advanced to carb consistent diet Assessment & Plan (05/26/2023 6:44 PM MECHANICAL DESIGN ENGINEER FACILITIES): - Trend bG and A1C Degeneration of intervertebral disc of lumbar re gion 07/09/2012 Overview (09/13/2016): DDD (degenerative disc disease), lumbar Chronic obstructive pulmonary disease 07/09/2012 Overview (09/15/2016): COPD (chronic obstructive pulmonary disease) Assessment & Plan (05/28/2023 2:07 PM MECHANICAL DESIGN ENGINEER FACILITIES): Complicated with spont. Pneumothorax, see above Continue inhalers and home oxygen dependent -Chronic resp failure, due to COPD and home oxygen use Assessment & Plan (05/27/2023 9:39 AM MECHANICAL DESIGN ENGINEER FACILITIES): On 2L NC at home, currently at baseline Assessment & Plan (05/26/2023 6:43 PM MECHANICAL DESIGN ENGINEER FACILITIES): - on home O2 and nebulizer - duo nebulizer q4h + O2 therapy History of liver transplant 10/08/2010 Assessment & Plan (05/28/2023 2:05 PM MECHANICAL DESIGN ENGINEER FACILITIES): Resume tacrolimus and out pt f/u with Liver TXP clinic. Assessment & Plan (05/26/2023 6:41 PM MECHANICAL DESIGN ENGINEER FACILITIES): - On prograf 2mg bid - tarco trough Encounters Date Type Department Care Team Description 02/24/2025 Telephone [facility] Transplant Liver [address] [facility] [address] [phone] [place] [address] Sherry Crane RN Appointment/Schedul es 02/19/2025 Documentation [facility] Transplant Liver [address] [facility] [address] [phone] [place] [address] Sherry Crane RN Clinic Visit Follow Up 02/18/2025 10:30 AM CDT Office Visit [facility] Medicine Gastroenterology [facility] 12th [place] [address] [place] [phone] Mara Rizvi MD History of liver transplant (HCC) (Primary Dx) 01/29/2025 Documentation [facility] Transplant Liver [address] [facility] [address] Mail[address] [phone] [place] [address] Sherry Crane RN Appointment/Schedul es 01/28/2025 Documentation [facility] Transplant Liver [address] [facility] [address] Mail[address] [phone] [place] [address] Sherry Crane RN Appointment/Schedul es 01/22/2025 Telephone [facility] Transplant Liver [address] [facility] [address] Mail[address] -[phone] [place] [address] Sherry Crane, RN Appointment/Schedul es 12/29/2024 Telephone [facility] Transplant Liver [address] [facility] [address] Mail[address] [phone] [place] [address] Sherry Crane, RN Appointment/Schedul es 12/19/2024 Telephone [facility] Medicine Vascular Surgery [address] [facility] Medical Office [address] [place] [phone] Mohit Lira MD 12/10/2024 1:45 PM CDT Ancillary Procedure [facility] Medicine Vascular Lab at the [facility] [address] [place] [address] [facility] 8th [place] [address] [place] [address] End stage renal disease (HCC) 12/10/2024 Telephone [facility] Medicine Vascular Surgery [address] [facility] Medical Office Building [address] [place] [address] Mohit Lira MD from Last 3 Months Immunizations Immunization Administration Dates Next Due Influenza, Split 07/17/2013 [employer] (J[employer]J) SARS-CoV-2 Vaccination 05/18/2023 TD Preservative Free 07/17/2013 Surgical History Surgery Date Site/Laterality Comments OTHER SURGICAL HISTORY 1999' Multiple lithotripsies w/ hx of calcium oxalate stone OTHER SURGICAL HISTORY 06/11/2006 - 06/10/2007 multiple liver biopsies OTHER SURGICAL HISTORY 04/11/2023 - 05/10/2023 x2 chest tube ID LVR ALTRNSPLJ ORTHOTOPIC PRTL/WHL DON ANY AGE 106/11/2007 - 06/10/2008 Liver Transplant - Orthotopic - (Added by Conv) BELOW KNEE LEG AMPUTATION 06/11/1968 - 06/10/1969 Right SKIN CANCER EXCISION 2021 & 2022 VASCULAR SURGERY PROCEDURE 11/07/2024 Arm Upper/Left Procedure: ARTERIOVENOUS GRAFT - UPPER EXTREMITY; Surgeon: Mohit Lira MD; Location: [facility]; Service: Vascular; Laterality: [...] Dr Ernie weinberg Hx Other Medical 02 Survey Director /Surgeon: Dr Kaiser Hx Other Medical 03 [...] on file Legal Sex Male 1:02 AM MECHANICAL DESIGN ENGINEER FACILITIES Gender Identity Not on file Sexual Orientation Not on file Obstetrics History Last Filed Vital Signs Vital Sign Reading Time Taken Comments Blood Pressure 115/48 02/18/2025 10:45 AM CDT Pulse 56 02/18/2025 10:45 AM CDT Temperature 37.1 C (98.7 F) 02/18/2025 10:45 AM CDT Respiratory Rate 14 11/07/2024 12:50 PM CDT Oxygen Saturation 92% 02/18/2025 10:45 AM CDT Inhaled Oxygen Concentration - - Weight 64.9 kg (143 lb) 11/07/2024 6:29 AM CDT Height 175.3 cm (5' 9) 02/18/2025 10:45 AM CDT Body Mass Index 21.12 10/17/2024 11:10 AM CDT Plan of Treatment Health Maintenance Due Date Last Done Comments Colon Cancer Screening-Colonoscopy 1950 Depression Screening 1950 Hepatitis B Screening 1968 DTaP/Tdap/Td Vaccine (1 - Tdap) 07/18/2013 4 Well Visit 65+ 09/17/2015 Zoster Vaccine (2 of 2) 11/09/2023 09/14/2023 Covid-19 Vaccine (5 - 2024-2 6 season) 2025 05/18/2023, 06/21/2021, 08/04/2020, Additional history exists Influenza Vaccine (#1) 2025 3, 05/22/2019, 05/17/2018, Additional history exists Fall Risk Assessment 11/07/2025 11/07/2024 Abdominal Aortic Aneurysm (A AA) Screen Completed 11/08/2015 Hepatitis C Screening Completed 11/23/2015 , 11/21/2015, 11/03/2015, Additional history exists Pneumococcal vaccine 65+ Completed 05/22/2019, 01/2018 Medical Devices Implanted Type Area Aerotriangulation Specialist Device Identifier Shelf Expiration Date Model / Serial / Lot [employer] [place] Intering 4-7mm 45cm 38cm Radial Support Stretch Line [id number] - [id number] - [id number] Implanted:Qty: 1 on 11/07/2024 by Mohit Lira MD at [facility] Left: Arm [employer] [id number] 07/28/2029 [id number] / [id number] / Procedures Procedure Name Priority Date/Time Associated Diagnosis Comments US HEMODIALYSIS ACCESS Schedule Routine, Read Routine (OP Routine) 12/10/2024 3:32 PM CDT End stage renal disease (HCC) CT ABDOMEN PELVIS WO CONTRAST Routine 11/08/2015 9:00 PM CDT from Last 3 Months or Most Recently Relevant to Health Maintenance Results * US Hemodialysis Access (12/10/2024 3:32 PM CDT) Anatomical Region Laterality Modality Vascular N/A Ultrasound 12/10/2024 1:44 PM CDT Narrative 12/11/2024 2:18 PM CDT [facility] - Department of Vascular Surgery, Vascular Laboratory [address] [place] [address] Dialysis Access Fistula/Graft Duplex Report Patient Name: DAMIR KARIMI : 1950 (74y 2m) Gender: M Study Date: 12/10/2024 01:44:38 PM Upholstery Bundler: Hillary BLAIR [facility] Value Units Velocities Value Units FINDINGS: Performing Upholstery Bundler: Valencia Blair RVT. [place] Arterial Inflow Normal: No evidence of arterial [...] Procedure Note Jluis Shine MD - 12/11/2024 [facility] - Department of Vascular Surgery,Vascular Laboratory [address] [place] [id number] Dialysis Access Fistula/Graft Duplex Report Patient Name: DAMIR KARIMI : 1950 (74y 2m) Gender: M Study Date: 12/10/2024 01:44:38 PM Upholstery Bundler: Hillary BLAIR [facility] Value Units Velocities Value Units FINDINGS: Performing Upholstery Bundler: Valencia Blair RVT. [place] Arterial Inflow Normal: No evidence of arterial [...] is provided above. Electronically Signed By: Jluis Sihne MD [facility] 12/11/2024 1:19:11 PM CDT us Mohit Lira MD IMG US PROCEDURES Final Resul t * CT Abdomen Pelvis WO Contrast (11/08/2015 9:00 PM CDT) Anatomical Region Laterality Modality Body N/A Computed Tomogra phy 11/08/2015 9:00 PM CDT Narrative 11/09/2015 4:19 PM CDT DATE OF EXAM: Nov 08 2015 9:00PM Acc#: [id number] ECT 0073 - CT Abd/Pel WO DIAGNOSIS: [...] THE ABDOMEN AND PELVIS IS OTHERWISE UNREMARKABLE. PARTS ORDER AND STOCK CLERK: [id number] TRANSCRIBE DATE/TIME: Nov 09 2015 7:53A RADIOLOGIST: ARIELLE CARMEN M.D. READ ON: Nov 08 2015 9:16P ORDERING DR: BRENNA ROMERO M.D. THIS DOCUMENT HAS BEEN ELECTRONICALLY SIGNED BY: ARIELLE CARMEN M.D. ON: Nov 09 2015 4:19P Attending: NICOLE ORTIZ Requesting: BRENNA ROMERO Requesting Attending Attending ID: [id number] Requesting ID: [id number] Report To 1 ID: [id number] Report To 1 Name: NICOLE ORTIZ Report To 1 FAX: [phone] Report To 2 ID: Report To 2 Name: , Report To 2 FAX: -- NextGen Order #: Procedure Note Provider, MD Beatriz - 09/29/2016 DATE OF EXAM: Nov 08 2015 9:00PM Acc#: [id number] ECT 0073 - CT Abd/Pel WO DIAGNOSIS: [...] THE ABDOMEN AND PELVIS IS OTHERWISE UNREMARKABLE. PARTS ORDER AND STOCK CLERK: Cory TRANSCRIBE DATE/TIME: Nov 09 2015 7:53A RADIOLOGIST: ARIELLE CARMEN M.D. READ ON: Nov 08 2015 9:16P ORDERING DR: BRENNA ROMERO M.D. THIS DOCUMENT HAS BEEN ELECTRONICALLY SIGNED BY: ARIELLE CARMEN M.D. ON: Nov 09 2015 4:19P Attending: NICOLE ORTIZ Requesting: BRENNA ROMERO Requesting Attending Attending ID: [id number] Requesting ID: [id number] Report To 1 ID: [id number] Report To 1 Name: NICOLE ORTIZ Report To 1 FAX: [phone] Report To 2 ID: Report To 2 Name: , Report To 2 FAX: -- NextGen Order #: us Historical Provider MD HONG CT PROCEDURES Final R esult from Last 3 Months or Most Recently Relevant to Health Maintenance Insurance MEDICARE [employer] MEDICARE SUPPLEMENT MEDICARE [facility] MEDICARE SUPPLEMENT Advance Directives For more information, please contact: [phone] * Full Code (Latest Code Status on File) Date Activated Date Inactivated Comments 05/26/2023 5:16 PM 05/28/2023 7:43 PM Care Teams Hand Bunch Maker Relationship Specialty Start Date End Date Bijan Willard MD [address] [facility] [address] [place] [address] PCP - General Internal Medicine 09/06/22 Sherry Crane, RN [address] [facility] [address] [place] [address] Mining Plant Operator 11/06/17
--- OUTSIDE RECORDS SUMMARY | 2025-03-09 14:00 | XMS_ITS | Encounter Summary ---
Author Organization [facility] Address Formerly [facility] [place] [address] Care Team Providers Care Draw Operator Name Role Phone Bijan Willard MD Primary Care Provider [phone] August Bedoya MD Unavailable [phone] Encounter Details Date Type Department Care Team (Late st Contact Info) Description 11/16/2018 Abstract [facility]FL CONVERSION [address] [place] [address] , Generic ConversionMD Social History Tobacco Use Types Packs/Day Years Used Date Smoking Tobacco: Never Assessed Sex and Gender Information Value Date Recorded Sex Assigned at Not on file Legal Sex Male 5:58 PM 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
--- OUTSIDE RECORDS SUMMARY | 2025-03-09 14:00 | XMS_ITS | Clinical Summary ---
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 Gender Identity Not on file Sexual [...] Annual Medicare Wellness Visit 09/17/2015 COVID-19 Vaccine (2024-2 6 season) 2025 06/21/2021, 08/04/2020, 07/14/2020 Pneumococcal Vaccine: 50+ Years Completed 05/22/2019, 06/18/2017 Meningococcal B Vaccine Aged Out No l onger eligible based on patient's age to complete this topic Meningococcal Vaccine Aged Out No madan alea eligible based on patient's age to complete this topic RSV Immunizations Under 20 Months Aged Out No longer eligible b ased on patient's age to complete this topic Insurance [facility] MEDICARE Care Teams Name Plate Stamper Relationship Specialty Start Date End Date Bijan Willard MD [address] [place] [address] PCP - General INTERNAL MEDICINE 09/26/22
--- OUTSIDE RECORDS SUMMARY | 2025-03-09 14:00 | XMS_ITS | Encounter Summary ---
Author Organization [facility] Address [address] [place] [address] Care Team Providers Care Stretcher Leveler Operator Helper Name Role Phone Bijan Willard MD Primary Care Provider [phone] Encounter Details Date Type Department Care Team ([facility] Contact Info) Description 03/09/2025 Orders Only [facility] Oncology and Hematology - Carl [address] [place] [address] Srinath Tovar MD [address] [facility] [address] [place] [address] Chronic anemia Social History Tobacco Use [...] Upcoming Encounters Date Type Department Care Team ([facility] Contact Info) Description 03/11/2025 2:00 PM CDT Office Visit [facility] Oncology and Hematology - Carl [address] [place] [address] Srinath Tovar MD [address] [facility] [address] [place] [address] documented as of this encounter Visit Diagnoses Diagnosis Chronic anemia Anemia, unspecified documented in this encounter Care Teams Stretcher Leveler Operator Helper Relationship Specialty Start Date End Date Bijan Willard MD [address] [place] [id number] PCP - General Internal Medicine 06/20/24 documented as of this encounter
[2025-03-09 14:05] LABS: Hematocrit 25.4 % (37.0-46.0); Hemoglobin 7.9 g/dL (12.4-15.3); Immature Granulocyte Percent A 0.4 % (0.0-0.0); Immature Platelet Fraction Pct 4.6 % (1.0-7.0); Lymphocytes Absolute Auto 1.21 K/mm3 (1.10-4.50); Mean Corpuscular HGB Conc 31.1 g/dL (32-36); Mean Corpuscular Hemoglobin 32.5 pg (27.0-31.0); Mean Corpuscular Volume 104.5 fL (78.0-102.0); Nucleated Red Blood Cells Absolute Auto 0.00 K/mm3 (0.00-0.00); Nucleated Red Blood Cells Perc 0.0 % (0-0.0); Platelet Count Result 132 K/mm3 (150-420); Red Blood Count 2.43 M/mm3 (4.70-6.10); White Blood Count 5.3 K/mm3 (4.8-10.8)
[2025-03-09 14:22] LABS: Alanine Aminotransferase 9 U/L (6-50); Albumin Level 3.7 g/dL (3.5-5.1); Alkaline Phosphatase 58 U/L (38-126); Anion Gap 15 mmol/L (4-12); Aspartate Amino Transferase 16 U/L (17-59); Bilirubin,Total 0.6 mg/dL (0.2-1.3); Blood Urea Nitrogen 79 mg/dL (9-20); Calcium 8.7 mg/dL (8.4-10.2); Carbon Dioxide 25 mmol/L (22-30); Chloride 103 mmol/L (98-107); Estimated Glomerular Filt Rate 8; GGT < 10.0 U/L (15-73); Glucose 65 mg/dL (65-110); Osmolality Calculated 317 mOsm/kg (285-295); Potassium 4.9 mmol/L (3.4-5.0); Sodium 143 mmol/L (137-145); Total Protein 6.2 g/dL (6.3-8.2)
[2025-03-12 05:08] LABS: Tacrolimus (FK506), Blood 3.8 ng/mL (5.0-20.0)
== END 2025-03-09 13:33 | disposition home or self-care (01) ==
LOC: CHSLAB 13:35
PROVIDERS: PCP Internal Medicine; Visit Provider Internal Medicine Hematology & Oncology
DX: D64.9 Anemia, unspecified (principal)
CPT/HCPCS: 36415; 80053; 80197; 82977; 85025; 85055

== ENCOUNTER 2025-03-30 13:01 | Outpatient (CLI) | payer MEDICARE, SELFPAY ==
[2025-03-30 13:30] LABS: Total Protein Urine Random 48 mg/dL; Ur Ttl Prot Creatinine Ratio 1.15 mg/mg (0-0.20)
[2025-03-30 13:54] LABS: Albumin Level 4.3 g/dL (3.5-5.1); Anion Gap 17 mmol/L (4-12); Blood Urea Nitrogen 96 mg/dL (9-20); Calcium 9.0 mg/dL (8.4-10.2); Carbon Dioxide 22 mmol/L (22-30); Chloride 103 mmol/L (98-107); Estimated Glomerular Filt Rate 9; Glucose 73 mg/dL (65-110); Osmolality Calculated 322 mOsm/kg (285-295); Potassium 5.1 mmol/L (3.4-5.0); Sodium 142 mmol/L (137-145)
== END 2025-03-30 13:02 | disposition home or self-care (01) ==
LOC: CHSLAB 13:02
PROVIDERS: PCP Internal Medicine; Visit Provider Internal Medicine Nephrology
DX: D64.9 Anemia, unspecified (principal); Z94.4 Liver transplant status; N18.5 Chronic kidney disease, stage 5
CPT/HCPCS: 36415; 80069; 82570; 84156